=== PATIENT | male | born 1955 | race Caucasian/White ===

== ENCOUNTER 2022-10-02 15:21 | Outpatient (OUT) | payer OTHER, SELFPAY ==
[2022-10-02 15:39] LABS: Basophils Absolute Auto 0.1 10^3/uL (0.0-0.1); Basophils Percent Auto 0.8 % (0.2-2.0); Eosinophils Absolute Auto 0.4 10^3/uL (0.0-0.7); Eosinophils Percent Auto 6.8 % (0.9-7.0); Hematocrit 47.8 % (42.0-54.0); Hemoglobin 16.4 g/dL (14.0-18.0); Immature Granulocytes Abs Auto 0.02 10^3/uL (0.00-0.03); Immature Granulocytes Pct Auto 0.3 % (0.0-0.5); Lymphocytes Absolute Auto 1.5 10^3/uL (1.2-3.8); Lymphocytes Percent Auto 25.4 % (20.5-60.0); Mean Corpuscular HGB Conc 34.3 g/dL (29.9-35.2); Mean Corpuscular Volume 93.2 fL (80.0-94.0); Mean Platelet Volume 10.3 fL (9.5-13.5); Monocytes Absolute Auto 0.5 10^3/uL (0.3-0.8); Monocytes Percent Auto 8.7 % (1.7-12.0); Neutrophils Absolute Auto 3.5 10^3/uL (1.4-6.5); Platelet Count 152 10^3/uL (150-450); Red Blood Count 5.13 10^6/uL (4.70-6.10); Red Cell Distribution Width 12.2 % (11.0-15.0); White Blood Count 6.1 10^3/uL (4.0-11.0)
[2022-10-02 16:29] LABS: Alanine Aminotransferase 51 U/L (16-63); Albumin Globulin Ratio 1.1; Albumin Level 3.9 g/dL (3.4-5.0); Alkaline Phosphatase 52 U/L (46-116); Aspartate Amino Transferase 31 U/L (15-37); BUN Creatinine Ratio 8.7; Bilirubin Total 0.9 mg/dL (0.2-1.0); Calcium 9.3 mg/dL (8.5-10.1); Carbon Dioxide 29.5 mmol/L (21.0-32.0); Chloride 104 mmol/L (98-107); Chol HDL Ratio 1.9; Cholesterol 126 mg/dL (<=200); Estimated GFR (African America >60 (>=60); Estimated GFR (Non-African Ame >60 (>=60); Globulin 3.5 g/dL; Glucose 100 mg/dL (74-106); HDL Cholesterol 65 mg/dL (40-60); Potassium 4.5 mmol/L (3.5-5.1); Sodium 141 mmol/L (136-145); Total Protein 7.4 g/dL (6.4-8.2); Triglycerides 77 mg/dL (<=150); VLDL CHOLESTEROL 15.4 mg/dL
== END 2022-10-02 15:22 | disposition home or self-care (01) ==
LOC: LAB 15:25
PROVIDERS: PCP Family Medicine; Visit Provider Nurse Practitioner
DX: E78.2 Mixed hyperlipidemia (principal); I25.10 Atherosclerotic heart disease of native coronary artery without angina pectoris
CPT/HCPCS: 36415; 80053; 80061; 85025

== ENCOUNTER 2022-12-19 14:55 | Outpatient (OUT) | payer OTHER, SELFPAY ==
[2022-12-19 16:07] LABS: Prostate Specific Antigen Dx 0.76 ng/mL (<=4.00)
== END 2022-12-19 14:56 | disposition home or self-care (01) ==
LOC: LAB 14:58
PROVIDERS: PCP Family Medicine; Visit Provider Urology
DX: R97.20 Elevated prostate specific antigen [PSA] (principal)
CPT/HCPCS: 36415; 84153

== ENCOUNTER 2023-10-09 07:09 | Outpatient (OUT) | payer OTHER, SELFPAY ==
--- NOTE | 2023-10-09 | PCN_ITS ---
CARDIAC STRESS TEST Requesting Physician: Marcia Aguiar M.D. Procedure Date: 10/09/2023 PERFORMING PROVIDER: Silvano Crum M.D. INDICATION: CAD with history of stents. STRESS TEST INFORMATION: Exercise stress test with nuclear myocardial perfusion imaging. Exercise protocol: Jose Resting heart rate: 64 Max heart rate: 161 Peak maximal heart rate percentage: 98% Resting blood pressure: 142/88 Maximum blood pressure: 166/76 Exercise time: 9 minutes 51 seconds Stage reached: 4 METS: 12.9 Reason for termination: Target heart rate achieved, fatigue. Heart rate recovery: Normal. Chronotropic response index: Normal. Functional capacity: Good. Blood pressure response: Normal. ST changes: No significant ST changes meeting the criteria of ischemia. Symptoms: Fatigue, no chest pain. Arrhythmias: None observed. CONCLUSION: 1. Resting EKG demonstrates sinus rhythm with first degree AV block. 2. Patient exercised for 9 minutes and 51 seconds. He reached stage 4, with maximum METS 12.9. 3. There were no ST changes meeting the criteria for ischemia. 4. Sim treadmill score was +9, which portends a low risk of angiographically significant coronary artery disease. 5. Please refer to separately interpreted and reported nuclear myocardial perfusion imaging. MTDD
--- NOTE | 2023-10-09 07:11 | CA_ITS ---
Patient Name: GABRIEL PARDO MR#: [id number] : 1955 Exam Date: 10/09/2023 Ordering Doctor: DR Marcia Aguiar M.D. ECHOCARDIOGRAM REPORT PROCEDURE: CA ECHO DOPPLER COMPLETE INDICATIONS: Aortic valve stenosis COMPARISON: None. DESCRIPTION: COMPLETE ECHOCARDIOGRAM Real-time transthoracic echocardiography with 2D, M-mode, spectral and color flow Doppler performed. QUALITY: Technical quality was good. LEFT VENTRICLE: Normal chamber size. Mild concentric left ventricular hypertrophy. Global left ventricular systolic function is normal. LV EF: Estimated left ventricular ejection fraction is 60-65 %. DIASTOLIC: Normal diastolic function. ATRIAL SEPTUM: LEFT ATRIUM: Normal chamber size. RIGHT ATRIUM: Mild dilatation. RIGHT VENTRICLE: Normal chamber size. Normal right ventricular systolic function. TRICUSPID VALVE: Normal mobility and thickness. No stenosis with No evidence of pulmonary hypertension. RVSP 28 mmHg MITRAL VALVE: Normal mobility and thickness. No evidence of mitral valve stenosis. There is no mitral annular calcification. Trivial mitral regurgitation. AORTIC VALVE: Normal trileaflet appearance. No visible sclerosis. Normal leaflet mobility. No evidence of aortic valve stenosis. Trivial aortic regurgitation. AORTIC ROOT: Normal diameter and appearance. PULMONIC VALVE: Normal thickness and mobility. No stenosis. Trivial regurgitation. PERICARDIUM: No evidence of pericardial effusion. IVC: Collapses with inspirations. Normal size. PLEURA: CONCLUSION: 1. Mild concentric left ventricular hypertrophy with normal systolic function. Estimated LVEF is 60 to 65%. 2. Normal diastolic function. 3. Normal right ventricular size and systolic function. 4. No significant valvular dysfunction. 5. Normal right-sided pressures. 6. No pericardial effusion. Adult Echocardiography Procedure Report Left Ventricle LVEDD (3.7 - 5.6 cm): 3.23 cm LVESD (2.2 - 4.0 cm): 2.25 cm LVIVS thickness (0.6 - 1.2 cm): 1.27 cm LVPW thickness (0.5 - 1.0 cm): 1.09 cm e': 0.09 m/s E - e': 7.60 LVOT Max Gradient: 1.35 mm[Hg] LVOT Area (cm2): 0.58 m/s Peak Velocity (LVOT): 0.58 m/s Mean Velocity (LVOT): 0.46 m/s LVOT Diameter 2.04 cm Left Ventricular Ejection Fraction: 60-65 % Left Atrium LA Volume Index (2D A2C): 30.73 ml/m2 Left Atrium Systolic Dimension: 4.45 cm Mitral Valve MV E to A Ratio: 1.07 Mitral Valve A-Wave Peak Velocity: 0.63 m/s Mitral Valve E-Wave Peak Velocity: 0.68 m/s Right Ventricle RV Internal Diastolic Dimension: 3.59 cm Aorta AO Root Diam: 3.11 cm Ascending Ao Diam: 2.57 cm Aortic Valve AoV Area (Peak Jose): 1.84 cm2, 1.84 cm2 AoV Area (VTI): 1.88 cm2, 1.88 cm2 Peak Velocity(Antegrade Flow): 1.03 m/s Peak Gradient(Antegrade Flow): 4.27 mm[Hg] Mean Velocity(Antegrade Flow): 0.77 m/s Mean Gradient(Antegrade Flow): 2.65 mm[Hg] Velocity Time Integral: 26.90 cm Tricuspid Valve Peak Velocity (Regurgitant Flow): 2.08 m/s, 2.15 m/s, 2.54 m/s Pulmonic Valve Mean Gradient: 2.14 mm[Hg] Mean Velocity: 0.70 m/s Peak Velocity: 1.09 m/s, 1.15 m/s Peak Gradient: 4.71 mm[Hg], 5.31 mm[Hg] Right Atrium Right Atrium Systolic Pressure: 63.03 ml, 63.03 ml Dictated by: Driss Encinas M.D. on 10/09/2023 at 18:41 Approved by: Driss Encinas M.D. on 10/09/2023 at 18:44
--- NOTE | 2023-10-09 08:05 | NM_ITS ---
Patient Name: GABRIEL PARDO MR#: [id number] : 1955 Exam Date: 10/09/2023 Ordering Doctor: DR Marcia Aguiar M.D. RADIOLOGY REPORT PROCEDURE: NM ADELA PERF SPECT REST STR COMPARISON: None. INDICATIONS: CORONARY ARTERY DISEASE TECHNIQUE: Exam Description: Stress/Rest one day protocol gated SPECT Rest Imagin.4 mCi Tc-99m Cardiolite IV on 10/09/2023 Stress Imaging 30.2 mCi Tc-99m Cardiolite IV on 10/09/2023 Exercise Protocol: Jose Heart Rate (bpm): Rest: 64 Max: 151 PMHR: 98 Blood Pressure: Rest: 142/88 Max: 166/76 Exercise Time: Minutes: 9 Seconds: 51 Stage Reached: Stage: 4 Mets 12.9 Symptoms: Rest and peak stress ECG findings were pending and the exercise portion of the study was pending per attending physician Dr. CASTILLO . For more details please see separate cardiac stress test report. FINDINGS: QUALITY OF STUDY: Excellent. PERFUSION DEFECT: None. LOCATION: N/A SIZE: N/A. SEVERITY: N/A. TYPE: N/A. WALL MOTION: Normal. LV SIZE: Normal. 83 mL. TID / TCD: None; 0.9 LVEF: Normal. Calculated EF 78%. SUMMARY: Myocardial perfusion imaging study is NORMAL. CONCLUSION: 1. Normal nuclear medicine myocardial perfusion scan. Dictated by: Richie Dumont M.D. on 10/09/2023 at 14:11 Approved by: Richie Dumont M.D. on 10/09/2023 at 15:02
--- NOTE | 2023-10-09 16:00 | PC.NURSE ---
Nursing Note Cardiac Stress Test Reviewed: Medication, allergies and patient history reviewed. Stress Test: [x ] Patient tolerated stress test well. [ ] Patient unable to tolerate walking on treadmill. Switched to Lexiscan stress test. [ x] No chest pain noted per patient [ ] Chest pain that resolved prior to leaving stress lab. [ ] No dyspnea noted. [ x] Dyspnea that resolved prior to leaving stress lab. [ x] Patient left stress lab asymptomatic and hemodynamically stable. [ ] Patient taken to the Emergency Room due to non-resolving symptoms following stress test. [ x] Patient achieved target heart rate. [ ] Patient unable to achieve target heart rate. [ ] Aminophylline administered as reversal agent to Lexiscan (Regadenoson). [ ] Nitro administered. Nursing Comments: Pt had Cardiolite stress test done. Tolerated well. No chest pain or discomfort. Pt was taken to cafeteria at end of test.
== END 2023-10-09 07:10 | disposition home or self-care (01) ==
LOC: CARD 07:10
PROVIDERS: PCP Family Medicine; Visit Provider Internal Medicine Interventional Cardiology
DX: I77.819 Aortic ectasia, unspecified site (principal); R68.89 Other general symptoms and signs; I25.10 Atherosclerotic heart disease of native coronary artery without angina pectoris; I25.83 Coronary atherosclerosis due to lipid rich plaque
CPT/HCPCS: 78452; 93017; 93306; A9500

== ENCOUNTER 2024-03-21 10:49 | Outpatient (OUT) | payer OTHER, SELFPAY ==
[2024-03-22 11:11] LABS: PSA, Free 0.34 ng/mL; Prostate Specific Ag 1.2 ng/mL (0.0-4.0)
== END 2024-03-21 10:50 | disposition home or self-care (01) ==
LOC: LAB 10:53
PROVIDERS: PCP Family Medicine; Visit Provider Urology
DX: R97.20 Elevated prostate specific antigen [PSA] (principal)
CPT/HCPCS: 36415; 84153; 84154

== ENCOUNTER 2025-03-02 14:24 | Outpatient (OUT) | payer OTHER, SELFPAY ==
--- OUTSIDE RECORDS SUMMARY | 2025-03-02 14:30 | XMS_ITS | Clinical Summary ---
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
--- OUTSIDE RECORDS SUMMARY | 2025-03-02 14:30 | XMS_ITS | Clinical Summary ---
Author Organization [facility] Address [address] [place] [address] Care Team Providers Care Rn Patient Care Name Role Phone Noe Orta MD Primary Care Provider [phone] Allergies Active AllergyReactionsCriticalityNoted DateCommentsCiprofloxacinRashLow 10/02/2022 Medications MedicationSigDispense QuantityRefillsLast FilledStart DateEnd DateStatus finasteride (Proscar) 5 mg tablet 09/23/2022ctive alfuzosin (Uroxatral) 10 mg 24 hr tablet 06/26/2022ctive aspirin 81 mg chewable tablet Indications:Coronary artery disease involving torres martinez coronary artery of torres martinez heart without angina pectorisChew 1 tablet (81 mg) once daily as directed. 90 tablet 4Active atorvastatin (Lipitor) 80 mg tablet Indications:Coronary artery disease involving torres martinez coronary artery of torres martinez heart without angina pectoris,Mixed hyperlipidemiaTake 1 tablet (80 mg) by mouth in the evening. 90 tablet 5Active carvedilol (Coreg) 12.5 mg tablet Indications:Coronary artery disease involving torres martinez coronary artery of torres martinez heart without angina pectoris,Mixed hyperlipidemiaTake 1 tablet (12.5 mg) by mouth with breakfast and with evening meal. 180 tablet 5Active losartan (Cozaar) 25 mg tablet Indications:Essential hypertensionTake 1 tablet (25 mg) by mouth in the morning. as directed 90 tablet 5Active Active Problems ProblemNoted DateDiagnosed DateAbnormal abdominal CT scan09/04/2023enign prostatic hyperplasia with urinary xbxscnvlmyt35/28/2024MI 31.0-31.9,adult 09/04/2023hronic xvsognaousq31/28/2024Family history of malignant neoplasm of /28/2024Gross fbbpaqeqw80/28/2024High prostate specific antigen (PSA) 09/04/2023Increased frequency of igdmthcar29/28/9760Fhsjbuij52/28/2024 Ivgufxlvjksy80/28/2024ost-void rkbuyudux27/28/2024ecurrent coronary arteriosclerosis after percutaneous transluminal coronary deproixhzap69/28/2024 Epigastric pain09/04/2023ight upper quadrant abdominal pain09/04/2023enign essential HTN10/02/2022 Assessment & Plan (10/02/2022 3:24 PM EDT): Hypertension is stable but elevated in office, pt to take b/p at home and staff to call him in 1-2 weeks to review b/p log and determine if antihypertensive regime needs adjusted. Pt voiced understanding Mixed zzejunetkggbck95/26/2023 Assessment & Plan (10/02/2022 3:23 PM EDT): Continue lipitor and provided scripts for annual labs Coronary artery disease involving torres martinez coronary artery of torres martinez heart without angina dikjafsj19/26/2023 Assessment & Plan (10/02/2022 3:22 PM EDT): Coronary artery disease is stable without any concerning symptoms. Continue GDMT- ASA, lipitor, coreg and losartan continue risk factor modifications- heart healthy diet, regular exercise as tolerated and continue all medications. Refills for meds- scripts sent to pharmacy Atypical chest pain02/12/2019Cardiovascular stress test lrwtnhyv73/06/2019 Family History Medical HistoryRelationNameCommentsCoronary artery diseaseFatherRelationName StatusCommentsFatherDeceasedMotherDeceased Social History Tobacco UseTypesPacks/DayYears UsedDateSmoking Tobacco: NeverSmokeless Tobacco: Never Tobacco Cessation:Counseling Given: Not Answered Alcohol UseStandard Drinks/WeekCommentsYes2 (1 standard drink = 0.6 oz pure alcohol)2 per dayUT Safety & EnvironmentAnswerDate RecordedFear of Current or Ex-PartnerNot on file05/31/2023Emotionally AbusedNot on file05/31/2023hysically AbusedNot on file05/31/2023Sexually AbusedNot on file05/31/2023hysically or Sexually AbusedNot on file05/31/2023Sex and Gender InformationValueDate Recorded Sex Assigned at BirthNot on fileLegal QdaDndx9210/06/2021 12:21 AM EDTGender IdentityNot on fileSexual OrientationNot on file Last Filed Vital Signs Vital SignReadingTime TakenCommentsBlood Axpcefkw759/8607 1:51 PM EDT Zrcoq2212 1:51 PM EDTTemperature--Respiratory Rate--Oxygen Fqvudfssqg05% 10/09/2024 1:51 PM EDTInhaled Oxygen Concentration--Dmgsyn38.1 kg (214 lb) 10/09/2024 1:51 PM GLVBkcsgq999.8 cm (5' 10 )10/09/2024 1:51 PM EDTBody Mass Index30.7107 1:51 PM EDT Plan of Treatment Health MaintenanceDue DateLast DoneCommentsCT Eactnnfcpnlm26/06/1957Colonoscopy 1955Colorectal Cancer Lwtrtlqnz60/06/1957FIT-DNA1956FIT1955 FOBT1955 6359Ppngcncioyqnw04/06/1957Depression Qmysxoisy95/06/1969Adult Tetanus 1978Fall Risk Ouniozcck34/06/2022COVID-19 Vaccine ( season) 5104/10/2020, 07/06/2020, 06/15/2020Influenza Vaccine (#1)2024 04/19/2024, 02/07/2023, 02/18/2022, Additional history existsZoster Vaccines Hxhoxvmve79/14/2021, 01/02/2020Pneumococcal Vaccine: 50+ YearsCompleted 02/07/2023HIB VaccinesAged OutNo longer eligible based on patient's age to complete this topicHPV VaccinesAged OutNo longer eligible based on patient's age to complete this topicIPV VaccinesAged OutNo longer eligible based on patient's age to complete this topicMeningococcal B VaccineAged OutNo longer eligible based on patient's age to complete this topicMeningococcal VaccineAged OutNo longer eligible based on patient's age to complete this topicRotavirus Vaccines Aged OutNo longer eligible based on patient's age to complete this topic Insurance * Guarantor: Matt Tate TypeRelation to PatientDate of BirthPhone Billing AddressPersonal/CcytbmIgvg28/06/1956 [facility] [address] MemberSubscriberPlan / Payer (Effective 2019-Present)Name:Matt Tate Relation to Subscriber:SelfName:Matt Tate Payer ID:[id number] (NAIC) Type:Not on file Address: [address] [place] [id number] Care Teams Team MemberRelationshipSpecialtyStart DateEnd Noe Orta MD [address] [facility] [address] [address] [facility] - [facility]10/02/22
[2025-03-03 04:07] LABS: PSA, Free 0.22 ng/mL
== END 2025-03-02 14:25 | disposition home or self-care (01) ==
PROVIDERS: PCP Family Medicine; Visit Provider Urology
DX: R97.20 Elevated prostate specific antigen [PSA] (principal)
CPT/HCPCS: 36415; 84153; 84154

== ENCOUNTER 2025-03-19 11:23 | Inpatient (IN) | payer OTHER, MEDICARE, SELFPAY ==
[2025-03-19] VITALS (22 sets, daily range): BP systolic 163–192; BP diastolic 91–110; PULSE 68–82; TEMP 36.7–36.9; O2SAT 92–97; BMI 30.4; BMI 30.8
--- OUTSIDE RECORDS SUMMARY | 2025-03-19 07:46 | XMS_ITS ---
Author Organization [facility] in [place] Address [address] [place] [address] Care Team Providers Care Vp Ancillary Name Role Phone Pranav Orta Primary Care Provider REASON FOR VISIT Check Sunday- not back yet Encounters Encounter Location Date Provider Diagnosis [facility] [address] [place] [address] 03/19/2025 Pranav Orta Urinary tract infection N39.0 Assessments Encounter Date Diagnosis (ICD Code) Assessment Notes Treatment Notes Treatment Clinical Notes Section Notes 03/19/2025 Urinary tract infection (ICD-10 - N39.0) Plan Of Treatment Pending Test Test Name Order Date CULTURE URINE 03/19/2025 Progress Notes * Sivan TATEnDOB:1955 ([age] yo M)Acc No.[id number]:03/19/2025 UNLOCKED PROGRESS NOTE Patient:?Matt TATE :1955???Age:69 Y???Sex:MalePhone:[phone] Address:[address] [place] [phone] Subjective: * Chief Complaints: * C heck Sunday- not back yet * Medical History: * Surgical History: * Hospitalization/Major Diagno stic Procedure: * Medications: Objective: * Vitals: * Physical Examination: ??? Assessment: * Assessment: 1.?Urinary tract infection - N39.0 (Primary)??? Plan: * Treatment: ?LAB: CULTURE URINE * Procedure Codes: * * Date:?
--- NOTE | 2025-03-19 12:00 | ECG_ITS ---
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
--- NOTE | 2025-03-19 12:00 | XR_ITS ---
[address] [address] Patient Name: GABRIEL PARDO MRN: [id number] date: 1955 Sex: M Assigned Patient Location: ER Current Patient Location: ED.MAIN Accession/Order Number: [id number] Exam Date: 03/19/2025 12:30 Report Date: 03/19/2025 12:49 At the request of: ALINA MATHEWS MD Procedure: XR chest 1V PORTABLE AP ERECT CHEST 1213 hours CLINICAL HISTORY: Right upper quadrant and right back pain with bloating and nausea COMPARISON: None The heart is within normal limits. There is no vascular congestion. The lungs, as visualized, are clear. There is no effusion or pneumothorax. The osseous structures are intact. Endplate spurring is visualized. XR/XR chest 1V IMPRESSION: NO ACUTE FINDINGS Impression dictated by: Parul Ayala M.D. 03/19/2025 12:49 PM Dictation Location: [place] [address] Electronically authenticated by: [id number] Y Date: 03/19/2025 12:49
--- NOTE | 2025-03-19 12:01 | CT_ITS ---
[address] [address] Patient Name: GABRIEL PARDO MRN: [id number] date: 1955 Sex: M Assigned Patient Location: ER Current Patient Location: [facility] Accession/Order Number: [id number] Exam Date: 03/19/2025 12:57 Report Date: 03/19/2025 13:31 At the request of: ALINA MATHEWS MD Procedure: CT abdomen pelvis w con CT abdomen pelvis w con 03/19/2025 1:05 PM SIGNS AND SYMPTOMS: Right upper quadrant abdominal pain, bloating, nausea TECHNIQUE: Multidetector ct axial images of the abdomen and pelvis were obtained with IV contrast. Multiplanar reformats were performed and reviewed to further define anatomy and possible pathology. CT was performed with one or more of the following dose reduction techniques: Automated exposure control, adjustment of the mA and/or kV according to patient size, or use of iterative reconstruction technique. COMPARISON: None. FINDINGS: Lower Chest: Within normal limits. ABDOMEN: Liver: Within normal limits. Bile Ducts: Normal caliber. Gallbladder: No calcified gallstones. Normal caliber wall. Pancreas: Edema is noted near the head of the pancreas suspicious for acute pancreatitis. Spleen: Within normal limits. Adrenals: Within normal limits. Kidneys: Within normal limits. Pelvis: Reproductive Organs: No pelvic masses. Ureters: Within normal limits. Bladder: Within normal limits. Bowel: Normal caliber. There is a normal appendix in the right lower quadrant. Mesenteric Lymph Nodes: No enlarged mesenteric lymph nodes. Peritoneum: No ascites or free air, no fluid collection. Vessels: Atherosclerotic changes are noted in the abdominal aorta and its branches. Retroperitoneum: Within normal limits. Abdominal Wall: Within normal limits. Bones: Degenerative changes are noted in the thoracolumbar spine, hips, and sacroiliac joints. CT/CT abdomen pelvis w con IMPRESSION: Edema is noted near the head of the pancreas suspicious for acute pancreatitis. No bowel obstruction or obstructive uropathy. Impression dictated by: Matty Elena M.D. 03/19/2025 1:31 PM Dictation Location: [place] [address] Electronically authenticated by: [id number] Y Date: 03/19/2025 13:31
--- NOTE | 2025-03-19 12:04 | ED.GENADUL1 ---
HPI HPI - General Adult General Chief complaint: Abdominal Pain Stated complaint: ABDOMINAL& BACK PAIN Time Seen by Provider: 03/19/25 11:29 Source: patient Mode of arrival: walk-in Limitations: no limitations History of Present Illness HPI narrative: 69-year-old male presents for abdominal pain. He states he has been having this on and off since 2019. He states when it happens his stomach sticks out but it is not sticking out now. No fever or trauma. No blood in his stool. No chest pain or fever or cough. He points to the mid abdomen to indicate where the pain is. Related Data Home Medications ?Medication ?Instructions ?Recorded ?Confirmed alfuzosin 10 mg tablet,extended 10 mg PO QDAY 03/19/25 03/19/25 release 24 hr aspirin 81 mg capsule 81 mg PO DAILY 03/19/25 03/19/25 atorvastatin 80 mg tablet 80 mg PO QDAY 03/19/25 03/19/25 carvedilol 12.5 mg tablet 12.5 mg PO Q12H 03/19/25 03/19/25 cholecalciferol (vitamin D3) 50 50 mcg PO DAILY 03/19/25 03/19/25 mcg (2,000 unit) capsule (D3-2000) finasteride 5 mg tablet 5 mg PO QDAY 03/19/25 03/19/25 losartan 25 mg tablet 25 mg PO QDAY 03/19/25 03/19/25 Allergies Allergy/AdvReac Type Severity Reaction Status Date / Time ciprofloxacin (From Cipro) Allergy Hives Verified 03/19/25 11:40 Opioid HPI Opioid Management Most Recent Opioid Data: Last Pain Scale 6 Today, 11:41 Review of Systems ROS Narrative A ten point review of systems is negative except as noted above. PFSH PFSH Medical History (Updated 03/19/25 @ 14:45 by Troy Breen MD) Hypertension ?I10 - Essential (primary) hypertension (ICD-10) Surgical History (Updated 03/19/25 @ 14:15 by Kelle Keys RN) Stented coronary artery ?Z95.5 - Presence of coronary angioplasty implant and graft (ICD-10) Social History Little interest or pleasure in doing things: not at all Feeling down, depressed, or hopeless: not at all Exam Narrative Exam Narrative: Nurses note and vital signs reviewed General:The patient appears well and in no apparent distress. Patient is resting comfortably on cart. Skin:Warm, dry, no pallor noted.There is no rash noted. Head:Normocephalic, atraumatic Eye: Normal conjunctiva, no drainage Ears, Nose, Mouth, and Throat: oral mucosa is moist. Nares patent. Cardiovascular:Regular Rate and Rhythm Respiratory:Patient is in no distress, no accessory muscle use, lungs are clear to auscultation, no wheezing, rales or rhonchi Back:non-tender GI: Soft and nondistended. No masses. Mild tenderness in the mid abdomen Musculoskeletal: The patient has no evidence of calf tenderness, no pitting edema, symmetrical pulses noted bilaterally Neurological:A&O, normal speech Psychiatric:Cooperative Constitutional Vital Signs, click to edit/add: Last Vital Signs Temp 98.5 F 03/19/25 11:41 Pulse 68 03/19/25 12:10 Resp 13 03/19/25 12:10 BP 186/106 H 03/19/25 14:29 Pulse Ox 96 03/19/25 14:30 O2 Del Method Room Air 03/19/25 11:41 Course Vital Signs Vital signs: Vital Signs Temperature 98.5 F 03/19/25 11:41 Pulse Rate 69 03/19/25 11:41 Respiratory Rate 15 03/19/25 11:41 Blood Pressure 179/105 H 03/19/25 11:41 Pulse Oximetry 97 03/19/25 11:41 Oxygen Delivery Method Room Air 03/19/25 11:41 Temperature 98.5 F 03/19/25 11:41 Pulse Rate 68 03/19/25 12:10 Respiratory Rate 13 03/19/25 12:10 Blood Pressure 186/106 H 03/19/25 14:29 Pulse Oximetry 96 03/19/25 14:30 Oxygen Delivery Method Room Air 03/19/25 11:41 Medical Decision Making MDM Narrative Medical decision making narrative: His lipase is mildly elevated and CT is consistent with early acute pancreatitis. No masses noted. The patient does not drink alcohol heavily and does not appear to have biliary disease. He will be admitted for IV hydration and pain control. Treatment diagnosis and disposition were discussed with the patient. Differential Diagnosis Differential Diagnosis: Pancreatitis, colitis, constipation Lab Data Lab results reviewed: Yes I reviewed the patient's lab results Labs: Lab Results 12/11/25 12/11/25 Range/Units 12:06 12:13 WBC 12.7 H (4.0-11.0) 10^3/uL RBC 5.15 (4.70-6.10) 10^6/uL Hgb 16.6 (14.0-18.0) g/dL Hct 47.6 (42.0-54.0) % MCV 92.4 (80.0-94.0) fL MCH 32.2 (25.9-34.0) pg MCHC 34.9 (29.9-35.2) g/dL RDW 11.8 (11.0-15.0) % Plt Count 158 (150-450) 10^3/uL MPV 10.5 (9.5-13.5) fL Neut % (Auto) 82.5 H (43.0-75.0) % Lymph % (Auto) 8.5 L (20.5-60.0) % Gage % (Auto) 7.7 (1.7-12.0) % Eos % (Auto) 0.7 L (0.9-7.0) % Baso % (Auto) 0.3 (0.2-2.0) % Neut # (Auto) 10.5 H (1.4-6.5) 10^3/uL Lymph # (Auto) 1.1 L (1.2-3.8) 10^3/uL Gage # (Auto) 1.0 H (0.3-0.8) 10^3/uL Eos # (Auto) 0.1 (0.0-0.7) 10^3/uL Baso # (Auto) 0.0 (0.0-0.1) 10^3/uL Abs Immat Gran (auto) 0.04 H (0.00-0.03) 10^3/uL Imm/Tot Granulo (auto) 0.3 (0.0-0.5) % Sodium 136 (136-145) mmol/L Potassium 4.0 (3.5-5.1) mmol/L Chloride 100 (98-107) mmol/L Carbon Dioxide 31.1 (21.0-32.0) mmol/L Anion Gap 8.9 BUN 12.0 (7.0-18.0) mg/dL Creatinine 1.04 (0.70-1.30) mg/dL Est GFR ( Amer) >60 (>=60 mL/min/1.73m^2) Est GFR (Non-Af Amer) >60 (>=60 mL/min/1.73m^2) BUN/Creatinine Ratio 11.5 Glucose 112 H (74-106) mg/dL Calcium 9.6 (8.5-10.1) mg/dL Total Bilirubin 1.3 H (0.2-1.0) mg/dL Direct Bilirubin 0.4 H (0.0-0.2) mg/dL AST 16 (15-37) U/L ALT 28 (16-63) U/L Alkaline Phosphatase 51 (46-116) U/L Troponin I High Sens 8.5 (4.0-76.1) pg/mL Total Protein 7.3 (6.4-8.2) g/dL Albumin 3.8 (3.4-5.0) g/dL Globulin 3.5 g/dL Albumin/Globulin Ratio 1.1 Triglycerides 71 (<=150) mg/dL Amylase 69 (25-115) U/L Lipase 134.0 H (16.0-77.0) U/L Urine Color Yellow (YELLOW) Urine Clarity Clear (CLEAR) Urine pH 6.0 (5.0-9.0) Ur Specific Moffat 1.025 (1.005-1.025) Urine Protein Negative (NEG/TRACE) mg/dL Urine Glucose (UA) Negative (NEGATIVE) mg/dL Urine Ketones 15 A (NEGATIVE) mg/dL Urine Occult Blood Negative (NEGATIVE) Urine Nitrite Negative (NEGATIVE) Urine Bilirubin Small A (NEGATIVE) Urine Urobilinogen 1.0 (0.2-1.0) EU/dL Ur Leukocyte Esterase Negative (NEGATIVE) Urine RBC 0-2 (0-2) #/HPF Urine WBC 0-2 A (NONE SEEN) #/HPF Ur Squamous Epith Cells Rare (NONE/RARE) #/LPF Urine Crystals None seen (None Seen) #/HPF Urine Bacteria None seen (NONE SEEN) #/HPF Urine Casts None seen (NONE SEEN) #/LPF Urine Mucus Trace A (NONE SEEN) Ur Culture Indicated? No Imaging Data CT scan - abdomen: Radiologist's impression: ITS Impressions Chest X-Ray 03/19/25 12:00 IMPRESSION: NO ACUTE FINDINGS Impression dictated by: Parul Ayala M.D. 03/19/2025 12:49 PM Dictation Location: [facility] [employer] Electronically authenticated by: [id number] Y Date: 03/19/2025 12:49 Abdomen/Pelvis CT 03/19/25 12:01 IMPRESSION: Edema is noted near the head of the pancreas suspicious for acute pancreatitis. No bowel obstruction or obstructive uropathy. Impression dictated by: Matty Elena M.D. 03/19/2025 1:31 PM Dictation Location: [employer] Electronically authenticated by: [id number] Y Date: 03/19/2025 13:31 ECG Data Attestation: I personally reviewed and interpreted this ECG as follows: (EKG on my interpretation shows sinus rhythm with rate 68 and no acute change) Discharge Plan Discharge Chief Complaint: Abdominal Pain Clinical Impression: Acute pancreatitis Patient Disposition: Admitted as Observation Time of Disposition Decision: 14:45 Condition: Fair
[2025-03-19 12:25] LABS: Hematocrit 47.6 % (42.0-54.0); Hemoglobin 16.6 g/dL (14.0-18.0); Immature Granulocytes Abs Auto 0.04 10^3/uL (0.00-0.03); Immature Granulocytes Pct Auto 0.3 % (0.0-0.5); Lymphocytes Absolute Auto 1.1 10^3/uL (1.2-3.8); Mean Corpuscular HGB Conc 34.9 g/dL (29.9-35.2); Mean Corpuscular Hemoglobin 32.2 pg (25.9-34.0); Mean Corpuscular Volume 92.4 fL (80.0-94.0); Platelet Count 158 10^3/uL (150-450); Red Blood Count 5.15 10^6/uL (4.70-6.10); White Blood Count 12.7 10^3/uL (4.0-11.0)
[2025-03-19 12:29] LABS: Glucose Urine UA NEGATIVE (NEGATIVE)
[2025-03-19 12:35] LABS: Cast Seen? NONE SEEN #/LPF (NONE SEEN); Crystals Seen? None Seen #/HPF (None Seen); Urine Culture Indicated NO
[2025-03-19 12:50] LABS: Alanine Aminotransferase 28 U/L (16-63); Albumin Globulin Ratio 1.1; Albumin Level 3.8 g/dL (3.4-5.0); Alkaline Phosphatase 51 U/L (46-116); Amylase 69 U/L (25-115); Anion Gap 8.9; Aspartate Amino Transferase 16 U/L (15-37); Blood Urea Nitrogen 12.0 mg/dL (7.0-18.0); Calcium 9.6 mg/dL (8.5-10.1); Carbon Dioxide 31.1 mmol/L (21.0-32.0); Chloride 100 mmol/L (98-107); Estimated GFR (African America >60 (>=60 mL/min/1.73m^2); Estimated GFR (Non-African Ame >60 (>=60 mL/min/1.73m^2); Globulin 3.5 g/dL; Glucose 112 mg/dL (74-106); Lipase 134.0 U/L (16.0-77.0); Potassium 4.0 mmol/L (3.5-5.1); Sodium 136 mmol/L (136-145); Total Protein 7.3 g/dL (6.4-8.2)
--- OUTSIDE RECORDS SUMMARY | 2025-03-19 12:52 | XMS_ITS | CCD ---
Author Organization [facility] Inform ion Partnership [facility] Care Team Providers Care Db2 Developer Name Role Phone ELCHECO, EHAB A Admitting Unavailable ELCHECO, EHAB A Attending Unavailable SELF, REFERRED Referring Unavailable SELF, REFERRED Primary Care Unavailable Danny Orta Primary Care Physician [phone] Naz Parra I Unavailable Unavailable BRENNEN, DR DELGADO Primary Care Unavailable PAULA MCGREGOR JR Admitting Unavailable PAULA MCGREGOR JR Consulting Unavailable PAULA MCGREGOR JR Attending Unavailable MELVIN, DR WRIGHT Attending Unavailable BRENNEN, DR DELGADO Primary Care Unavailable MELVIN, DR WRIGHT Admitting Unavailable MELVIN, DR WRIGHT Consulting Unavailable Aaron MAO Attending Unavailable Aaron MAO Attending Unavailable Emeka Zarate Attending Unavailable Emeka Zarate Admitting Unavailable MARCIA AGUIAR Attending Unavailable Allergies Allergy ClassificationReported Allergen(s)Allergy TypeDate of OnsetReaction(s) Facility (2 sources)Ciprofloxacin; Translations: [CIPROFLOXACIN]Drug Roncxmd95-37-4561[facility] Repository (6 sources)Ciprofloxacin; Translations: [ciprofloxacin]Drug AllergyEruption of skin (disorder)[facility] (1 source)CiprofloxacinDrug Wfepcjh06-22-9322[facility] (1 source)CiprofloxacinDrug Ojkcnld65-12-8589[facility] Medications Current Medications MedicationDrug Class(es)DatesSig (Normalized)Sig (Original)24 hr alfuzosin hydrochloride 10 mg extended release oral tablet (5 sources)alpha-Adrenergic BlockerStart: 03-26-2024 End: 27-34-1238cabb 1 tablet by mouth once dailyalfuzosin 10 mg ER Tab 10 mg = 1 tab(s), Oral, Daily, X 90 day(s), # 90 tab(s), Refills(s) 3, Pharmacy: [facility], 178, cm, 03/26/24 9:56:00 EST, Height/Length Dosing, 100.6, kg, 03/26/24 9:56:00 EST, Weight Dosing Start Date: 03/26/24 Stop Date: 03/21/25 Status: OrderedStart: 01-93-7924zvgi 1 tablet by mouth once dailyalfuzosin 10 mg ER Tab 10 mg = 1 tab(s), Oral, Daily, # 90 tab(s), Refills(s) 3, Pharmacy: [facility], 178, cm, 12/28/21 14:33:00 EDT, Height/Length Dosing, 99, kg, 12/28/21 14:33:00 EDT, Weight Dosing Start Date: 01/02/23 Status: Ordered Start: 74-70-0880sheo 1 tablet by mouth once dailyalfuzosin 10 mg ER Tab 10 mg = 1 tab(s), Oral, Daily, # 90 tab(s), Refills(s) 3, Pharmacy: [facility] ([facility]), 178, cm, 10/20/20 10:46:00 EDT, Height/Length Dosing, 98.9, kg, 10/20/20 10:46:00 EDT, Weight Dosing Start Date: 11/25/21 Status: OrderedStart: 79-70-8477iemq 1 tablet by mouth once dailyalfuzosin 10 mg ER Tab 10 mg = 1 tab(s), Oral, Daily, # 90 tab(s), Refills(s) 3, Pharmacy: [facility], 178, cm, 10/20/20 10:46:00 EDT, Height/Length Dosing, 98.9, kg, 10/20/20 10:46:00 EDT,Weight Dosing Start Date: 01/04/21 Status: OrderedAspir 81 (5 sources)Start: 53-08-4172uvrf 1 mg by mouth once dailyAspir 81 mg, Oral, Daily, Refills(s) 0 Start Date: 03/05/19 Status: Orderedatorvastatin 80 mg oral tablet (5 sources)HMG-CoA Reductase InhibitorStart: 86-43-4921kdoi 1 mg by mouth once dailyatorvastatin 80 mg Tab mg tab(s), Oral, Daily, Refills(s) 0 Start Date: 03/05/19 Status: Orderedcarvedilol (5 sources)alpha-Adrenergic Gabriel, beta-Adrenergic BlockerStart: 11-24-2019 carvedilol Oral, Refills(s) 0 Start Date: 11/24/19 Status: Orderedfinasteride 5 mg oral tablet (5 sources)5-alpha Reductase InhibitorStart: 03-26-2024 End: 87-62-6885vqlm 1 tablet by mouth once dailyfinasteride 5 mg Tab 5 mg = 1 tab(s), Oral, Daily, X 90 day(s), # 90 tab(s), Refills(s) 3, Pharmacy: [facility], 178, cm, 03/26/24 9:56:00 EST, Height/Length Dosing, 100.6, kg, 03/26/24 9:56:00 EST, Weight Dosing Start Date: 03/26/24 Stop Date: 03/21/25 Status: OrderedStart: 77-27-3584qhyh 1 tablet by mouth once dailyfinasteride 5 mg Tab 5 mg = 1 tab(s), Oral, Daily, # 90 tab(s), Refills(s) 3, Pharmacy: [facility] ([facility] 178, cm, 12/28/21 14:33:00 EDT, Height/Length Dosing, 99, kg, 12/28/21 14:33:00 EDT, Weight Dosing Start Date: 07/17/22 Status: OrderedStart: 34-62-9682tnsx 1 tablet by mouth once daily finasteride 5 mg Tab 5 mg = 1 tab(s), Oral, Daily, # 90 tab(s), Refills(s) 3, Pharmacy: [facility] ([facility]), 178, cm, 10/20/20 10:46:00 EDT, Height/Length Dosing, 98.9, kg, 10/20/20 10:46:00 EDT, Weight Dosing Start Date: 11/25/21 Status: OrderedStart: 67-56-8845zmad 1 tablet by mouth once daily finasteride 5 mg Tab 5 mg = 1 tab(s), Oral, Daily, # 90 tab(s), Refills(s) 3, [facility]acy: [facility], 178, cm, 10/20/20 10:46:00 EDT, Height/Length Dosing, 98.9, kg, 10/20/20 10:46:00 EDT, Weight Dosing Start Date: 01/04/21 Status: Orderedlisinopril 2.5 mg oral tablet (2 sources)Angiotensin Converting Enzyme InhibitorStart: 47-63-4593ggxr 1 mg by mouth once dailylisinopril 2.5 mg Tab mg tab(s), Oral, Daily, Refills(s) 0 Start Date: 03/05/19 Status: OrderedLosartan (3 sources)Angiotensin 2 Receptor BlockerStart: 64-08-9941nkkalony Oral, Daily, Refills(s) 0 Start Date: 12/28/21 Status: OrderedMisc Medication (5 sources)Start: 88-63-6988Lxyh Medication Start Date: 06/21/13 Status: Ordered pantoprazole 40 mg delayed release oral tablet (4 sources)Proton Pump InhibitorStart: 10-44-3559njnf 1 mg by mouth once daily Pantoprazole [address] Tab mg tab(s), Oral, Daily, Refills(s) 0 Start Date: 03/05/19 Status: Orderedtadalafil 20 mg oral tablet (4 sources)Phosphodiesterase 5 InhibitorStart: 20-13-9298uslrpztlm 20 mg Tab 20 mg = 1 tab(s), Oral, As Directed, # 30 tab(s), Refills(s) 3, Pharmacy: [facility] [place] [id number] Start Date: 03/05/19 Status: Ordered Problems Active Problems Problem ClassificationProblemDateDocumented DateEpisodic/ChronicAbdominal pain (11 sources)Epigastric pain; Translations: [Right upper quadrant pain]Onset: 991126-95-4423LsrkeukeRpscjrku atherosclerosis and other heart disease (7 sources)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; Translations: [Atherosclerotic heart disease of [place] coronary artery without angina pectoris]Onset: 401777-14-4856Qmkixgf Disorders of lipid metabolism (2 sources)Mixed hyperlipidemia; Translations: [Mixed hyperlipidemia]Onset: 15-28-0272UupnisqJaulgjwod hypertension (7 sources)Hypertensive disorder; Translations: [Essential (primary) hypertension]Onset: 744154-78-0605ZydozygPwsgjvosherre symptoms and ill- defined conditions (5 sources)Post-micturition lwsskyibevvl74-91-7462EapowwtLdziweonkfqsa symptoms and ill-defined conditions (16 sources)Andrew hematuria; Translations: [Increased frequency of urination] Onset: 978883-14-3651DzzxkqliOoyabufwtxz of prostate (10 sources)Benign prostatic hyperplasia; Translations: [Benign prostatic hypertrophy with outflow obstruction]Onset: hronic Inflammatory conditions of male genital organs (5 sources)Chronic dtygtaiqcqj73-31-5726MayndueWlrve male genital disorders (5 sources)Vmiozjffs62-77-0248AuwqrjrFezup male genital disorders (2 sources)Male erectile dysfunction, unspecified; Translations: [Erectile dysfunction]Onset: 77-61-1289TdgizsqXzhls nutritional; endocrine; and metabolic disorders (5 sources)Body mass index 30+ - nywpplo08-99-7215InohsjqCfodr nutritional; endocrine; and metabolic disorders (1 source)Obese class I; Translations: [Body mass index (BMI) 31.0-31.9, adult] Onset: 57-83-8456AtzkeadFwzdu screening for suspected conditions (not mental disorders or infectious disease) (17 sources)CT of abdomen abnormal; Translations: [Raised prostate specific antigen]Onset: 675205-68-4907UexgynrqIqphabeomi disorders (not diabetes) (9 sources)Pancreatitis; Translations: [Acute pancreatitis without necrosis or infection, unspecified]Onset: 438216-03-5545EnbogexvLirrezur codes; unclassified (5 sources)Family history of prostate -57-0954EpdysvmeZjainmzy codes; unclassified (3 sources)Family history of cancer; Translations: [Family history of malignant neoplasm of prostate]Onset: 43-26-1045Kpixyupr Past or Other Problems Problem ClassificationProblemDateDocumented DateEpisodic/ChronicNeoplasms of unspecified nature or uncertain behavior (1 source)Neoplasm of unspecified behavior of bone, soft tissue, and skin; Translations: [Neoplasm of unspecified behavior of bone, soft tissue, and skin] Onset: 10-50-7710JlypikutVyvyzgsfpaai (3 sources)prostate infections( Confirmed )63-51-3917Dmyxpgyjflkn (2 sources)prostate zawzjdzeow32-74-8235 Results Test NameValueInterpretationReference RangeFacilityOffice Visiton 10-09-2024 Follow-up [id number] Gabriel Pardo 1955 M Date Provider Department Center 10/09/2024 271-MARCIA AGUIAR [facility] Pamela Hos Family History Problem Relation Age of Onset Coronary artery disease Father Family Status - Relation Status Age at Mother Father Level of Service:88919 [place] OFFICE/OUTPATIENT ESTABLISHED LOW MDM [facility]24 Ambulatory Visit SummaryAmbulatory Visit Summary GABRIEL PARDO :1955 Visit Date:03/26/2024 Ambulatory Visit Instructions Your Diagnosis Elevated PSA BPH with obstruction/lower urinary tract symptoms Family hx of prostate cancer Your Care Team Attending Physician - Aaron MAO MD Primary Care Physician - Danny Orta MD This Is Your Medications List alfuzosin (alfuzosin 10 mg ER Tab) finasteride (finasteride 5 mg Tab) Contact prescribing physician if questions or concerns Non-Formulary Medication (Misc Medication) aspirin (Aspir 81) atorvastatin (atorvastatin 80 mg Tab) carvedilol losartan Procedures Performed Cystoscope (12/30/2019), Placement of stent (02/13/2019). Discharge Vitals Heart Rate (Peripheral) 62 Blood Pressure 132/88 Height 178 cm Height 70 in Weight 100.6 kg Weight 221.785 lb BMI 31.75 What to do next Scheduled Follow-Up Appointments Sunday 8:30 AM EST With: Aaron MAO MD Where: [facility] [address] [place] [address]- You Need to Schedule the Following Appointments Follow Up with Aaron MAO MD, URL When: Where: [facility] [address], [place] [address]- Medications What How Much When Instructions Changed alfuzosin (alfuzosin 10 mg ER Tab) 1 Tablets By Mouth Every day Duration: [facility] Changed finasteride (finasteride 5 mg Tab) 1 Tablets By Mouth Every day Duration: [facility] Unchanged aspirin (Aspir 81) By Mouth Every day Contact prescribing physician if questions or concerns Unchanged atorvastatin (atorvastatin 80 mg Tab) By Mouth Every day Contact prescribing physician ifquestions or concerns Unchanged carvedilol By Mouth Contact prescribing physician if questions or concerns Unchanged losartan By Mouth Every day Contact prescribing physician if questions or concerns Unchanged Non-Formulary Medication (Misc Medication) Contact prescribing physician if questions or concerns Pharmacy Information [facility]: [address] [facility] [address] [place], [place] [id number] [phone] Allergies Cipro (Rash) Problems Ongoing - Any problem that you are currently receiving treatment for. Abdominal pain, RUQ Abnormal abdominal CT scan BMI 31.0-31.9,adult BPH with obstruction/lower urinary tract symptoms CAD S/P percutaneous coronary angioplasty Chronic prostatitis Elevated PSA Epigastric pain Family hx of prostate cancer Frequent urination Gross hematuria HTN (hypertension) Impotence Nocturia Pancreatitis Post-void dribbling Historical - Any problem that you are no longer receiving treatment for. prostate infections Patient Survey You may receive a survey via text or e-mail asking about your office visit. Please share your experience with us by completing your survey. We appreciate your feedback and thank you for choosing us for your care. Education Materials Prostate Cancer Screening Prostate cancer screening is testing that is done to check for the presence of prostate cancer in men. The prostate gland is a walnut-sized gland that is located below the bladder and in front of therectum in males. The function of the prostate is to add fluid to semen during ejaculation. Prostatecancer is one of the most common types of cancer in men. Who should have prostate cancer screening? Screening recommendations vary based on age and other risk factors, as well as between the professional organizations who make the recommendations. In general, screening is recommended if: ??? You are age 50 to 70 and have an average risk for prostate cancer. You should talk with your healthcare provider about your need for screening and how often screening should be done. Because most prostate cancers are slow growing and will not cause , screening in this age group is generally reserved for men who have a 10- to 15-year life expectancy. ??? You are younger than age 50, and you have these risk factors: ? Having a father, brother, or uncle who has been diagnosed with prostate cancer. The risk is higher if your family member's cancer occurred at an early age or if you have multiple family members with prostate cancer at an early age. ? Being a male who is Black or is of [place] or sub-Saharan descent. In general, screening is not recommended if: ??? You are younger than age 40. ??? You are between the ages of 40 and 49 and you have no risk factors. ??? You are 70 years of age or older. At this age, the risks that screening can cause are greater than the benefits that it may provide. If you are at high risk for prostate cancer, your health care provider may recommend that you have screenings more often or that you start screening at a younger age. How is screening for prostate c (more content not included)...[facility]/Clinic Noteon 68-80-4291Zquznpd Office/Clinic Note Urology Office/Clinic Note Chief Complaint 1 year follow up HPI Staff 1 yr with PSA due to elevated PSA. Previous Dx: BPH w/LUTS, elevated PSA, impotence, fam hx of prostate ca in brother. No hx of prostate MRI or bx. Cysto 2019. *Alfuzosin 10mg ER qd and Finasteride 5mg qd, Pt needs [facility] PSA done 03/21/24 - 1.2 & 28.3% Dysuria: No Incomplete bladder emptying: No Hematuria: No Frequency: No Urgency: No Nocturia: 1x a night Stream: Strong Leaking: No Post void dripping: No Wearing pads/ Depends: No Urge incontinence: No Stress incontinence: No Incontinence without Sensory Awareness: No Abdominal pain: No Flank pain: No Sexual complaints: No History of Present Illness Tests reviewed: UA, PSA I have reviewed the previous health record information and history for this patient from Dr. Mao. I have reviewed and verified the staff HPI to be accurate for this encounter. Review of Systems PHQ Score Initial Depression Screen Score: 0 SCORE ROS - Provider Constitutional: denies weight loss, denies hot flashes. Eyes: denies eye problems. Gastrointestinal: denies nausea, denies vomiting. Cardiovascular: denies chest pain or angina. Integumentary: no dryness Musculoskeletal: denies musculoskeletal symptoms. ENMT: denies otolaryngeal symptoms. Respiratory: no shortness of breath. Heme/Lymph: denies easy bleeding tendency, denies easy bruising tendency. Psychiatric: no confusion, no anxiety. Genitourinary: See HPI. Physical Exam Vitals & Measurements HR: 62(Peripheral) BP: 132/88 HT: 70 in HT: 178 cm WT: 100.6 kg WT: 221.785 lb BMI: 31.75 General Appearance: alert, no distress, well nourished, well developed male. Assessment/Plan 1. Elevated PSA (R97.20: Elevated prostate specific antigen [PSA]) PSA: 11/18/18 - 0.80 03/05/19 - has been taking Finasteride since at least this date 04/12/20 - 1.87 (3.74) 10/18/20 - 0.70 (1.40) 10/22/21 - 0.73 (1.46) 12/19/22 - 0.76 (1.52) 03/21/24 - 1.20 (2.40) & 28.3% No hx of prostate MRI or bx. PSA stable. Will cont to monitor. Since he is stable, can do DREs every other yr. Pt prefers this. Follow up 1 yr with PSA F&T, MARIBEL or sooner if needed. Pt understands and agrees with plan. 2. BPH with obstruction/lower urinary tract symptoms (N40.1: Benign prostatic hyperplasia with lower urinary tract symptoms) UA neg. IPSS 1. Taking Alfuzosin 10mg ER qd and Finasteride 5mg qd. [facility]. No urinary complaints. No UTIs. 3. Family hx of prostate cancer (Z80.42: Family history of malignant neoplasm of prostate) Brother [1]. Had prostatectomy 2-3 yrs ago, sounds like he was on for a couple yrs prior to surgery. Cont screening above. Follow-up With When Contact Information MELVIN SWENSON, Aaron Mcleod, URL [facility] [address], [place] [address]- Additional Instructions: 1 yr with PSA F&T, MARIBEL Patient Education Prostate Cancer Screening I, Regla Vieira, personally scribed for Dr. Mao on 03/26/2024 10:32:50. . Documentation recorded by the scribe, Regla Vieira, accurately reflects the services(s) I performed and decisions made by me. Authenticated by Dr. Mao on 03/26/2024 10:43:54. Problem List/Past Medical History Ongoing Abdominal pain, RUQ Abnormal abdominal CT scan BMI 31.0-31.9,adult BPH with obstruction/lower urinary tract symptoms CAD S/P percutaneous coronary angioplasty Chronic prostatitis Elevated PSA Epigastric pain Family hx of prostate cancer Frequent urination Gross hematuria HTN (hypertension) Impotence Nocturia Pancreatitis Post-void dribbling Historical prostate infections Procedure/Surgical History Cystoscope (12/30/2019), Placement of stent (02/13/2019). Medications alfuzosin 10 mg ER Tab, 10 mg= 1 tab(s), Oral, Daily, 3 refills Aspir 81, Oral, Daily atorvastatin 80 mg Tab, Oral, Daily carvedilol, Oral finasteride 5 mg Tab, 5 mg= 1 tab(s), Oral, Daily, 3 refills losartan, Oral, Daily Misc Medication Allergies Cipro (Rash) Social History Alcohol - Denies Alcohol Use, 04/28/2020 Current. Beer. Daily., 03/23/2024 Substance Abuse Never., 03/23/2024 Tobacco Never (less than 100 in lifetime) Tobacco Use:. Never Smokeless Tobacco Use:., 03/26/2024 Family History Prostate cancer: Brother. Immunizations Vaccine Date Status SARS-CoV-2 (COVID-19) mRNA BNT-162b2 vax 02/08/2021 Recorded influenza virus vaccine, inactivated 01/19/2021 Recorded SARS-CoV-2 (COVID-19) mRNA BNT-162b2 vax 07/06/2020 Recorded SARS-CoV-2 (COVID-19) mRNA BNT-162b2 vax 06/15/2020 Recorded zoster vaccine, inactivated 04/22/2020 Recorded influenza virus vaccine, inactivated 01/19/2020 Recorded zoster vaccine, inactivated 01/02/2020 Recorded influenza virus vaccine, inactivated 01/02/2020 Recorded influenza virus vaccine, inactivated 02/09/2018 Rec (more content not included)...[facility] HospitalComment on above:Result Comment: Electronically Signed By: Aaron MAO MD\.br\Date and Time Signed: 03/26/24 10:43 EST\.br\Electronically Co-Signed By: Regla Vieira\.br\Date and Time Co-Signed: 03/26/24 10:39 ESTLon 03-18-2024 Specimen: [id number] Received: 03/18/24 Status: KELSEA Modi Num: [id number] Spec Type: Surgical Subm Dr: Emeka Zarate MD Tissues: A Skin-Other than Cyst, tag, debridement or plastic repair (POST AURICULAR) Procedures: HANSA/Diane Cool/Verónica Painter Age/ Patient Sex Location Account Attending Physician Gabriel Pardo/M ALEC [id number] Emeka Zarate MD SPEC NUM: [id number] RECD: 03/18/24 STATUS: KELSEA FATIMAMaury NUM: [id number] BRENDA: 03/18/24 [facility] [address]: Emeka Zarate MD ENTERED: 03/18/[address] [facility] [address]: SPEC TYPE: Surgical DEPT: S ENTERED BY: [id number] RECV BY: [id number] ORDERED: HE/2, Gross/Micro L4 ORDERED: HE/2, Gross/Micro L4 Pathological Diagnosis Skin, postauricular area, excision: -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 Mass increasing in size-primary biopsy Gross Description Part A is received in formalin labeled with the patients name, date of , and postauricular is and ovoid portion of adipose tissue, 1.5 x 0.9 x 0.9 cm, resected with a forman-shaffer, wrinkled, on oriented ellipse of skin, 0.4 x 1 cm. One half of the specimen is inked black with the opposing half inked green. Serial sections reveal yellow-shaffer, glistening, and uniform cut surfaces. The polar tips are submitted intact in cassette A1 with the bisected center of the specimen submitted in cassette A2. (2, ns, [id number] [id number] A) Microscopic Description Microscopic examinations are performed supporting the above interpretation Specimen: [id number] Received: 03/18/24 Status: KELSEA Ly Num: [id number] Spec Type: Surgical Subm Dr: Emeka Zarate MD Tissues: A Skin-Other than Cyst, tag, debridement or plastic repair (POST AURICULAR) Procedures: Flex SINGH L4 Patient: BebetoGabriel L [id number] (Continued) Specimen: [id number] Received: 03/18/24 (Continued) Signed (signature on file) Karley Olea MD 03/19/241926 Specimen: [id number] Received: 03/18/24 Status: KELSEA Modi Num: [id number] Spec Type: Surgical Subm Dr: Emeka Zarate MD Tissues: A Skin-Other than Cyst, tag, debridement or plastic repair (POST AURICULAR) Procedures: Flex SINGH L4 Patient: Gabriel Pardo [id number] (Continued) Specimen: [id number] Received: 03/18/24 (Continued) CPT Codes 12393 Specimen: [id number] Received: 03/18/24 Status: KELSEA Modi Num: [id number] Spec Type: Surgical Subm Dr: Emeka Zarate MD Tissues: A Skin-Other than Cyst, tag, debridement or plastic repair (POST AURICULAR) Procedures: HE/2, Gross/Micro L4 Patient: Gabriel Pardo [id number] (Continued) Signed (signature on file) Chin-Rafa Olea MD 03/19/[address] [place] [address] Physician Ymryh93vy [id number] stress test and echo performed on 10/09/2023: MD Alka Lanza MA Please let him know stress test was normal Thanks Patient informed.NormalUnEast Ohio Regional HospitalAMYLASEon 11-10-2020 Amylase [Catalytic activity/Vol]44 U/XOhfyvv60-557Jnc [facility] HospitalComment on above:Performed By: #### CRP, CMP, LIPA, LOREE #### [facility] [address] [place] [address] Elver KarenCBC AUTO DIFFon [id number] #0.0 103/ulNormal0.0-0.1The [facility] HospitalComment on above:Performed By: #### CBC #### [facility] [address] [address] Elver KarenBasophils/100 WBC (Bld)0.7 %Normal0.2-2.0[facility] Comment on above:Performed By: #### CBC #### [facility] [address] [address] Elver KarenEO #0.3 103/ulNormal0.0-0.7The [facility] HospitalComment on above: Performed By: #### CBC #### [facility] [address] [address] Elver KarenEosinophils/100 WBC (Bld)5.5 %Normal0.9-7.0[facility] Comment on above:Performed By: #### CBC #### [facility] [address] [address] Elver KarenErythrocyte distribution width (RBC) [Ratio]12.5 %Uwnwpu90.0-15.0The [facility] HospitalComment on above:Performed By: #### CBC #### [facility] [address] [place] [address] Elver KarenHematocrit (Bld) [Volume fraction]46.2 %Htmxsy74.0-54.0The [facility] HospitalComment on above:Performed By: #### CBC #### [facility] [address] [place] [address] Elver KarenHemoglobin (Bld) [Mass/Vol]15.7 g/xGUwyces80.0-18.0The [facility] HospitalComment on above:Performed By: #### CBC #### [facility] [address] [place] [address] Elver KarenIG #0.02 10e3/ulNormal0.00-0.03The [facility] HospitalComment on above:Performed By: #### CBC #### [facility] [address] [place] [address] Elver KarenIG %0.3 %Normal0.0-0.5The [facility] HospitalComment on above: Performed By: #### CBC #### [facility] [address] [place] [address] Elver KarenLYMPH #1.1 103/ulCritically low1.2-3.8The [facility] HospitalComment on above:Performed By: #### CBC #### [facility] [address] [place] [address] Elver KarenLymphocytes/100 WBC (Bld)19.0 %Critically low20.5-60.0The [facility] HospitalComment on above:Performed By: #### CBC #### [facility] [address] [place] [address] Elver KarenMANUAL DIFF REQNONormalThe [facility] HospitalComment on above: Performed By: #### CBC #### [facility] [address] [place] [address] Elver KarenMCH (RBC) [Entitic mass]31.7 lnCttzkq24.9-34.0[facility] Comment on above:Performed By: #### CBC #### [facility] [address] [place] [address] Elver KarenMCHC (RBC) [Mass/Vol]34.0 g/nMXoimce88.9-35.2[facility] Comment on above:Performed By: #### CBC #### [facility] [address] [place] [address] Elver KarenMCV (RBC) [Entitic vol]93.3 xIDaovxd61.0-94.0[facility] Comment on above:Performed By: #### CBC #### [facility] [address] [place] [address] Elver KarenMONO #0.5 103/ulNormal0.3-0.8The [facility] HospitalComment on above: Performed By: #### CBC #### [facility] [address] [place] [address] Elver KarenMonocytes/100 WBC (Bld)8.9 %Normal1.7-12.0[facility] Comment on above:Performed By: #### CBC #### [facility] [address] [place] [address] Elver KarenNEUT #3.9 103/ulNormal1.4-6.5The [facility] HospitalComment on above: Performed By: #### CBC #### [facility] [address] [place] [address] Elver KarenNeutrophils/100 WBC (Bld)65.6 %Ovcmpa29.0-75.0[facility] Comment on above:Performed By: #### CBC #### [facility] [address] [place] [address] Elver KarenPlatelet mean volume (Bld) [Entitic vol]11.0 fLNormal9.5-13.5The [facility] HospitalComment on above:Performed By: #### CBC #### [facility] [address] [place] [address] Elver QkvmzLSP029 103/ulCritically dwr039-726Qsa [facility] HospitalComment on above:Performed By: #### CBC #### [facility] [address] [place] [address] Elver KarenRBC4.95 106/ulNormal4.70-6.10The [facility] HospitalComment on above: Performed By: #### CBC #### [facility] [address] [place] [address] Elver KarenWBC6.0 103/ulNormal4.0-11.0The [facility] HospitalComment on above: Performed By: #### CBC #### [facility] [address] [place] [address] Elver KarenCRPon 89-39-3494BBI [Mass/Vol]mg/LNormal<=1.0[facility] Comment on above:Performed By: #### CRP, CMP, LIPA, LOREE #### [facility] [address] [place] [address] Elver KarenLIPASEon 17-16-6152Hzgayl [Catalytic activity/Vol]163.0 U/LNormal 23.0-300.0The [facility] HospitalComment on above:Performed By: #### CRP, CMP, LIPA, LOREE #### [facility] [address] [place] [address] Elver KarenPROF 14(COMP METB)on 04-42-3457Nhmxdio [Mass/Vol]3.9 g/dLNormal 3.5-5.0The [facility] HospitalComment on above:Performed By: #### CRP, CMP, LIPA, LOREE #### [facility] [address] [place], [place] [address] Elver KarenAlbumin/Globulin [Mass ratio]1.3 {ratio}NormalGerman Hospital Comment on above:Performed By: #### CRP, CMP, LIPA, LOREE #### [facility] [address] [place] [address] Elver KarenALP [Catalytic activity/Vol]48 U/HHbyekc18-222CseGerman Hospital Comment on above:Performed By: #### CRP, CMP, LIPA, LOREE #### [facility] [address] [address] Elver KarenALT [Catalytic activity/Vol]50 U/BGsqdqm10-51GxtGerman [facility] Comment on above:Performed By: #### CRP, CMP, LIPA, LOREE #### [facility] [address] [place] [address] Elver KarenAnion gap [Moles/Vol]7.4 mmol/LNormalGerman HospitalComment on above:Performed By: #### CRP, CMP, LIPA, LOREE #### [facility] [address] [place] [address] Elver KarenAST [Catalytic activity/Vol]30 U/LBesbjd92-13CksGerman Hospital Comment on above:Performed By: #### CRP, CMP, LIPA, LOREE #### [facility] [address] [place] [address] Elver KarenBilirubin [Mass/Vol]1.0 mg/dLNormal0.2-1.3TC[facility] Comment on above:Performed By: #### CRP, CMP, LIPA, LOREE #### [facility] [address] [place] [address] Elver KarenCalcium [Mass/Vol]9.1 mg/dLNormal8.4-10.2[facility] Comment on above:Performed By: #### CRP, CMP, LIPA, LOREE #### [facility] [address] [place] [address] Elver KarenChloride [Moles/Vol]106 mmol/YLwsmrj72-598GhyGerman Hospital Comment on above:Performed By: #### CRP, CMP, LIPA, LOREE #### [facility] [address] [address] Elver KarenCO2 [Moles/Vol]32.9 mmol/LCritically high22.0-30.0German HospitalComment on above:Performed By: #### CRP, CMP, LIPA, LOREE #### [facility] [address] [place] [address] Elver KarenCreatinine [Mass/Vol]1.05 mg/dLNormal0.66-1.25[facility] Comment on above:Performed By: #### CRP, CMP, LIPA, LOREE #### [facility] [address] [place] [address] Elver KarenEGFR-AF ICELANDIC>60Normal>=60The [facility] HospitalComment on above: Performed By: #### CRP, CMP, LIPA, LOREE #### [facility] [address] [place] [address] Elver KarenEGFR-NON AF ICELANDIC>60Normal>=60The [facility] HospitalComment on above:Performed By: #### CRP, CMP, LIPA, LOREE #### [facility] [address] [place] [address] Elver KarenGlobulin (S) [Mass/Vol]3.0 g/dLNormalThe [facility] HospitalComment on above:Performed By: #### CRP, CMP, LIPA, LOREE #### [facility] [address] [place] [address] Elver KarenGlucose [Mass/Vol]111 mg/dLCritically flon74-311Xbu [facility] HospitalComment on above:Performed By: #### CRP, CMP, LIPA, LOREE #### [facility] [address] [place] [address] Elver KarenPotassium [Moles/Vol]4.3 mmol/LNormal3.4-5.0[facility] Comment on above:Performed By: #### CRP, CMP, LIPA, LOREE #### [facility] [address] [place] [address] Elver KarenProtein [Mass/Vol]6.9 g/dLNormal6.1-8.2The [facility] HospitalComment on above:Performed By: #### CRP, CMP, LIPA, LOREE #### [facility] [address] [address] Elver KarenSodium [Moles/Vol]142 mmol/BOdipdb697-765Gtx [facility] Comment on above:Performed By: #### CRP, CMP, LIPA, LOREE #### [facility] [address] [address] Elver KarenUrea nitrogen [Mass/Vol]8.0 mg/dLCritically low9.0-20.0The [facility] HospitalComment on above:Performed By: #### CRP, CMP, LIPA, LOREE #### [facility] [address] [address] Elver KarenUrea nitrogen/Creatinine [Mass ratio]7.6 mg/mgNormalThe [facility] HospitalComment on above:Performed By: #### CRP, CMP, LIPA, LOREE #### [facility] [address] [address] Elver KarenSED RATE WESTERGRENon 26-57-1149NZK RATE5 mm/hrNormal<=20The [facility] HospitalComment on above:Performed By: #### SEDR #### [facility] [address] [address] Elver KarenCardiovascular Lab Reporton [id number] Lab Report [facility] Patient Name: [facility] MR #: [id number] Physician: Marcia Aguiar Department of M.D. Medicine Service Date: 02/13/2019 Division of Birthdate: 1955 Cardiology Room #: 3CD [id number] Adult Cardiovascular Services [place] [address] Cardiovascular Laboratory Report IMPRESSION: 1. Severe, complex bifurcation lesion of the proximal left anterior descending coronary artery and adjacent large branching diagonal, successfully treated by balloon angioplasty and bifurcation stent placement. 2. Severe distal disease of the left circumflex coronary artery. 3. Aivw-kr-njpfqkdu disease of the right coronary artery. 4. Normal global left ventricular systolic function by noninvasive imaging. RECOMMENDATIONS: 1. Aspirin 81 mg lifelong. 2. Effient 10 mg daily for a minimum of 6 months. 3. Aggressive cardiovascular risk factor modification. 4. Optimization of medical management; beta-gabriel, high-intensity statin therapy +/- an angiotensin-converting enzyme inhibitor are indicated. 5. Follow up with JI Sarmiento and/or Dr. Aguiar in the next 2-4 weeks. 6. Follow up with his family physician as scheduled. PROCEDURES: Bilateral selective coronary angiography via left radial approach, percutaneous balloon angioplasty and Synergy drug-eluting stent placement in the left anterior descending and adjacent 1st diagonal branch, final kissing balloon angioplasty. METHODS: After risks, benefits, and alternatives were explained, written informed consent was obtained. The patient was prepped and draped in usual sterile fashion over the left wrist and left groin. Using 1% lidocaine solution, local infiltration anesthesia was achieved over the left wrist. Using a modified Seldinger technique and a micropuncture kit, access to the left radial artery was obtained. A 6-Croatian glide sheath was inserted without difficulty. Bilateral selective coronary angiography was performed using JR4 and JL4 catheters. After reviewing the images, it was elected to proceed with an interventional procedure. A 6-Croatian XB 3.5 guide catheter was advanced over the J-wire and coaxially engaged into the left main ostium. Attempts to wire the left anterior descending were unsuccessful. Therefore, a 0.014 run-through NS wire was used to traverse the suspect stenosis and positioned in the adjacent diagonal branch. Balloon angioplasty was performed using a 2.5 x 15 mm noncompliant balloon. Subsequently, a Fielder wire was used to successfully cross the stenosis and positioned distally in the left anterior descending coronary artery. Balloon angioplasty across the stenosis was performed using the 2.5 x 15 noncompliant balloon and subsequently a 3.0 x 20 mm noncompliant balloon. Repeat imaging showed an improved result. A 3.5 x 38 mm Synergy drug-eluting stent was subsequently deployed across the lesion in the left anterior descending coronary artery. The wire in the diagonal branch was subsequently removed and used to cross the stent struts and back into the diagonal branch. Balloon angioplasty across the ostium of the diagonal was performed using a 2.0 x 15 mm noncompliant balloon. Repeat imaging showed a suboptimal result. Kissing balloon angioplasty was subsequently performed using a 2.0 x 15 mm balloon in the diagonal and a 3.0 x 20 mm balloon in the left anterior descending. Repeat images now showed evidence of a small dissection flap at the ostium of the diagonal. At this point, it was elected to proceed with stent placement across the diagonal ostium. A 2.5 x 16 mm Synergy drug-eluting stent was advanced over the wire in the diagonal and positioned to cover the ostium. A 3.0 x 20 mm balloon was advanced into the stent in the left anterior descending. The balloon was inflated in the left anterior descending and the stent deployed in the diagonal at high pressures. The stent delivery balloon was subsequently retracted care home into the left anterior descending stent. Final kissing balloon angioplasty was performed. The balloons were removed. Repeat imaging showed an optimal result. The wires were removed. Final images showed CHEPE-3 flow with no dissection, thrombus, or distal wire trauma. At this point, it was elected to conclude the procedure. All catheters were removed. The radial sheath was removed with application of a TR band per protocol to achieve optimal hemostasis. Overall, the patient tolerated the procedure well. There were no overt complications. He was to be transferred to the holding area in stable condition. FINDINGS: Hemodynamics: AO 128/75. LEFT VENTRICULOGRAPHY: This was not performed. CORONARY ARTERIES: Left main coronary artery: This arises from the left coronary cusp. It bifurcates into the left anterior descending and left circumflex coronary artery. It shows mild plaque. Left anterior descending coronary artery: Baseline imaging shows an 80% to 85% stenosis just past the ostium extending into the mid vessel with a discrete 90% stenosis just prior to the bifurcation with a large branching first diagonal. The diagonal has evidence of significant ostial disease; the bifurcation Dyson classification is a 1:1:1. Following balloon angioplasty and placement of bifurcation stents, the lesion was reduced to 0%. Final images showed CHEPE-3 flow with no dissection, thrombus, or distal wire trauma. The mid portion shows a short segment 30% stenosis that was left untreated. Left circumflex coronary artery: This shows mild plaque in the proximal to mid portions of the vessel. It gives rise to a minute 1st obtuse marginal, a small 2nd obtuse marginal, and a large branching 3rd obtuse marginal. The inferior branch of the 3rd obtuse marginal shows a 90% to 95% stenosis in a small caliber portion that subtends a small territory. The circumflex continues as a small caliber AV groove branch. Right coronary artery: This is a dominant vessel giving rise to the posterior descending and posterolateral branches. There is mild plaque proximally there was a 30% to 40% mid vessel stenosis. The distal vessel shows mild plaque and luminal irregularities. INDICATIONS: Angina, abnormal stress test. Electronically Signed by: Marcia Aguiar M.D. 02/21/2019 02:34 P Marcia Aguiar M.D. Date Dict: 02/15/2019/10:30 A/Marcia Aguiar M.D. Date Trans: 02/15/2019 11:18 Cristobal/jean pierre DN_JN:[id number] Medical Center Vital Signs Date TimeVital SignValuePerforming PggheipgiQydwbcqi66-45-8094 09:52-0500Blood Pressure LocationPanancy MAO [facility] [place] 825722-18-2024 09:52-0500Diastolic blood ptuqdhds26 mm[Hg]Aaron MAO [facility] [place] 825722-18-2024 09:52-0500Heart rate62 /minAaron MAO [facility] [place] 825722-18-2024 09:52-0500Systolic blood qisovpdt317 mm[Hg]Aaron MAO [facility] [place] 825722-12-2023 09:46-0500Diastolic blood tukhaarh84 mm[Hg]Aaron MAO [facility] [place] 825722-12-2023 09:46-0500Mean blood topifkcj16 mm[Hg]Aaron MAO [facility] [place] 944242-12-2023 09:46-0500Systolic blood ajlgfomq411 mm[Hg]Aaronhernesto MAO [facility] [place] 944242-12-2023 09:40-0500Blood Pressure LocationPaActive Mind Technology [facility] [place] 944242-12-2023 09:40-0500Diastolic blood pghuedpf03 mm[Hg]Aaron MAO [facility] [place] 944242-12-2023 09:40-0500Heart rate72 /minSolace Lifesciences [facility] [place] 944242-12-2023 09:40-0500Systolic blood kujvcpaj976 mm[Hg]Aaron MAO [facility]09-21-2022 14:30-0400Blood Pressure LocationCaActive Mind Technology [facility]09-21-2022 14:30-0400Diastolic blood vrhhwduq90 mm[Hg]Aaron MAO [facility]09-21-2022 14:30-0400Heart rate63 /minSolace Lifesciences [facility]09-21-2022 14:30-0400Systolic blood hmskvslu677 mm[Hg]Aaron MAO [facility] Encounters Encounter DateEncounter TypeCare ProviderFacilityStart: 63-00-1202dljnznofpf Aaron R WATERSFacility:EU [place]Start: 10-09-2024 End: 40-30-4633slogempesnLNZR ELCHECOOhio State Health Systemtart: 03-26-2024 End: 61-21-7271kxtzubwcmkMpmwwnq R WATERSFacility:EU [place]Start: 03-26-2024 End: 06-15-1420Blanlhb encounter procedureAaron Mcleod MAO [facility] Start: 03-18-2024 End: 93-12-9552fpbhbqpyhzOsoufwp SurfieldFacility:[facility] Hospitaltart: 03-20-2023 End: 78-53-2224Ejstobb encounter procedureAaron Mcleod MAO [facility] Start: 12-28-2021 End: 33-25-6303Wewjbhm encounter procedureAaron Mcleod MAO [facility] Start: 10-22-2021 End: 81-52-6834faqnanjwtfND AARON MAOFacility:G8Jbejd: 10-21-2021 End: 89-77-2318Pzi Drop Kristal Jain [facility] Start: 10-21-2021 End: 87-17-1965Rgealqm encounter procedurePatricabdirahman Mcleod MELVIN [facility] Start: 11-10-2020 End: 87-99-5282mzwsipmothQZ DANNY ORTAFacility:E0Ykmjy: 02-12-2019 End: 29-87-6159Vwkgmaj encounter procedureMARCIA A NINAFacility:[facility] Procedures DateProcedureProcedure DetailPerforming ClinicianStart: 81-61-4785TSV screening DR DANNY Schwab on above:Performed By: #### PSAD #### [facility] [address] [place] [address] Dr. Aline OleaStart: 82-09-3169Pluiosszzd, device (physical object)Aaronhernesto MAO Start: 71-73-9322Yoxysxgri of stentPatricabdirahman MAO Comment on above:Done in [place] by Dr. Kennedy Immunizations Immunization DateImmunizationNotesCare DrzhoqepHhjatjbb99-01-2246LBFJ-FbE-5 (COVID-19) mRNA BNT-162b2 vaxPatrick [facility]2021influenza virus vaccine, unspecified formulationPatrick MAO [facility]03-30-2021SARS-CoV-2 (COVID-19) mRNA BNT-162b2 vaxPatrick MAO [facility] 415695-99-1101LZYE-VnR-7 (COVID-19) mRNA BNT-162b2 vax Aaron MAO [facility] 01596279-88-4898fhknjp vaccine recombinantPatrick MAO [facility]10-12-2020influenza virus vaccine, unspecified formulationPatrick MAO [facility] 09028594-06-9629cfttnlryt virus vaccine, unspecified formulationPatrick MAO [facility]09-25-2020zoster vaccine recombinantSolace Lifesciences [facility] [place] 944241-03-2018influenza virus vaccine, unspecified formulationNatoActive Mind Technology [facility] [place] 944241-22-2017influenza, unspecified formulationSolace Lifesciences [facility] Payers DatePayer CategoryPayerPolicy [id number] Health [id number] Health [id number] [id number] 2.0.1.729840.3.57[id number] 2.0.1.613906.3.57[id number] 2.0.1.505523.3.57[id number] 2.0.1.241[id number] 2.0.1.736834.3.579.2.531 Social History DateTypeDetailFacilityStart: 10-20-2020 End: 93-89-2222Ejnyhlq smoking statusNever smoked tobacco (finding)[facility] Tobacco smoking statusNeverExec[facility] Sex Assigned At BirthMale[facility] Functional Status RlqdDtncpwepruNifrhuNovsbpic22-27-8617Tittrbcwiz StatusN/AExec[facility] of [place] 944242-12-2023Functional StatusN/AExec[facility]09-21-2022Functional StatusN/A [facility] Clinical Notes 12-28-2021 to 10-09-2024 Note Date & IvsmRoqeLvialjkp68-19-5180 [facility] Chief Complaint: Patient here for 1 year follow up. Patient states he has no cardiac complaints at this time. HPI: Gabriel Pardo is a 69 y.o. male Here in routine follow-up Doing well; no new symptoms Pertinently, in 2019, the patient had no symptoms before his stress test. His family physician ordered it given his age and comorbidities. He had no improvement in any symptoms after the PCI. In fact, he tells me he was running up to 10 miles several times a week at that time. Update 10/09/2024: Doing very well. No cardiac complaints. Has taken pickleball and is enjoying; no symptoms Apart from aches that evening! Review of Systems Constitutional: Negative. Past Medical History He has no past medical history on file. Surgical History He has no past surgical history on file. Social History He reports that he has never smoked. He has never used smokeless tobacco. No history on file for alcohol use and drug use. Family History No family history on file. Allergies Ciprofloxacin Medications Current Outpatient Medications: alfuzosin (Uroxatral) 10 mg 24 hr tablet, , Disp: , Rfl: aspirin 81 mg chewable tablet, Chew 1 tablet (81 mg) once daily as directed., Disp: 90 tablet, Rfl: 3 atorvastatin (Lipitor) 80 mg tablet, TAKE 1 TABLET BY MOUTH IN THE EVENING, Disp: 90 tablet, Rfl: 2 carvedilol (Coreg) 12.5 mg tablet, TAKE 1 TABLET BY MOUTH WITH BREAKFAST AND WITH EVENING MEAL, Disp: 180 tablet, Rfl: 2 finasteride (Proscar) 5 mg tablet, , Disp: , Rfl: losartan (Cozaar) 25 mg tablet, TAKE 1 TABLET BY MOUTH ONCE DAILY DIRECTED, Disp: 90 tablet, Rfl: 2 Last Recorded Vitals BP 137/86 (BP Location: Right arm, Patient Position: Sitting) Pulse 79 Ht 1.778 m (5' 10 ) Wt 97.1 kg (214 lb) SpO2 96% BMI 30.71 kg/m??? Physical Examination: GENERAL: alert and oriented x3, well developed, in no acute distress. HEAD: atraumatic, normocephalic. EYES: JERICA, EOMI. NECK: trachea midline, no JVD present, no carotid bruits present. CARDIAC: S1, S2 present. RRR. No murmur, rubs, or gallops. RESPIRATORY: CTAB, no increased effort of breathing, no rales, rhonchi, or wheezing. ABDOMEN: soft, nontender, nondistended. EXTREMITIES: no lower extremity edema, peripheral pulses are 2+ bilaterally. No rash/skin discoloration present. NEURO: strength/sensation equal and symmetric in bilateral upper and lower extremities. PSYCH: appropriate mood, affect, and judgement. CV Testing: No echocardiogram results found for the past 12 months Stress test 10/12/2023: Sim treadmill score +9; no ischemic EKG changes Normal myocardial perfusion imaging study; ejection fraction 78% Echocardiogram 10/27/2023: Left ventricular systolic function normal; EF 60 to 65% Mild concentric left ventricular hypertrophy Normal diastolic function Normal right ventricular size and systolic function No significant valvular abnormalities Normal right-sided pressures No pericardial effusion Assessment: Coronary artery disease, history of proximal LAD/D bifurcation revascularization, residual Lcx disease Dyslipidemia Essential hypertension Mild aortic dilatation Plan: Continue current medical therapy including aspirin, high intensity statin therapy, beta-gabriel and an angiotensin receptor gabriel Aggressive cardiovascular risk factor modification Return to clinic in 1 year or sooner should problems arise I'll have to take up Pickel Ball! Marcia Aguiar MD, MPH, [facility], [facility], [facility] Interventional Cardiology Pager Email: [email or web address] Hospital Discharge instructions Patient Education 03/26/2024 10:32:28 Prostate Cancer Screening Prostate Cancer Screening Prostate cancer screening is testing that is done to check for the presence of prostate cancer in men. The prostate gland is a walnut-sized gland that is located below the bladder and in front of therectum in males. The function of the prostate is to add fluid to semen during ejaculation. Prostatecancer is one of the most common types of cancer in men. Who should have prostate cancer screening? Screening recommendations vary based on age and other risk factors, as well as between the professional organizations who make the recommendations. In general, screening is recommended if: You are age 50 to 70 and have an average risk for prostate cancer. You should talk with your healthcare provider about your need for screening and how often screening should be done. Because most prostate cancers are slow growing and will not cause , screening in this age group is generally reserved for men who have a 10- to 15-year life expectancy. You are younger than age 50, and you have these risk factors: ?Having a father, brother, or uncle who has been diagnosed with prostate cancer. The risk is higherif your family member's cancer occurred at an early age or if you have multiple family members withprostate cancer at an early age. ?Being a male who is Black or is of [place] or sub-Saharan descent. In general, screening is not recommended if: You are younger than age 40. You are between the ages of 40 and 49 and you have no risk factors. You are 70 years of age or older. At this age, the risks that screening can cause are greater than the benefits that it may provide. If you are at high risk for prostate cancer, your health care provider may recommend that you have screenings more often or that you start screening at a younger age. How is screening for prostate cancer done? The recommended prostate cancer screening test is a blood test called the prostate-specific antigen(PSA) test. PSA is a protein that is made in the prostate. As you age, your prostate naturally produces more PSA. Abnormally high PSA levels may be caused by: Prostate cancer. An enlarged prostate that is not caused by cancer (benign prostatic hyperplasia, or BPH). This condition is very common in older men. A prostate gland infection (prostatitis) or urinary tract infection. Certain medicines such as male hormones (like testosterone) or other medicines that raise testosterone levels. A rectal exam may be done as part of prostate cancer screening to help provide information about the size of your prostate gland. When a rectal exam is performed, it should be done after the PSA level is drawn to avoid any effect on the results. Depending on the PSA results, you may need more tests, such as: A physical exam to check the size of your prostate gland, if not done as part of screening. Blood and imaging tests. A procedure to remove tissue samples from your prostate gland for testing (biopsy). This is the only way to know for certain if you have prostate cancer. What are the benefits of prostate cancer screening? Screening can help to identify cancer at an early stage, before symptoms start and when the cancer can be treated more easily. There is a small chance that screening may lower your risk of dying from prostate cancer. The chance is small because prostate cancer is a slow-growing cancer, and most men with prostate cancer from a different cause. What are the risks of prostate cancer screening? The main risk of prostate cancer screening is diagnosing and treating prostate cancer that would never have caused any symptoms or problems. This is called overdiagnosisand overtreatment. PSA screening cannot tell you if your PSA is high due to cancer or a different cause. A prostate biopsy is the only procedure to diagnose prostate cancer. Even the results of a biopsy may not tell you if your cancer needs to be treated. Slow-growing prostate cancer may not need any treatment other than monitoring, so diagnosing and treating it may cause unnecessary stress or other side effects. Questions to ask your health care provider When should I start prostate cancer screening? What is my risk for prostate cancer? How often do I need screening? What type of screening tests do I need? How do I get my test results? What do my results mean? Do I need treatment? Where to find more information The [place] [employer]: www.cancer.org [place] [employer]: www.auanet.org Contact a health care provider if: You have difficulty urinating. You have pain when you urinate or ejaculate. You have blood in your urine or semen. You have pain in your back or in the area of your prostate. Summary Prostate cancer is a common type of cancer in men. The prostate gland is located below the bladder and in front of the rectum. This gland adds fluid to semen during ejaculation. Prostate cancer screening may identify cancer at an early stage, when the cancer can be treated more easily and is less likely to have spread to other areas of the body. The prostate-specific antigen (PSA) test is the recommended screening test for prostate cancer, butit has associated risks. Discuss the risks and benefits of prostate cancer screening with your health care provider. If you are age 70 or older, the risks that screening can cause are greater than the benefits that it may provide. This information is not intended to replace advice given to you by your health care provider. Make sure you discuss any questions you have with your health care provider. Document Revised: 09/19/2021 Document Reviewed: 09/19/2021 [email or web address] Patient Education 2023 [employer]. Follow Up Care 03/20/2023 10:41:42 With:MELVIN SWENSON, Aaron Mcleod, URL Address: [facility] [address], [place] [id number]- When: Unknown [facility] 12-18-2024 NotePatient Education Oncology Prostate Cancer Screening Prostate cancer screening is testing that is done to check for the presence of prostate cancer in men. The prostate gland is a walnut-sized gland that is located below the bladder and in front of therectum in males. The function of the prostate is to add fluid to semen during ejaculation. Prostatecancer is one of the most common types of cancer in men. Who should have prostate cancer screening? Screening recommendations vary based on age and other risk factors, as well as between the professional organizations who make the recommendations. In general, screening is recommended if: ??? You are age 50 to 70 and have an average risk for prostate cancer. You should talk with your health care provider about your need for screening and how often screening should be done. Because most prostate cancers are slow growing and will not cause , screening in this age group is generally reserved for men who have a 10- to 15-year life expectancy. ??? You are younger than age 50, and you have these risk factors: ? Having a father, brother, or uncle who has been diagnosed with prostate cancer. The risk is higher if your family member's cancer occurred at an early age or if you have multiple family members with prostate cancer at an early age. ? Being a male who is Black or is of [place] or sub-Saharan descent. In general, screening is not recommended if: ??? You are younger than age 40. ??? You are between the ages of 40 and 49 and you have no risk factors. ??? You are 70 years of age or older. At this age, the risks that screening can cause are greater than the benefits that it may provide. If you are at high risk for prostate cancer, your health care provider may recommend that you have screenings more often or that you start screening at a younger age. How is screening for prostate cancer done? The recommended prostate cancer screening test is a blood test called the prostate-specific antigen(PSA) test. PSA is a protein that is made in the prostate. As you age, your prostate naturally produces more PSA. Abnormally high PSA levels may be caused by: ??? Prostate cancer. ??? An enlarged prostate that is not caused by cancer (benign prostatic hyperplasia, or BPH). This condition is very common in older men. ??? A prostate gland infection (prostatitis) or urinary tract infection. ??? Certain medicines such as male hormones (like testosterone) or other medicines that raise testosterone levels. A rectal exam may be done as part of prostate cancer screening to help provide information about the size of your prostate gland. When a rectal exam is performed, it should be done after the PSA level is drawn to avoid any effect on the results. Depending on the PSA results, you may need more tests, such as: ??? A physical exam to check the size of your prostate gland, if not done as part of screening. ??? Blood and imaging tests. ??? A procedure to remove tissue samples from your prostate gland for testing (biopsy). This is theonly way to know for certain if you have prostate cancer. What are the benefits of prostate cancer screening? Screening can help to identify cancer at an early stage, before symptoms start and when the cancer can be treated more easily. ??? There is a small chance that screening may lower your risk of dying from prostate cancer. The chance is small because prostate cancer is a slow-growing cancer, and most men with prostate cancer from a different cause. What are the risks of prostate cancer screening? The main risk of prostate cancer screening is diagnosing and treating prostate cancer that would never have caused any symptoms or problems. This is called overdiagnosisand overtreatment. PSA screening cannot tell you if your PSA is high due to cancer or a different cause. A prostate biopsy is the only procedure to diagnose prostate cancer. Even the results of a biopsy may not tell you if your cancer needs to be treated. Slow-growing prostate cancer may not need any treatment other than monitoring, so diagnosing and treating it may cause unnecessary stress or other side effects. Questions to ask your health care provider ??? When should I start prostate cancer screening? What is my risk for prostate cancer? How often do I need screening? What type of screening tests do I need? How do I get my test results? What do my results mean? Do I need treatment? Where to find more information ??? The [place] [employer]: www.cancer.org ??? [place] [employer]: www.auanet.org Contact a health care provider if: ??? You have difficulty urinating. ??? You have pain when you urinate or ejaculate. ??? You have blood in your urine or semen. ??? You have pain in your back or in the area of your prostate. Summary ??? Prostate cancer is a common type of cancer in men. The prostate gland (more content not included)...[facility]12-12-2023 Hospital Discharge instructions Patient Education 03/20/2023 10:28:54 Benign Prostatic Hyperplasia Benign Prostatic Hyperplasia Benign prostatic hyperplasia (BPH) is an enlarged prostate gland that is caused by the normal agingprocess. The prostate may get bigger as a man gets older. The condition is not caused by cancer. The prostate is a walnut-sized gland that is involved in the production of semen. It is located in front of the rectum and below the bladder. The bladder stores urine. The urethra carries stored urine ou t of the body. An enlarged prostate can press on the urethra. This can make it harder to pass urine. The buildup of urine in the bladder can cause infection. Back pressure and infection may progress to bladder damage and kidney (renal) failure. What are the causes? This condition is part of the normal aging process. However, not all men develop problems from thiscondition. If the prostate enlarges away from the urethra, urine flow will not be blocked. If it enlarges toward the urethra and compresses it, there will be problems passing urine. What increases the risk? This condition is more likely to develop in men older than 50 years. What are the signs or symptoms? Symptoms of this condition include: Getting up often during the night to urinate. Needing to urinate frequently during the day. Difficulty starting urine flow. Decrease in size and strength of your urine stream. Leaking (dribbling) after urinating. Inability to pass urine. This needs immediate treatment. Inability to completely empty your bladder. Pain when you pass urine. This is more common if there is also an infection. Urinary tract infection (UTI). How is this diagnosed? This condition is diagnosed based on your medical history, a physical exam, and your symptoms. Tests will also be done, such as: A post-void bladder scan. This measures any amount of urine that may remain in your bladder after you finish urinating. A digital rectal exam. In a rectal exam, your health care provider checks your prostate by putting a lubricated, gloved finger into your rectum to feel the back of your prostate gland. This exam detects the size of your gland and any abnormal lumps or growths. An exam of your urine (urinalysis). A prostate specific antigen (PSA) screening. This is a blood test used to screen for prostate cancer. An ultrasound. This test uses sound waves to electronically produce a picture of your prostate gland. Your health care provider may refer you to a specialist in kidney and prostate diseases (urologist). How is this treated? Once symptoms begin, your health care provider will monitor your condition (active surveillance or watchful waiting). Treatment for this condition will depend on the severity of your condition. Treatment may include: Observation and yearly exams. This may be the only treatment needed if your condition and symptoms are mild. Medicines to relieve your symptoms, including: ?Medicines to shrink the prostate. ?Medicines to relax the muscle of the prostate. Surgery in severe cases. Surgery may include: ?Prostatectomy. In this procedure, the prostate tissue is removed completely through an open incision or with a laparoscope or robotics. ?Transurethral resection of the prostate (TURP). In this procedure, a tool is inserted through the opening at the tip of the penis (urethra). It is used to cut away tissue of the inner core of the prostate. The pieces are removed through the same opening of the penis. This removes the blockage. ?Transurethral incision (TUIP). In this procedure, small cuts are made in the prostate. This lessens the prostate's pressure on the urethra. ?Transurethral microwave thermotherapy (TUMT). This procedure uses microwaves to create heat. The heat destroys and removes a small amount of prostate tissue. ?Transurethral needle ablation (TUNA). This procedure uses radio frequencies to destroy and remove a small amount of prostate tissue. ?Interstitial laser coagulation (ILC). This procedure uses a laser to destroy and remove a small amount of prostate tissue. ?Transurethral electrovaporization (TUVP). This procedure uses electrodes to destroy and remove a small amount of prostate tissue. ?Prostatic urethral lift. This procedure inserts an implant to push the lobes of the prostate away from the urethra. Follow these instructions at home: Take penm-ziz-cvpuqwz and prescription medicines only as told by your health care provider. Monitor your symptoms for any changes. Contact your health care provider with any changes. Avoid drinking large amounts of liquid before going to bed or out in public. Avoid or reduce how much caffeine or alcohol you drink. Give yourself time when you urinate. Keep all follow-up visits. This is important. Contact a health care provider if: You have unexplained back pain. Your symptoms do not get better with treatment. You develop side effects from the medicine you are taking. Your urine becomes very dark or has a bad smell. Your lower abdomen becomes distended and you have trouble passing urine. Get help right away if: You have a fever or chills. You suddenly cannot urinate. You feel light-headed or very dizzy, or you faint. There are large amounts of blood or clots in your urine. Your urinary problems become hard to manage. You develop moderate to severe low back or flank pain. The flank is the side of your body between the ribs and the hip. These symptoms may be an emergency. Get help right away. Call 911. Do not wait to see if the symptoms will go away. Do not drive yourself to the hospital. Summary Benign prostatic hyperplasia (BPH) is an enlarged prostate that is caused by the normal aging process. It is not caused by cancer. An enlarged prostate can press on the urethra. This can make it hard to pass urine. This condition is more likely to develop in men older than 50 years. Get help right away if you suddenly cannot urinate. This information is not intended to replace advice given to you by your health care provider. Make sure you discuss any questions you have with your health care provider. Document Revised: 10/12/2021 Document Reviewed: 10/12/2021 [email or web address] Patient Education 2022 [employer]. Follow Up Care 01/02/2023 09:34:55 With:MELVIN SWENSON, NICHOLAS Beatty Address: [facility] [address] , [place] [id number]- When:Within 1 Year(s) Comments:w/PSA [facility] [place] 09-21-2022 Hospital Discharge instructions Patient Education 12/28/2021 15:04:13 Benign Prostatic Hyperplasia Benign Prostatic Hyperplasia Benign prostatic hyperplasia (BPH) is an enlarged prostate gland that is caused by the normal agingprocess and not by cancer. The prostate is a walnut-sized gland that is involved in the production of semen. It is located in front of the rectum and below the bladder. The bladder stores urine and the urethra is the tube that carries the urine out of the body. The prostate may get bigger as a man gets older. An enlarged prostate can press on the urethra. This can make it harder to pass urine. The build-up of urine in the bladder can cause infection. Back pressure and infection may progress to bladder damage and kidney (renal) failure. What are the causes? This condition is part of a normal aging process. However, not all men develop problems from this condition. If the prostate enlarges away from the urethra, urine flow will not be blocked. If it enlarges toward the urethra and compresses it, there will be problems passing urine. What increases the risk? This condition is more likely to develop in men over the age of 50 years. What are the signs or symptoms? Symptoms of this condition include: Getting up often during the night to urinate. Needing to urinate frequently during the day. Difficulty starting urine flow. Decrease in size and strength of your urine stream. Leaking (dribbling) after urinating. Inability to pass urine. This needs immediate treatment. Inability to completely empty your bladder. Pain when you pass urine. This is more common if there is also an infection. Urinary tract infection (UTI). How is this diagnosed? This condition is diagnosed based on your medical history, a physical exam, and your symptoms. Tests will also be done, such as: A post-void bladder scan. This measures any amount of urine that may remain in your bladder after you finish urinating. A digital rectal exam. In a rectal exam, your health care provider checks your prostate by putting a lubricated, gloved finger into your rectum to feel the back of your prostate gland. This exam detects the size of your gland and any abnormal lumps or growths. An exam of your urine (urinalysis). A prostate specific antigen (PSA) screening. This is a blood test used to screen for prostate cancer. An ultrasound. This test uses sound waves to electronically produce a picture of your prostate gland. Your health care provider may refer you to a specialist in kidney and prostate diseases (urologist). How is this treated? Once symptoms begin, your health care provider will monitor your condition (active surveillance or watchful waiting). Treatment for this condition will depend on the severity of your condition. Treatment may include: Observation and yearly exams. This may be the only treatment needed if your condition and symptoms are mild. Medicines to relieve your symptoms, including: ?Medicines to shrink the prostate. ?Medicines to relax the muscle of the prostate. Surgery in severe cases. Surgery may include: ?Prostatectomy. In this procedure, the prostate tissue is removed completely through an open incision or with a laparoscope or robotics. ?Transurethral resection of the prostate (TURP). In this procedure, a tool is inserted through the opening at the tip of the penis (urethra). It is used to cut away tissue of the inner core of the prostate. The pieces are removed through the same opening of the penis. This removes the blockage. ?Transurethral incision (TUIP). In this procedure, small cuts are made in the prostate. This lessens the prostate's pressure on the urethra. ?Transurethral microwave thermotherapy (TUMT). This procedure uses microwaves to create heat. The heat destroys and removes a small amount of prostate tissue. ?Transurethral needle ablation (TUNA). This procedure uses radio frequencies to destroy and remove a small amount of prostate tissue. ?Interstitial laser coagulation (ILC). This procedure uses a laser to destroy and remove a small amount of prostate tissue. ?Transurethral electrovaporization (TUVP). This procedure uses electrodes to destroy and remove a small amount of prostate tissue. ?Prostatic urethral lift. This procedure inserts an implant to push the lobes of the prostate away from the urethra. Follow these instructions at home: Take yeei-qrc-rgeoixc and prescription medicines only as told by your health care provider. Monitor your symptoms for any changes. Contact your health care provider with any changes. Avoid drinking large amounts of liquid before going to bed or out in public. Avoid or reduce how much caffeine or alcohol you drink. Give yourself time when you urinate. Keep all follow-up visits as told by your health care provider. This is important. Contact a health care provider if: You have unexplained back pain. Your symptoms do not get better with treatment. You develop side effects from the medicine you are taking. Your urine becomes very dark or has a bad smell. Your lower abdomen becomes distended and you have trouble passing your urine. Get help right away if: You have a fever or chills. You suddenly cannot urinate. You feel lightheaded, or very dizzy, or you faint. There are large amounts of blood or clots in the urine. Your urinary problems become hard to manage. You develop moderate to severe low back or flank pain. The flank is the side of your body between the ribs and the hip. These symptoms may represent a serious problem that is an emergency. Do not wait to see if the symptoms will go away. Get medical help right away. Call your local emergency services (911 in the [place] Do not drive yourself to the hospital. Summary Benign prostatic hyperplasia (BPH) is an enlarged prostate that is caused by the normal aging process and not by cancer. An enlarged prostate can press on the urethra. This can make it hard to pass urine. This condition is part of a normal aging process and is more likely to develop in men over the age of 50 years. Get help right away if you suddenly cannot urinate. This information is not intended to replace advice given to you by your health care provider. Make sure you discuss any questions you have with your health care provider. Document Released: 03/26/2006 Document Revised: 02/18/2019 Document Reviewed: 04/30/2017 [email or web address] Patient Education 2020 [employer]. 12/28/2021 15:04:11 Calorie Counting for Weight Loss Calorie Counting for Weight Loss Calories are units of energy. Your body needs a certain amount of calories from food to keep you going throughout the day. When you eat more calories than your body needs, your body stores the extra calories as fat. When you eat fewer calories than your body needs, your body narayan fat to get the energy it needs. Calorie counting means keeping track of how many calories you eat and drink each day. Calorie counting can be helpful if you need to lose weight. If you make sure to eat fewer calories than your bodyneeds, you should lose weight. Ask your health care provider what a healthy weight is for you. For calorie counting to work, you will need to eat the right number of calories in a day in order to lose a healthy amount of weight per week. A dietitian can help you determine how many calories youneed in a day and will give you suggestions on how to reach your calorie goal. A healthy amount of weight to lose per week is usually 1 2 lb (0.5 0.9 kg). This usually means thatyour daily calorie intake should be reduced by 500 750 calories. Eating 1,200 1,500 calories per day can help most women lose weight. Eating 1,500 1,800 calories per day can help most men lose weight. What is my plan? My goal is to have calories per day. If I have this many calories per day, I should lose around pounds per week. What do I need to know about calorie counting? In order to meet your daily calorie goal, you will need to: Find out how many calories are in each food you would like to eat. Try to do this before you eat. Decide how much of the food you plan to eat. Write down what you ate and how many calories it had. Doing this is called keeping a food log. To successfully lose weight, it is important to balance calorie counting with a healthy lifestyle that includes regular activity. Aim for 150 minutes of moderate exercise (such as walking) or 75 minutes of vigorous exercise (such as running) each week. Where do I find calorie information? The number of calories in a food can be found on a Nutrition Facts label. If a food does not have aNutrition Facts label, try to look up the calories online or ask your dietitian for help. Remember that calories are listed per serving. If you choose to have more than one serving of a food, you will have to multiply the calories per serving by the amount of servings you plan to eat. Forexample, the label on a package of bread might say that a serving size is 1 slice and that there are 90 calories in a serving. If you eat 1 slice, you will have eaten 90 calories. If you eat 2 slices, you will have eaten 180 calories. How do I keep a food log? Immediately after each meal, record the following information in your food log: What you ate. Don't forget to include toppings, sauces, and other extras on the food. How much you ate. This can be measured in cups, ounces, or number of items. How many calories each food and drink had. The total number of calories in the meal. Keep your food log near you, such as in a small notebook in your pocket, or use a mobile rayne or website. Some programs will calculate calories for you and show you how many calories you have left forthe day to meet your goal. What are some calorie counting tips? Use your calories on foods and drinks that will fill you up and not leave you hungry: ?Some examples of foods that fill you up are nuts and nut butters, vegetables, lean proteins, and high-fiber foods like whole grains. High-fiber foods are foods with more than 5 g fiber per serving. ?Drinks such as sodas, specialty coffee drinks, alcohol, and juices have a lot of calories, yet do not fill you up. Eat nutritious foods and avoid empty calories. Empty calories are calories you get from foods or beverages that do not have many vitamins or protein, such as candy, sweets, and soda. It is better to have a nutritious high-calorie food (such as an avocado) than a food with few nutrients (such as a bag of chips). Know how many calories are in the foods you eat most often. This will help you calculate calorie counts faster. Pay attention to calories in drinks. Low-calorie drinks include water and unsweetened drinks. Pay attention to nutrition labels for low fat or fat free foods. These foods sometimes have thesame amount of calories or more calories than the full fat versions. They also often have added sugar, starch, or salt, to make up for flavor that was removed with the fat. Find a way of tracking calories that works for you. Get creative. Try different apps or programs ifwriting down calories does not work for you. What are some portion control tips? Know how many calories are in a serving. This will help you know how many servings of a certain food you can have. Use a measuring cup to measure serving sizes. You could also try weighing out portions on a kitchenscale. With time, you will be able to estimate serving sizes for some foods. Take some time to put servings of different foods on your favorite plates, bowls, and cups so you know what a serving looks like. Try not to eat straight from a bag or box. Doing this can lead to overeating. Put the amount you would like to eat in a cup or on a plate to make sure you are eating the right portion. Use smaller plates, glasses, and bowls to prevent overeating. Try not to multitask (for example, watch TV or use your computer) while eating. If it is time to eat, sit down at a table and enjoy your food. This will help you to know when you are full. It will also help you to be aware of what you are eating and how much you are eating. What are tips for following this plan? Reading food labels Check the calorie count compared to the serving size. The serving size may be smaller than what youare used to eating. Check the source of the calories. Make sure the food you are eating is high in vitamins and proteinand low in saturated and trans fats. Shopping Read nutrition labels while you shop. This will help you make healthy decisions before you decide to purchase your food. Make a grocery list and stick to it. Cooking Try to cook your favorite foods in a healthier way. For example, try baking instead of frying. Use low-fat dairy products. Meal planning Use more fruits and vegetables. Half of your plate should be fruits and vegetables. Include lean proteins like poultry and fish. How do I count calories when eating out? Ask for smaller portion sizes. Consider sharing an entree and sides instead of getting your own entree. If you get your own entree, eat only half. Ask for a box at the beginning of your meal and put the rest of your entree in it so you are not tempted to eat it. If calories are listed on the menu, choose the lower calorie options. Choose dishes that include vegetables, fruits, whole grains, low-fat dairy products, and lean protein. Choose items that are boiled, broiled, grilled, or steamed. Stay away from items that are buttered,battered, fried, or served with cream sauce. Items labeled crispy are usually fried, unless stated otherwise. Choose water, low-fat milk, unsweetened iced tea, or other drinks without added sugar. If you want an alcoholic beverage, choose a lower calorie option such as a glass of wine or light beer. Ask for dressings, sauces, and syrups on the side. These are usually high in calories, so you should limit the amount you eat. If you want a salad, choose a garden salad and ask for grilled meats. Avoid extra toppings like barrientos, cheese, or fried items. Ask for the dressing on the side, or ask for olive oil and vinegar or lemon to use as dressing. Estimate how many servings of a food you are given. For example, a serving of cooked rice is cup orabout the size of half a baseball. Knowing serving sizes will help you be aware of how much food you are eating at restaurants. The list below tells you how big or small some common portion sizes arebased on everyday objects: ?1 oz 4 stacked dice. ?3 oz 1 deck of cards. ?1 tsp 1 . ?1 Tbsp a ping-pong ball. ?2 Tbsp 1 ping-pong ball. ? cup baseball. ?1 cup 1 baseball. Summary Calorie counting means keeping track of how many calories you eat and drink each day. If you eat fewer calories than your body needs, you should lose weight. A healthy amount of weight to lose per week is usually 1 2 lb (0.5 0.9 kg). This usually means reducing your daily calorie intake by 500 750 calories. The number of calories in a food can be found on a Nutrition Facts label. If a food does not have aNutrition Facts label, try to look up the calories online or ask your dietitian for help. Use your calories on foods and drinks that will fill you up, and not on foods and drinks that will leave you hungry. Use smaller plates, glasses, and bowls to prevent overeating. This information is not intended to replace advice given to you by your health care provider. Make sure you discuss any questions you have with your health care provider. Document Released: 03/26/2006 Document Revised: 12/13/2018 Document Reviewed: 02/23/2017 [email or web address] Patient Education 2020 [email or web address] Follow Up Care 10/20/2020 11:44:30 With:Aaron MAO MD, URL Address: [address] [place] [address] [place] [address] Business (1) When:Within 1 Year(s) Comments:w/PSA [facility] Evaluation + Plan note Future Appointments Appointment Date:01/04/2022 02:30:00 PM Scheduled Provider:Aaron MAO MD [facility] Appointment Type:URO Office Visit Diagnostic Tests Pending * [facility] Appointment Date:01/04/2022 02:30:00 PM Scheduled Provider:Aaron MAO MD Location:[facility] Appointment Type:URO Office Visit [facility] Evaluation + Plan note Future Appointments Appointment Date:01/03/2023 10:15:00 AM Scheduled Provider:Aaron MAO MD Location:[facility] Appointment Type:URO Office Visit Diagnostic Tests Pending * PSA Total 12/28/21 [facility] Evaluation + Plan note Future Appointments Appointment Date:03/26/2024 09:45:00 AM Scheduled Provider:Aaron MAO MD Location:[facility] Appointment Type:URO Office Visit Diagnostic Tests Pending * PSA Total 03/20/23 [facility] Evaluation + Plan note Future Appointments Appointment Date:03/20/2025 08:30:00 AM Scheduled Provider:Aaron MAO MD Location:[facility] Appointment Type:URO Office Visit Diagnostic Tests Pending * PSA Free & Total 03/26/24 [facility] Hospital course Narrative No data available for this section [facility] [email or web address] Hospital Discharge instructions No data available for this section [facility] Progress note No data available for this section [email or web address] [email or web address] Summary Purpose Family History No Family History Records FoundNo Family History Records Found No data available for this section No data available for this section No Family History Records FoundNo Family History Records FoundNo Family History Records Found Advance Directives No Advanced Directives Records FoundNo Advanced Directives Records FoundNo Advanced Directives Records FoundNo Advanced Directives Records FoundNo Advanced Directives Records Found Additional Source Comments (unrecognized sect ion and content) No Status Records FoundNo Status Records FoundNo Status Records FoundNo Status Records FoundNo Status Records Found INFORMATION SOURCE (unrecogn ized section and content) DATE CREATED AUTHOR 06/13/2019 [facility] DATE CREATED AUTHOR AUTHOR'S ORGANIZ ATION 10/27/2021 [facility] DATE CREATED AUTHOR AUTHOR'S ORGANIZ ATION 03/29/2024 [facility] DATE CREATED AUTHOR AUTHOR'S ORGANIZ ATION 09/05/2024 [facility] DATE CREATED AUTHOR AUTHOR'S ORGANIZ ATION 10/12/2024 [facility] Care Team (unrecognized sect ion and content) Personnel Name: Danny Orta MD Address: [address] [place] [address] Name: Naz Parra I Personnel Name: Danny Orta MD Address: [address] [place] [address] Name: Naz Parra I Personnel Name: Danny Orta MD Address: [address] [place] [address] Name: Naz Parra I Personnel Name: Danny Orta MD Address: Address: [address] [place] [address] Name: Naz Parra I Personnel Name: Danny Orta MD Address: Address: [address] [place] [id number] Name: Naz Parra I FOR RECORDS PERTAINING TO PATIENTS WHO ARE OR HAVE BEEN ENROLLED IN A CHEMICAL DEPENDENCY/SUBSTANCEABUSE PROGRAM, SOME INFORMATION MAY BE OMITTED. This clinical summary was aggregated from multiple sources. Caution should be exercised in using it in the provision of clinical care. This summary normalizes information from multiple sources, and as a consequence, information in this document may materially change the coding, format and clinical context of patient data. In addition, data may be omitted in some cases. CLINICAL DECISIONS SHOULD BE BASED ON THE PRIMARY CLINICAL RECORDS. [facility]. provides no warranty or guarantee of the accuracy or completeness of information in this document.
[2025-03-19 14:17] LABS: Triglycerides 71 mg/dL (<=150)
[2025-03-19] MEDS: 0.9 % SODIUM CHLORIDE 1,000 ML 125 ML IV (14:57)
[2025-03-19] MEDS: MORPHINE SULFATE 4 MG/ML VIAL IV (14:57)
--- NOTE | 2025-03-19 15:04 | US_ITS ---
The [address] [address] Patient Name: GABRIEL PARDO MRN: [id number] date: 1955 Sex: M Assigned Patient Location: Current Patient Location: Accession/Order Number: [id number] Exam Date: 03/19/2025 16:34 Report Date: 03/19/2025 18:00 At the request of: TIFFANIE AGUSTIN MD Procedure: US right upper quadrant Ultrasound right upper quadrant INDICATION: Elevated bilirubin COMPARISON: CT abdomen pelvis 03/19/2025 FINDINGS: Evaluation degraded due to body habitus challenge evaluation of the left liver. Additionally, the bowel gas also degrades Evaluation. Liver is grossly unremarkable in size and echotexture. Portal vein demonstrates normal flow. Common bile duct measures 5.2 mm. Gallbladder unremarkable. No wall thickening or stones identified. Negative Barros's sign. Pancreas poorly visualized/obscured. Right kidney unremarkable. No ascites No hydronephrosis. . US/US right upper quadrant IMPRESSION: Motion degraded due to body habitus. Obscured pancreas. Suboptimal evaluation left hepatic lobe. Otherwise grossly unremarkable examination within the constraints listed. Impression dictated by: Gary Nelson M.D. 03/19/2025 6:00 PM Dictation Location: [place] [address] Electronically authenticated by: [id number] Y Date: 03/19/2025 18:00
[2025-03-19 15:33] LABS: Magnesium 2.0 mg/dL (1.8-2.4)
[2025-03-19] MEDS: 0.9 % SODIUM CHLORIDE 1,000 ML 1000 ML IV ×2 (16:05→17:03)
--- OUTSIDE RECORDS SUMMARY | 2025-03-19 16:13 | XMS_ITS | CCD ---
Author Organization [facility] Inform ion Partnership [facility] Care Team Providers Care Coal Tram Driver Name Role Phone ELCHECO, EHAB A Admitting Unavailable ELCHECO, EHAB A Attending Unavailable SELF, REFERRED Referring Unavailable SELF, REFERRED Primary Care Unavailable Danny Orta Primary Care Physician Naz Parra I Unavailable Unavailable BRENNEN, DR [...] of OnsetReaction(s) Facility (2 sources)Ciprofloxacin; Translations: [CIPROFLOXACIN]Drug Fqqhyxn75-31-5583Zyl [facility] Repository (6 sources)Ciprofloxacin; Translations: [ciprofloxacin]Drug AllergyEruption of skin (disorder)[facility] (1 source)CiprofloxacinDrug Nxishkc12-60-7432[facility]ository (1 source)CiprofloxacinDrug Hzzlwiu31-52-1606EwdrudusmAdena [facility] System Repository Medications Current Medications MedicationDrug Class(es)DatesSig (Normalized)Sig (Original)24 hr alfuzosin hydrochloride 10 mg extended release oral tablet (5 sources)alpha-Adrenergic BlockerStart: 03-26-2024 End: 95-03-4136gnva 1 tablet by mouth once dailyalfuzosin 10 mg ER Tab 10 mg = 1 tab(s), Oral, Daily, X 90 day(s), # 90 tab(s), Refills(s) 3, Pharmacy: [facility], 178, cm, 03/26/24 9:56:00 EST, Height/Length Dosing, 100.6, kg, 03/26/24 9:56:00 EST, Weight Dosing Start Date: 03/26/24 Stop Date: 03/21/25 Status: OrderedStart: 63-10-2636tyom 1 tablet by mouth once dailyalfuzosin 10 mg ER Tab 10 mg = 1 tab(s), Oral, Daily, # 90 tab(s), Refills(s) 3, Pharmacy: [facility], 178, cm, 12/28/21 14:33:00 EDT, Height/Length Dosing, 99, kg, 12/28/21 14:33:00 EDT, Weight Dosing Start Date: 01/02/23 Status: Ordered Start: 34-75-5875lboa 1 tablet by mouth once dailyalfuzosin 10 mg ER Tab 10 mg = 1 tab(s), Oral, Daily, # 90 tab(s), Refills(s) 3, Pharmacy: [facility] ([facility]), 178, cm, 10/20/20 10:46:00 EDT, Height/Length Dosing, 98.9, kg, 10/20/20 10:46:00 EDT, Weight Dosing Start Date: 11/25/21 Status: OrderedStart: 30-16-1719gast 1 tablet by mouth once dailyalfuzosin 10 mg ER Tab 10 mg = 1 tab(s), Oral, Daily, # 90 tab(s), Refills(s) 3, Pharmacy: [facility], 178, cm, 10/20/20 10:46:00 EDT, Height/Length Dosing, 98.9, kg, 10/20/20 10:46:00 EDT,Weight Dosing Start Date: 01/04/21 Status: OrderedAspir 81 (5 sources)Start: 06-69-4974vzhe 1 mg by mouth once dailyAspir 81 mg, Oral, Daily, Refills(s) 0 Start Date: 03/05/19 Status: Orderedatorvastatin 80 mg oral tablet (5 sources)HMG-CoA Reductase InhibitorStart: 36-09-8804asya 1 mg by mouth once dailyatorvastatin 80 mg Tab mg tab(s), Oral, Daily, Refills(s) 0 Start Date: 03/05/19 Status: Orderedcarvedilol (5 sources)alpha-Adrenergic Gabriel, beta-Adrenergic BlockerStart: 11-24-2019 carvedilol Oral, Refills(s) 0 Start Date: 11/24/19 Status: Orderedfinasteride 5 mg oral tablet (5 sources)5-alpha Reductase InhibitorStart: 03-26-2024 End: 95-60-5336sazt 1 tablet by mouth once dailyfinasteride 5 mg Tab 5 mg = 1 tab(s), Oral, Daily, X 90 day(s), # 90 tab(s), Refills(s) 3, Pharmacy: [facility], 178, cm, 03/26/24 9:56:00 EST, Height/Length Dosing, 100.6, kg, 03/26/24 9:56:00 EST, Weight Dosing Start Date: 03/26/24 Stop Date: 03/21/25 Status: OrderedStart: 28-02-3048iwdl 1 tablet by mouth once dailyfinasteride 5 mg Tab 5 mg = 1 tab(s), Oral, Daily, # 90 tab(s), Refills(s) 3, Pharmacy: [facility] ([facility] 178, cm, 12/28/21 14:33:00 EDT, Height/Length Dosing, 99, kg, 12/28/21 14:33:00 EDT, Weight Dosing Start Date: 07/17/22 Status: OrderedStart: 94-46-5538equh 1 tablet by mouth once daily finasteride 5 mg Tab 5 mg = 1 tab(s), Oral, Daily, # 90 tab(s), Refills(s) 3, Pharmacy: [facility] ([facility]), 178, cm, 10/20/20 10:46:00 EDT, Height/Length Dosing, 98.9, kg, 10/20/20 10:46:00 EDT, Weight Dosing Start Date: 11/25/21 Status: OrderedStart: 39-03-9473yfvt 1 tablet by mouth once daily finasteride 5 mg Tab 5 mg = 1 tab(s), Oral, Daily, # 90 tab(s), Refills(s) 3, Pharmacy: [facility], 178, cm, 10/20/20 10:46:00 EDT, Height/Length Dosing, 98.9, kg, 10/20/20 10:46:00 EDT, Weight Dosing Start Date: 01/04/21 Status: Orderedlisinopril 2.5 mg oral tablet (2 sources)Angiotensin Converting Enzyme InhibitorStart: 45-29-4538qrck 1 mg by mouth once dailylisinopril 2.5 mg Tab mg tab(s), Oral, Daily, Refills(s) 0 Start Date: 03/05/19 Status: OrderedLosartan (3 sources)Angiotensin 2 Receptor BlockerStart: 15-03-8019gitxilvo Oral, Daily, Refills(s) 0 Start Date: 12/28/21 Status: OrderedMisc Medication (5 sources)Start: 67-56-6775Txtv Medication Start Date: 06/21/13 Status: Ordered pantoprazole 40 mg delayed release oral tablet (4 sources)Proton Pump InhibitorStart: 11-84-7149ukbi 1 mg by mouth once daily Pantoprazole [address] Tab mg tab(s), Oral, Daily, Refills(s) 0 Start Date: 03/05/19 Status: Orderedtadalafil 20 mg oral tablet (4 sources)Phosphodiesterase 5 InhibitorStart: 89-71-8946jgggxnpsl 20 mg Tab 20 mg = 1 tab(s), Oral, As Directed, # 30 tab(s), Refills(s) 3, Pharmacy: [facility] [place] [id number] Start Date: 03/05/19 Status: Ordered Problems Active Problems Problem ClassificationProblemDateDocumented DateEpisodic/ChronicAbdominal pain (11 sources)Epigastric pain; Translations: [Right upper quadrant pain]Onset: 341719-83-5653ZdweklqwLvbfzncr atherosclerosis and other heart disease (7 sources)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; Translations: [Atherosclerotic heart disease of [place] coronary artery without angina pectoris]Onset: 137146-22-0152Lqgytvk Disorders of lipid metabolism (2 sources)Mixed hyperlipidemia; Translations: [Mixed hyperlipidemia]Onset: 34-61-0220TfdaemhTjdseqpys hypertension (7 sources)Hypertensive disorder; Translations: [Essential (primary) hypertension]Onset: 692866-62-3868BjjymqjDrageavihmhit symptoms and ill- defined conditions (5 sources)Post-micturition qbmfxcnsdvtu28-36-2005GfocupmAnhgvgajrrrrd symptoms and ill-defined conditions (16 sources)Andrew hematuria; Translations: [Increased frequency of urination] Onset: 254807-90-8621YzyupoyaKhfqmptdqfq of prostate (10 sources)Benign prostatic hyperplasia; Translations: [Benign prostatic hypertrophy with outflow obstruction]Onset: hronic Inflammatory conditions of male genital organs (5 sources)Chronic -75-3004KfsdwzyRlwqf male genital disorders (5 sources)Ymklvutsl88-34-7719RglxqczQkjif male genital disorders (2 sources)Male erectile dysfunction, unspecified; Translations: [Erectile dysfunction]Onset: 30-82-5900HnjljwvDmlai nutritional; endocrine; and metabolic disorders (5 sources)Body mass index 30+ - hkefwcd11-79-7482AteeedjDlqbx nutritional; endocrine; and metabolic disorders (1 source)Obese class I; Translations: [Body mass index (BMI) 31.0-31.9, adult] Onset: 77-49-8281WqvtfubDumic screening for suspected conditions (not mental disorders or infectious disease) (17 sources)CT of abdomen abnormal; Translations: [Raised prostate specific antigen]Onset: 416946-69-5655JktllvgrUpkaihfjgj disorders (not diabetes) (9 sources)Pancreatitis; Translations: [Acute pancreatitis without necrosis or infection, unspecified]Onset: 836484-59-1326FwelswlvSkrykxxc codes; unclassified (5 sources)Family history of prostate iqyjzg67-25-3229EqfognpiVomqdwde codes; unclassified (3 sources)Family history of cancer; Translations: [Family history of malignant neoplasm of prostate]Onset: 99-75-6213Jbndokib Past or Other Problems Problem ClassificationProblemDateDocumented DateEpisodic/ChronicNeoplasms of unspecified nature or uncertain behavior (1 source)Neoplasm of unspecified behavior of bone, soft tissue, and skin; Translations: [Neoplasm of unspecified behavior of bone, soft tissue, and skin] Onset: 59-39-4512LjzawetvGyordbqnlogw (3 sources)prostate infections( Confirmed )13-00-2332Wfmqbtyyznkc (2 sources)prostate ztxawvmriv19-73-7056 Results Test NameValueInterpretationReference RangeFacilityOffice Visiton 10-09-2024 Follow-up [id number] Gabriel Pardo 1955 M Date Provider Department Center 10/09/2024 [address] [facility] Pamela Hos Family History Problem Relation Age of Onset Coronary artery disease Father Family Status - Relation Status Age at Mother Father Level of Service:13707 NM OFFICE/OUTPATIENT ESTABLISHED LOW [facility] Summaryon [facility]-26-2024 Ambulatory Visit SummaryAmbulatory [...] Aaron MAO MD Where: [facility] [address] [place] [address]- You Need to Schedule the Following Appointments Follow Up with Aaron MAO MD, URL When: Where: [facility] [address], [place] [address]- Medications What How Much When Instructions Changed [...] [facility]: [address] [facility] [address], [place] [id number] [phone] Allergies Cipro (Rash) Problems Ongoing - Any [...] screening for prostate c (more content not included)...[facility]/Clinic Noteon 75-76-0358Rmqkkdd Office/Clinic Note Urology Office/Clinic Note Chief Complaint [...] [facility] [address], [place] [address]- Additional Instructions: 1 yr with PSA F&T, MARIBEL Patient Education Prostate Cancer Screening I, Regla Vieira, personally scribed for Dr. Mao on 03/26/2024 10:32:50. . Documentation recorded by the scribe, Rgela Vieira, accurately reflects the services(s) I performed [...] vaccine, inactivated 02/09/2018 Rec (more content not included)...[facility] HospitalComment on above:Result Comment: Electronically Signed By: Aaron MAO MD\.br\Date and Time Signed: 03/26/24 10:43 EST\.br\Electronically Co-Signed By: Regla Vieira\.br\Date and Time Co-Signed: 03/26/24 10:39 ESTLon 03-18-2024 Specimen: [id number] Received: 03/18/24 Status: KELSEA Modi Num: [id number] Spec Type: Surgical Subm Dr: Emeka Zarate MD Tissues: A Skin-Other than Cyst, tag, debridement or plastic repair (POST AURICULAR) Procedures: HANSA/Diaen Cool/Verónica Painter Age/ Patient Sex Location Account Attending Physician Gabriel Pardo/M ALEC [id number] Emeka Zarate MD SPEC NUM: [id number] RECD: 03/18/24 STATUS: KELSEA FATIMAMaury NUM: [id number] BRENDA: 03/18/24 [facility] DR: Emeka Zarate MD ENTERED: 03/18/[address] [facility] [address]: SPEC TYPE: Surgical DEPT: S ENTERED BY: [id number] RECV BY: [id number] ORDERED: HE/2, Gross/Micro L4 ORDERED: HE/2, Gross/Micro [...] specimen submitted in cassette A2. (2, ns, T87- 1224 A) Microscopic Description Microscopic examinations are performed supporting the above interpretation Specimen: [id number] Received: 03/18/24 Status: KELSEA Ly Num: [id number] Spec Type: Surgical Subm Dr: Emeka Zarate MD Tissues: A Skin-Other than Cyst, tag, debridement or plastic repair (POST AURICULAR) Procedures: Flex SINGH L4 Patient: BebetoGabriel L [id number] (Continued) Specimen: [id number] Received: 03/18/24 (Continued) Signed (signature on file) Karley Olea MD 03/19/241926 Specimen: [id number] Received: 03/18/24 Status: KELSEA Modi Num: [id number] Spec Type: Surgical Subm Dr: Emeka Zarate MD Tissues: A Skin-Other than Cyst, tag, debridement or plastic repair (POST AURICULAR) Procedures: Flex SINGH L4 Patient: Gabriel Pardo [id number] (Continued) Specimen: [id number] Received: 03/18/24 (Continued) CPT Codes 30699 Specimen: [id number] Received: 03/18/24 Status: KELSEA Modi Num: [id number] Spec Type: Surgical Subm Dr: Emeka Zarate MD Tissues: A Skin-Other than Cyst, tag, debridement or plastic repair (POST AURICULAR) Procedures: HE/2, Gross/Micro L4 Patient: Gabriel Pardo [id number] (Continued) Signed (signature on file) Chin-Rafa Olea MD 03/19/[address] [place] [address] Physician Ptmvl18aj [id number] stress test and echo performed on 10/09/2023: MD Alka Lanza MA Please let him know stress test was normal Thanks Patient informed.NormalUnWadsworth-Rittman HospitalAMYLASEon 11-10-2020 Amylase [Catalytic activity/Vol]44 U/TBggdyc17-694Lng [facility] AndersonComment on above:Performed By: #### CRP, CMP, LIPA, LOREE #### [facility] [address] [place] [address] Elver KarenCBC AUTO DIFFon [id number] #0.0 103/ulNormal0.0-0.1The [facility] AndersonComment on above:Performed By: #### CBC #### [facility] [address] [address] Elver KarenBasophils/100 WBC (Bld)0.7 %Normal0.2-2.0The [facility] Comment on above:Performed By: #### CBC #### [facility] [address] [address] Elver KarenEO #0.3 103/ulNormal0.0-0.7The [facility] AndersonComment on above: Performed By: #### CBC #### [facility] [address] [address] Elver KarenEosinophils/100 WBC (Bld)5.5 %Normal0.9-7.0The [facility] Comment on above:Performed By: #### CBC #### [facility] [address] [address] Elver KarenErythrocyte distribution width (RBC) [Ratio]12.5 %Drxniv19.0-15.0The [facility] AndersonComment on above:Performed By: #### CBC #### [facility] [address] [place] [address] Elver KarenHematocrit (Bld) [Volume fraction]46.2 %Lucxxh46.0-54.0The [facility] AndersonComment on above:Performed By: #### CBC #### [facility] [address] [place] [address] Elver KarenHemoglobin (Bld) [Mass/Vol]15.7 g/mQGunevu79.0-18.0The [facility] AndersonComment on above:Performed By: #### CBC #### [facility] [address] [place] [address] Elver KarenIG #0.02 10e3/ulNormal0.00-0.03The [facility] AndersonComment on above:Performed By: #### CBC #### [facility] [address] [place] [address] Elver KarenIG %0.3 %Normal0.0-0.5The [facility] AndersonComment on above: Performed By: #### CBC #### [facility] [address] [place] [address] Elver KarenLYMPH #1.1 103/ulCritically low1.2-3.8The [facility] AndersonComment on above:Performed By: #### CBC #### [facility] [address] [place] [address] Elver KarenLymphocytes/100 WBC (Bld)19.0 %Critically low20.5-60.0The [facility] AndersonComment on above:Performed By: #### CBC #### [facility] [address] [place] [address] Elver KarenMANUAL DIFF REQNONormalThe [facility] - AndersonComment on above: Performed By: #### CBC #### [facility] [address] [place] [address] Elver KarenMCH (RBC) [Entitic mass]31.7 smAnaiiw86.9-34.0The [facility] Comment on above:Performed By: #### CBC #### [facility] [address] [place] [address] Elver KarenMCHC (RBC) [Mass/Vol]34.0 g/uLFezscp59.9-35.2[facility] Comment on above:Performed By: #### CBC #### [facility] [address] [place] [address] Elver KarenMCV (RBC) [Entitic vol]93.3 nEXvpcbp80.0-94.0[facility] Comment on above:Performed By: #### CBC #### [facility] [address] [place] [address] Elver KarenMONO #0.5 103/ulNormal0.3-0.8The [facility] AndersonComment on above: Performed By: #### CBC #### [facility] [address] [place] [address] Elver KarenMonocytes/100 WBC (Bld)8.9 %Normal1.7-12.0[facility] Comment on above:Performed By: #### CBC #### [facility] [address] [place] [address] Elver KarenNEUT #3.9 103/ulNormal1.4-6.5The [facility] AndersonComment on above: Performed By: #### CBC #### [facility] [address] [place] [address] Elver KarenNeutrophils/100 WBC (Bld)65.6 %Fuwvlq62.0-75.0[facility] Comment on above:Performed By: #### CBC #### [facility] [address] [place] [address] Elver KarenPlatelet mean volume (Bld) [Entitic vol]11.0 fLNormal9.5-13.5The [facility] AndersonComment on above:Performed By: #### CBC #### [facility] [address] [place] [address] Elver FhwrhPZW959 103/ulCritically omq454-104Yfe [facility] AndersonComment on above:Performed By: #### CBC #### [facility] [address] [place] [address] Elver KarenRBC4.95 106/ulNormal4.70-6.10The [facility] AndersonComment on above: Performed By: #### CBC #### [facility] [address] [place] [address] Elver KarenWBC6.0 103/ulNormal4.0-11.0The [facility] AndersonComment on above: Performed By: #### CBC #### [facility] [address] [place] [address] Elver KarenCRPon 10-13-6439LKZ [Mass/Vol]mg/LNormal<=1.0The [facility] Comment on above:Performed By: #### CRP, CMP, LIPA, LOREE #### [facility] [address] [place] [address] Elver KarenLIPASEon 47-42-2574Peajzv [Catalytic activity/Vol]163.0 U/LNormal 23.0-300.0The [facility] - AndersonComment on above:Performed By: #### CRP, CMP, LIPA, LOREE #### [facility] [address] [place] [address] Elver KarenPROF 14(COMP METB)on 52-12-1268Djveggt [Mass/Vol]3.9 g/dLNormal 3.5-5.0The [facility] AndersonComment on above:Performed By: #### CRP, CMP, LIPA, LOREE #### [facility] [address] [place], [place] [address] Elver KarenAlbumin/Globulin [Mass ratio]1.3 {ratio}NormalMarietta Osteopathic Clinic Comment on above:Performed By: #### CRP, CMP, LIPA, LOREE #### [facility] [address] [place] [address] Elver KarenALP [Catalytic activity/Vol]48 U/YGbdbot65-375SmkMarietta Osteopathic Clinic Comment on above:Performed By: #### CRP, CMP, LIPA, LOREE #### [facility] [address] [address] Elver KarenALT [Catalytic activity/Vol]50 U/BKgjffs96-55VukMarietta Osteopathic Clinic Comment on above:Performed By: #### CRP, CMP, LIPA, LOREE #### [facility] [address] [place] [address] Elver KarenAnion gap [Moles/Vol]7.4 mmol/LNormalMarietta Osteopathic ClinicComment on above:Performed By: #### CRP, CMP, LIPA, LOREE #### [facility] [address] [place] [address] Elver KarenAST [Catalytic activity/Vol]30 U/BCzfvgk62-41LbvMarietta Osteopathic Clinic Comment on above:Performed By: #### CRP, CMP, LIPA, LOREE #### [facility] [address] [place] [address] Elver KarenBilirubin [Mass/Vol]1.0 mg/dLNormal0.2-1.3TCommunity [facility] Comment on above:Performed By: #### CRP, CMP, LIPA, LOREE #### [facility] [address] [place] [address] Elver KarenCalcium [Mass/Vol]9.1 mg/dLNormal8.4-10.2[facility] Comment on above:Performed By: #### CRP, CMP, LIPA, LOREE #### [facility] [address] [place] [address] Elver KarenChloride [Moles/Vol]106 mmol/GIzwigz30-792PwjMarietta Osteopathic Clinic Comment on above:Performed By: #### CRP, CMP, LIPA, LOREE #### [facility] [address] [address] Elver KarenCO2 [Moles/Vol]32.9 mmol/LCritically high22.0-30.0[facility] ClinicComment on above:Performed By: #### CRP, CMP, LIPA, LOREE #### [facility] [address] [place] [address] Elver KarenCreatinine [Mass/Vol]1.05 mg/dLNormal0.66-1.25The [facility] Comment on above:Performed By: #### CRP, CMP, LIPA, LOREE #### [facility] [address] [place] [address] Elver KarenEGFR-AF PALAUAN>60Normal>=60The [facility] AndersonComment on above: Performed By: #### CRP, CMP, LIPA, LOREE #### [facility] [address] [place] [address] Elver KarenEGFR-NON AF PALAUAN>60Normal>=60The [facility] AndersonComment on above:Performed By: #### CRP, CMP, LIPA, LOREE #### [facility] [address] [place] [address] Elver KarenGlobulin (S) [Mass/Vol]3.0 g/dLNormalThe [facility] AndersonComment on above:Performed By: #### CRP, CMP, LIPA, LOREE #### [facility] [address] [place] [address] Elver KarenGlucose [Mass/Vol]111 mg/dLCritically iash61-865Pja [facility] AndersonComment on above:Performed By: #### CRP, CMP, LIPA, LOREE #### [facility] [address] [place] [address] Elver KarenPotassium [Moles/Vol]4.3 mmol/LNormal3.4-5.0[facility] Comment on above:Performed By: #### CRP, CMP, LIPA, LOREE #### [facility] [address] [place] [address] Elver KarenProtein [Mass/Vol]6.9 g/dLNormal6.1-8.2The [facility] AndersonComment on above:Performed By: #### CRP, CMP, LIPA, LOREE #### [facility] [address] [address] Elver KarenSodium [Moles/Vol]142 mmol/MKgtzbt715-236Xpa [facility] Comment on above:Performed By: #### CRP, CMP, LIPA, LOREE #### [facility] [address] [address] Elver KarenUrea nitrogen [Mass/Vol]8.0 mg/dLCritically low9.0-20.0The [facility] AndersonComment on above:Performed By: #### CRP, CMP, LIPA, LOREE #### [facility] [address] [address] Elver KarenUrea nitrogen/Creatinine [Mass ratio]7.6 mg/mgNormalThe [facility] AndersonComment on above:Performed By: #### CRP, CMP, LIPA, LOREE #### [facility] [address] [address] Elver KarenSED RATE WESTERGRENon 00-58-0884VRF RATE5 mm/hrNormal<=20The [facility] AndersonComment on above:Performed By: #### SEDR #### [facility] [address] [address] Elver KarenCardiovascular Lab Reporton 06-69-0026Xdzkrprehobggp Lab Report [facility] Patient Name: Bebeto [facility] MR #: [id number] Physician: Marcia Aguiar Department of M.D. Medicine Service Date: 02/13/2019 Division of Birthdate: 1955 Cardiology Room #: [id number] Adult Cardiovascular Services [place] [address] Cardiovascular Laboratory Report IMPRESSION: 1. Severe, complex bifurcation lesion of the proximal left anterior descending coronary artery and adjacent large branching diagonal, successfully treated by balloon angioplasty and bifurcation stent placement. 2. Severe distal disease of the left circumflex coronary artery. 3. Ucon-jd-pkcfhjoz disease of the right coronary artery. 4. [...] the left radial artery was obtained. A 6-Danish glide sheath was inserted without difficulty. Bilateral selective coronary angiography was performed using JR4 and JL4 catheters. After reviewing the images, it was elected to proceed with an interventional procedure. A 6-Danish XB 3.5 guide catheter was advanced over [...] The stent delivery balloon was subsequently retracted [facility] into the left anterior descending stent. Final [...] M.D. Date Trans: 02/15/2019 11:18 Cristobal/jean pierre DN_JN:[id number] Hospital Vital Signs Date TimeVital SignValuePerforming QpyrenoxpHuixqnsy96-92-4768 09:52-0500Blood Pressure LocationPanancy MAO [facility] [place] 989042-18-2024 09:52-0500Diastolic blood axwwowmc75 mm[Hg]Aaron MAO [facility] [place] 989042-18-2024 09:52-0500Heart rate62 /minAaron MAO [facility] [place] 989042-18-2024 09:52-0500Systolic blood zqvxtrko878 mm[Hg]Aaron MAO [facility] [place] 989042-12-2023 09:46-0500Diastolic blood zorgxefq70 mm[Hg]Aaron MAO [facility] [place] 989042-12-2023 09:46-0500Mean blood yannkxhh14 mm[Hg]Aaron MAO [facility] [place] 306952-12-2023 09:46-0500Systolic blood geqcgbai229 mm[Hg]Aaronhernesto MAO [facility] [place] 306952-12-2023 09:40-0500Blood Pressure LocationPaMezzobit [facility] [place] 306952-12-2023 09:40-0500Diastolic blood imczfaed00 mm[Hg]Aaron MAO [facility] [place] 306952-12-2023 09:40-0500Heart rate72 /minParagon Print & Packaging Group [facility] [place] 306952-12-2023 09:40-0500Systolic blood vzhtyfcs963 mm[Hg]Aaron MAO [facility]09-21-2022 14:30-0400Blood Pressure LocationNcMezzobit [facility]09-21-2022 14:30-0400Diastolic blood mm[Hg]Aaron MAO [facility]09-21-2022 14:30-0400Heart rate63 /minParagon Print & Packaging Group [facility]09-21-2022 14:30-0400Systolic blood ieqsljqk312 mm[Hg]Aaron MAO [facility] Encounters Encounter DateEncounter TypeCare ProviderFacilityStart: 16-33-5418qbehbqaepl Aaron R WATERSFacility:EU [place]vueStart: 10-09-2024 End: 50-40-2608xjvhhgsezuIBOF ELCHECOWayne Hospitaltart: 03-26-2024 End: 51-45-8448zorfhdlgztVpjrxya R WATERSFacility:EU [place]Start: 03-26-2024 End: 41-08-4778Cnryjhv encounter procedureAaron Mcleod MAO [facility] Start: 03-18-2024 End: 61-71-6376mmtufgeeidLfxoyoy SurfieldFacility:[facility]: 03-20-2023 End: 02-15-2452Twnteep encounter procedureAaron Mcleod MAO [facility] Start: 12-28-2021 End: 24-35-2174Mnrtwqi encounter procedureAaron Mcleod MAO [facility] Start: 10-22-2021 End: 80-88-1687lsvycsgwvyVA AARON MAOFacility:X2Hwoos: 10-21-2021 End: 34-14-5060Mzs Drop Kristal Jain [facility] Start: 10-21-2021 End: 11-25-7128Dsnomag encounter procedurePatricabdirahman Mcleod MELVIN [facility] Start: 11-10-2020 End: 40-47-0353ontwrccdveTX DANNY ORTAFacility:T3Cpnsb: 02-12-2019 End: 82-40-4354Ioenlnp encounter procedureMARCIA A NINAFacility:[facility] Procedures DateProcedureProcedure DetailPerforming ClinicianStart: 92-38-2581MBA screening DR DANNY Schwab on above:Performed By: #### PSAD #### [facility] [address] [place] [address] Dr. Aline OleaStart: 06-65-9902Yimrkudbas, device (physical object)Aaronhernesto MAO Start: 77-81-0087Yvotfnsfy of stentPatricabdirahman MAO Comment on above:Done in [place] by Dr. Kennedy Immunizations Immunization DateImmunizationNotesCare QjqlovmsVcmfnesc65-32-4488CKYW-VcA-1 (COVID-19) mRNA BNT-162b2 vaxPatrick MAO [facility]-13-2021influenza virus vaccine, unspecified formulationPatrick MAO [facility]03-30-2021SARS-CoV-2 (COVID-19) mRNA BNT-162b2 vaxPatrick MOA [facility] 772619-76-0494SPMF-LdF-0 (COVID-19) mRNA BNT-162b2 vax Aaron MAO [facility] 01134098-15-8792yahvvp vaccine recombinantPatrick MAO [facility]10-12-2020influenza virus vaccine, unspecified formulationPatrick MAO [facility] 09161955-09-2594qekmujsox virus vaccine, unspecified formulationPatrick MAO [facility]09-25-2020zoster vaccine recombinantParagon [employer] & [employer]aging Group [facility] [place] 306951-03-2018influenza virus vaccine, unspecified formulationNatoMezzobit [facility] [place] 306951-22-2017influenza, unspecified formulationParagon [employer] & Packaging Group [facility] Payers DatePayer CategoryPayerPolicy [id number] Health [id number] Health [id number] [id number] 2.0.1.827953.3.[id number] 2.0.1.748162.[id number] 2.0.1.603206.3.57[id number] 2.0.1.8[id number] 2.0.1.898636.3.579.2.531 Social History DateTypeDetailFacilityStart: 10-20-2020 End: 21-91-8840Csupuok smoking statusNever smoked tobacco (finding)[facility] Tobacco smoking statusNever[facility] of [facility] Sex Assigned At BirthMale[facility] of [facility] Functional Status DotvMaeeokgywwBwmiwqSlhhujrl19-28-1151Cxdxlvqyig StatusN/AExec[facility] of [place] 306952-12-2023Functional StatusN/A[facility]09-21-2022Functional StatusN/A [facility] Clinical Notes 12-28-2021 to 10-09-2024 Note Date & EzoxJbacOshnzods06-70-2779 [facility] Chief Complaint: [...] up Pickel Ball! Marcia Aguiar MD, MPH, [facility], [facility], [facility] Interventional Cardiology Pager Email: [email or web address] Hospital Discharge instructions Patient Education 03/26/2024 10:32:28 [...] treatment? Where to find more information The [place] [employer]: www.cancer.org [place] [employer]: www.auanet.org Contact a health care [...] provider. Document Revised: 09/19/2021 Document Reviewed: 09/19/2021 [employer] Patient Education 2023 [employer]. Follow Up Care 03/20/2023 10:41:42 With:MELVIN SWENSON, Aaron Mcleod, URL Address: [facility] [address], [place] [address]- When: Unknown [facility] [place] 12-18-2024 NotePatient Education Oncology Prostate Cancer Screening [...] Where to find more information ??? The [place] [employer]: www.cancer.org ??? [place] [employer] Association: www.auanet.org Contact a health care [...] men. The prostate gland (more content not included)...[facility]12-12-2023 Hospital Discharge instructions Patient Education 03/20/2023 10:28:54 [...] urethra. Follow these instructions at home: Take reww-jyv-pyxdmyz and prescription medicines only as told by [...] provider. Document Revised: 10/12/2021 Document Reviewed: 10/12/2021 [employer] Patient Education 2022 [employer]. Follow Up Care 01/02/2023 09:34:55 With:MELVIN SWENSON, NICHOLAS Beatty Address: [facility] [address] , [place] [address]- When:Within 1 Year(s) Comments:w/PSA [facility] [place] 09-21-2022 Hospital Discharge instructions Patient Education [...] urethra. Follow these instructions at home: Take euqm-uzf-qcrcsau and prescription medicines only as told by [...] 03/26/2006 Document Revised: 02/18/2019 Document Reviewed: 04/30/2017 [employer] Patient Education 2020 [employer]. 12/28/2021 15:04:11 Calorie Counting for Weight Loss [...] 03/26/2006 Document Revised: 12/13/2018 Document Reviewed: 02/23/2017 [employer] Patient Education 2020 [employer] Follow Up Care 10/20/2020 11:44:30 With:Aaron MAO MD, URL Address: [address] [place] [address] [place] [address] Business (1) When:Within 1 Year(s) Comments:w/PSA [facility] Evaluation + Plan note Future Appointments Appointment Date:01/04/2022 02:30:00 PM Scheduled Provider:[facility]O Office Visit Diagnostic Tests Pending * Urine Culture [facility] Future Appointments Appointment Date:01/04/2022 02:30:00 PM Scheduled Provider:Aaron MAO MD Location:[facility] Appointment Type:URO Office Visit [facility] Evaluation + Plan note Future Appointments Appointment Date:01/03/2023 10:15:00 AM Scheduled Provider:Aaron MAO MD Location:[facility] Appointment Type:URO Office Visit Diagnostic Tests Pending * PSA Total 12/28/21 [facility] Evaluation + Plan note Future Appointments Appointment Date:03/26/2024 09:45:00 AM Scheduled Provider:Aaron [facility]O MD [facility] Type:URO Office Visit Diagnostic Tests Pending * PSA Total 03/20/23 [facility] Evaluation + Plan note Future Appointments Appointment Date:03/20/2025 08:30:00 AM Scheduled Provider:Aaron MAO MD Location:[facility] Appointment Type:URO Office Visit Diagnostic Tests Pending * PSA Free & Total 03/26/24 [facility] Hospital course Narrative No data available for this section [facility] [facility] Discharge instructions No data available for this section [facility] Progress note No data available for this section [facility] [employer] Summary Purpose Family History No Family History [...] and content) DATE CREATED AUTHOR 06/13/2019 [facility] DATE CREATED AUTHOR AUTHOR'S ORGANIZ ATION 10/27/2021 [facility] DATE CREATED AUTHOR AUTHOR'S ORGANIZ ATION 03/29/2024 [facility] DATE CREATED AUTHOR AUTHOR'S ORGANIZ ATION 09/05/2024 [facility] DATE CREATED AUTHOR AUTHOR'S ORGANIZ ATION 10/12/2024 [facility] Care Team (unrecognized sect ion and content) Personnel Name: Danny Orta MD Address: [address] [place] [address] Name: Naz Parra I Personnel Name: Danny Orta MD Address: [address] [place] [address] Name: Naz Parra I Personnel Name: Danny Orta MD Address: [address] [place] [address] Name: Naz Parra I Personnel Name: Danny Orta MD Address: Address: [address] [place] [address] Name: Naz Parra I Personnel Name: Danny Orta MD Address: Address: [address] [place] [id number] Name: Naz Parra I FOR RECORDS PERTAINING [...] BE BASED ON THE PRIMARY CLINICAL RECORDS. [facility] [employer] [facility]. provides no warranty or guarantee of the accuracy or completeness of information in this document.
--- NOTE | 2025-03-19 16:35 | PC.NURSE ---
pt admitted from er to [facility], report obtained from er nurse. pt oriented to room and call light. pt stated he has not felt well in approx 4 weeks, that he has been sick with congestion and a cold. he has had nausea and abd distention since sunday. npo for ultrasound
[2025-03-19] MEDS: ACETAMINOPHEN 325 MG TABLET 650 MG PO (17:31)
--- NOTE | 2025-03-19 18:37 | PM.IMHP1 ---
Internal Medicine - H&P: HPI History of Present Illness Chief complaint: Acute Pancreatitis Narrative: This is a 69-year-old male with past medical Struve CAD with PCI, hypertension, dyslipidemia here for abdominal pain that has worsened over the last 24 hours. History obtained from the patient at bedside, chart review and ED staff. Patient tells me that over the last 5 years she has been dealing with this chronic intermittent abdominal pain where he feels that his stomach has swelled up and the pain would come and go, over time he learned how to deal with it when he quits eating and the pain goes away as per his words. He also states that the pain is associated with dry heaves and nausea. He today tells me that the pain subsides on its own however over the last few weeks he has been dealing with the flu and starting few days ago he started having the same abdominal pain which is generalized more continuous and more severe along with right sided upper back pain that hurts when he moves and on palpation. He tells me that he plays pickle ball and he attributes that upper back pain to that. Denies any fever or chills but still has nausea and dry heaves. With sometimes vomiting. He decided to come to the ED as his pain was different and his PCP recommended that he come to the ER for further workup and management. Here in the ED, patient was saturating well and afebrile with no tachycardia and he was on room air. His labs showed leukocytosis with a left shift however hemoglobin and platelets were normal. His CMP did show bilirubin of 1.3 total and direct of 0.4 however his kidney function electrolytes were all normal. His lipase 134 which is double upper two thirds of normal. His CT abdomen pelvis showed edema in the head of the pancreas suspicious for acute pancreatitis with no other bowel obstruction or obstructive uropathy. His CBD was only 5.5 mm on his ALT RUQ ultrasound and there was no Barros sign on exam. Patient to be admitted under hospital service for further workup and management. Of note patient received total of 2 L of NS boluses and was started on LR 125 mL/h. Also received 1 dose of morphine 4 mg IV once. Patient drinks 3-4 beers a day last drink was Sunday night. Review of Systems ROS Status of ROS 10 or more systems reviewed and unremarkable except as noted in history and below [facility] Medical History (Updated 03/19/25 @ 16:17 by Eloise Sullivan) Coronary artery disease ?I25.10 - Atherosclerotic heart disease of [place] coronary artery without angina pectoris (ICD-10) Hypertension ?I10 - Essential (primary) hypertension (ICD-10) Surgical History (Updated 03/19/25 @ 14:15 by Kelle Kyes RN) Stented coronary artery ?Z95.5 - Presence of coronary angioplasty implant and graft (ICD-10) Social History Highest level of school completed/degree received: Associate degree: occupational, technical, vocational program Little interest or pleasure in doing things: not at all Feeling down, depressed, or hopeless: not at all Meds Home Medications and Allergies Home Medications ?Medication ?Instructions ?Recorded ?Confirmed ?Type alfuzosin 10 mg tablet,extended 10 mg PO QDAY 03/19/25 03/19/25 History release 24 hr aspirin 81 mg capsule 81 mg PO DAILY 03/19/25 03/19/25 History atorvastatin 80 mg tablet 80 mg PO QDAY 03/19/25 03/19/25 History carvedilol 12.5 mg tablet 12.5 mg PO Q12H 03/19/25 03/19/25 History cholecalciferol (vitamin D3) 50 50 mcg PO DAILY 03/19/25 03/19/25 History mcg (2,000 unit) capsule (D3-2000) finasteride 5 mg tablet 5 mg PO QDAY 03/19/25 03/19/25 History losartan 25 mg tablet 25 mg PO QDAY 03/19/25 03/19/25 History Allergies Allergy/AdvReac Type Severity Reaction Status Date / Time ciprofloxacin (From Cipro) Allergy Hives Verified 03/19/25 11:40 Exam Narrative Exam Narrative: General:The patient appears well and in no apparent distress. Very pleasant and cooperative. Not ill-appearing Skin:Warm, dry, no pallor noted.There is no rash noted. Head:Normocephalic, atraumatic Eye: Normal conjunctiva, no drainage Ears, Nose, Mouth, and Throat: oral mucosa is moist. Nares patent. Cardiovascular:Regular Rate and Rhythm, normal S1-S2 Respiratory:Patient is in no distress, no accessory muscle use, lungs are clear to auscultation, no wheezing, rales or rhonchi Back: Does have tenderness on the right upper back just neck to the scapula on palpation. GI: Soft and nondistended. No masses. No signs of acute abdomen. No organomegaly Musculoskeletal: The patient has no evidence of calf tenderness, no pitting edema, symmetrical pulses noted bilaterally Neurological:A&O, normal speech Constitutional Vital Signs, click to edit/add: Last Vital Signs Temp 98.0 F 03/19/25 15:33 Pulse 82 03/19/25 16:10 Resp 18 03/19/25 16:10 BP 163/98 H 03/19/25 16:10 Pulse Ox 92 L 03/19/25 16:10 O2 Del Method Room Air 03/19/25 16:12 Internal Medicine - H&P: Reslt Labs Labs: Short CBC 03/19/25 Range/Units 12:13 WBC 12.7 H (4.0-11.0) 10^3/uL Hgb 16.6 (14.0-18.0) g/dL Hct 47.6 (42.0-54.0) % Plt Count 158 (150-450) 10^3/uL BMP 03/19/25 12:13 Sodium 136 Potassium 4.0 Chloride 100 Carbon Dioxide 31.1 BUN 12.0 Creatinine 1.04 Glucose 112 H Calcium 9.6 Liver Function 03/19/25 Range/Units 12:13 Total Bilirubin 1.3 H (0.2-1.0) mg/dL Direct Bilirubin 0.4 H (0.0-0.2) mg/dL AST 16 (15-37) U/L ALT 28 (16-63) U/L Alkaline Phosphatase 51 (46-116) U/L Albumin 3.8 (3.4-5.0) g/dL Urine 03/19/25 Range/Units 12:06 Urine Color Yellow (YELLOW) Urine Clarity Clear (CLEAR) Urine pH 6.0 (5.0-9.0) Ur Specific [place] 1.025 (1.005-1.025) Urine Protein Negative (NEG/TRACE) mg/dL Urine Glucose (UA) Negative (NEGATIVE) mg/dL Assessment and Plan Assessment and Plan (1) Acute pancreatitis: Plan Acute pancreatitis, could be alcoholic versus biliary with the gallstone the past? Hypertriglyceridemia was ruled out -Admit patient to medical floor telemetry - Continue with LR 125 mL/h for total of 2 L - Morphine IV 2 mg every 4 hours as needed for pain 7?01/16 - Tylenol 650 every 4 hours for pain as needed 1?09/16 - NPO for now then advance diet as tolerated tomorrow morning - Patient was quiring whether he needs cholecystectomy, explained to him that that could be done as outpatient hopefully once his platelets go down - GI and DVT prophylaxis were both addressed - I did reconcile his medications - Patient is DNR CCA without intubation, I discussed that extensively with him and he tells me that he has a living will saying that. I will update that in the chart - I discussed the plan with him in details. Answered all his question
--- OUTSIDE RECORDS SUMMARY | 2025-03-19 19:41 | XMS_ITS | Continuity of Care Document ---
Author Organization [facility] Address [address] [place] [address] Phone Care Team Providers Care Tool Specialist Name Role Phone Noe Orta MD Attending Provider Care Teams Patient Care Team Team Status: Inactive Member Role/Relationship Status Dates Noe Orta MD Attending Provider Active Sta rt: March 19, 2025 End: March 19, 2025 Allergies, Adverse Reactions, Alerts Allergen Type Severity Reaction Last Updated Verified Status ciprofloxacin Allergy Unknown December 08, 2020 2:56pmYesActiveNo Known AllergiesAllergyUnknownD2016 8:02amYesActive Social History Smoking Status Unknown if ever smoked Observation Status Observation Response Date of Response Legal Sex Male (finding) Sex Assigned At BirthMaleMa1955 Family History Relationship Condition Age at Onset Recorded Date/T zainab father Unknown motherDeceasedUnknown Medications Medication Status Dose Units Route Directions Qty Days Refills S tart Date Stop Date End Date Reason(s) Instructions Adherence Ibuprofen (Motrin Ib) 200 mg Tablet Active March 20, 2017 12:00amUnknownFinasteride 5 tabletActiveDecember 2016 12:00amUnknownAlfuzosin 10 tablet extended release 24 hrActiveDecember 2016 12:00amUnknown Procedures Procedure Date Performed Status Urine Culture March 19, 2025 active Advance Directives Advance Directive Response Recorded Date/ Time Advance Directives No March 1:12pm Insurance Providers Guarantor Matt Tate Address [address] [place] [phone] Info.Home Phone: Coverage Status Update:2024 Payer Group Member ID Coverage Type Subscriber Relationship to Subscriber Effective Date Expiration Date MMO Id: [id number] A Bebeto Id: [id number] [address] [place] [phone] Home Phone: Email: [email or web address] Insurance [address] [place] [address] Id: [id number] Dinh Summerst Id: [id number] [address] [facility] [phone] Home Phone: Email: [email or web address] Claims [id number] L Bebeto Id: [id number] [address] [place] [phone] Home Phone: Email: [email or web address] Encounters Encounter Location(s) Arrival/Admit Date Discharge/Departure Date Discharge/Departure Disposition Provider(s) Departed Referred -[facility] March 19, 2025 12:06pm March 19, 2025 12:07pm Discharged to home care or self care (routine discharge) Luz Ferrara MD Plan of Treatment Future Tests Future scheduled test information is unavailable Pending Tests Test Name Ordered Date Scheduled Date Urine Culture March 19, 2025 12:06pm Future Visits Future appointment information is unavailable Future Procedures Procedure Name Ordered Date Scheduled Date Urine Culture March 19, 2025 7:55pm Decem 2024 12:06pm Future Medications Future medication information is unavailable Patient Instructions Patient instructions are unavailable
[2025-03-19] MEDS: MORPHINE SULFATE 2 MG/ML SYRINGE IV (20:16)
[2025-03-19] MEDS: CARVEDILOL 12.5 MG TABLET PO (20:20)
[2025-03-19] MEDS: PROCHLORPERAZINE 10 MG/2 ML VIAL 5 MG IV (20:20)
[2025-03-19] MEDS: HEPARIN SODIUM (PORCINE) 5,000 UNIT/ML VIAL 5000 UNIT SUBQ (20:24)
[2025-03-19] MEDS: ATORVASTATIN CALCIUM 40 MG TABLET 80 MG PO (22:28)
[2025-03-19] MEDS: FINASTERIDE 5 MG TABLET PO (23:25)
[2025-03-19] MEDS: ALFUZOSIN HCL 10 MG TAB.ER.24H PO (23:25)
[2025-03-20] VITALS (13 sets, daily range): BP systolic 140–185; BP diastolic 74–106; PULSE 5–77; TEMP 36.6–36.9; O2SAT 92–94; BMI 30.7
[2025-03-20] MEDS: MORPHINE SULFATE 2 MG/ML SYRINGE IV (04:20)
[2025-03-20] MEDS: PROCHLORPERAZINE 10 MG/2 ML VIAL 5 MG IV (04:20)
[2025-03-20 05:40] LABS: Hematocrit 44.6 % (42.0-54.0); Hemoglobin 15.1 g/dL (14.0-18.0); Immature Granulocytes Abs Auto 0.03 10^3/uL (0.00-0.03); Immature Granulocytes Pct Auto 0.3 % (0.0-0.5); Lymphocytes Absolute Auto 1.0 10^3/uL (1.2-3.8); Mean Corpuscular HGB Conc 33.9 g/dL (29.9-35.2); Mean Corpuscular Hemoglobin 31.3 pg (25.9-34.0); Mean Corpuscular Volume 92.3 fL (80.0-94.0); Platelet Count 137 10^3/uL (150-450); Red Blood Count 4.83 10^6/uL (4.70-6.10); White Blood Count 10.6 10^3/uL (4.0-11.0)
[2025-03-20] MEDS: PANTOPRAZOLE SODIUM 40 MG VIAL IV (05:52)
[2025-03-20 06:02] LABS: Alanine Aminotransferase 22 U/L (16-63); Albumin Globulin Ratio 1.0; Albumin Level 3.1 g/dL (3.4-5.0); Alkaline Phosphatase 43 U/L (46-116); Anion Gap 9.2; Aspartate Amino Transferase 15 U/L (15-37); Blood Urea Nitrogen 9.0 mg/dL (7.0-18.0); Calcium 8.9 mg/dL (8.5-10.1); Carbon Dioxide 29.6 mmol/L (21.0-32.0); Chloride 103 mmol/L (98-107); Estimated GFR (African America >60 (>=60 mL/min/1.73m^2); Estimated GFR (Non-African Ame >60 (>=60 mL/min/1.73m^2); Globulin 3.2 g/dL; Glucose 86 mg/dL (74-106); Magnesium 1.7 mg/dL (1.8-2.4); Potassium 3.8 mmol/L (3.5-5.1); Sodium 138 mmol/L (136-145); Total Protein 6.3 g/dL (6.4-8.2)
[2025-03-20] MEDS: CARVEDILOL 12.5 MG TABLET PO ×2 (08:08→21:43)
[2025-03-20] MEDS: LOSARTAN POTASSIUM 25 MG TABLET PO ×2 (08:09→12:01)
--- NOTE | 2025-03-20 10:00 | CM.NOTE ---
Rounds made with Dr. Best, discussed plan of care and diagnosis with pt. No discharge today.
[2025-03-20] MEDS: MAGNESIUM SULFATE/D5W 1 GM/100 ML PREMIX IV (10:04)
--- NOTE | 2025-03-20 10:55 | P.IMPN_ITS ---
Progress Note: A&P Assessment and Plan (1) Acute pancreatitis: Plan Acute pancreatitis, could be alcoholic versus biliary with the gallstone the past? Hypertriglyceridemia was ruled out -Admit patient to medical floor telemetry - Continue with LR 125 mL/h for total of 2 L - Morphine IV 2 mg every 4 hours as needed for pain 7?01/16 - Tylenol 650 every 4 hours for pain as needed 1?09/16 - NPO for now then advance diet as tolerated tomorrow morning - Patient was quiring whether he needs cholecystectomy, explained to him that that could be done as outpatient hopefully once his platelets go down - GI and DVT prophylaxis were both addressed - I did reconcile his medications - Patient is DNR CCA without intubation, I discussed that extensively with him and he tells me that he has a living will saying that. I will update that in the chart - I discussed the plan with him in details. Answered all his question 03/20/2025 patient's abdominal pain is still there and he states that he still have some nausea however he wants to eat. I will try full liquid diet on him. Will continue with IV fluids and morphine and Tylenol for pain control as well. I will make him inpatient given his continued pain and hopefully by tomorrow if he is tolerating will discharge him Internal Medicine - PN: Subj Subjective Interval history: Patient seen and examined at bedside. Still requiring morphine for intermittent abdominal pain. He tells me that he did have the same issue with the abdomen swelling up overnight. No vomiting but did have some dry heaves this morning. He is stating that he wants to eat. No fever no chills. Labs were unremarkable except for hypomagnesemia which were repleted Exam Narrative Exam Narrative: General:The patient appears well and in no apparent distress. Very pleasant and cooperative. Not ill-appearing Skin:Warm, dry, no pallor noted.There is no rash noted. Head:Normocephalic, atraumatic Eye: Normal conjunctiva, no drainage Ears, Nose, Mouth, and Throat: oral mucosa is moist. Nares patent. Cardiovascular:Regular Rate and Rhythm, normal S1-S2 Respiratory:Patient is in no distress, no accessory muscle use, lungs are clear to auscultation, no wheezing, rales or rhonchi Back: Does have tenderness on the right upper back just neck to the scapula on palpation. GI: Soft and nondistended. No masses. No signs of acute abdomen. No organomegaly Musculoskeletal: The patient has no evidence of calf tenderness, no pitting edema, symmetrical pulses noted bilaterally Neurological:A&O, normal speech Constitutional Vital Signs, click to edit/add: Last Vital Signs Temp 98.0 F 03/20/25 07:58 Pulse 77 03/20/25 07:58 Resp 16 03/20/25 07:58 BP 183/100 H 03/20/25 07:58 Pulse Ox 92 L 03/20/25 07:58 O2 Del Method Room Air 03/20/25 07:58 Internal Medicine - PN: Obj Da Labs Labs: Laboratory Results - last 24 hr 03/19/25 03/19/25 03/20/25 12:06 12:13 04:56 WBC 12.7 H RBC 5.15 Hgb 16.6 Hct 47.6 MCV 92.4 MCH 32.2 MCHC 34.9 RDW 11.8 Plt Count 158 MPV 10.5 Neut % (Auto) 82.5 H Lymph % (Auto) 8.5 L [place] % (Auto) 7.7 Eos % (Auto) 0.7 L Baso % (Auto) 0.3 Neut # (Auto) 10.5 H Lymph # (Auto) 1.1 L [place] # (Auto) 1.0 H Eos # (Auto) 0.1 Baso # (Auto) 0.0 Abs Immat Gran (auto) 0.04 H Imm/Tot Granulo (auto) 0.3 Sodium 136 138 Potassium 4.0 3.8 Chloride 100 103 Carbon Dioxide 31.1 29.6 Anion Gap 8.9 9.2 BUN 12.0 9.0 Creatinine 1.04 0.83 Est GFR ( Amer) >60 >60 Est GFR (Non-Af Amer) >60 >60 BUN/Creatinine Ratio 11.5 10.8 Glucose 112 H 86 Calcium 9.6 8.9 Magnesium 2.0 1.7 L Total Bilirubin 1.3 H 1.4 H Direct Bilirubin 0.4 H AST 16 15 ALT 28 22 Alkaline Phosphatase 51 43 L Troponin I High Sens 8.5 Total Protein 7.3 6.3 L Albumin 3.8 3.1 L Globulin 3.5 3.2 Albumin/Globulin Ratio 1.1 1.0 Triglycerides 71 Amylase 69 Lipase 134.0 H Urine Color Yellow Urine Clarity Clear Urine pH 6.0 Ur Specific [place] 1.025 Urine Protein Negative Urine Glucose (UA) Negative Urine Ketones 15 A Urine Occult Blood Negative Urine Nitrite Negative Urine Bilirubin Small A Urine Urobilinogen 1.0 Ur Leukocyte Esterase Negative Urine RBC 0-2 Urine WBC 0-2 A Ur Squamous Epith Cells Rare Urine Crystals None seen Urine Bacteria None seen Urine Casts None seen Urine Mucus Trace A Ur Culture Indicated? No 03/20/25 04:59 WBC 10.6 RBC 4.83 Hgb 15.1 Hct 44.6 MCV 92.3 MCH 31.3 MCHC 33.9 RDW 11.9 Plt Count 137 L MPV 10.9 Neut % (Auto) 80.3 H Lymph % (Auto) 9.1 L [place] % (Auto) 9.0 Eos % (Auto) 1.0 Baso % (Auto) 0.3 Neut # (Auto) 8.5 H Lymph # (Auto) 1.0 L [place] # (Auto) 1.0 H Eos # (Auto) 0.1 Baso # (Auto) 0.0 Abs Immat Gran (auto) 0.03 Imm/Tot Granulo (auto) 0.3 Sodium Potassium Chloride Carbon Dioxide Anion Gap BUN Creatinine Est GFR ( Amer) Est GFR (Non-Af Amer) BUN/Creatinine Ratio Glucose Calcium Magnesium Total Bilirubin Direct Bilirubin AST ALT Alkaline Phosphatase Troponin I High Sens Total Protein Albumin Globulin Albumin/Globulin Ratio Triglycerides Amylase Lipase Urine Color Urine Clarity Urine pH Ur Specific [place] Urine Protein Urine Glucose (UA) Urine Ketones Urine Occult Blood Urine Nitrite Urine Bilirubin Urine Urobilinogen Ur Leukocyte Esterase Urine RBC Urine WBC Ur Squamous Epith Cells Urine Crystals Urine Bacteria Urine Casts Urine Mucus Ur Culture Indicated?
[2025-03-20] MEDS: LABETALOL HCL 20 MG/4 ML SYRINGE 5 MG IV (16:05)
--- OUTSIDE RECORDS SUMMARY | 2025-03-20 16:59 | XMS_ITS | CCD ---
Author Organization [facility] Inform ion Partnership [facility] Care Team Providers Care Shade Bander Name Role Phone ELCHECO, EHAB A Admitting [...] of OnsetReaction(s) Facility (2 sources)Ciprofloxacin; Translations: [CIPROFLOXACIN]Drug Ydoygux28-80-4743[facility] Repository (6 sources)Ciprofloxacin; Translations: [ciprofloxacin]Drug AllergyEruption of skin (disorder)[facility] (1 source)CiprofloxacinDrug Hizopjh74-51-9147QkkReg[facility] (1 source)CiprofloxacinDrug Fefazjy97-20-4295OzwvzjzkuGrand [facility] Medications Current Medications MedicationDrug Class(es)DatesSig (Normalized)Sig (Original)24 hr alfuzosin hydrochloride 10 mg extended release oral tablet (5 sources)alpha-Adrenergic BlockerStart: 03-26-2024 End: 65-43-0909kezd 1 tablet by mouth once dailyalfuzosin 10 mg ER Tab 10 mg = 1 tab(s), Oral, Daily, X 90 day(s), # 90 tab(s), Refills(s) 3, Pharmacy: [facility], 178, cm, 03/26/24 9:56:00 EST, Height/Length Dosing, 100.6, kg, 03/26/24 9:56:00 EST, Weight Dosing Start Date: 03/26/24 Stop Date: 03/21/25 Status: OrderedStart: 28-58-4360vdzk 1 tablet by mouth once dailyalfuzosin 10 mg ER Tab 10 mg = 1 tab(s), Oral, Daily, # 90 tab(s), Refills(s) 3, Pharmacy: [facility], 178, cm, 12/28/21 14:33:00 EDT, Height/Length Dosing, 99, kg, 12/28/21 14:33:00 EDT, Weight Dosing Start Date: 01/02/23 Status: Ordered Start: 72-21-5903ubvv 1 tablet by mouth once dailyalfuzosin 10 mg ER Tab 10 mg = 1 tab(s), Oral, Daily, # 90 tab(s), Refills(s) 3, Pharmacy: [facility] ([facility]), 178, cm, 10/20/20 10:46:00 EDT, Height/Length Dosing, 98.9, kg, 10/20/20 10:46:00 EDT, Weight Dosing Start Date: 11/25/21 Status: OrderedStart: 79-21-9643smpk 1 tablet by mouth once dailyalfuzosin 10 mg ER Tab 10 mg = 1 tab(s), Oral, Daily, # 90 tab(s), Refills(s) 3, Pharmacy: [facility], 178, cm, 10/20/20 10:46:00 EDT, Height/Length Dosing, 98.9, kg, 10/20/20 10:46:00 EDT,Weight Dosing Start Date: 01/04/21 Status: OrderedAspir 81 (5 sources)Start: 98-13-0007acns 1 mg by mouth once dailyAspir 81 mg, Oral, Daily, Refills(s) 0 Start Date: 03/05/19 Status: Orderedatorvastatin 80 mg oral tablet (5 sources)HMG-CoA Reductase InhibitorStart: 54-22-6829ftpg 1 mg by mouth once dailyatorvastatin 80 mg Tab mg tab(s), Oral, Daily, Refills(s) 0 Start Date: 03/05/19 Status: Orderedcarvedilol (5 sources)alpha-Adrenergic Gabriel, beta-Adrenergic BlockerStart: 11-24-2019 carvedilol Oral, Refills(s) 0 Start Date: 11/24/19 Status: Orderedfinasteride 5 mg oral tablet (5 sources)5-alpha Reductase InhibitorStart: 03-26-2024 End: 48-13-6135ffih 1 tablet by mouth once dailyfinasteride 5 mg Tab 5 mg = 1 tab(s), Oral, Daily, X 90 day(s), # 90 tab(s), Refills(s) 3, Pharmacy: [facility], 178, cm, 03/26/24 9:56:00 EST, Height/Length Dosing, 100.6, kg, 03/26/24 9:56:00 EST, Weight Dosing Start Date: 03/26/24 Stop Date: 03/21/25 Status: OrderedStart: 33-38-7997ktgm 1 tablet by mouth once dailyfinasteride 5 mg Tab 5 mg = 1 tab(s), Oral, Daily, # 90 tab(s), Refills(s) 3, Pharmacy: [facility] ([facility] 178, cm, 12/28/21 14:33:00 EDT, Height/Length Dosing, 99, kg, 12/28/21 14:33:00 EDT, Weight Dosing Start Date: 07/17/22 Status: OrderedStart: 22-41-4633yzrp 1 tablet by mouth once daily finasteride 5 mg Tab 5 mg = 1 tab(s), Oral, Daily, # 90 tab(s), Refills(s) 3, Pharmacy: [facility] ([facility]), 178, cm, 10/20/20 10:46:00 EDT, Height/Length Dosing, 98.9, kg, 10/20/20 10:46:00 EDT, Weight Dosing Start Date: 11/25/21 Status: OrderedStart: 17-06-7507vhpf 1 tablet by mouth once daily finasteride 5 mg Tab 5 mg = 1 tab(s), Oral, Daily, # 90 tab(s), Refills(s) 3, [facility], 178, cm, 10/20/20 10:46:00 EDT, Height/Length Dosing, 98.9, kg, 10/20/20 10:46:00 EDT, Weight Dosing Start Date: 01/04/21 Status: Orderedlisinopril 2.5 mg oral tablet (2 sources)Angiotensin Converting Enzyme InhibitorStart: 16-93-8966ysbx 1 mg by mouth once dailylisinopril 2.5 mg Tab mg tab(s), Oral, Daily, Refills(s) 0 Start Date: 03/05/19 Status: OrderedLosartan (3 sources)Angiotensin 2 Receptor BlockerStart: 41-82-2847aijsyvsr Oral, Daily, Refills(s) 0 Start Date: 12/28/21 Status: OrderedMisc Medication (5 sources)Start: 95-66-3161Wfos Medication Start Date: 06/21/13 Status: Ordered pantoprazole 40 mg delayed release oral tablet (4 sources)Proton Pump InhibitorStart: 04-69-6056jyia 1 mg by mouth once daily Pantoprazole [address] Tab mg tab(s), Oral, Daily, Refills(s) 0 Start Date: 03/05/19 Status: Orderedtadalafil 20 mg oral tablet (4 sources)Phosphodiesterase 5 InhibitorStart: 07-53-4778rgtbrklek 20 mg Tab 20 mg = 1 tab(s), Oral, As Directed, # 30 tab(s), Refills(s) 3, Pharmacy: [facility] [place] [id number] Start Date: 03/05/19 Status: Ordered Problems Active Problems Problem ClassificationProblemDateDocumented DateEpisodic/ChronicAbdominal pain (11 sources)Epigastric pain; Translations: [Right upper quadrant pain]Onset: 409191-96-7506WfjvqvouJoiuhvww atherosclerosis and other heart disease (7 sources)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; Translations: [Atherosclerotic heart disease of [place] coronary artery without angina pectoris]Onset: 196745-41-9229Xbyztpm Disorders of lipid metabolism (2 sources)Mixed hyperlipidemia; Translations: [Mixed hyperlipidemia]Onset: 13-11-8104HgurrjyAynrawxta hypertension (7 sources)Hypertensive disorder; Translations: [Essential (primary) hypertension]Onset: 201480-92-0891LxrjjmwVftejtxfueyrv symptoms and ill- defined conditions (5 sources)Post-micturition mlysmnettifs53-85-8941ImfccxrBjjsjqvbxijyh symptoms and ill-defined conditions (16 sources)Andrew hematuria; Translations: [Increased frequency of urination] Onset: 254464-50-6445WybsyjizGcgptlzmvqy of prostate (10 sources)Benign prostatic hyperplasia; Translations: [Benign prostatic hypertrophy with outflow obstruction]Onset: hronic Inflammatory conditions of male genital organs (5 sources)Chronic tmgkhekpftv77-76-7562FceyzdzWyakp male genital disorders (5 sources)Ruuaizqph23-20-6598BbrunhlRhczq male genital disorders (2 sources)Male erectile dysfunction, unspecified; Translations: [Erectile dysfunction]Onset: 71-10-9589KqnntkdTragz nutritional; endocrine; and metabolic disorders (5 sources)Body mass index 30+ - kijmlex61-21-6211OfdvxjkUqvaz nutritional; endocrine; and metabolic disorders (1 source)Obese class I; Translations: [Body mass index (BMI) 31.0-31.9, adult] Onset: 73-49-8641TkrnfaxKrxdp screening for suspected conditions (not mental disorders or infectious disease) (17 sources)CT of abdomen abnormal; Translations: [Raised prostate specific antigen]Onset: 925113-29-8549FrcfhrnzPzsgvhnncn disorders (not diabetes) (9 sources)Pancreatitis; Translations: [Acute pancreatitis without necrosis or infection, unspecified]Onset: 314060-82-0212YdihrssjWbralgcj codes; unclassified (5 sources)Family history of prostate jxfbaa22-10-7877UeehxeekPxyugfvq codes; unclassified (3 sources)Family history of cancer; Translations: [Family history of malignant neoplasm of prostate]Onset: 86-07-8281Squgvorw Past or Other Problems Problem ClassificationProblemDateDocumented DateEpisodic/ChronicNeoplasms of unspecified nature or uncertain behavior (1 source)Neoplasm of unspecified behavior of bone, soft tissue, and skin; Translations: [Neoplasm of unspecified behavior of bone, soft tissue, and skin] Onset: 76-91-8783VwhnbliuHwqhildyhvdd (3 sources)prostate infections( Confirmed )08-50-1901Hgsuceiltmsu (2 sources)prostate kfbtsqjynn44-56-8201 Results Test NameValueInterpretationReference RangeFacilityOffice Visiton 10-09-2024 Follow-up [id number] Gabriel Pardo 1955 M Date Provider Department Center 10/09/2024 271-[address] AGUIAR [facility] Family History Problem Relation Age of Onset Coronary artery disease Father Family Status - Relation Status Age at Mother Father Level of Service:14113 [place] OFFICE/OUTPATIENT ESTABLISHED LOW [facility]24 Ambulatory Visit SummaryAmbulatory [...] Aaron MAO MD Where: [facility] [address] [place] [address]- You Need to Schedule the Following Appointments Follow Up with Aaron MAO MD, URL When: Where: [facility] [address], [place] [address]- Medications What How Much When Instructions Changed [...] [facility]: [address] [facility] [address] [place], [place] [address] [phone] Allergies Cipro (Rash) Problems Ongoing - Any [...] screening for prostate c (more content not included)...[facility]/Clinic Noteon 56-27-5509Yyplqby Office/Clinic Note Urology Office/Clinic Note Chief Complaint [...] [facility] [address], [place] [address]- Additional Instructions: 1 yr with PSA F&T, [...] vaccine, inactivated 02/09/2018 Rec (more content not included)...[facility] DaytonComment on above:Result Comment: Electronically Signed By: Aaron MAO MD\.br\Date and Time Signed: 03/26/24 10:43 EST\.br\Electronically Co-Signed By: Regla Vieira\.br\Date and Time Co-Signed: 03/26/24 10:39 ESTLon 03-18-2024 Specimen: [id number] Received: 03/18/24 Status: KELSEA Modi Num: [id number] Spec Type: Surgical Subm Dr: Emeka Zarate MD Tissues: A Skin-Other than Cyst, tag, debridement or plastic repair (POST AURICULAR) Procedures: HANSA/Diane Cool/Verónica Painter Age/ Patient Sex Location Account Attending Physician Gabriel Pardo/M ALEC [id number] Emeka Zarate MD SPEC NUM: [id number] RECD: 03/18/24 STATUS: KELSEA FATIMAMaury NUM: [id number] BRENDA: 03/18/[address] [facility] [address]: Emeka Zarate MD ENTERED: 03/18/[address] [facility] [address]: SPEC TYPE: Surgical DEPT: S ENTERED BY: [id number] RECV BY: [id number] ORDERED: HE/2, Gross/Micro L4 ORDERED: HE/2, Gross/Micro [...] specimen submitted in cassette A2. (2, ns, [id number] 8062 A) Microscopic Description Microscopic examinations are performed supporting the above interpretation Specimen: [id number] Received: 03/18/24 Status: KELSEA Ly Num: [id number] Spec Type: Surgical Subm Dr: Emeka Zarate MD Tissues: A Skin-Other than Cyst, tag, debridement or plastic repair (POST AURICULAR) Procedures: Flex SINGH L4 Patient: BebetoGabriel L [id number] (Continued) Specimen: [id number] Received: 03/18/24 (Continued) Signed (signature on file) Karley Olea MD 03/19/241926 Specimen: [id number] Received: 03/18/24 Status: KELSEA Modi Num: [id number] Spec Type: Surgical Subm Dr: Emeka Zarate MD Tissues: A Skin-Other than Cyst, tag, debridement or plastic repair (POST AURICULAR) Procedures: Flex SINGH L4 Patient: Gabriel Pardo [id number] (Continued) Specimen: [id number] Received: 03/18/24 (Continued) CPT Codes 24920 Specimen: [id number] Received: 03/18/24 Status: KELSEA Modi Num: [id number] Spec Type: Surgical Subm Dr: Emeka Zarate MD Tissues: A Skin-Other than Cyst, tag, debridement or plastic repair (POST AURICULAR) Procedures: HE/2, Gross/Micro L4 Patient: Gabriel Pardo [id number] (Continued) Signed (signature on file) Chin-Rafa Olea MD 03/19/[address] [place] [address] Physician [id number] 81-31-961801Lrttluwpr stress test and echo performed on 10/09/2023: MD Alka Lanza MA Please let him know stress test was normal Thanks Patient informed.NormalUnKindred Hospital DaytonAMYLASEon 11-10-2020 Amylase [Catalytic activity/Vol]44 U/IUtcuhz59-182Gmu [facility] HospitalComment on above:Performed By: #### CRP, CMP, LIPA, LOREE #### [facility] [address] [place] [address] Elver KarenCBC AUTO DIFFon 51-30-0346HKHX #0.0 103/ulNormal0.0-0.1The [facility] HospitalComment on above:Performed By: #### CBC #### [facility] [address] [address] Elver KarenBasophils/100 WBC (Bld)0.7 %Normal0.2-2.0The [facility] Comment on above:Performed By: #### CBC #### [facility] [address] [address] Elver KarenEO #0.3 103/ulNormal0.0-0.7The [facility] HospitalComment on above: Performed By: #### CBC #### [facility] [address] [address] Elver KarenEosinophils/100 WBC (Bld)5.5 %Normal0.9-7.0The [facility] Comment on above:Performed By: #### CBC #### [facility] [address] [address] Elver KarenErythrocyte distribution width (RBC) [Ratio]12.5 %Dsrcge92.0-15.0The [facility] HospitalComment on above:Performed By: #### CBC #### [facility] [address] [place] [address] Elver KarenHematocrit (Bld) [Volume fraction]46.2 %Urayjy02.0-54.0The [facility] HospitalComment on above:Performed By: #### CBC #### [facility] [address] [place] [address] Elver KarenHemoglobin (Bld) [Mass/Vol]15.7 g/wOQdhwmo93.0-18.0The [facility] HospitalComment on above:Performed By: #### CBC #### [facility] [address] [place] [address] Elver KarenIG #0.02 10e3/ulNormal0.00-0.03The [facility] HospitalComment on above:Performed By: #### CBC #### [facility] [address] [place] [address] Elver KarenIG %0.3 %Normal0.0-0.5The [facility] HospitalComment on above: Performed By: #### CBC #### [facility] [address] [place] [address] Elver KarenLYMPH #1.1 103/ulCritically low1.2-3.8The [facility] HospitalComment on above:Performed By: #### CBC #### [facility] [address] [place] [address] Elver KarenLymphocytes/100 WBC (Bld)19.0 %Critically low20.5-60.0The [facility] HospitalComment on above:Performed By: #### CBC #### [facility] [address] [place] [address] Elver KarenMANUAL DIFF REQNONormalThe [facility] HospitalComment on above: Performed By: #### CBC #### [facility] [address] [place] [address] Elver KarenMCH (RBC) [Entitic mass]31.7 lqYmrnqo42.9-34.0The [facility] Comment on above:Performed By: #### CBC #### [facility] [address] [place] [address] Elver KarenMCHC (RBC) [Mass/Vol]34.0 g/iTObtgga94.9-35.2[facility] Comment on above:Performed By: #### CBC #### [facility] [address] [place] [address] Elver KarenMCV (RBC) [Entitic vol]93.3 rIApjdro07.0-94.0[facility] Comment on above:Performed By: #### CBC #### [facility] [address] [place] [address] Elver KarenMONO #0.5 103/ulNormal0.3-0.8The [facility] HospitalComment on above: Performed By: #### CBC #### [facility] [address] [place] [address] Elver KarenMonocytes/100 WBC (Bld)8.9 %Normal1.7-12.0[facility] Comment on above:Performed By: #### CBC #### [facility] [address] [place] [address] Elver KarenNEUT #3.9 103/ulNormal1.4-6.5The [facility] HospitalComment on above: Performed By: #### CBC #### [facility] [address] [place] [address] Elver KarenNeutrophils/100 WBC (Bld)65.6 %Hegcqk85.0-75.0[facility] Comment on above:Performed By: #### CBC #### [facility] [address] [place] [address] Elver KarenPlatelet mean volume (Bld) [Entitic vol]11.0 fLNormal9.5-13.5The [facility] HospitalComment on above:Performed By: #### CBC #### [facility] [address] [place] [address] Elver HgwbtXHW914 103/ulCritically vfj461-162Xly [facility] HospitalComment on above:Performed By: #### CBC #### [facility] [address] [place] [address] Elver KarenRBC4.95 106/ulNormal4.70-6.10The [facility] HospitalComment on above: Performed By: #### CBC #### [facility] [address] [place] [address] Elver KarenWBC6.0 103/ulNormal4.0-11.0The [facility] HospitalComment on above: Performed By: #### CBC #### [facility] [address] [place] [address] Elver KarenCRPon 57-78-1732KDG [Mass/Vol]mg/LNormal<=1.0The [facility] Comment on above:Performed By: #### CRP, CMP, LIPA, LOREE #### [facility] [address] [place] [address] Elver KarenLIPASEon 21-77-0447Irbuti [Catalytic activity/Vol]163.0 U/LNormal 23.0-300.0The [facility] HospitalComment on above:Performed By: #### CRP, CMP, LIPA, LOREE #### [facility] [address] [place] [address] Elver KarenPROF 14(COMP METB)on 65-15-7566Mdantqs [Mass/Vol]3.9 g/dLNormal 3.5-5.0The [facility] HospitalComment on above:Performed By: #### CRP, CMP, LIPA, LOREE #### [facility] [address] [place], [place] [address] Elver KarenAlbumin/Globulin [Mass ratio]1.3 {ratio}NormalRegency Hospital [place] Comment on above:Performed By: #### CRP, CMP, LIPA, LOREE #### [facility] [address] [place] [address] Elver KarenALP [Catalytic activity/Vol]48 U/NBqxjrk60-848UciRegency Hospital [place] Comment on above:Performed By: #### CRP, CMP, LIPA, LOREE #### [facility] [address] [address] Elver KarenALT [Catalytic activity/Vol]50 U/WXvbqrl67-67MlzRegency Hospital [place] Comment on above:Performed By: #### CRP, CMP, LIPA, LOREE #### [facility] [address] [place] [address] Elver KarenAnion gap [Moles/Vol]7.4 mmol/LNormalRegency Hospital ToledoComment on above:Performed By: #### CRP, CMP, LIPA, LOREE #### [facility] [address] [place] [address] Elver KarenAST [Catalytic activity/Vol]30 U/WTwxnam50-31KaaRegency Hospital [place]edo Comment on above:Performed By: #### CRP, CMP, LIPA, LOREE #### [facility] [address] [place] [address] Elver KarenBilirubin [Mass/Vol]1.0 mg/dLNormal0.2-1.3TPremier Health Upper Valley Medical Center Comment on above:Performed By: #### CRP, CMP, LIPA, LOREE #### [facility] [address] [place] [address] Elver KarenCalcium [Mass/Vol]9.1 mg/dLNormal8.4-10.2[facility] Comment on above:Performed By: #### CRP, CMP, LIPA, LOREE #### [facility] [address] [place] [address] Elver KarenChloride [Moles/Vol]106 mmol/OEynwkc16-068OplRegency Hospital [facility] Comment on above:Performed By: #### CRP, CMP, LIPA, LOREE #### [facility] [address] [address] Elver KarenCO2 [Moles/Vol]32.9 mmol/LCritically high22.0-30.0[facility] ToledoComment on above:Performed By: #### CRP, CMP, LIPA, LOREE #### [facility] [address] [place] [address] Elver KarenCreatinine [Mass/Vol]1.05 mg/dLNormal0.66-1.25The [facility] Comment on above:Performed By: #### CRP, CMP, LIPA, LOREE #### [facility] [address] [place] [address] Elver KarenEGFR-AF MALAWIAN>60Normal>=60The [facility] HospitalComment on above: Performed By: #### CRP, CMP, LIPA, LOREE #### [facility] [address] [place] [address] Elver KarenEGFR-NON AF MALAWIAN>60Normal>=60The [facility] HospitalComment on above:Performed By: #### CRP, CMP, LIPA, LOREE #### [facility] [address] [place] [address] Elver KarenGlobulin (S) [Mass/Vol]3.0 g/dLNormalThe [facility] HospitalComment on above:Performed By: #### CRP, CMP, LIPA, LOREE #### [facility] [address] [place] [address] Elver KarenGlucose [Mass/Vol]111 mg/dLCritically phuz96-941Zmp [facility] HospitalComment on above:Performed By: #### CRP, CMP, LIPA, LOREE #### [facility] [address] [place] [address] Elver KarenPotassium [Moles/Vol]4.3 mmol/LNormal3.4-5.0[facility] Comment on above:Performed By: #### CRP, CMP, LIPA, LOREE #### [facility] [address] [place] [address] Elver KarenProtein [Mass/Vol]6.9 g/dLNormal6.1-8.2The [facility] HospitalComment on above:Performed By: #### CRP, CMP, LIPA, LOREE #### [facility] [address] [address] Elver KarenSodium [Moles/Vol]142 mmol/WHdzgmm999-643Sog [facility] Comment on above:Performed By: #### CRP, CMP, LIPA, LOREE #### [facility] [address] [address] Elver KarenUrea nitrogen [Mass/Vol]8.0 mg/dLCritically low9.0-20.0The [facility] HospitalComment on above:Performed By: #### CRP, CMP, LIPA, LOREE #### [facility] [address] [address] Elver KarenUrea nitrogen/Creatinine [Mass ratio]7.6 mg/mgNormalThe [facility] HospitalComment on above:Performed By: #### CRP, CMP, LIPA, LOREE #### [facility] [address] [address] Elver KarenSED RATE WESTERGRENon 19-89-3858DJY RATE5 mm/hrNormal<=20The [facility] HospitalComment on above:Performed By: #### SEDR #### [facility] [address] [address] Elver KarenCardiovascular Lab Reporton [id number] Lab Report [facility] Patient Name: Bebeto [facility] MR #: [id number] Physician: Marcia Aguiar Department of M.D. Medicine Service Date: 02/13/2019 Division of Birthdate: 1955 Cardiology Room #: [id number] Adult Cardiovascular Services [place] [address] Cardiovascular Laboratory Report IMPRESSION: 1. Severe, complex bifurcation lesion of the proximal left anterior descending coronary artery and adjacent large branching diagonal, successfully treated by balloon angioplasty and bifurcation stent placement. 2. Severe distal disease of the left circumflex coronary artery. 3. Weny-sp-renivpuv disease of the right coronary artery. 4. [...] the left radial artery was obtained. A 6-Kiswahili glide sheath was inserted without difficulty. Bilateral selective coronary angiography was performed using JR4 and JL4 catheters. After reviewing the images, it was elected to proceed with an interventional procedure. A 6-Kiswahili XB 3.5 guide catheter was advanced over [...] The stent delivery balloon was subsequently retracted senior living into the left anterior descending stent. Final [...] M.D. Date Trans: 02/15/2019 11:18 Cristobal/jean pierre DN_JN:[id number] Community Hospital Vital Signs Date TimeVital SignValuePerforming JcjerzoyoPsycrufo00-54-7025 09:52-0500Blood Pressure LocationPanancy MAO [facility] [place] 026292-18-2024 09:52-0500Diastolic blood farfvfmw82 mm[Hg]Aaorn MAO [facility] [place] 026292-18-2024 09:52-0500Heart rate62 /minAaron MAO [facility] [place] 026292-18-2024 09:52-0500Systolic blood lcojuorc055 mm[Hg]Aaron MAO [facility] [place] 026292-12-2023 09:46-0500Diastolic blood sylzoiau81 mm[Hg]Aaron MAO [facility] [place] 026292-12-2023 09:46-0500Mean blood mxiryzem78 mm[Hg]Aaron MAO [facility] [place] 338122-12-2023 09:46-0500Systolic blood liycvxjt657 mm[Hg]Aaronhernesto MAO [facility] [place] 338122-12-2023 09:40-0500Blood Pressure LocationPaSocialToaster, Inc. [facility] [place] 338122-12-2023 09:40-0500Diastolic blood ptlzgeqt29 mm[Hg]Aaron MAO [facility] [place] 338122-12-2023 09:40-0500Heart rate72 /minMultiplicom [facility] [place] 338122-12-2023 09:40-0500Systolic blood xwokuxos709 mm[Hg]Aaron MAO [facility]09-21-2022 14:30-0400Blood Pressure LocationDcSocialToaster, Inc. [facility]09-21-2022 14:30-0400Diastolic blood dflaqxfi30 mm[Hg]Aaron MAO [facility]09-21-2022 14:30-0400Heart rate63 /minMultiplicom [facility]09-21-2022 14:30-0400Systolic blood gcwzzwfa359 mm[Hg]Aaron MAO [facility] Encounters Encounter DateEncounter TypeCare ProviderFacilityStart: 02-79-0372zylenfgzps Aaron R WATERSFacility:EU [place]Start: 10-09-2024 End: 49-51-2127kftjsxjckbIGLW ELCHECOUniversity Hospitals [facility] Centertart: 03-26-2024 End: 67-66-1982hsqzdhduhbEllsnax R WATERSFacility:EU [place]Start: 03-26-2024 End: 84-24-7129Cbsmkxv encounter procedureAaron Mcleod MAO [facility] Start: 03-18-2024 End: 52-60-9717dtwyfwelxiTqnszmg [place]fieldFacility:[facility] Ohiotart: 03-20-2023 End: 67-84-6997Dvojnnj encounter procedureAaron Mcleod MAO [facility] Start: 12-28-2021 End: 13-91-9417Piksbxe encounter procedureAaron Mcleod MAO [facility] Start: 10-22-2021 End: 57-47-2996hwhlfntwggKY AARON MAOFacility:F7Oqvvw: 10-21-2021 End: 46-97-4048Jlr Drop Kristal Jain [facility] Start: 10-21-2021 End: 66-15-2861Hrbkqnb encounter procedurePatricabdirahman Mcleod MELVIN [facility] Start: 11-10-2020 End: 42-06-1463thfjuwsboxAA DANNY ORTAFacility:O2Itemh: 02-12-2019 End: 78-80-1835Dhwfazy encounter procedureMARCIA A NINAFacility:[facility] Procedures DateProcedureProcedure DetailPerforming ClinicianStart: 67-01-4061CVS screening DR DANNY Schwab on above:Performed By: #### PSAD #### [facility] [address] [place] [address] Dr. Aline OleaStart: 83-18-5527Ibyepggacj, device (physical object)Aaronhernesto MAO Start: 69-33-6933Kxinuqkde of stentPatricabdirahman MAO Comment on above:Done in [place] by Dr. Kennedy Immunizations Immunization DateImmunizationNotesCare GwbfovqzQsucnykk94-33-7004SZXW-ExO-9 (COVID-19) mRNA BNT-162b2 vaxPatrick MAO [facility]-13-2021influenza virus vaccine, unspecified formulationPatrick MAO [facility]03-30-2021SARS-CoV-2 (COVID-19) mRNA BNT-162b2 vaxPatrick MAO [facility] 308256-21-5586FGWI-QcR-8 (COVID-19) mRNA BNT-162b2 vax Aaron MAO [facility] 01154918-07-3785xzizvj vaccine recombinantPatrick MAO [facility]-12-2020influenza virus vaccine, unspecified formulationPatrick MAO [facility] 09425664-24-9930pjvwqenfp virus vaccine, unspecified formulationPatrick MAO [facility]09-25-2020zoster vaccine recombinantMultiplicom [facility] [place] 338121-03-2018influenza virus vaccine, unspecified formulationNatoSocialToaster, Inc. [facility] [place] 338121-22-2017influenza, unspecified formulationMultiplicom [facility] Payers DatePayer CategoryPayerPolicy [id number] Health [id number] Health [id number] 2.0.[id number] 2.[id number] 2.0.[id number] 2.0.1.450096.3.57[id number] 2.0.1.183[id number] 2.0.1.490010.3.579.2.531 Social History DateTypeDetailFacilityStart: 10-20-2020 End: 82-51-9819Nlxmggm smoking statusNever smoked tobacco (finding)[facility] Tobacco smoking statusNeverExec[facility] Sex Assigned At BirthMale[facility] Functional Status WehlTuhxxyggaaYmmusxJvwxlqtm21-51-2349Diquocgjmw StatusN/AExec[facility] of [place] 338122-12-2023Functional StatusN/A[facility]09-21-2022Functional StatusN/A [facility] Clinical Notes 12-28-2021 to 10-09-2024 Note Date & VsscVlluUyehucft11-98-3821 [facility] Chief Complaint: [...] no acute distress. HEAD: atraumatic, normocephalic. EYES: JEIRCA, EOMI. NECK: trachea midline, no JVD present, [...] up Pickel Ball! Marcia Aguiar MD, MPH, [facility], [facility], [facility] Interventional Cardiology Pager Email: [email or web address]12-18-2024 Hospital Discharge instructions Patient Education 03/26/2024 [...] treatment? Where to find more information [employer] [place] [employer]: www.cancer.org [place] [employer]: www.auanet.org Contact a health care [...] provider. Document Revised: 09/19/2021 Document Reviewed: 09/19/2021 [employer] Patient Education 2023 Flare Code. Follow Up Care 03/20/2023 10:41:42 With:MELVIN SWENSON, Aaron Mcleod, URL Address: [facility] [address], [place] [address]- When: Unknown [facility] 12-18-2024 NotePatient Education Oncology Prostate Cancer Screening [...] Where to find more information ??? The [place] [employer]: www.cancer.org ??? [place]: www.auanet.org Contact a health care [...] men. The prostate gland (more content not included)...[facility]12-12-2023 Hospital Discharge instructions Patient Education 03/20/2023 [...] urethra. Follow these instructions at home: Take twsb-mcc-qukkcjq and prescription medicines only as told by [...] provider. Document Revised: 10/12/2021 Document Reviewed: 10/12/2021 [employer] Patient Education 2022 Flare Code. Follow Up Care 01/02/2023 09:34:55 With:MELVIN SWENSON, NICHOLAS Beatty Address: [facility] [address] , [place] [address]- When:Within 1 Year(s) Comments:w/PSA [facility] 09-21-2022 Hospital Discharge instructions Patient [...] urethra. Follow these instructions at home: Take iarw-mdf-jfzudxs and prescription medicines only as told by [...] 03/26/2006 Document Revised: 02/18/2019 Document Reviewed: 04/30/2017 [employer] Patient Education 2020 Flare Code. 12/28/2021 15:04:11 Calorie Counting for Weight Loss [...] 03/26/2006 Document Revised: 12/13/2018 Document Reviewed: 02/23/2017 [employer] Patient Education 2020 [employer] Follow Up Care 10/20/2020 11:44:30 With:Aaron MAO MD, URL Address: [address] [place] [address] [place] [address] Business (1) When:Within 1 Year(s) Comments:w/PSA [facility] Evaluation + Plan note Future Appointments Appointment Date:01/04/2022 02:30:00 PM Scheduled Provider:Aaron MAO MD [facility] Appointment Type:URO Office Visit Diagnostic Tests Pending * [facility] App[facility]ments Appointment Date:01/04/2022 02:30:00 PM Scheduled Provider:Aaron MAO MD Location:[facility] Appointment Type:URO Office Visit [facility] Evaluation + Plan note Future Appointments Appointment Date:01/03/2023 10:15:00 AM Scheduled Provider:Aaron MAO MD Location:[facility] Appointment Type:URO Office Visit Diagnostic Tests Pending * PSA Total 12/28/21 [facility] Evaluation + Plan note Future Appointments Appointment Date:03/26/2024 09:45:00 AM Scheduled Provider:Aaron MAO MD [facility] Appointment Type:URO Office Visit Diagnostic Tests Pending * PSA Total 03/20/23 [facility] Evaluation + Plan note Future Appointments Appointment Date:03/20/2025 08:30:00 AM Scheduled Provider:Aaron MAO MD Location:[facility] Appointment Type:URO Office Visit Diagnostic Tests Pending * PSA Free & Total 03/26/24 [facility] Hospital course Narrative No data available for this section [facility] Schoology Hospital Discharge instructions No data available for this section [facility] Progress note No data available for this section [facility] Schoology Summary Purpose Family History No Family History [...] and content) DATE CREATED AUTHOR 06/13/2019 [facility] DATE CREATED AUTHOR AUTHOR'S ORGANIZ ATION 10/27/2021 [facility] DATE CREATED AUTHOR AUTHOR'S ORGANIZ ATION 03/29/2024 [facility] DATE CREATED AUTHOR AUTHOR'S ORGANIZ ATION 09/05/2024 [facility] DATE CREATED AUTHOR AUTHOR'S ORGANIZ ATION 10/12/2024 [facility] Care Team (unrecognized sect ion and content) Personnel Name: Danny Orta MD Address: [address] [place] [address] Name: Naz Parra I Personnel Name: Danny Orta MD Address: [address] [place] [address] Name: Naz Parra I Personnel Name: Danny Orta MD Address: [address] [place] [address] Name: Naz Parra I Personnel Name: Danny Orta MD Address: Address: [address] [place] [address] Name: Naz Parra I Personnel Name: Danny Orta MD Address: Address: [address] [place] [id number] Name: Naz Parra I FOR RECORDS [...] BE BASED ON THE PRIMARY CLINICAL RECORDS. [facility] [employer] [facility]. provides no warranty or guarantee of the accuracy or completeness of information in this document.
--- OUTSIDE RECORDS SUMMARY | 2025-03-20 17:04 | XMS_ITS | CCD ---
Author Organization [facility] Inform ion Partnership [facility] Care Team Providers Care Psych Specialist Name Role Phone ELCHECO, EHAB A Admitting [...] of OnsetReaction(s) Facility (2 sources)Ciprofloxacin; Translations: [CIPROFLOXACIN]Drug Ggeknoo94-79-5298[facility] Repository (6 sources)Ciprofloxacin; Translations: [ciprofloxacin]Drug AllergyEruption of skin (disorder)[facility] (1 source)CiprofloxacinDrug Ccfmbbi03-23-6870[facility] Repository (1 source)CiprofloxacinDrug Xztijfi62-08-5734YlirxrijcProm[facility] Repository Medications Current Medications MedicationDrug Class(es)DatesSig (Normalized)Sig (Original)24 hr alfuzosin hydrochloride 10 mg extended release oral tablet (5 sources)alpha-Adrenergic BlockerStart: 03-26-2024 End: 04-95-9648qxfb 1 tablet by mouth once dailyalfuzosin 10 mg ER Tab 10 mg = 1 tab(s), Oral, Daily, X 90 day(s), # 90 tab(s), Refills(s) 3, Pharmacy: [facility], 178, cm, 03/26/24 9:56:00 EST, Height/Length Dosing, 100.6, kg, 03/26/24 9:56:00 EST, Weight Dosing Start Date: 03/26/24 Stop Date: 03/21/25 Status: OrderedStart: 96-01-9943syrq 1 tablet by mouth once dailyalfuzosin 10 mg ER Tab 10 mg = 1 tab(s), Oral, Daily, # 90 tab(s), Refills(s) 3, Pharmacy: [facility], 178, cm, 12/28/21 14:33:00 EDT, Height/Length Dosing, 99, kg, 12/28/21 14:33:00 EDT, Weight Dosing Start Date: 01/02/23 Status: Ordered Start: 57-29-2569ntdc 1 tablet by mouth once dailyalfuzosin 10 mg ER Tab 10 mg = 1 tab(s), Oral, Daily, # 90 tab(s), Refills(s) 3, Pharmacy: [facility] ([facility]), 178, cm, 10/20/20 10:46:00 EDT, Height/Length Dosing, 98.9, kg, 10/20/20 10:46:00 EDT, Weight Dosing Start Date: 11/25/21 Status: OrderedStart: 93-82-0922qjny 1 tablet by mouth once dailyalfuzosin 10 mg ER Tab 10 mg = 1 tab(s), Oral, Daily, # 90 tab(s), Refills(s) 3, Pharmacy: [facility], 178, cm, 10/20/20 10:46:00 EDT, Height/Length Dosing, 98.9, kg, 10/20/20 10:46:00 EDT,Weight Dosing Start Date: 01/04/21 Status: OrderedAspir 81 (5 sources)Start: 08-92-3057xtmn 1 mg by mouth once dailyAspir 81 mg, Oral, Daily, Refills(s) 0 Start Date: 03/05/19 Status: Orderedatorvastatin 80 mg oral tablet (5 sources)HMG-CoA Reductase InhibitorStart: 89-40-8304xbhn 1 mg by mouth once dailyatorvastatin 80 mg Tab mg tab(s), Oral, Daily, Refills(s) 0 Start Date: 03/05/19 Status: Orderedcarvedilol (5 sources)alpha-Adrenergic Gabriel, beta-Adrenergic BlockerStart: 11-24-2019 carvedilol Oral, Refills(s) 0 Start Date: 11/24/19 Status: Orderedfinasteride 5 mg oral tablet (5 sources)5-alpha Reductase InhibitorStart: 03-26-2024 End: 19-27-2041eglv 1 tablet by mouth once dailyfinasteride 5 mg Tab 5 mg = 1 tab(s), Oral, Daily, X 90 day(s), # 90 tab(s), Refills(s) 3, Pharmacy: [facility], 178, cm, 03/26/24 9:56:00 EST, Height/Length Dosing, 100.6, kg, 03/26/24 9:56:00 EST, Weight Dosing Start Date: 03/26/24 Stop Date: 03/21/25 Status: OrderedStart: 82-91-8424zdap 1 tablet by mouth once dailyfinasteride 5 mg Tab 5 mg = 1 tab(s), Oral, Daily, # 90 tab(s), Refills(s) 3, Pharmacy: [facility] 178, cm, 12/28/21 14:33:00 EDT, Height/Length Dosing, 99, kg, 12/28/21 14:33:00 EDT, Weight Dosing Start Date: 07/17/22 Status: OrderedStart: 96-55-0659jrcl 1 tablet by mouth once daily finasteride 5 mg Tab 5 mg = 1 tab(s), Oral, Daily, # 90 tab(s), Refills(s) 3, Pharmacy: [facility] ([facility]), 178, cm, 10/20/20 10:46:00 EDT, Height/Length Dosing, 98.9, kg, 10/20/20 10:46:00 EDT, Weight Dosing Start Date: 11/25/21 Status: OrderedStart: 49-40-7587ttph 1 tablet by mouth once daily finasteride 5 mg Tab 5 mg = 1 tab(s), Oral, Daily, # 90 tab(s), Refills(s) 3, Pharmacy: [facility], 178, cm, 10/20/20 10:46:00 EDT, Height/Length Dosing, 98.9, kg, 10/20/20 10:46:00 EDT, Weight Dosing Start Date: 01/04/21 Status: Orderedlisinopril 2.5 mg oral tablet (2 sources)Angiotensin Converting Enzyme InhibitorStart: 01-47-9561twml 1 mg by mouth once dailylisinopril 2.5 mg Tab mg tab(s), Oral, Daily, Refills(s) 0 Start Date: 03/05/19 Status: OrderedLosartan (3 sources)Angiotensin 2 Receptor BlockerStart: 84-12-3444mhuglvpw Oral, Daily, Refills(s) 0 Start Date: 12/28/21 Status: OrderedMisc Medication (5 sources)Start: 50-74-5479Xmng Medication Start Date: 06/21/13 Status: Ordered pantoprazole 40 mg delayed release oral tablet (4 sources)Proton Pump InhibitorStart: 60-10-0384wmpc 1 mg by mouth once daily Pantoprazole [address] Tab mg tab(s), Oral, Daily, Refills(s) 0 Start Date: 03/05/19 Status: Orderedtadalafil 20 mg oral tablet (4 sources)Phosphodiesterase 5 InhibitorStart: 90-63-8649fbthmeokj 20 mg Tab 20 mg = 1 tab(s), Oral, As Directed, # 30 tab(s), Refills(s) 3, Pharmacy: [facility] [place] [id number] Start Date: 03/05/19 Status: Ordered Problems Active Problems Problem ClassificationProblemDateDocumented DateEpisodic/ChronicAbdominal pain (11 sources)Epigastric pain; Translations: [Right upper quadrant pain]Onset: 861971-43-8232WwmtnjuoJkrbtnwt atherosclerosis and other heart disease (7 sources)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; Translations: [Atherosclerotic heart disease of navajo coronary artery without angina pectoris]Onset: 908821-33-3660Otgjffh Disorders of lipid metabolism (2 sources)Mixed hyperlipidemia; Translations: [Mixed hyperlipidemia]Onset: 72-62-1427CxkbeqbStxliyjdb hypertension (7 sources)Hypertensive disorder; Translations: [Essential (primary) hypertension]Onset: 503169-07-3845OhmzvkmRwemeqavihdee symptoms and ill- defined conditions (5 sources)Post-micturition gwmakmpkuqtb60-25-4098EmokvjjDvjhywdfvpedc symptoms and ill-defined conditions (16 sources)Andrew hematuria; Translations: [Increased frequency of urination] Onset: 155656-68-2026RbelkyiaUqbrqzxzlgz of prostate (10 sources)Benign prostatic hyperplasia; Translations: [Benign prostatic hypertrophy with outflow obstruction]Onset: hronic Inflammatory conditions of male genital organs (5 sources)Chronic tjxiqyisnds47-37-8417QemqiweRpahb male genital disorders (5 sources)Tyjxdxwul28-20-1987MypzwciDfbzz male genital disorders (2 sources)Male erectile dysfunction, unspecified; Translations: [Erectile dysfunction]Onset: 10-99-6555AirrqqhIbqvo nutritional; endocrine; and metabolic disorders (5 sources)Body mass index 30+ - xifkgmz88-90-8667VgcnlnaQxqrr nutritional; endocrine; and metabolic disorders (1 source)Obese class I; Translations: [Body mass index (BMI) 31.0-31.9, adult] Onset: 33-90-5684GuduceeSlhtk screening for suspected conditions (not mental disorders or infectious disease) (17 sources)CT of abdomen abnormal; Translations: [Raised prostate specific antigen]Onset: 442874-40-0701GvbmnrjdCuegwrompq disorders (not diabetes) (9 sources)Pancreatitis; Translations: [Acute pancreatitis without necrosis or infection, unspecified]Onset: 189663-72-8681TqlpplkgZawbsccg codes; unclassified (5 sources)Family history of prostate rqxcyz24-31-7633YrelpxdmTwsjqqlt codes; unclassified (3 sources)Family history of cancer; Translations: [Family history of malignant neoplasm of prostate]Onset: 92-68-0799Jqqisiyb Past or Other Problems Problem ClassificationProblemDateDocumented DateEpisodic/ChronicNeoplasms of unspecified nature or uncertain behavior (1 source)Neoplasm of unspecified behavior of bone, soft tissue, and skin; Translations: [Neoplasm of unspecified behavior of bone, soft tissue, and skin] Onset: 63-05-3416PocahndtIxopkedwnqen (3 sources)prostate infections( Confirmed )30-58-8026Nbitgcoetmet (2 sources)prostate iytoynedyb92-53-5573 Results Test NameValueInterpretationReference RangeFacilityOffice Visiton 10-09-2024 Follow-up [id number] Gabriel Pardo 1955 M Date Provider Department Center 10/09/2024 271-MARCIA AGUIAR [facility] Pamela Hos Family History Problem Relation Age of Onset Coronary artery disease Father Family Status - Relation Status Age at Mother Father Level of Service:70003 [place] OFFICE/OUTPATIENT ESTABLISHED LOW MDM [facility] Summaryon 03-26-2024 Ambulatory Visit SummaryAmbulatory [...] Aaron MAO MD Where: [facility] [address] [place] [address]- You Need to Schedule the Following Appointments Follow Up with Aaron MAO MD, URL When: Where: [facility] [address], [place] [address]- Medications What How Much When Instructions Changed [...] [facility]: [address] [facility] [address] [place], [place] [id number] [phone] Allergies Cipro (Rash) Problems Ongoing - Any [...] screening for prostate c (more content not included)...[facility] HospitalU[facility] Office/Clinic Noteon 72-09-2359Cfdqxgn Office/Clinic Note Urology Office/Clinic Note Chief Complaint [...] [facility] [address], [place] [address]- Additional Instructions: 1 yr with PSA F&T, [...] vaccine, inactivated 02/09/2018 Rec (more content not included)...[facility] HospitalComment on above:Result Comment: Electronically Signed By: Aaron MAO MD\.br\Date and Time Signed: 03/26/24 10:43 EST\.br\Electronically Co-Signed By: Regla Vieira\.br\Date and Time Co-Signed: 03/26/24 10:39 ESTLon 03-18-2024 Specimen: [id number] Received: 03/18/24 Status: KELSEA Modi Num: [id number] Spec Type: Surgical Subm Dr: Emeka Zarate MD Tissues: A Skin-Other than Cyst, tag, debridement or plastic repair (POST AURICULAR) Procedures: HANSA/Diane Cool/Verónica Painter Age/ Patient Sex Location Account Attending Physician Gabriel Pardo/M ALEC [id number] Emeka Zarate MD SPEC NUM: [id number] RECD: 03/18/24 STATUS: KELSEA FATIMAMaury NUM: [id number] BRENDA: 03/18/[address] [facility] [address]: Emeka Zarate MD ENTERED: 03/18/24 [facility] DR: SPEC TYPE: Surgical DEPT: S ENTERED BY: [id number] RECV BY: [id number] ORDERED: HE/2, Gross/Micro L4 ORDERED: HE/2, Gross/Micro [...] specimen submitted in cassette A2. (2, ns, U15- 4253 A) Microscopic Description Microscopic examinations are performed supporting the above interpretation Specimen: [id number] Received: 03/18/24 Status: KELSEA Ly Num: [id number] Spec Type: Surgical Subm Dr: Emeka Zarate MD Tissues: A Skin-Other than Cyst, tag, debridement or plastic repair (POST AURICULAR) Procedures: Flex SINGH L4 Patient: BebetoGabriel L [id number] (Continued) Specimen: [id number] Received: 03/18/24 (Continued) Signed (signature on file) Karley Olea MD 03/19/241926 Specimen: [id number] Received: 03/18/24 Status: KELSEA Modi Num: [id number] Spec Type: Surgical Subm Dr: Emeka Zarate MD Tissues: A Skin-Other than Cyst, tag, debridement or plastic repair (POST AURICULAR) Procedures: Flex SINGH L4 Patient: Gabriel Pardo [id number] (Continued) Specimen: [id number] Received: 03/18/24 (Continued) CPT Codes 28205 Specimen: [id number] Received: 03/18/24 Status: KELSEA Modi Num: [id number] Spec Type: Surgical Subm Dr: Emeka Zarate MD Tissues: A Skin-Other than Cyst, tag, debridement or plastic repair (POST AURICULAR) Procedures: HE/2, Gross/Micro L4 Patient: Gabriel Pardo [id number] (Continued) Signed (signature on file) Chin-Rafa Olea MD 03/19/[address] [place] [address] Physician Tcwwn44ax [id number] stress test and echo performed on 10/09/2023: MD Alka Lanza MA Please let him know stress test was normal Thanks Patient informed.NormalUnProMedica Memorial HospitalAMYLASEon 11-10-2020 Amylase [Catalytic activity/Vol]44 U/LNgdiyf97-289Ijc [facility] CenterComment on above:Performed By: #### CRP, CMP, LIPA, LOREE #### [facility] [address] [place] [address] Elver KarenCBC AUTO DIFFon 22-01-5643RCIO #0.0 103/ulNormal0.0-0.1The [facility] CenterComment on above:Performed By: #### CBC #### [facility] [address] [address] Elver KarenBasophils/100 WBC (Bld)0.7 %Normal0.2-2.0The [facility] Comment on above:Performed By: #### CBC #### [facility] [address] [address] Elver KarenEO #0.3 103/ulNormal0.0-0.7The [facility] CenterComment on above: Performed By: #### CBC #### [facility] [address] [address] Elver KarenEosinophils/100 WBC (Bld)5.5 %Normal0.9-7.0The [facility] Comment on above:Performed By: #### CBC #### [facility] [address] [address] Elver KarenErythrocyte distribution width (RBC) [Ratio]12.5 %Nlvjqu22.0-15.0The [facility] CenterComment on above:Performed By: #### CBC #### [facility] [address] [place] [address] Elver KarenHematocrit (Bld) [Volume fraction]46.2 %Ncbifn50.0-54.0The [facility] CenterComment on above:Performed By: #### CBC #### [facility] [address] [place] [address] Elver KarenHemoglobin (Bld) [Mass/Vol]15.7 g/wKHvnvwo40.0-18.0The [facility] CenterComment on above:Performed By: #### CBC #### [facility] [address] [place] [address] Elver KarenIG #0.02 10e3/ulNormal0.00-0.03The [facility] CenterComment on above:Performed By: #### CBC #### [facility] [address] [place] [address] Elver KarenIG %0.3 %Normal0.0-0.5The [facility] CenterComment on above: Performed By: #### CBC #### [facility] [address] [place] [address] Elver KarenLYMPH #1.1 103/ulCritically low1.2-3.8The [facility] CenterComment on above:Performed By: #### CBC #### [facility] [address] [place] [address] Elver KarenLymphocytes/100 WBC (Bld)19.0 %Critically low20.5-60.0The [facility] CenterComment on above:Performed By: #### CBC #### [facility] [address] [place] [address] Elver KarenMANUAL DIFF REQNONormalThe [facility] CenterComment on above: Performed By: #### CBC #### [facility] [address] [place] [address] Elver KarenMCH (RBC) [Entitic mass]31.7 oaCxwdhb18.9-34.0The [facility] Comment on above:Performed By: #### CBC #### [facility] [address] [place] [address] Elver KarenMCHC (RBC) [Mass/Vol]34.0 g/mLKkkovo42.9-35.2[facility] Comment on above:Performed By: #### CBC #### [facility] [address] [place] [address] Elver KarenMCV (RBC) [Entitic vol]93.3 mJWvomuw22.0-94.0[facility] Comment on above:Performed By: #### CBC #### [facility] [address] [place] [address] Elver KarenMONO #0.5 103/ulNormal0.3-0.8The [facility] CenterComment on above: Performed By: #### CBC #### [facility] [address] [place] [address] Elver KarenMonocytes/100 WBC (Bld)8.9 %Normal1.7-12.0[facility] Comment on above:Performed By: #### CBC #### [facility] [address] [place] [address] Elver KarenNEUT #3.9 103/ulNormal1.4-6.5The [facility] CenterComment on above: Performed By: #### CBC #### [facility] [address] [place] [address] Elver KarenNeutrophils/100 WBC (Bld)65.6 %Czrpei75.0-75.0[facility] Comment on above:Performed By: #### CBC #### [facility] [address] [place] [address] Elver KarenPlatelet mean volume (Bld) [Entitic vol]11.0 fLNormal9.5-13.5The [facility] CenterComment on above:Performed By: #### CBC #### [facility] [address] [place] [address] Elver RkomhIEA536 103/ulCritically oqa514-210Eve [facility] CenterComment on above:Performed By: #### CBC #### [facility] [address] [place] [address] Elver KarenRBC4.95 106/ulNormal4.70-6.10The [facility] CenterComment on above: Performed By: #### CBC #### [facility] [address] [place] [address] Elver KarenWBC6.0 103/ulNormal4.0-11.0The [facility] CenterComment on above: Performed By: #### CBC #### [facility] [address] [place] [address] Elver KarenCRPon 79-58-3872IOJ [Mass/Vol]mg/LNormal<=1.0The [facility] Comment on above:Performed By: #### CRP, CMP, LIPA, LOREE #### [facility] [address] [place] [address] Elver KarenLIPASEon 33-99-4335Geydfg [Catalytic activity/Vol]163.0 U/LNormal 23.0-300.0The [facility] CenterComment on above:Performed By: #### CRP, CMP, LIPA, LOREE #### [facility] [address] [place] [address] Elver KarenPROF 14(COMP METB)on 60-99-3182Feywmiy [Mass/Vol]3.9 g/dLNormal 3.5-5.0The [facility] CenterComment on above:Performed By: #### CRP, CMP, LIPA, LOREE #### [facility] [address] [place], [place] [address] Elver KarenAlbumin/Globulin [Mass ratio]1.3 {ratio}NormalProvidence Hospital Comment on above:Performed By: #### CRP, CMP, LIPA, LOREE #### [facility] [address] [place] [address] Elver KarenALP [Catalytic activity/Vol]48 U/CCxorsu55-863GtaProvidence Hospital Comment on above:Performed By: #### CRP, CMP, LIPA, LOREE #### [facility] [address] [address] Elver KarenALT [Catalytic activity/Vol]50 U/ACmbsjk12-80HgvProvidence Hospital Comment on above:Performed By: #### CRP, CMP, LIPA, LOREE #### [facility] [address] [place] [address] Elver KarenAnion gap [Moles/Vol]7.4 mmol/LNormalProvidence HospitalComment on above:Performed By: #### CRP, CMP, LIPA, LOREE #### [facility] [address] [place] [address] Elver KarenAST [Catalytic activity/Vol]30 U/XFkwpfl88-75NlpProvidence Hospital Comment on above:Performed By: #### CRP, CMP, LIPA, LOREE #### [facility] [address] [place] [address] Elver KarenBilirubin [Mass/Vol]1.0 mg/dLNormal0.2-1.3TEast [facility] Comment on above:Performed By: #### CRP, CMP, LIPA, LOREE #### [facility] [address] [place] [address] Elver KarenCalcium [Mass/Vol]9.1 mg/dLNormal8.4-10.2[facility] Comment on above:Performed By: #### CRP, CMP, LIPA, LOREE #### [facility] [address] [place] [address] Elver KarenChloride [Moles/Vol]106 mmol/ZCgnmes96-152WlzProvidence Hospital Comment on above:Performed By: #### CRP, CMP, LIPA, LOREE #### [facility] [address] [address] Elver KarenCO2 [Moles/Vol]32.9 mmol/LCritically high22.0-30.0Providence HospitalComment on above:Performed By: #### CRP, CMP, LIPA, LOREE #### [facility] [address] [place] [address] Elver KarenCreatinine [Mass/Vol]1.05 mg/dLNormal0.66-1.25The [facility] Comment on above:Performed By: #### CRP, CMP, LIPA, LOREE #### [facility] [address] [place] [address] Elver KarenEGFR-AF SYRIAN>60Normal>=60The [facility] CenterComment on above: Performed By: #### CRP, CMP, LIPA, LOREE #### [facility] [address] [place] [address] Elver KarenEGFR-NON AF SYRIAN>60Normal>=60The [facility] CenterComment on above:Performed By: #### CRP, CMP, LIPA, LOREE #### [facility] [address] [place] [address] Elver KarenGlobulin (S) [Mass/Vol]3.0 g/dLNormalThe [facility] CenterComment on above:Performed By: #### CRP, CMP, LIPA, LOREE #### [facility] [address] [place] [address] Elver KarenGlucose [Mass/Vol]111 mg/dLCritically fyoy32-697Wwy [facility] CenterComment on above:Performed By: #### CRP, CMP, LIPA, LOREE #### [facility] [address] [place] [address] Elver KarenPotassium [Moles/Vol]4.3 mmol/LNormal3.4-5.0[facility] Comment on above:Performed By: #### CRP, CMP, LIPA, LOREE #### [facility] [address] [place] [address] Elver KarenProtein [Mass/Vol]6.9 g/dLNormal6.1-8.2The [facility] CenterComment on above:Performed By: #### CRP, CMP, LIPA, LOREE #### [facility] [address] [address] Elver KarenSodium [Moles/Vol]142 mmol/HPqnixq666-881Dti [facility] Comment on above:Performed By: #### CRP, CMP, LIPA, LOREE #### [facility] [address] [address] Elver KarenUrea nitrogen [Mass/Vol]8.0 mg/dLCritically low9.0-20.0The [facility] CenterComment on above:Performed By: #### CRP, CMP, LIPA, LOREE #### [facility] [address] [address] Elver KarenUrea nitrogen/Creatinine [Mass ratio]7.6 mg/mgNormalThe [facility] CenterComment on above:Performed By: #### CRP, CMP, LIPA, LOREE #### [facility] [address] [address] Elver KarenSED RATE WESTERGRENon 35-09-3189NKF RATE5 mm/hrNormal<=20The [facility] CenterComment on above:Performed By: #### SEDR #### [facility] [address] [address] Elver KarenCardiovascular Lab Reporton 98-56-0178Btqnenqrhybhxc Lab Report [facility] Patient Name: Bebeto [facility] MR #: [id number] Physician: Marcia Aguiar Department of M.D. Medicine Service Date: 02/13/2019 Division of Birthdate: 1955 Cardiology Room #: 3CD 606789 [facility] [place] [address] Cardiovascular Laboratory Report IMPRESSION: 1. Severe, complex bifurcation lesion of the proximal left anterior descending coronary artery and adjacent large branching diagonal, successfully treated by balloon angioplasty and bifurcation stent placement. 2. Severe distal disease of the left circumflex coronary artery. 3. Jsqt-il-xhgqpkrl disease of the right coronary artery. 4. [...] the left radial artery was obtained. A 6-Georgian glide sheath was inserted without difficulty. Bilateral selective coronary angiography was performed using JR4 and JL4 catheters. After reviewing the images, it was elected to proceed with an interventional procedure. A 6-Georgian XB 3.5 guide catheter was advanced over [...] The stent delivery balloon was subsequently retracted half-way into the left anterior descending stent. Final [...] M.D. Date Trans: 02/15/2019 11:18 Cristobal/jean pierre [id number] Healthcare Vital Signs Date TimeVital SignValuePerforming FtyzlyufkAjxzmmxn87-85-5038 09:52-0500Blood Pressure LocationPanancy MAO [facility] [place] 119332-18-2024 09:52-0500Diastolic blood dcnvqmes60 mm[Hg]Aaron MAO [facility] [place] 119332-18-2024 09:52-0500Heart rate62 /minAaron MAO [facility] [place] 119332-18-2024 09:52-0500Systolic blood sqfexbxe740 mm[Hg]Aaron MAO [facility] [place] [address]332-12-2023 09:46-0500Diastolic blood uqomspio58 mm[Hg]Aaron MAO [facility] [place] [address]332-12-2023 09:46-0500Mean blood edenihbn05 mm[Hg]Aaron MAO [facility] [place] 131152-12-2023 09:46-0500Systolic blood hndoefhk634 mm[Hg]Aaronhernesto MAO [facility] [place] 131152-12-2023 09:40-0500Blood Pressure LocationPaSplurgy [facility] [place] 131152-12-2023 09:40-0500Diastolic blood vodwmmgk01 mm[Hg]Aaron MAO [facility] [place] 131152-12-2023 09:40-0500Heart rate72 /minVital LLC [facility] [place] 131152-12-2023 09:40-0500Systolic blood iozubccm396 mm[Hg]Aaron MAO [facility]09-21-2022 14:30-0400Blood Pressure LocationUtSplurgy [facility]09-21-2022 14:30-0400Diastolic blood pqqwoyxn56 mm[Hg]Aaron MAO [facility]09-21-2022 14:30-0400Heart rate63 /minVital LLC [facility]09-21-2022 14:30-0400Systolic blood vmnohrmj011 mm[Hg]Aaron MAO [facility] Encounters Encounter DateEncounter TypeCare ProviderFacilityStart: 63-48-7111acoygyqcrv Aaron R WATERSFacility:EU [place]Start: 10-09-2024 End: 15-12-4572ycnpulvzvrETDT [facility]: 03-26-2024 End: 42-01-4366lonaxywlcsPanaemi R WATERSFacility:EU [place]Start: 03-26-2024 End: 79-33-9360Cuvvfgk encounter procedureAaron Mcleod MAO [facility] Start: 03-18-2024 End: 86-76-7189vjfflczctfWwzliap SurfieldFacility:[facility] Hospitaltart: 03-20-2023 End: 66-13-5294Jscowyg encounter procedureAaron Mcleod MAO [facility] Start: 12-28-2021 End: 88-41-3115Vcwcpls encounter procedureAaron Mcleod MAO [facility] Start: 10-22-2021 End: 51-08-0416bdfpgktypdNO AARON MAOFacility:B8Funaz: 10-21-2021 End: 78-67-7008Ayt Drop Kristal Jain [facility] Start: 10-21-2021 End: 74-14-6507Wgbynrc encounter procedurePatricabdirahman Mcleod MELVIN [facility] Start: 11-10-2020 End: 95-68-9886kpvabouqwuDN DANNY ORTAFacility:X4Axqnk: 02-12-2019 End: 85-77-2679Gvamwpy encounter procedureMARCIA A NINAFacility:[facility] Procedures DateProcedureProcedure DetailPerforming ClinicianStart: 55-07-4920IKI screening DR DANNY Schwab on above:Performed By: #### PSAD #### [facility] [address] [place] [address] Dr. Aline OleaStart: 69-95-2972Anwmgubosy, device (physical object)Aaronhernesto MAO Start: 94-21-3407Lldnwsiuo of stentPatricabdirahman MAO Comment on above:Done in [place] by Dr. Kennedy Immunizations Immunization DateImmunizationNotesCare XjfzvsseDdivzwok13-47-0161TAHR-MnV-2 (COVID-19) mRNA BNT-162b2 vaxPatrick MAO [facility]2021influenza virus vaccine, unspecified formulationPatrick MAO [facility]03-30-2021SARS-CoV-2 (COVID-19) mRNA BNT-162b2 vaxPatrick MAO [facility] 566678-31-2033EUZM-ZkZ-7 (COVID-19) mRNA BNT-162b2 vax Aaron MAO [facility] 01764697-32-6426cluqxb vaccine recombinantPatrick MAO [facility]-12-2020influenza virus vaccine, unspecified formulationPatrick MAO [facility] 09766484-36-6529njmilwyls virus vaccine, unspecified formulationPatrick MAO [facility]09-25-2020zoster vaccine recombinantVital LLC [facility] [place] 131151-03-2018influenza virus vaccine, unspecified formulationNatoSplurgy [facility] [place] 131151-22-2017influenza, unspecified formulationVital LLC [facility] Payers DatePayer CategoryPayerPolicy [id number] Health [id number] [id number] Health [id number] [id number] 2.0.1.874309.3.57[id number] 2.0.1.351296.3.[id number] 2.0.1.809372.[id number] 2.0.1.376197.3.57[id number] 2.0.1.1[id number] 2.0.1.363022.3.579.2.531 Social History DateTypeDetailFacilityStart: 10-20-2020 End: 41-39-7836Ohnzbng smoking statusNever smoked tobacco (finding)[facility] Tobacco smoking statusNeverExec[facility] Sex Assigned At BirthMale[facility] Functional Status YbqsOlubxxmwcgCrbdjvYrvqkhwg36-35-1410Xrgobdapdd StatusN/A[facility] [place] 131152-12-2023Functional StatusN/A[facility]09-21-2022Functional StatusN/A [facility] Clinical Notes 12-28-2021 to 10-09-2024 Note Date & PncrQdebQbtdzdgq33-37-55[facility] Chief Complaint: [...] up [place]! Marcia Aguiar MD, MPH, [facility], [facility], [facility] Interventional Cardiology Pager Email: [email or web address] Hospital Discharge instructions Patient Education 03/26/2024 [...] treatment? Where to find more information The [place] [employer]: www.cancer.org [place] [employer]: www.auanet.org Contact a health care [...] provider. Document Revised: 09/19/2021 Document Reviewed: 09/19/2021 [employer] Patient Education 2023 [employer] [place]. Follow Up Care 03/20/2023 10:41:42 With:MELVIN SWENSON, Aaron Mcleod, URL Address: [facility] [address], [place] [address]- When: Unknown [facility] 12-18-2024 NotePatient Education Oncology Prostate Cancer Screening [...] Where to find more information ??? The [place] [employer]: www.cancer.org ??? [place] [employer]: www.auanet.org Contact a health care [...] men. The prostate gland (more content not included)...[facility]12-12-2023 Hospital Discharge instructions Patient Education 03/20/2023 [...] urethra. Follow these instructions at home: Take onie-jun-vhopgsk and prescription medicines only as told by [...] provider. Document Revised: 10/12/2021 Document Reviewed: 10/12/2021 [employer] Patient Education 2022 [employer] [place]. Follow Up Care 01/02/2023 09:34:55 With:MELVIN SWENSON, NICHOLAS Beatty Address: [facility] [address] , [place] [address]- When:Within 1 Year(s) Comments:w/PSA [facility] 09-21-2022 Hospital Discharge instructions Patient [...] urethra. Follow these instructions at home: Take djsq-laj-hpzcuoq and prescription medicines only as told by [...] 03/26/2006 Document Revised: 02/18/2019 Document Reviewed: 04/30/2017 [employer] Patient Education 2020 [employer] [place]. 12/28/2021 15:04:11 Calorie Counting for Weight Loss [...] 03/26/2006 Document Revised: 12/13/2018 Document Reviewed: 02/23/2017 [employer] Patient Education 2020 [employer] Follow Up Care 10/20/2020 11:44:30 With:Aaron MAO MD, URL Address: [address] [place] [address] [place] [address] Business (1) When:Within 1 Year(s) Comments:w/PSA [facility] Evaluation + Plan note Future Appointments Appointment Date:01/04/2022 02:30:00 PM Scheduled Provider:Aaron MAO MD [facility] Appointment Type:URO Office Visit Diagnostic Tests Pending * [facility]ments Appointment Date:01/04/2022 02:30:00 PM Scheduled Provider:Aaron MAO MD Location:[facility] Appointment Type:URO Office Visit [facility] Evaluation + Plan note Future Appointments Appointment Date:01/03/2023 10:15:00 AM Scheduled Provider:Aaron MAO MD Location:[facility] Appointment Type:URO Office Visit Diagnostic Tests Pending * PSA Total 12/28/21 [facility] Evaluation + Plan note Future Appointments Appointment Date:03/26/2024 09:45:00 AM Scheduled Provider:Aaron MAO MD [facility] Appointment Type:URO Office Visit Diagnostic Tests Pending * PSA Total 03/20/23 [facility] Evaluation + Plan note Future Appointments Appointment Date:03/20/2025 08:30:00 AM Scheduled Provider:Aaron MAO MD Location:[facility] Appointment Type:URO Office Visit Diagnostic Tests Pending * PSA Free & Total 03/26/24 [facility] Hospital course Narrative No data available for this section [facility] Hospital Discharge instructions No data available for this section [facility] Progress note No data available for this section [facility] Summary Purpose Family History No Family History [...] and content) DATE CREATED AUTHOR 06/13/2019 [facility] DATE CREATED AUTHOR AUTHOR'S ORGANIZ ATION 10/27/2021 [facility] DATE CREATED AUTHOR AUTHOR'S ORGANIZ ATION 03/29/2024 [facility] DATE CREATED AUTHOR AUTHOR'S ORGANIZ ATION 09/05/2024 [facility] DATE CREATED AUTHOR AUTHOR'S ORGANIZ ATION 10/12/2024 [facility] Care Team (unrecognized sect ion and content) Personnel Name: Danny Orta MD Address: [address] [place] [address] Name: Naz Parra I Personnel Name: Danny Orta MD Address: [address] [place] [address] Name: Naz Parra I Personnel Name: Danny Orta MD Address: [address] [place] [address] Name: Naz Parra I Personnel Name: Danny Orta MD Address: Address: [address] [place] [address] Name: Naz Parra I Personnel Name: Danny Orta MD Address: Address: [address] [place] [id number] Name: Naz Parra I FOR RECORDS [...] BE BASED ON THE PRIMARY CLINICAL RECORDS. [facility] [employer] [facility]. provides no warranty or guarantee of the accuracy or completeness of information in this document.
--- OUTSIDE RECORDS SUMMARY | 2025-03-20 17:05 | XMS_ITS | Clinical Summary ---
Author Organization [facility] Address [address] [place] [address] Care Team Providers Care Federal Aid Coordinator Name Role Phone Noe Orta MD Primary Care Provider [phone] Allergies Active AllergyReactionsCriticalityNoted DateCommentsCiprofloxacinRashLow 10/02/2022 Medications MedicationSigDispense QuantityRefillsLast FilledStart DateEnd DateStatus finasteride (Proscar) 5 mg tablet 09/23/2022ctive alfuzosin (Uroxatral) 10 mg 24 hr tablet 06/26/2022ctive aspirin 81 mg chewable tablet Indications:Coronary artery disease involving chehalis coronary artery of chehalis heart without angina pectorisChew 1 tablet (81 mg) once daily as directed. 90 tablet 4Active atorvastatin (Lipitor) 80 mg tablet Indications:Coronary artery disease involving chehalis coronary artery of che[place] heart without angina pectoris,Mixed hyperlipidemiaTake 1 tablet (80 mg) by mouth in the evening. 90 tablet 5Active carvedilol (Coreg) 12.5 mg tablet Indications:Coronary artery disease involving chehalis coronary artery of che[place] heart without angina pectoris,Mixed hyperlipidemiaTake 1 tablet (12.5 mg) by mouth with breakfast and with evening meal. 180 tablet 5Active losartan (Cozaar) 25 mg tablet Indications:Essential hypertensionTake 1 tablet (25 mg) by mouth in the morning. as directed 90 tablet 5Active Active Problems ProblemNoted DateDiagnosed DateAbnormal abdominal CT scan09/04/2023enign prostatic hyperplasia with urinary lvdhfreqsfx35/28/2024MI 31.0-31.9,adult 09/04/2023hronic mwiuxtidhka68/28/2024Family history of malignant neoplasm of johyzwqb40/28/2024Gross hgvbmpqzo04/28/2024High prostate specific antigen (PSA) 09/04/2023Increased frequency of xtryowlqw84/28/9956Frxbkqhr76/28/2024 Kbvvzmlxvcny43/28/2024ost-void xppnggovn54/28/2024ecurrent coronary arteriosclerosis after percutaneous transluminal coronary scfvzsuzdpc96/28/2024 Epigastric pain09/04/2023ight upper quadrant abdominal pain09/04/2023enign essential HTN10/02/2022 Assessment & Plan (10/02/2022 3:24 PM EDT): Hypertension is stable but elevated in office, pt to take b/p at home and staff to call him in 1-2 weeks to review b/p log and determine if antihypertensive regime needs adjusted. Pt voiced understanding Mixed hsuwsjutppyony40/26/2023 Assessment & Plan (10/02/2022 3:23 PM EDT): Continue lipitor and provided scripts for annual labs Coronary artery disease involving chehalis coronary artery of chehalis heart without angina cyewpxif16/26/2023 Assessment & Plan (10/02/2022 3:22 PM EDT): Coronary artery disease is stable without any concerning symptoms. Continue GDMT- ASA, lipitor, coreg and losartan continue risk factor modifications- heart healthy diet, regular exercise as tolerated and continue all medications. Refills for meds- scripts sent to pharmacy Atypical chest pain02/12/2019Cardiovascular stress test hmllvylr80/06/2019 Family History Medical HistoryRelationNameCommentsCoronary artery diseaseFatherRelationName StatusCommentsFatherDeceasedMotherDeceased [...] Recorded Sex Assigned at BirthNot on fileLegal CfoZshb1010/06/2021 12:21 AM EDTGender IdentityNot on fileSexual OrientationNot on file Last Filed Vital Signs Vital SignReadingTime TakenCommentsBlood Dkgujbrh454/8607 1:51 PM EDT Xplnh7991 1:51 PM EDTTemperature--Respiratory Rate--Oxygen Eqocpzyoot47% 10/09/2024 1:51 PM EDTInhaled Oxygen Concentration--Ndakrj02.1 kg (214 lb) 10/09/2024 1:51 PM BQUTnqoso839.8 cm (5' 10 )10/09/2024 1:51 PM EDTBody Mass Index30.7107 1:51 PM EDT Plan of Treatment Health MaintenanceDue DateLast DoneCommentsCT Xvhaufklwmhp15/06/1957Colonoscopy 1956Colorectal Cancer Skeisitag80/06/1957FIT-DNA1956FIT1956 FOBT1956 1698Ijvktbhdoibgz18/06/1957Depression Dyydzvcym69/06/1969Adult Tetanus 1978Fall Risk Fnmvuyosd62/06/2022COVID-19 Vaccine ( season) 5104/10/2020, 07/06/2020, 06/15/2020Influenza Vaccine (#1)2024 04/19/2024, 02/07/2023, 02/18/2022, Additional history existsZoster Vaccines Bjlttiyru86/14/2021, 01/02/2020Pneumococcal Vaccine: 50+ YearsCompleted 02/07/2023HIB VaccinesAged OutNo [...] Tate TypeRelation to PatientDate of BirthPhone Billing AddressPersonal/OqjpilIxbd41/06/1956 [facility] [address] [id number] MemberSubscriberPlan / Payer (Effective 2019-Present)Name:Matt Tate Relation to Subscriber:SelfName:Matt Tate Payer ID:[id number] (NAIC) Type:Not on file Address: [address] [place] [id number] Care Teams Team MemberRelationshipSpecialtyStart DateEnd Noe Orta MD [address] [facility] [address] [address] [facility]10/02/22
--- OUTSIDE RECORDS SUMMARY | 2025-03-20 17:06 | XMS_ITS | Patient Health Record ---
Author Organization [facility] [place] Address [address] [place] [address] Care Team Providers Care [employer] Teacher Name Role Phone Pranav Hutton Primary Care Provider [phone] Results Component Value Reference Range Notes PSA Total+% Free Reviewed date:03/23/2024 05:33:18 PM Interpretation: Performing Lab: Notes/Report: [facility] , Prostate Specific Ag 1.2 0.0-4.0 ng/mL Pierre ECLIA methodology. According to the [place] [employer], Serum PSA should decrease and remain at undetectable levels after radical prostatectomy. The AUA defines biochemical recurrence as an initial PSA value 0.2 ng/mL or greater followed by a subsequent confirmatory PSA value 0.2 ng/mL or greater. Values obtained with different assay methods or kits cannot be used interchangeably. Results cannot be interpreted as absolute evidence of the presence or absence of malignant disease. PSA, Free 0.34 N/A ng/mL Pierre ECLIA met hodology. % Free PSA 28.3 . % The table below lists the probability of prostate cancer for men with non-suspicious MARIBEL results and total PSA between 4 and 10 ng/mL, by patient age (Jose Juan et al, MARIO 1998, 279:1542). % Free PSA 50-64 yr 65-75 yr 0.00-10.00% 56% 55% 10.01-15.00% 24% 35% 15.01-20.00% 17% 23% 20.01-25.00% 10% 20% >25.00% 5% 9% Please note: Jose Juan et al did not make specific recommendations regarding the use of percent free PSA for any other population of men. Performed at: [facility] - [address] [id number] Inspector And Hand Packager: Navin Bran PhD, Phone: [phone] Performing Lab: see note LC - [facility] LBPSA Total+% Free Reviewed date:03/03/2025 08:09:36 AM Interpretation: Performing Lab: Notes/Report: [facility] ,Prostate Specific Ag0.60.0-4.0 ng/mL Pierre ECLIA methodology. According to the [employer], Serum PSA should decrease and remain at undetectable levels after radical prostatectomy. The AUA defines biochemical recurrence as an initial PSA value 0.2 ng/mL or greater followed by a subsequent confirmatory PSA value 0.2 ng/mL or greater. Values obtained with different assay methods or kits cannot be used interchangeably. Results cannot be interpreted as absolute evidence of the presence or absence of malignant disease. PSA, Free0.22N/A ng/mLRoche ECLIA methodology.% Free PSA36.7. % The table below lists the probability of prostate cancer for men with non-suspicious MARIBEL results and total PSA between 4 and 10 ng/mL, by patient age (Jose Juan et al, MARIO 1998, 279:1542). % Free PSA 50-64 yr 65-75 yr 0.00-10.00% 56% 55% 10.01-15.00% 24% 35% 15.01-20.00% 17% 23% 20.01-25.00% 10% 20% >25.00% 5% 9% Please note: Jose Juan et al did not make specific recommendations regarding the use of percent free PSA for any other population of men. Performed at: [facility] [address] [id number] Inspector And Hand Packager: Navin Bran PhD, Phone: [phone] Performing Lab:see noteLC - [facility] LBAMYLASE Reviewed date:03/19/2025 01:03:38 PM Interpretation: Performing Lab: Notes/Report: [facility] ,Lddmjdf5499-658 U/LPerforming Lab:see noteML - [facility] LBCBC AUTO DIFF Reviewed date:03/19/2025 12:47:00 PM Interpretation: Performing Lab: Notes/Report: [facility] ,White Blood Count12.74.0-11.0 10 3/uLRed Blood Count5.154.70-6.10 10 6/uL Boyfhjhjcd55.614.0-18.0 g/tWLkqwsemsqb50.642.0-54.0 %Mean Corpuscular Hoatvw13.4 80.0-94.0 fLMean Corpuscular Pbllmxzwan97.225.9-34.0 pgMean Corpuscular HGB Conc 34.929.9-35.2 g/dLRed Cell Distribution Width11.811.0-15.0 %Platelet Uuzro974 150-450 10 3/uLMean Platelet Yaflrk19.59.5-13.5 fLNeutrophils Percent Auto82.5 43.0-75.0 %Lymphocytes Percent Auto8.520.5-60.0 %Monocytes Percent Auto7.71.7- 12.0 %Eosinophils Percent Auto0.70.9-7.0 %Basophils Percent Auto0.30.2-2.0 % Immature Granulocytes Pct Auto0.30.0-0.5 %Neutrophils Absolute Auto10.51.4-6.5 10 3/uLLymphocytes Absolute Auto1.11.2-3.8 10 3/uLMonocytes Absolute Auto1.00.3- 0.8 10 3/uLEosinophils Absolute Auto0.10.0-0.7 10 3/uLBasophils Absolute Auto0.0 0.0-0.1 10 3/uLImmature Granulocytes Abs Auto0.040.00-0.03 10 3/uLPerforming Lab:see noteML - [facility] LBLIPASE Reviewed date:03/19/2025 01:03:38 PM Interpretation: Performing Lab: Notes/Report: [facility] ,Mmdnfg420.016.0-77.0 U/LPerforming Lab:see noteML - [facility] LB LIVER PROFILE Reviewed date:03/19/2025 01:03:38 PM Interpretation: Performing Lab: Notes/Report: [facility] ,Bilirubin Total1.30.2-1.0 mg/dLBilirubin Direct0.40.0-0.2 mg/dLAspartate Amino Gsvjhkxhnit2387-30 U/LAlanine Afcmmevalqdmmxft0016-97 U/LAlkaline Lkfagynjzfj75 46-116 U/LTotal Protein7.36.4-8.2 g/dLAlbumin Level3.83.4-5.0 g/dLGlobulin3.5 Albumin Globulin Ratio1.1Performing Lab:see note - [facility] LB MAGNESIUM Reviewed date:03/19/2025 05:43:17 PM Interpretation: Performing Lab: Notes/Report: [facility] ,Magnesium2.01.8-2.4 mg/dLPerforming Lab:see note - [facility] PROF CHEM 8 (BAS METB) Reviewed date:03/19/2025 01:03:38 PM Interpretation: Performing Lab: Notes/Report: [facility] ,Kppwbn697553-401 mmol/LPotassium4.03.5-5.1 mmol/BXmajrrby49308-154 mmol/LCarbon Vkffufm76.121.0-32.0 mmol/LAnion Gap8.1Vetyoih71854-385 mg/dLBlood Urea Nitrogen 12.07.0-18.0 mg/dLCreatinine1.040.70-1.30 mg/dLEstimated GFR ( Dianna>60 >=60 mL/min/1.73m 2Estimated GFR (Non- Barby>60>=60 mL/min/1.73m 2BUN Creatinine Ratio11.9Bvcvqsq5.68.5-10.1 mg/dLPerforming Lab:see note - [facility] LBTRIGLYCERIDE Reviewed date:03/19/2025 05:43:17 PM Interpretation: Performing Lab: Notes/Report: [facility] ,Ivsmgnpdocavu37<=150 mg/dLPerforming Lab:see note - [facility] LB UA RANDOM W or MICROSCOPIC Reviewed date:03/19/2025 12:47:00 PM Interpretation: Performing Lab: Notes/Report: [facility] ,Color UrineYELLOWYELLOWClarity UrineCLEARCLEARSpecific [place] Urine1.025 1.005-1.025pH Urine6.05.0-9.0Protein UrineNEGATIVENEG/TRACE mg/dLGlucose Urine UANEGATIVENEGATIVE mg/dLBilirubin UrineSMALLNEGATIVEKetones Ecbww72CGRGALTY mg/dLBlood UrineNEGATIVENEGATIVENitrite UrineNEGATIVENEGATIVEUrobilinogen Urine 1.00.2-1.0 EU/dLLeukocyte Esterase UrineNEGATIVENEGATIVEWBC Urine0-2NONE SEEN #/HPFRBC Urine0-20-2 #/HPFBacteria UrineNONE SEENNONE SEEN #/HPFMucus UrineTRACE NONE SEENSquamous Epithelial Cell UrineRARENONE/RARE #/LPFCrystals Seen?None SeenNone Seen #/HPFCast Seen?NONE SEENNONE SEEN #/LPFUrine Culture IndicatedNO Performing Lab:see noteML - [facility] LBTroponin I High Sensitivity Reviewed date:03/19/2025 01:03:38 PM Interpretation: Performing Lab: Notes/Report: [facility] ,Troponin I High Sensitivity8.54.0-76.1 pg/mL CUT-OFF POINTS HAVE BEEN ESTABLISHED BASED ON THE FOURTH UNIVERSAL DEFINITION OF MYOCARDIAL INFARCTION. THE UPPER REFERENCE LIMIT (URL) OF TROPONIN, DEFINED THE 99TH PERCENTILE OF cTnI DISTRIBUTION IN A REFERENCE POPULATION, HAS BEEN CONFIRMED THE DECISION THRESHOLD FOR AL DIAGNOSIS. 99TH PERCENTILE = 76.2 PG/ML NOTE: HIGH-SENSITIVITY TROPONIN ASSAY IS NOT INTENDED TO BE USED IN ISOLATION BUT SHOULD BE INTERPRETED IN CONJUNCTION WITH OTHER DIAGNOSTIC AND CLINICAL INFORMATION. Performing Lab:see noteML - [facility] LBUrine Culture - [facility] Reviewed date:03/19/2025 05:43:17 PM Interpretation: Performing Lab: Notes/Report: [facility] ,[facility] Urine [facility] - [facility] PEND Pending - Specimen sent to [facility]^Pending - Specimen sent to [facility] Performing Lab:see noteML - [facility] LBUS right upper quadrant (Not yet reviewed by provider) Interpretation: Performing Lab: Notes/Report: Source Facility: [facility] [place] [address] [place] [address] Ultrasound Report Signed Patient: GABRIEL TATE MR#: [id number] : 1955 Acct:[id number] Age/Sex: 69 / M ADM Date: 03/19/25 Loc: MS 228-[address]: Silvano Best M.D. Ordering Physician: Silvano Best M.D. Date of Service: 03/19/25 Procedure(s): US right upper quadrant Accession Number(s): [id number] cc: Silvano Best M.D.; Danny Hutton M.D. [place] [address] Patient Name: GABRIEL TATE MRN: [facility]:[id number] date: 1955 Sex: M Assigned Patient Location: MS Current Patient Location: MS Accession/Order Number: [id number] Exam Date: 03/19/2025 16:34 Report Date: 03/19/2025 18:00 At the request of: SILVANO BEST MD Procedure: US right upper quadrant Ultrasound right upper quadrant INDICATION: Elevated bilirubin COMPARISON: CT abdomen pelvis 03/19/2025 FINDINGS: Evaluation degraded due to body habitus challenge evaluation of the left liver. Additionally, the bowel gas also degrades Evaluation. Liver is grossly unremarkable in size and echotexture. Portal vein demonstrates normal flow. Common bile duct measures 5.2 mm. Gallbladder unremarkable. No wall thickening or stones identified. Negative Barros's sign. Pancreas poorly visualized/obscured. Right kidney unremarkable. No ascites No hydronephrosis. . US/US right upper quadrant IMPRESSION: Motion degraded due to body habitus. Obscured pancreas. Suboptimal evaluation left hepatic lobe. Otherwise grossly unremarkable examination within the constraints listed. Impression dictated by: Gary Nelson M.D. 03/19/2025 6:00 PM Dictation Location: [place] [address] Electronically authenticated by: [id number] Y Date: 03/19/2025 18:00 Dictated By: Gary Nelson M.D. Signed By: 03/19/25 180 DD/ 99 TD/TT: Swimming Pool Serviceperson:ECG 12 lead Reviewed date:03/19/2025 05:43:17 PM Interpretation: Performing Lab: Notes/Report: Source Facility: [facility] [place] [address] [place] [address] Electrocardiograph Report Signed Patient: GABRIEL TATE MR#: [id number] : 1955 Acct:[id number] Age/Sex: 69 / M ADM Date: 03/19/25 Loc: ER Attending Dr: Ordering Physician: Alina Mathews M.D. Date of Service: 03/19/25 Procedure(s): ECG 12 lead Accession Number(s): [id number] cc: [facility] Test Date: 2025-03-19 Pat Name: GABRIEL TATE Department: Room: - Gender: Male C Application Developer: : 1955 Requested By: DANNY HUTTON Order Number: [id number] Reading MD: MARCIA AGUIAR Measurements Intervals [place] Rate: 68 P: 36 NH: 208 QRS: 18 QRSD: 86 T: 14 QT: 402 QTc: 419 Interpretive Statements 1100 Sinus rhythm 9110 normal ECG Compared to ECG 08/27/2020 08:07:52 No significant changes Electronically Signed On 03-19-2025 15:55:32 EST by MARCIA AGUIAR Dictated By: Marcia Aguiar M.D. Signed By: 03/19/25 155 DD/ 1210 TD/TT: Swimming Pool Serviceperson:ANASTASIA chest 1V Reviewed date:03/19/2025 01:03:38 PM Interpretation: Performing Lab: Notes/Report: Source Facility: [place] [address] [place] [address] XRay Report Signed Patient: GABRIEL TATE MR#: [id number] : 1955 Acct:[id number] Age/Sex: 69 / M ADM Date: 03/19/25 Loc: ER Attending Dr: Ordering Physician: Alina Mathews M.D. Date of Service: 03/19/25 Procedure(s): XR chest 1V Accession Number(s): [id number] cc: Danny Hutton M.D.; Alina Mathews M.D. [place] [address] Patient Name: GABRIEL TATE MRN: [id number] date: 1955 Sex: M Assigned Patient Location: ER Current Patient Location: ED.MAIN Accession/Order Number: [id number] Exam Date: 03/19/2025 12:30 Report Date: 03/19/2025 12:49 At the request of: ALINA MATHEWS MD Procedure: XR chest 1V PORTABLE AP ERECT CHEST 1213 hours CLINICAL HISTORY: Right upper quadrant and right back pain with bloating and nausea COMPARISON: None The heart is within normal limits. There is no vascular congestion. The lungs, as visualized, are clear. There is no effusion or pneumothorax. The osseous structures are intact. Endplate spurring is visualized. XR/XR chest 1V IMPRESSION: NO ACUTE FINDINGS Impression dictated by: Parul Ayala M.D. 03/19/2025 12:49 PM Dictation Location: [place] [address] Electronically authenticated by: [id number] Y Date: 03/19/2025 12:49 Dictated By: Parul Ayala M.D. Signed By: 03/19/25 1252 DD/ 1249 TD/TT: Swimming Pool Serviceperson:CT abdomen pelvis w con Reviewed date:03/19/2025 05:43:17 PM Interpretation: Performing Lab: Notes/Report: Source Facility: [place] [address] CT Scan Report Signed Patient: GABRIEL TATE MR#: [id number] : 1955 Acct:[id number] Age/Sex: 69 / M ADM Date: 03/19/25 Loc: ER Attending Dr: Ordering Physician: Alina Mathews M.D. Date of Service: 03/19/25 Procedure(s): CT abdomen pelvis w con Accession Number(s): [id number] cc: Danny Hutton M.D. [place] [address] Patient Name: GABRIEL TATE MRN: [id number] date: 1955 Sex: M Assigned Patient Location: ER Current Patient Location: ED.MAIN Accession/Order Number: [id number] Exam Date: 03/19/2025 12:57 Report Date: 03/19/2025 13:31 At the request of: ALINA MATHEWS MD Procedure: CT abdomen pelvis w con CT abdomen pelvis w con 03/19/2025 1:05 PM SIGNS AND SYMPTOMS: Right upper quadrant abdominal pain, bloating, nausea TECHNIQUE: Multidetector ct axial images of the abdomen and pelvis were obtained with IV contrast. Multiplanar reformats were performed and reviewed to further define anatomy and possible pathology. CT was performed with one or more of the following dose reduction techniques: Automated exposure control, adjustment of the mA and/or kV according to patient size, or use of iterative reconstruction technique. COMPARISON: None. FINDINGS: Lower Chest: Within normal limits. ABDOMEN: Liver: Within normal limits. Bile Ducts: Normal caliber. Gallbladder: No calcified gallstones. Normal caliber wall. Pancreas: Edema is noted near the head of the pancreas suspicious for acute pancreatitis. Spleen: Within normal limits. Adrenals: Within normal limits. Kidneys: Within normal limits. Pelvis: Reproductive Organs: No pelvic masses. Ureters: Within normal limits. Bladder: Within normal limits. Bowel: Normal caliber. There is a normal appendix in the right lower quadrant. Mesenteric Lymph Nodes: No enlarged mesenteric lymph nodes. Peritoneum: No ascites or free air, no fluid collection. Vessels: Atherosclerotic changes are noted in the abdominal aorta and its branches. Retroperitoneum: Within normal limits. Abdominal Wall: Within normal limits. Bones: Degenerative changes are noted in the thoracolumbar spine, hips, and sacroiliac joints. CT/CT abdomen pelvis w con IMPRESSION: Edema is noted near the head of the pancreas suspicious for acute pancreatitis. No bowel obstruction or obstructive uropathy. Impression dictated by: Matty Elena M.D. 03/19/2025 1:31 PM Dictation Location: [place] [address] Electronically authenticated by: [id number] Y Date: 03/19/2025 13:31 Dictated By: Matty Elena M.D. Signed By: 03/19/25 1334 DD/ 1335 TD/TT: Swimming Pool Serviceperson:CBC AUTO DIFF (Not yet reviewed by provider) Interpretation: Performing Lab: Notes/Report: [facility] ,White Blood Count10.64.0-11.0 10 3/uLRed Blood Count4.834.70-6.10 10 6/uL Rmyfniyaek88.114.0-18.0 g/jAOqlcngigwx26.642.0-54.0 %Mean Corpuscular Gblqyy83.3 80.0-94.0 fLMean Corpuscular Nuhdqrkcif82.325.9-34.0 pgMean Corpuscular HGB Conc 33.929.9-35.2 g/dLRed Cell Distribution Width11.911.0-15.0 %Platelet Mfhsf997 150-450 10 3/uLMean Platelet Mcvvlt56.99.5-13.5 fLNeutrophils Percent Auto80.3 43.0-75.0 %Lymphocytes Percent Auto9.120.5-60.0 %Monocytes Percent Auto9.01.7- 12.0 %Eosinophils Percent Auto1.00.9-7.0 %Basophils Percent Auto0.30.2-2.0 % Immature Granulocytes Pct Auto0.30.0-0.5 %Neutrophils Absolute Auto8.51.4-6.5 10 3/uLLymphocytes Absolute Auto1.01.2-3.8 10 3/uLMonocytes Absolute Auto1.00.3-0.8 10 3/uLEosinophils Absolute Auto0.10.0-0.7 10 3/uLBasophils Absolute Auto0.00.0- 0.1 10 3/uLImmature Granulocytes Abs Auto0.030.00-0.03 10 3/uLPerforming Lab:see noteML - [facility] LBMAGNESIUM (Not yet reviewed by provider) Interpretation: Performing Lab: Notes/Report: [facility] ,Magnesium1.71.8-2.4 mg/dLPerforming Lab:see noteML - [facility] LB PROF 14(COMP METB) (Not yet reviewed by provider) Interpretation: Performing Lab: Notes/Report: [facility] ,Nutbdu726799-236 mmol/LPotassium3.83.5-5.1 mmol/BNxgavixc50877-512 mmol/LCarbon Ckqhgxl54.621.0-32.0 mmol/LAnion Gap9.6Xkspaox7411-182 mg/dLBlood Urea Nitrogen 9.07.0-18.0 mg/dLCreatinine0.830.70-1.30 mg/dLEstimated GFR ( Dianna>60 >=60 mL/min/1.73m 2Estimated GFR (Non- Barby>60>=60 mL/min/1.73m 2BUN Creatinine Ratio10.9Kgbsugj1.98.5-10.1 mg/dLBilirubin Total1.40.2-1.0 mg/dL Aspartate Amino Eodcoycqvxl8986-53 U/LAlanine Pfwfewjcyxaabtsq9144-09 U/L Alkaline Itdvwfwsqqq0375-959 U/LTotal Protein6.36.4-8.2 g/dLAlbumin Level3.13.4- 5.0 g/dLGlobulin3.2Albumin Globulin Ratio1.0Performing Lab:see noteML - [facility] Reason For Referral No Information Problems Problem Type SNOMED Code ICD Code Onset Dates Problem Status W/U Status Risk Notes Problem Essential hypertension (28998750 ) Essential (primary) hypertension (I10) ActiveconfirmedProblemHyperlipidemia (40629193)Hyperlipidemia, unspecified (E78.5)ActiveconfirmedProblemAtherosclerotic heart disease of [place] coronary artery without angina pectoris (170676728717451)Atherosclerotic heart disease of [place] coronary artery without angina pectoris (I25.10)ActiveconfirmedProblem Acute pancreatitis (978487379)Pancreatitis, acute (K85.90)Activeconfirmed Encounters Encounter Location Date Provider Diagnosis [facility] [address] [place] [address] 03/19/2025 Pranav Hutton Urinary tract infection N39.0 Assessments Encounter Date Diagnosis (ICD Code) Assessment Notes Treatment Notes Treatment Clinical Notes Section Notes 03/19/2025 Urinary tract infection (ICD-10 - N39.0) Plan Of Treatment Pending Test Test Name Order Date CBC AUTO DIFF 03/20/2025 CULTURE URINE 03/19/2025 MAGNESIUM 03/20/2025 PROF 14(COMP METB) 03/20/2025 US right upper quadrant 03/19/2025
--- OUTSIDE RECORDS SUMMARY | 2025-03-20 17:06 | XMS_ITS | Clinical Summary ---
Author Organization [facility] Address [address] [place] [address] Care Team Providers Care Multi Media Specialist Name Role Phone Noe Orta MD Primary Care Provider [phone] Social History Tobacco UseTypesPacks/DayYears UsedDateSmoking Tobacco: Never AssessedSex and Gender InformationValueDate RecordedSex Assigned at BirthNot on fileLegal Sex Male03/10/2012 9:49 AM ESTGender IdentityNot on fileSexual OrientationNot on file Plan of Treatment Health MaintenanceDue DateLast DoneCommentsAnxiety Mhfplmmto76/06/1975Depression Jjhvphypr06/06/1975Hepatitis C Ixayvhool76/06/1975DTaP,Tdap,Td Vaccine (1 - Tdap)08/13/1975Lipid Iuqlmlqmv25/06/1992CT Uacyegdijuha44/06/2002Cologuard (FIT-DNA)08/12/20019539Hquytaqgyof02/06/2002Colorectal Cancer Ptnkshnbb94/06/2002 Diabetes Mihynzetk37/06/2002Fecal Occult Blood2001Prostate Cancer Screening Dfoncwnbek66/06/6068Yksghprgrwkxk74/06/2002Pneumococcal Vaccine: 50+ (1 of 1 - PCV)2006Shingrix Vaccine (1 of 2)2006dvance Directive Wzpfftnmpx95/01/2025ovid-19 Vaccine (1 - 2024- season)2024Influenza Vaccine (#1)2024RSV Vaccine (1 - 1-dose 75+ series)08/13/2031 Insurance * Guarantor: Keina Tate TypeRelation to PatientDate of BirthPhoneBilling AddressPersonal/NpvikaYvhj37/06/1956 [address] [address] Care Teams Team MemberRelationshipSpecialtyStart DateEnd Date Noe Orta MD [address] [place] [address] [facility]07/29/01
--- OUTSIDE RECORDS SUMMARY | 2025-03-20 17:06 | XMS_ITS | Clinical Summary ---
Author Organization [facility] Address [address] [place] [address] Care Team Providers Care Tour Actor Name Role Phone Unavailable Primary Care Provider Unavailabl e Social History Tobacco UseTypesPacks/DayYears UsedDateSmoking Tobacco: Never AssessedSex and Gender InformationValueDate RecordedSex Assigned at BirthNot on fileLegal Sex Male06/21/2022 7:35 PM EDTGender IdentityNot on fileSexual OrientationNot on file Plan of Treatment Not on file
[2025-03-20] MEDS: FINASTERIDE 5 MG TABLET PO (21:42)
[2025-03-20] MEDS: ASPIRIN 81 MG TAB.CHEW PO (21:43)
[2025-03-20] MEDS: ALFUZOSIN HCL 10 MG TAB.ER.24H PO (21:43)
[2025-03-20] MEDS: ATORVASTATIN CALCIUM 40 MG TABLET 80 MG PO (21:44)
[2025-03-21 00:35] VITALS: BP 168/98; PULSE 68; TEMP 36.8; O2SAT 94
[2025-03-21 04:00] VITALS: BP 141/91; PULSE 63; TEMP 36.8; O2SAT 94
[2025-03-21 06:49] LABS: Hematocrit 44.2 % (42.0-54.0); Hemoglobin 15.2 g/dL (14.0-18.0); Immature Granulocytes Abs Auto 0.01 10^3/uL (0.00-0.03); Immature Granulocytes Pct Auto 0.1 % (0.0-0.5); Lymphocytes Absolute Auto 1.1 10^3/uL (1.2-3.8); Mean Corpuscular HGB Conc 34.4 g/dL (29.9-35.2); Mean Corpuscular Hemoglobin 31.8 pg (25.9-34.0); Mean Corpuscular Volume 92.5 fL (80.0-94.0); Platelet Count 138 10^3/uL (150-450); Red Blood Count 4.78 10^6/uL (4.70-6.10); White Blood Count 7.2 10^3/uL (4.0-11.0)
[2025-03-21 07:01] LABS: Alanine Aminotransferase 22 U/L (16-63); Albumin Globulin Ratio 0.9; Albumin Level 3.1 g/dL (3.4-5.0); Alkaline Phosphatase 44 U/L (46-116); Anion Gap 10.9; Aspartate Amino Transferase 16 U/L (15-37); Blood Urea Nitrogen 10.0 mg/dL (7.0-18.0); Calcium 9.1 mg/dL (8.5-10.1); Carbon Dioxide 30.2 mmol/L (21.0-32.0); Chloride 104 mmol/L (98-107); Estimated GFR (African America >60 (>=60 mL/min/1.73m^2); Estimated GFR (Non-African Ame >60 (>=60 mL/min/1.73m^2); Globulin 3.6 g/dL; Glucose 94 mg/dL (74-106); Magnesium 1.9 mg/dL (1.8-2.4); Potassium 4.1 mmol/L (3.5-5.1); Sodium 141 mmol/L (136-145); Total Protein 6.7 g/dL (6.4-8.2)
[2025-03-21 07:34] VITALS: PULSE 74
[2025-03-21 08:37] VITALS: BP 158/92
[2025-03-21] MEDS: LOSARTAN POTASSIUM 25 MG TABLET 50 MG PO (08:37)
[2025-03-21] MEDS: CARVEDILOL 12.5 MG TABLET PO (08:38)
[2025-03-21 09:55] VITALS: BP 136/80
--- NOTE | 2025-03-21 10:12 | PM.DS1 ---
DS: Providers Provider Date of admission: 03/19/25 14:32 Primary care physician: Noe Orta MD Anticipated date of discharge: 03/21/25 DS: Diagnosis Discharge Diagnosis (1) Acute pancreatitis: Plan As above DS: Summary Hospital Course Hospital Course: This is a 69-year-old male with past medical Struve CAD with PCI, hypertension, dyslipidemia here for abdominal pain that has worsened over the last 24 hours. History obtained from the patient at bedside, chart review and ED staff. Patient tells me that over the last 5 years she has been dealing with this chronic intermittent abdominal pain where he feels that his stomach has swelled up and the pain would come and go, over time he learned how to deal with it when he quits eating and the pain goes away as per his words. He also states that the pain is associated with dry heaves and nausea. He today tells me that the pain subsides on its own however over the last few weeks he has been dealing with the flu and starting few days ago he started having the same abdominal pain which is generalized more continuous and more severe along with right sided upper back pain that hurts when he moves and on palpation. He tells me that he plays pickle ball and he attributes that upper back pain to that. Denies any fever or chills but still has nausea and dry heaves. With sometimes vomiting. He decided to come to the ED as his pain was different and his PCP recommended that he come to the ER for further workup and management. Here in the ED, patient was saturating well and afebrile with no tachycardia and he was on room air. His labs showed leukocytosis with a left shift however hemoglobin and platelets were normal. His CMP did show bilirubin of 1.3 total and direct of 0.4 however his kidney function electrolytes were all normal. His lipase 134 which is double upper two thirds of normal. His CT abdomen pelvis showed edema in the head of the pancreas suspicious for acute pancreatitis with no other bowel obstruction or obstructive uropathy. His CBD was only 5.5 mm on his ALT RUQ ultrasound and there was no Barros sign on exam. Patient to be admitted under hospital service for further workup and management. Of note patient received total of 2 L of NS boluses and was started on LR 125 mL/h. Also received 1 dose of morphine 4 mg IV once. Patient drinks 3-4 beers a day last drink was Sunday night. Acute pancreatitis, could be alcoholic versus biliary with the gallstone the past? Hypertriglyceridemia was ruled out -Admit patient to medical floor telemetry - Continue with LR 125 mL/h for total of 2 L - Morphine IV 2 mg every 4 hours as needed for pain 7?01/16 - Tylenol 650 every 4 hours for pain as needed 1?09/16 - NPO for now then advance diet as tolerated tomorrow morning - Patient was quiring whether he needs cholecystectomy, explained to him that that could be done as outpatient hopefully once his platelets go down - GI and DVT prophylaxis were both addressed - I did reconcile his medications - Patient is DNR CCA without intubation, I discussed that extensively with him and he tells me that he has a living will saying that. I will update that in the chart - I discussed the plan with him in details. Answered all his question 03/20/2025 patient's abdominal pain is still there and he states that he still have some nausea however he wants to eat. I will try full liquid diet on him. Will continue with IV fluids and morphine and Tylenol for pain control as well. I will make him inpatient given his continued pain and hopefully by tomorrow if he is tolerating will discharge him 03/21/2025 patient tolerated full liquid diet and now is being advanced to regular diet if tolerating I will discharge the patient today. He is doing much better denies any nausea or vomiting or abdominal pain and is ready to eat he tells me. His blood pressure has been better controlled over the last 24 hours. I discussed the plan with him in details, explained to him that he should have a primary care physician to follow-up with on his chronic abdominal pain. I explained to him that his pancreatitis is about is better and improved today however I mentioned to him that he will need to follow-up with his PCP for possible surgical nonurgent outpatient consult to be assessed for cholecystectomy. Patient did not have any signs of acute cystitis on admission no fever no chills no leukocytosis no Barros's signs whatsoever. His right upper quadrant ultrasound and CT abdomen show any cholecystitis. Patient understands that he will need to follow-up with his PCP soon. I answered all his questions he was very appreciative of our efforts Status at Discharge Overall status at discharge: patient is back to baseline Time Spent with Patient Time attestation: Total time spent providing and/or coordinating discharge services: Time spent: greater than 30 minutes Exam Narrative Exam Narrative: General:The patient appears well and in no apparent distress. Very pleasant and cooperative. Not ill-appearing Skin:Warm, dry, no pallor noted.There is no rash noted. Head:Normocephalic, atraumatic Eye: Normal conjunctiva, no drainage Ears, Nose, Mouth, and Throat: oral mucosa is moist. Nares patent. Cardiovascular:Regular Rate and Rhythm, normal S1-S2 Respiratory:Patient is in no distress, no accessory muscle use, lungs are clear to auscultation, no wheezing, rales or rhonchi Back: Does have tenderness on the right upper back just neck to the scapula on palpation. GI: Soft and nondistended. No masses. No signs of acute abdomen. No organomegaly Musculoskeletal: The patient has no evidence of calf tenderness, no pitting edema, symmetrical pulses noted bilaterally Neurological:A&O, normal speech, no focal deficits, oriented x3 Constitutional Vital Signs, click to edit/add: Last Vital Signs Temp 98.2 F 03/21/25 04:00 Pulse 74 03/21/25 07:34 Resp 16 03/21/25 07:34 BP 136/80 03/21/25 09:55 Pulse Ox 94 L 03/21/25 04:00 O2 Del Method Room Air 03/21/25 04:00 DS: Data Data Completed and Pending Labs on day of discharge: Labs from last 24 hours 03/21/25 06:13 WBC 7.2 RBC 4.78 Hgb 15.2 Hct 44.2 MCV 92.5 MCH 31.8 MCHC 34.4 RDW 11.9 Plt Count 138 L MPV 10.7 Neut % (Auto) 70.2 Lymph % (Auto) 15.0 L [place] % (Auto) 9.7 Eos % (Auto) 4.6 Baso % (Auto) 0.4 Neut # (Auto) 5.1 Lymph # (Auto) 1.1 L [place] # (Auto) 0.7 Eos # (Auto) 0.3 Baso # (Auto) 0.0 Abs Immat Gran (auto) 0.01 Imm/Tot Granulo (auto) 0.1 Sodium 141 Potassium 4.1 Chloride 104 Carbon Dioxide 30.2 Anion Gap 10.9 BUN 10.0 Creatinine 0.98 Est GFR ( Amer) >60 Est GFR (Non-Af Amer) >60 BUN/Creatinine Ratio 10.2 Glucose 94 Calcium 9.1 Magnesium 1.9 Total Bilirubin 1.3 H AST 16 ALT 22 Alkaline Phosphatase 44 L Total Protein 6.7 Albumin 3.1 L Globulin 3.6 Albumin/Globulin Ratio 0.9 Discharge Plan Discharge Disposition: Home, Self-Care Condition: Fair Discharge Medications: Continued alfuzosin 10 mg tablet extended release 24 hr 10 mg PO QDAY atorvastatin 80 mg tablet 80 mg PO QDAY carvedilol 12.5 mg tablet 12.5 mg PO Q12H finasteride 5 mg tablet 5 mg PO QDAY aspirin 81 mg capsule 81 mg PO DAILY cholecalciferol (vitamin D3) [D3-2000] 50 mcg (2,000 unit) capsule 50 mcg PO DAILY Changed losartan 25 mg tablet 50 mg PO QDAY Qty: 0 0RF Print Language: Wolof Forms: Portal Instructions
--- OUTSIDE RECORDS SUMMARY | 2025-03-23 10:30 | XMS_ITS ---
Author Organization [facility] in [place] Address [address] [place] [address] Care Team Providers Care Joy Operator Helper Name Role Phone Ramónjudy Pranav Primary Care Provider Allergies Allergen (clinical drug ingredient) Drug/Non Drug Allergy documented on EMR Reaction Allergy Type Onset Date Status ciprofloxacin Ciprofloxacin hives Drug Allergy Active Reason For Referral Reason Chronic pancreatitis Diagnosis 1 Pancreatitis, acute (K85.90) Referral Organization [facility] Referring Provider First Name Pranav Referring Provider Last Name You Referring Provider Speciality Family Med mickyne Referred Provider Yasir Abrams Referred Provider Specialty Gastroentero logy Referral Priority Routine REASON FOR VISIT hosp f/u, rash all over lower back Medications Medication SIG (Take, Route, Frequency, Duration) Notes Start Date End Date Status Finasteride 5 MG 1 tablet Orally Once a day ActiveTriamcinolone Acetonide 0.1 %1 application Externally bid5Active Atorvastatin Calcium 80 MG1 tablet Orally Once a dayActiveCarvedilol 12.5 MG1 tablet with food Orally Twice a dayActiveLosartan Potassium 50 MG1 tablet Orally Once a dayActiveAspirin 81 MG1 capsule Orally Once a dayActive Social History Tobacco Use: Social History Observation Description Date Details (start date - stop date) Never Smoker NA - NA Tobacco Control (Standard) Question Answer Notes Tobacco use: Nonsmoker AUDIT-C (Standard) Question Answer Notes Did you have a drink containing alcohol in the p ast year? Yes How often did you have a drink containing alcohol in the past year?Monthly or less (1 point)How many drinks did you have on a typical day when you were drinking in the past year?3 or 4 drinks (1 point)How often did you have six or more drinks on one occasion in the past year?4 or more times a week (4 points) [id number] Vital Signs Weight 220 lbs 03/23/2025 Height 70 in 03/23/2025 Blood pressure systolic 130 mm Hg 03/23/20 25 Blood pressure diastolic 80 mm Hg 025 BMI 31.56 kg/m2 03/23/2025 Encounters Encounter Location Date Provider Diagnosis [facility] [address] [place] [address] 03/23/2025 Pranav Orta Pancreatitis, acute K85.90 Assessments Encounter Date Diagnosis (ICD Code) Assessment Notes Treatment Notes Treatment Clinical Notes Section Notes 03/23/2025 Pancreatitis, acute (ICD-10 - K8 5.90) Plan Of Treatment Medication Medication Name Sig Start Date Stop Date Notes Triamcinolone Acetonide 0.1 % 1 application Externally bid 03/23/2025 Pending Test Test Name Order Date NM thyroid w uptake 03/23/2025 Referrals Referral Date Details 03/23/2025 03/23/2025, Chronic pancreatitis, Yasir bArams Progress Notes * Sivan TATEnDOB:1955 ([age] yo M)Acc No.[id number]:03/23/2025 Progress Note Patient: Sima TSAI Matt :?Noe Orta ([facility]), MDDOB:1955???Age: 69 Y???Sex:MaleDate:03/23/2025Phone:[phone]:[address] [place] [phone] In:03:20 PM ESTCheck Out:04:28 PM EST Subjective: * Chief Complaints: * H osp f/u, rash all over lower back * HPI: ???Depression Screening:?PHQ-2 (2015 Edition)?Little interest or pleasure in doing things? Not at all ?Feeling down, depressed, or hopeless??Not at all ?Total Score?0 ?Admitted wtih pancreasitits - recurrent panreatitis no CAD - hx of stents. ???Interim History:? Patient presents for high blood pressure check. Doing well on medication. Denies chest pain, palpitations, lightheadedness, or vision changes. * ROS: ???General/Constitutional:?Lightheadedness?denies.?Fever?denies.?Headache?denies.?Cardiovascular:?Chest pain?denies.?Palpitations?denies.?Respiratory:?Cough?denies.?Shortness of breath?denies.? * Active Problem List I10 Essential (primary) hypertension Modified On:10/04/2022/U Status:ntzttyoymJ92.5Hyperlipidemia, unspecified Modified On:10/04/2022/U Status:ruqoskvfzC09.10Atherosclerotic heart disease of [place] coronary artery without angina pectoris Modified On:10/04/2022/U Status:amrsnrmobW02.90Pancreatitis, acute Modified On:03/20/2025/U Status:confirmed * Medical History: * Surgical History: a chilles right pinky finger reset right knee torn menicus * Hospitalization/Major Diagno stic Procedure: N o Hospitalization History. * Family History: F ather: . M other: . B rother(s): alive. 1 brother(s) . 1 son(s) , 1 daughter(s) . . * Social History: ???Tobacco Use:?Tobacco Control (Standard)?Tobacco use:?Nonsmoker ???Drug/Alcohol:?AUDIT-C (Standard)?Did you have a drink containing alcohol in the past year??Yes ?How often did you have a drink containing alcohol in the past year?? Monthly or less (1 point) ?How many drinks did you have on a typical daywhen you were drinking in the past year??3 or 4 drinks (1 point) ?How often did you have six or more drinks on one occasion in the past year??4 or more times a week (4 points) ?Points?6 ?Interpretation?Positive * Medications: T akingAspirin 81 MG Capsule 1 capsule Orally Once a day Atorvastatin Calcium 80 MG Tablet 1 tablet Orally Once a day Carvedilol 12.5 MG Tablet 1 tablet with food Orally Twice a day Finasteride 5 MG Tablet 1 tablet Orally Once a day Losartan Potassium 50 MG Tablet 1 tablet Orally Once a day Medication List reviewed and reconciled with the patientTaking Aspirin 81 MG Capsule 1 capsule Orally Once a day Taking Atorvastatin Calcium 80 MG Tablet 1 tablet Orally Once a day Taking Carvedilol 12.5 MG Tablet 1 tablet with food Orally Twice a day Taking Finasteride 5 MG Tablet 1 tablet Orally Once a day Taking Losartan Potassium 50 MG Tablet 1 tablet Orally Once a day Medication List reviewed and reconciled with the patient * Allergies: C iprofloxacin: hives Objective: * Vitals: W t:220lbs, Ht: 70 in, BP:130/80mm Hg, BMI:31.56Index, Ht-cm: 177.8 cm, Wt-k.79 kg. * Examination: ???General Examination: ?GENERAL APPEARANCE:? in no acute distress, well developed,well nourished.?LUNGS:? clear to auscultation bilaterally.?CARDIO:? regular rate and rhythm, S1, S2 normal, no murmurs.?ABDOMEN:?RUQ tendnernss.? Assessment: * Assessment: 1.?Pancreatitis, acute - K85.90 (Primary)??? Plan: * Treatment: ?Imaging: NM thyroid w uptake* with EF ? Referral To:Yasir Abrams??Gastroenterology ?Reason:Chronic pancreatitis 2.?Others? Start Triamcinolone Acetonide Cream, 0.1 %, 1 application, Externally, bid, 60 grams, Refills 11. ? * Procedure Codes: 3 079F DIAST BP 80-89 MM [id number] SYST BP GE 130 - 139MM HG * Preventive Medicine: ??Screenings/Counseling:?BMI ACTION PLAN?Above Normal BMI Follow-up?Dietary management education, guidance, and counseling * * Sign off status: CompletedVisit Status:?CHK (Check Out) true * Provider: Laverne Orta ([facility])MD Date: 1 05/24/2024 Generated for Printing/[employer]g/eTransmitting on:?04/06/2025 06:21 AM EST History and Physical Notes * HPI (History of Present Illness) CategorySub-CategoryDetailNotesCategory NotesDepression ScreeningPHQ-2 (2015 Edition)Little interest or pleasure in doing things?: Not at all Admitted wtih pancreasitits - recurrent panreatitis no CAD - hx of stents Feeling down, depressed, or hopeless?: Not at allTotal Score: 0 Examination CategorySub-CategoryDetailNotesCategory NotesGeneral ExaminationGENERAL APPEARANCE:in no acute distress, well developed, well nourishedCARDIO:regular rate and rhythm, S1, S2 normal, no murmursLUNGS:clear to auscultation bilaterallyABDOMEN:RUQ tendnernss Consultation Request Notes Referral Date Referring Provider Referred Provider Not eric 03/23/2025 Pranav Orta Ali Chronic pancrea titis
--- NOTE | 2025-03-23 14:19 | CM.DCFOLLOWU ---
Person spoke with: Matt How are you feeling? Better How is your pain? Better Did you understand your discharge instructions? Yes Do you have any questions about your discharge instructions? No Were you given any prescriptions at discharge? No Were you able to get your prescriptions filled? N/A Do you understand how to take your medications as ordered? Yes Do you have any questions about your follow up appointment and do you plan to keep your follow up appointment? No questions. The patient is scheduled to see Dr Orta today and plans on keeping his appt. Is there anything else that you would like to discuss? No Questions/Comments/Concerns/Other:
--- OUTSIDE RECORDS SUMMARY | 2025-03-24 08:09 | XMS_ITS ---
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 Name Role Phone Pranav Orta Primary Care Provider REASON FOR VISIT hida scan Encounters Encounter Location Date Provider Diagnosis [facility] [address] [place] [address] 03/24/2025 Pranav Orta Pancreatitis, acute K85.90 Assessments Encounter Date Diagnosis (ICD Code) Assessment Notes Treatment Notes Treatment Clinical Notes Section Notes 03/24/2025 Pancreatitis, acute (ICD-10 - K8 5.90) Plan Of Treatment Pending Test Test Name Order Date HIDA w/EF 03/24/2025 Progress Notes * Sivan TATEnDOB:1955 ([age] yo M)Acc No.[id number]:03/24/2025 Patient:?Matt TATE :1955???Age:69 Y???Sex:MalePhone:[phone] Address:[address] [place] [phone] Subjective: * Chief Complaints: * H michelle scan * Medical History: * Surgical History: * Hospitalization/Major Diagno stic Procedure: * Medications: Objective: * Vitals: * Physical Examination: ??? Assessment: * Assessment: 1.?Pancreatitis, acute - K85.90 (Primary)??? Plan: * Treatment: ?Imaging: HIDA w/EF * Procedure Codes: * true * Date:?Generated for Printing/Faxing/eTransmitting on:?04/06/2025 06:20 AM EST
--- OUTSIDE RECORDS SUMMARY | 2025-04-03 04:15 | XMS_ITS ---
Author Organization [facility] [place] Address [address] [place] [address] Care Team Providers Care Rn Licensed Practical Name Role Phone Pranav Orta Primary Care Provider Allergies Allergen (clinical drug ingredient) Drug/Non Drug Allergy documented on EMR Reaction Allergy Type Onset Date Status ciprofloxacin Ciprofloxacin hives Drug Allergy Active REASON FOR VISIT Discuss GALLBLADDER- [phone] Medications Medication SIG (Take, Route, Frequency, Duration) Notes Start Date End Date Status Carvedilol 12.5 MG 1 tablet with food Orally Twi ce a day ActiveFinasteride 5 MG1 tablet Orally Once a dayActiveLosartan Potassium 50 MG1 tablet Orally Once a dayActiveTriamcinolone Acetonide 0.1 %1 application Externally bid5ActiveAtorvastatin Calcium 80 MG1 tablet Orally Once a dayActiveAspirin 81 [...] or more times a week (4 points) Qkcnvc0JkkipvyetynhdzAniypnzl Encounters Encounter Location Date Provider Diagnosis [facility] [address] [place] [address] 04/03/2025 Pranav Orta Pancreatitis, acute K85.90 Assessments Encounter Date Diagnosis (ICD Code) Assessment Notes Treatment Notes Treatment Clinical Notes Section Notes 04/03/2025 Pancreatitis, acute (ICD-10 - K8 5.90) Plan Of Treatment No Information Progress Notes * CHAR DeanDOB:1955 ([age] yo M)Acc No.[id number]:04/03/2025 UNLOCKED PROGRESS NOTE TeleMed via Doxy Patient: Matt DUNBAR :?Noe Orta ([facility]), MDDOB:1955???Age: 69 Y???Sex:MaleDate:04/03/2025Phone:[phone]:[address] [place], [place] [id number] In:08:57 AM ESTCheck Out:10:19 AM EST Subjective: * Chief Complaints: * 1 . Discuss GALLBLADDER- [phone]. * HPI: ???General:? The patient verbally consented to a TeleHealth encounter and the potential risks involved with a TeleHealth visit (clinical aspects, security considerations, and confidentiality of information) were discussed with the patient. The patient encounter was conducted using a synchronous audio-visual interactive audio telecommunications system called: telephone. Patient is attending the TeleHealth encounter from home. Patient was the only one present in the room. The provider is attending the TeleHealth encounter from their office. Care provided by Telemedicine. Total Time spent during the encounter: 8 min. * Medical History: * Surgical History: a chilles , right pinky finger reset , right knee torn menicus . * Family History: F ather: . M [...] (4 points) ?Points?6 ?Interpretation?Positive * Medications: T aking Aspirin 81 MG Capsule 1 capsule Orally Once a day , Taking Atorvastatin Calcium 80 MG Tablet 1 tablet Orally Once a day , Taking Carvedilol 12.5 MG Tablet 1 tablet with food Orally Twice a day , Taking Finasteride 5 MG Tablet 1 tablet Orally Once a day , Taking Losartan Potassium 50 MG Tablet 1 tablet Orally Once a day , Taking Triamcinolone Acetonide 0.1 % Cream 1 application Externally bid , Medication List reviewed and reconciled with the patient * Allergies: C iprofloxacin: hives. Objective: * Vitals: Assessment: * Assessment: 1.?Pancreatitis, acute - K85.90 (Primary)??? Plan: * Treatment: * * Electronic signature of Pranav Orta MD, [phone] on 04/06/2025 at 06:20 AM EST Sign off status: PendingVisit Status:?CHK (Check Out) * Provider: Laverne Orta ([facility])MD Date: 1 06/04/2024 Generated for Printing/Faxing/eTransmitting on:?04/06/2025 06:20 AM EST
--- OUTSIDE RECORDS SUMMARY | 2025-04-03 05:13 | XMS_ITS ---
Author Organization [facility] in [place] Address [address] [place] [address] Care Team Providers Care Mental Health Counselor Name Role Phone Pranav Orta Primary Care Provider Reason For Referral Diagnosis 1 Pancreatitis, acute (K85.90) Referral Organization [facility] Referring Provider First Name Pranav Referring Provider Last Name You Referring Provider [facility] icine Referred Provider Specialty Gastroentero logy Referral Priority Routine REASON FOR VISIT [facility] Encounters Encounter Location Date Provider Diagnosis [facility] [address] [place] [address] 04/03/2025 Pranav Orta Pancreatitis, acute K85.90 Assessments Encounter Date Diagnosis (ICD Code) Assessment Notes Treatment Notes Treatment Clinical Notes Section Notes 04/03/2025 Pancreatitis, acute (ICD-10 - K8 5.90) Plan Of Treatment Referrals Referral Date Details 04/03/2025 04/03/2025 Progress Notes * Sivan TATEnDOB:1955 ([age] yo M)Acc No.[id number]:04/03/2025 Patient:?Matt TATE :1955???Age:69 Y???Sex:MalePhone:[phone] Address:[address] [place] [id number] Subjective: * Chief Complaints: * [facility] * Medical History: * Surgical History: * Hospitalization/Major Diagno stic Procedure: * Medications: Objective: * Vitals: * Physical Examination: ??? Assessment: * Assessment: 1.?Pancreatitis, acute - K85.90 (Primary)??? Plan: * Treatment: ? Referral To:Gastroenterology ?Reason: * Procedure Codes: * true * Date:?Generated for Printing/Faxing/eTransmitting on:?04/06/2025 06:20 AM EST Consultation Request Notes Referral Date Referring Provider Referred Provider Not es 04/03/2025 Pranav Orta ,
--- OUTSIDE RECORDS SUMMARY | 2025-04-06 06:19 | XMS_ITS | CCD ---
Author Organization [facility] Inform ion Partnership [facility] Care Team Providers Care Diamond Sizer Name Role Phone NINA, EHAB A Admitting Unavailable ELCHECO, EHAB A Attending Unavailable SELF, REFERRED Referring Unavailable SELF, REFERRED Primary Care Unavailable Danny Orta Primary Care Physician Naz Parra I Unavailable Unavailable BRENNEN, DR DELGADO Primary Care Unavailable PAULA MCGERGOR JR Admitting Unavailable PAULA MCGREGOR JR Consulting Unavailable PAULA MCGREGOR JR Attending Unavailable MELVIN, DR WRIGHT Attending Unavailable BRENNEN, DR DELGADO Primary Care Unavailable MELVIN, DR WRIGHT Admitting Unavailable MELVIN, DR WRIGHT Consulting Unavailable Aaron MAO Attending Unavailable Aaron MAO Attending Unavailable Emeka Zarate Attending Unavailable Emeka Zarate Admitting Unavailable AMRCIA AGUIAR Attending Unavailable Allergies Allergy ClassificationReported Allergen(s)Allergy TypeDate of OnsetReaction(s) Facility (2 sources)Ciprofloxacin; Translations: [CIPROFLOXACIN]Drug Kekjltk44-55-2758Une [facility] Repository (6 sources)Ciprofloxacin; Translations: [ciprofloxacin]Drug AllergyEruption of skin (disorder)[facility] (1 source)CiprofloxacinDrug Pthjcfu01-92-6297[facility] (1 source)CiprofloxacinDrug Udzhjtf07-72-4120IzgfjegzfSelect [facility] Rep[facility] Medications Current Medications MedicationDrug Class(es)DatesSig (Normalized)Sig (Original)24 hr alfuzosin hydrochloride 10 mg extended release oral tablet (5 sources)alpha-Adrenergic BlockerStart: 03-26-2024 End: 73-26-4257kqbs 1 tablet by mouth once dailyalfuzosin 10 mg ER Tab 10 mg = 1 tab(s), Oral, Daily, X 90 day(s), # 90 tab(s), Refills(s) 3, Pharmacy: [facility], 178, cm, 03/26/24 9:56:00 EST, Height/Length Dosing, 100.6, kg, 03/26/24 9:56:00 EST, Weight Dosing Start Date: 03/26/24 Stop Date: 03/21/25 Status: OrderedStart: 24-79-9611njvr 1 tablet by mouth once dailyalfuzosin 10 mg ER Tab 10 mg = 1 tab(s), Oral, Daily, # 90 tab(s), Refills(s) 3, Pharmacy: [facility], 178, cm, 12/28/21 14:33:00 EDT, Height/Length Dosing, 99, kg, 12/28/21 14:33:00 EDT, Weight Dosing Start Date: 01/02/23 Status: Ordered Start: 91-96-0521isen 1 tablet by mouth once dailyalfuzosin 10 mg ER Tab 10 mg = 1 tab(s), Oral, Daily, # 90 tab(s), Refills(s) 3, Pharmacy: [facility] ([facility]), 178, cm, 10/20/20 10:46:00 EDT, Height/Length Dosing, 98.9, kg, 10/20/20 10:46:00 EDT, Weight Dosing Start Date: 11/25/21 Status: OrderedStart: 78-87-5351ieeb 1 tablet by mouth once dailyalfuzosin 10 mg ER Tab 10 mg = 1 tab(s), Oral, Daily, # 90 tab(s), Refills(s) 3, Pharmacy: [facility], 178, cm, 10/20/20 10:46:00 EDT, Height/Length Dosing, 98.9, kg, 10/20/20 10:46:00 EDT,Weight Dosing Start Date: 01/04/21 Status: OrderedAspir 81 (5 sources)Start: 47-38-1381bkpb 1 mg by mouth once dailyAspir 81 mg, Oral, Daily, Refills(s) 0 Start Date: 03/05/19 Status: Orderedatorvastatin 80 mg oral tablet (5 sources)HMG-CoA Reductase InhibitorStart: 39-74-2424lzoq 1 mg by mouth once dailyatorvastatin 80 mg Tab mg tab(s), Oral, Daily, Refills(s) 0 Start Date: 03/05/19 Status: Orderedcarvedilol (5 sources)alpha-Adrenergic Gabriel, beta-Adrenergic BlockerStart: 11-24-2019 carvedilol Oral, Refills(s) 0 Start Date: 11/24/19 Status: Orderedfinasteride 5 mg oral tablet (5 sources)5-alpha Reductase InhibitorStart: 03-26-2024 End: 49-27-5325rwnv 1 tablet by mouth once dailyfinasteride 5 mg Tab 5 mg = 1 tab(s), Oral, Daily, X 90 day(s), # 90 tab(s), Refills(s) 3, Pharmacy: [facility], 178, cm, 03/26/24 9:56:00 EST, Height/Length Dosing, 100.6, kg, 03/26/24 9:56:00 EST, Weight Dosing Start Date: 03/26/24 Stop Date: 03/21/25 Status: OrderedStart: 44-57-1081rrgv 1 tablet by mouth once dailyfinasteride 5 mg Tab 5 mg = 1 tab(s), Oral, Daily, # 90 tab(s), Refills(s) 3, Pharmacy: [facility] 178, cm, 12/28/21 14:33:00 EDT, Height/Length Dosing, 99, kg, 12/28/21 14:33:00 EDT, Weight Dosing Start Date: 07/17/22 Status: OrderedStart: 09-79-7629gfda 1 tablet by mouth once daily finasteride 5 mg Tab 5 mg = 1 tab(s), Oral, Daily, # 90 tab(s), Refills(s) 3, Pharmacy: [facility] ([facility]), 178, cm, 10/20/20 10:46:00 EDT, Height/Length Dosing, 98.9, kg, 10/20/20 10:46:00 EDT, Weight Dosing Start Date: 11/25/21 Status: OrderedStart: 93-37-9972ujcd 1 tablet by mouth once daily finasteride 5 mg Tab 5 mg = 1 tab(s), Oral, Daily, # 90 tab(s), Refills(s) 3, Pharmacy: [facility], 178, cm, 10/20/20 10:46:00 EDT, Height/Length Dosing, 98.9, kg, 10/20/20 10:46:00 EDT, Weight Dosing Start Date: 01/04/21 Status: Orderedlisinopril 2.5 mg oral tablet (2 sources)Angiotensin Converting Enzyme InhibitorStart: 50-24-3708eten 1 mg by mouth once dailylisinopril 2.5 mg Tab mg tab(s), Oral, Daily, Refills(s) 0 Start Date: 03/05/19 Status: OrderedLosartan (3 sources)Angiotensin 2 Receptor BlockerStart: 70-01-7895tgjfogqg Oral, Daily, Refills(s) 0 Start Date: 12/28/21 Status: OrderedMisc Medication (5 sources)Start: 39-84-4795Yzwq Medication Start Date: 06/21/13 Status: Ordered pantoprazole 40 mg delayed release oral tablet (4 sources)Proton Pump InhibitorStart: 16-70-0285whdt 1 mg by mouth once daily Pantoprazole [address] Tab mg tab(s), Oral, Daily, Refills(s) 0 Start Date: 03/05/19 Status: Orderedtadalafil 20 mg oral tablet (4 sources)Phosphodiesterase 5 InhibitorStart: 86-93-5263vqyvyruji 20 mg Tab 20 mg = 1 tab(s), Oral, As Directed, # 30 tab(s), Refills(s) 3, Pharmacy: [facility] [place] [address] Start Date: 03/05/19 Status: Ordered Problems Active Problems Problem ClassificationProblemDateDocumented DateEpisodic/ChronicAbdominal pain (11 sources)Epigastric pain; Translations: [Right upper quadrant pain]Onset: 028930-35-9614GwduinyaWtpdtazp atherosclerosis and other heart disease (7 sources)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; Translations: [Atherosclerotic heart disease of [place] coronary artery without angina pectoris]Onset: 276559-10-9798Zufrdvc Disorders of lipid metabolism (2 sources)Mixed hyperlipidemia; Translations: [Mixed hyperlipidemia]Onset: 44-76-1713VkejflpUmvalkiko hypertension (7 sources)Hypertensive disorder; Translations: [Essential (primary) hypertension]Onset: 976987-89-5658SdhxlfsFfzqfswhzwhgn symptoms and ill- defined conditions (5 sources)Post-micturition olqvstkjhxll71-67-8034UpiuoauJpajhgpudttsm symptoms and ill-defined conditions (16 sources)Andrew hematuria; Translations: [Increased frequency of urination] Onset: 299951-78-3043VcmezbhkPwxneitupgr of prostate (10 sources)Benign prostatic hyperplasia; Translations: [Benign prostatic hypertrophy with outflow obstruction]Onset: hronic Inflammatory conditions of male genital organs (5 sources)Chronic -27-4587VwdnhheBwynn male genital disorders (5 sources)Yskqgkagr82-72-9507IedbismDwoaq male genital disorders (2 sources)Male erectile dysfunction, unspecified; Translations: [Erectile dysfunction]Onset: 63-16-5082BpwamnsZrliv nutritional; endocrine; and metabolic disorders (5 sources)Body mass index 30+ - txwjykt07-89-4965NauobhlNbpjy nutritional; endocrine; and metabolic disorders (1 source)Obese class I; Translations: [Body mass index (BMI) 31.0-31.9, adult] Onset: 78-59-3181DmchgzlLivjh screening for suspected conditions (not mental disorders or infectious disease) (17 sources)CT of abdomen abnormal; Translations: [Raised prostate specific antigen]Onset: 653964-89-6090HgxsjavkPczdqztsis disorders (not diabetes) (9 sources)Pancreatitis; Translations: [Acute pancreatitis without necrosis or infection, unspecified]Onset: 676012-91-4743ZwaopdpeSztfwlqk codes; unclassified (5 sources)Family history of prostate pyvotk96-10-0874MjlvzneeYwbetywp codes; unclassified (3 sources)Family history of cancer; Translations: [Family history of malignant neoplasm of prostate]Onset: 25-43-4579Xmxowita Past or Other Problems Problem ClassificationProblemDateDocumented DateEpisodic/ChronicNeoplasms of unspecified nature or uncertain behavior (1 source)Neoplasm of unspecified behavior of bone, soft tissue, and skin; Translations: [Neoplasm of unspecified behavior of bone, soft tissue, and skin] Onset: 55-33-7194EqxcuoyjCgrqktsggjes (3 sources)prostate infections( Confirmed )56-93-1508Gglltnqdjuiz (2 sources)prostate -69-4851 Results Test NameValueInterpretationReference RangeFacilityOffice Visiton 10-09-2024 Follow-up [id number] Gabriel Pardo 1955 M Date Provider Department Center 10/09/2024 271-MARCIA AGUIAR [facility] Pamela Hos Family History Problem Relation Age of Onset Coronary artery disease Father Family Status - Relation Status Age at Mother Father Level of Service:21369 [place] OFFICE/OUTPATIENT ESTABLISHED LOW MDM [address] [facility] Summaryon 03-26-2024 Ambulatory Visit SummaryAmbulatory [...] Aaron MAO MD Where: [facility] [address] [place] [address]- You Need to Schedule the Following Appointments Follow Up with Aaron MAO MD, URL When: Where: [facility] [address], [place] [address]- Medications What How Much When Instructions Changed [...] [facility]: [address] [facility] [address] [place], [place] [id number] [phone] Allergies Cipro (Rash) Problems Ongoing - Any [...] screening for prostate c (more content not included)...[facility] Noteon 18-09-4768Rllisdl Office/Clinic Note Urology Office/Clinic Note Chief Complaint [...] [facility] [address], [place] [address]- Additional Instructions: 1 yr with PSA F&T, [...] vaccine, inactivated 02/09/2018 Rec (more content not included)...[facility] SystemComment on above:Result Comment: Electronically Signed By: Aaron MAO MD\.br\Date and Time Signed: 03/26/24 10:43 EST\.br\Electronically Co-Signed By: Regla Vieira\.br\Date and Time Co-Signed: 03/26/24 10:39 ESTLon 03-18-2024 Specimen: [id number] Received: 03/18/24 Status: KELSEA Modi Num: [id number] Spec Type: Surgical Subm Dr: Emeka Zarate MD Tissues: A Skin-Other than Cyst, tag, debridement or plastic repair (POST AURICULAR) Procedures: HANSA/Diane Cool/Verónica Painter Age/ Patient Sex Location Account Attending Physician Gabriel Pardo/M ALEC [id number] Emeka Zarate MD SPEC NUM: [id number] RECD: 03/18/24 STATUS: KELSEA FATIMAMaury NUM: [id number] BRENDA: 03/18/[address] [facility] [address]: Emeka Zarate MD ENTERED: 03/18/[address] [facility] [address]: SPEC TYPE: Surgical DEPT: S ENTERED BY: [id number] RECV BY: [id number] ORDERED: HE/2, Gross/Micro L4 ORDERED: HE/2, Gross/Micro [...] specimen submitted in cassette A2. (2, ns, [id number] A) Microscopic Description Microscopic examinations are performed supporting the above interpretation Specimen: [id number] Received: 03/18/24 Status: KELSEA Ly Num: [id number] Spec Type: Surgical Subm Dr: Emeka Zarate MD Tissues: A Skin-Other than Cyst, tag, debridement or plastic repair (POST AURICULAR) Procedures: Flex SINGH L4 Patient: BebetoGabriel L [id number] (Continued) Specimen: [id number] Received: 03/18/24 (Continued) Signed (signature on file) Karley Olea MD 03/19/241926 Specimen: [id number] Received: 03/18/24 Status: KELSEA Modi Num: [id number] Spec Type: Surgical Subm Dr: Emeka Zarate MD Tissues: A Skin-Other than Cyst, tag, debridement or plastic repair (POST AURICULAR) Procedures: Flex SINGH L4 Patient: Gabriel Pardo [id number] (Continued) Specimen: [id number] Received: 03/18/24 (Continued) CPT Codes 26265 Specimen: [id number] Received: 03/18/24 Status: KELSEA Modi Num: [id number] Spec Type: Surgical Subm Dr: Emeka Zarate MD Tissues: A Skin-Other than Cyst, tag, debridement or plastic repair (POST AURICULAR) Procedures: HE/2, Gross/Micro L4 Patient: Gabriel Pardo [id number] (Continued) Signed (signature on file) Chin-Rafa Olea MD 03/19/[address] [place] [address] Physician Cydim89cq 13-34-142901Cpmdaeaml stress test and echo performed on 10/09/2023: MD Alka Lanza MA Please let him know stress test was normal Thanks Patient informed.NormalUnOhio State University Wexner Medical CenterAMYLASEon 11-10-2020 Amylase [Catalytic activity/Vol]44 U/TYlwicq71-195Llf [facility] HospitalComment on above:Performed By: #### CRP, CMP, LIPA, LOREE #### [facility] [address] [place] [address] Elver KarenCBC AUTO DIFFon 52-79-4198JDAR #0.0 103/ulNormal0.0-0.1The [facility] HospitalComment on above:Performed By: #### CBC #### [facility] [address] [address] Elver KarenBasophils/100 WBC (Bld)0.7 %Normal0.2-2.0The [facility] Comment on above:Performed By: #### CBC #### [facility] [address] [address] Elver KarenEO #0.3 103/ulNormal0.0-0.7The [facility] HospitalComment on above: Performed By: #### CBC #### [facility] [address] [address] Elver KarenEosinophils/100 WBC (Bld)5.5 %Normal0.9-7.0The [facility] Comment on above:Performed By: #### CBC #### [facility] [address] [address] Elver KarenErythrocyte distribution width (RBC) [Ratio]12.5 %Pjipqi94.0-15.0The [facility] HospitalComment on above:Performed By: #### CBC #### [facility] [address] [place] [address] Elver KarenHematocrit (Bld) [Volume fraction]46.2 %Lttkcu46.0-54.0The [facility] HospitalComment on above:Performed By: #### CBC #### [facility] [address] [place] [address] Elver KarenHemoglobin (Bld) [Mass/Vol]15.7 g/qDNryiis68.0-18.0The [facility] HospitalComment on above:Performed By: #### CBC #### [facility] [address] [place] [address] Elver KarenIG #0.02 10e3/ulNormal0.00-0.03The [facility] HospitalComment on above:Performed By: #### CBC #### [facility] [address] [place] [address] Elver KarenIG %0.3 %Normal0.0-0.5The [facility] HospitalComment on above: Performed By: #### CBC #### [facility] [address] [place] [address] Elver KarenLYMPH #1.1 103/ulCritically low1.2-3.8The [facility] HospitalComment on above:Performed By: #### CBC #### [facility] [address] [place] [address] Elver KarenLymphocytes/100 WBC (Bld)19.0 %Critically low20.5-60.0The [facility] HospitalComment on above:Performed By: #### CBC #### [facility] [address] [place] [address] Elver KarenMANUAL DIFF REQNONormalThe [facility] HospitalComment on above: Performed By: #### CBC #### [facility] [address] [place] [address] Elver KarenMCH (RBC) [Entitic mass]31.7 lxIgjrhb48.9-34.0The [facility] Comment on above:Performed By: #### CBC #### [facility] [address] [place] [address] Elver KarenMCHC (RBC) [Mass/Vol]34.0 g/bSXteyqn52.9-35.2[facility] Comment on above:Performed By: #### CBC #### [facility] [address] [place] [address] Elver KarenMCV (RBC) [Entitic vol]93.3 oNFhbryr82.0-94.0[facility] Comment on above:Performed By: #### CBC #### [facility] [address] [place] [address] Elver KarenMONO #0.5 103/ulNormal0.3-0.8The [facility] HospitalComment on above: Performed By: #### CBC #### [facility] [address] [place] [address] Elver KarenMonocytes/100 WBC (Bld)8.9 %Normal1.7-12.0[facility] Comment on above:Performed By: #### CBC #### [facility] [address] [place] [address] Elver KarenNEUT #3.9 103/ulNormal1.4-6.5The [facility] HospitalComment on above: Performed By: #### CBC #### [facility] [address] [place] [address] Elver KarenNeutrophils/100 WBC (Bld)65.6 %Jrgiui46.0-75.0[facility] Comment on above:Performed By: #### CBC #### [facility] [address] [place] [address] Elver KarenPlatelet mean volume (Bld) [Entitic vol]11.0 fLNormal9.5-13.5The [facility] HospitalComment on above:Performed By: #### CBC #### [facility] [address] [place] [address] Elver ZkebnDCX969 103/ulCritically oxa375-030Qae [facility] HospitalComment on above:Performed By: #### CBC #### [facility] [address] [place] [address] Elver KarenRBC4.95 106/ulNormal4.70-6.10The [facility] HospitalComment on above: Performed By: #### CBC #### [facility] [address] [place] [address] Elver KarenWBC6.0 103/ulNormal4.0-11.0The [facility] HospitalComment on above: Performed By: #### CBC #### [facility] [address] [place] [address] Elver KarenCRPon 07-67-7094NMP [Mass/Vol]mg/LNormal<=1.0The [facility] Comment on above:Performed By: #### CRP, CMP, LIPA, LOREE #### [facility] [address] [place] [address] Elver KarenLIPASEon 05-97-5043Kfcbvx [Catalytic activity/Vol]163.0 U/LNormal 23.0-300.0The [facility] HospitalComment on above:Performed By: #### CRP, CMP, LIPA, LOREE #### [facility] [address] [place] [address] Elver KarenPROF 14(COMP METB)on 98-06-6554Daeabyj [Mass/Vol]3.9 g/dLNormal 3.5-5.0The [facility] HospitalComment on above:Performed By: #### CRP, CMP, LIPA, LOREE #### [facility] [address] [place], [place] [address] Elver KarenAlbumin/Globulin [Mass ratio]1.3 {ratio}NormalPomerene Hospital Comment on above:Performed By: #### CRP, CMP, LIPA, LOREE #### [facility] [address] [place] [address] Elver KarenALP [Catalytic activity/Vol]48 U/RWhyock99-139AiiPomerene Hospital Comment on above:Performed By: #### CRP, CMP, LIPA, LOREE #### [facility] [address] [address] Elver KarenALT [Catalytic activity/Vol]50 U/UEltnzy39-63AtsPomerene Hospital Comment on above:Performed By: #### CRP, CMP, LIPA, LOREE #### [facility] [address] [place] [address] Elver KarenAnion gap [Moles/Vol]7.4 mmol/LNormalPomerene HospitalComment on above:Performed By: #### CRP, CMP, LIPA, LOREE #### [facility] [address] [place] [address] Elver KarenAST [Catalytic activity/Vol]30 U/RJumnom76-45MrmPomerene Hospital Comment on above:Performed By: #### CRP, CMP, LIPA, LOREE #### [facility] [address] [place] [address] Elver KarenBilirubin [Mass/Vol]1.0 mg/dLNormal0.2-1.3TWVUMedicine [facility] Comment on above:Performed By: #### CRP, CMP, LIPA, LOREE #### [facility] [address] [place] [address] Elver KarenCalcium [Mass/Vol]9.1 mg/dLNormal8.4-10.2[facility] Comment on above:Performed By: #### CRP, CMP, LIPA, LOREE #### [facility] [address] [place] [address] Elver KarenChloride [Moles/Vol]106 mmol/XTzgvde82-251TkmPomerene Hospital Comment on above:Performed By: #### CRP, CMP, LIPA, LOREE #### [facility] [address] [address] Elver KarenCO2 [Moles/Vol]32.9 mmol/LCritically high22.0-30.0[facility] HospitalComment on above:Performed By: #### CRP, CMP, LIPA, LOREE #### [facility] [address] [place] [address] Elver KarenCreatinine [Mass/Vol]1.05 mg/dLNormal0.66-1.25The [facility] Comment on above:Performed By: #### CRP, CMP, LIPA, LOREE #### [facility] [address] [place] [address] Elver KarenEGFR-AF KITTITIAN>60Normal>=60The [facility] HospitalComment on above: Performed By: #### CRP, CMP, LIPA, LOREE #### [facility] [address] [place] [address] Elver KarenEGFR-NON AF KITTITIAN>60Normal>=60The [facility] HospitalComment on above:Performed By: #### CRP, CMP, LIPA, LOREE #### [facility] [address] [place] [address] Elver KarenGlobulin (S) [Mass/Vol]3.0 g/dLNormalThe [facility] HospitalComment on above:Performed By: #### CRP, CMP, LIPA, LOREE #### [facility] [address] [place] [address] Elver KarenGlucose [Mass/Vol]111 mg/dLCritically ztyw23-572Yvh [facility] HospitalComment on above:Performed By: #### CRP, CMP, LIPA, LOREE #### [facility] [address] [place] [address] Elver KarenPotassium [Moles/Vol]4.3 mmol/LNormal3.4-5.0[facility] Comment on above:Performed By: #### CRP, CMP, LIPA, LOREE #### [facility] [address] [place] [address] Elver KarenProtein [Mass/Vol]6.9 g/dLNormal6.1-8.2The [facility] HospitalComment on above:Performed By: #### CRP, CMP, LIPA, LOREE #### [facility] [address] [address] Elver KarenSodium [Moles/Vol]142 mmol/WFvtfmy719-712Pot [facility] Comment on above:Performed By: #### CRP, CMP, LIPA, LOREE #### [facility] [address] [address] Elver KarenUrea nitrogen [Mass/Vol]8.0 mg/dLCritically low9.0-20.0The [facility] HospitalComment on above:Performed By: #### CRP, CMP, LIPA, LOREE #### [facility] [address] [address] Elver KarenUrea nitrogen/Creatinine [Mass ratio]7.6 mg/mgNormalThe [facility] HospitalComment on above:Performed By: #### CRP, CMP, LIPA, LOREE #### [facility] [address] [address] Elver KarenSED RATE WESTERGRENon 39-71-0667WRB RATE5 mm/hrNormal<=20The [facility] HospitalComment on above:Performed By: #### SEDR #### [facility] [address] [address] Elver KarenCardiovascular Lab Reporton 42-77-0031Kqhinafewucuzz Lab Report [facility] Patient Name: Bebeto [facility] MR #: [id number] Physician: Marcia Aguiar Department of M.D. Medicine Service Date: 02/13/2019 Division of Birthdate: 1955 Cardiology Room #: [id number] [facility] [place] [address] Cardiovascular Laboratory Report IMPRESSION: 1. Severe, complex bifurcation lesion of the proximal left anterior descending coronary artery and adjacent large branching diagonal, successfully treated by balloon angioplasty and bifurcation stent placement. 2. Severe distal disease of the left circumflex coronary artery. 3. Nlpv-ci-uenilcmo disease of the right coronary artery. 4. [...] the left radial artery was obtained. A 6-Nepali glide sheath was inserted without difficulty. Bilateral selective coronary angiography was performed using JR4 and JL4 catheters. After reviewing the images, it was elected to proceed with an interventional procedure. A 6-Nepali XB 3.5 guide catheter was advanced over [...] The stent delivery balloon was subsequently retracted mcc into the left anterior descending stent. Final [...] M.D. Date Trans: 02/15/2019 11:18 Cristobal/jean pierre DN_JN:[id number] Carmel Health System Vital Signs Date TimeVital SignValuePerforming NhvuovrjdVqiatwcg58-75-4117 09:52-0500Blood Pressure LocationPanancy MAO [facility] [address] 915812-18-2024 09:52-0500Diastolic blood lhiqdofw07 mm[Hg]Aaron MAO [facility] [place] 915812-18-2024 09:52-0500Heart rate62 /minAaron MAO [facility] [place] 915812-18-2024 09:52-0500Systolic blood ukovkijb411 mm[Hg]Aaron MAO [facility] [place] 915812-12-2023 09:46-0500Diastolic blood tnzubzio59 mm[Hg]Aaron MAO [facility] [place] 915812-12-2023 09:46-0500Mean blood myfymnat15 mm[Hg]Aaron MAO [facility] [place] 730082-12-2023 09:46-0500Systolic blood tertzkgl098 mm[Hg]Aaronhernesto MAO [facility] [place] 730082-12-2023 09:40-0500Blood Pressure LocationPaCardFlight [facility] [place] 730082-12-2023 09:40-0500Diastolic blood iwpgcpwy22 mm[Hg]Aarno MAO [facility] [place] 730082-12-2023 09:40-0500Heart rate72 /minCantab Biopharmaceuticals [facility] [place] 730082-12-2023 09:40-0500Systolic blood mm[Hg]Aaron MAO [facility]09-21-2022 14:30-0400Blood Pressure LocationMdCardFlight [facility]09-21-2022 14:30-0400Diastolic blood bvwihkdk94 mm[Hg]Aaron MAO [facility]09-21-2022 14:30-0400Heart rate63 /minCantab Biopharmaceuticals [facility]09-21-2022 14:30-0400Systolic blood sfccneei173 mm[Hg]Aaron MAO [facility] Encounters Encounter DateEncounter TypeCare ProviderFacilityStart: 00-10-4509aiijptbpdt Aaron R WATERSFacility:EU [place]vueStart: 10-09-2024 End: 87-01-2501aduubpjdlyRUJV ELCHECOCincinnati [facility] Hospitaltart: 03-26-2024 End: 83-10-8251wdkwsaivsnTqozzpl R WATERSFacility:EU [place]Start: 03-26-2024 End: 88-31-3060Ynfyoko encounter procedureAaron Mcleod MAO [facility] Start: 03-18-2024 End: 32-77-1596eyksnftviiMabwmlq SurfieldFacility:[facility]: 03-20-2023 End: 14-25-5286Vupfuvb encounter procedureAaron Mcleod MAO [facility] Start: 12-28-2021 End: 76-27-7707Nddjyrc encounter procedureAaron Mcleod MAO [facility] Start: 10-22-2021 End: 02-36-1215hrpvbqunyyHU AARON MAOFacility:C6Vbuyh: 10-21-2021 End: 45-11-2016Quf Drop Kristal Jain [facility] Start: 10-21-2021 End: 81-93-7803Jvpvcwm encounter procedurePatricabdirahman Mcleod MELVIN [facility] Start: 11-10-2020 End: 04-83-6788rfowkdcmlvRO DANNY ORTAFacility:I8Mpjbq: 02-12-2019 End: 81-76-2429Ypmcbab encounter procedureMARCIA A NINAFacility:[facility] Procedures DateProcedureProcedure DetailPerforming ClinicianStart: 70-26-8360PLH screening DR DANNY Schwab on above:Performed By: #### PSAD #### [facility] [address] [place] [address] Dr. Aline OleaStart: 42-52-6486Uhhlkglnko, device (physical object)Aaronhernesto MAO Start: 21-52-3543Ubrzbicci of stentPatricabdirahman MAO Comment on above:Done in [place] by Dr. Kennedy Immunizations Immunization DateImmunizationNotesCare JtxvonjhUyneoams94-78-8894DKLR-FpB-5 (COVID-19) mRNA BNT-162b2 vaxPatrick MAO [facility]-2021influenza virus vaccine, unspecified formulationPatrick MAO [facility]03-30-2021SARS-CoV-2 (COVID-19) mRNA BNT-162b2 vaxPatrick MAO [facility] 761706-91-6559SEQN-WiV-7 (COVID-19) mRNA BNT-162b2 vax Aaron MAO [facility] 01008849-79-7247ygfohb vaccine recombinantPatrick MAO [facility]-12-2020influenza virus vaccine, unspecified formulationPatrick MAO [facility] 09479253-89-8830ysshcmktn virus vaccine, unspecified formulationPatrick MAO [facility]09-25-2020zoster vaccine recombinantCantab Biopharmaceuticals [facility] [place] 730081-03-2018influenza virus vaccine, unspecified formulationNatoCardFlight [facility] [place] 730081-22-2017influenza, unspecified formulationCantab Biopharmaceuticals [facility] Payers DatePayer CategoryPayerPolicy [id number] Health [id number]u Health [id number] 2.0.1.398427.3.57[id number] 2.0.1.693601.3.57[id number] 2.0.1.931665.3.57[id number] 2.0.1.155512.3.57[id number] 2.0.1.659[id number] 2.0.1.103504.3.579.2.531 Social History DateTypeDetailFacilityStart: 10-20-2020 End: 12-11-4523Edsvohf smoking statusNever smoked tobacco (finding)[facility] Tobacco smoking statusNever[facility] of [facility] Sex Assigned At BirthMale[facility] of [facility] Functional Status HdqsQflxcyfbldNmzcvuJfbwohei07-23-4178Zvjovnueln StatusN/AExec[facility] of [place] 730082-12-2023Functional StatusN/A[facility]09-21-2022Functional StatusN/A [facility] Clinical Notes 12-28-2021 to 10-09-2024 Note Date & MrpuGrpdJurxkxxr01-67-5266 [facility] Chief Complaint: [...] up Pickel Ball! Marcia Aguiar MD, MPH, [facility], [facility], [facility] Interventional Cardiology Pager Email: [email or web address]12-18-2024 Hospital Discharge instructions Patient Education [...] treatment? Where to find more information [employer]: www.cancer.org [employer]: www.auanet.org Contact a health care [...] provider. Document Revised: 09/19/2021 Document Reviewed: 09/19/2021 [employer] Patient Education 2023 [employer] 3[employer]. Follow Up Care 03/20/2023 10:41:42 With:MELVIN SWENSON, Aaron Mcleod, URL Address: [facility] [address], [place] [address]- When: Unknown [facility] [place] 12-18-2024 NotePatient Education Oncology Prostate Cancer Screening [...] Where to find more information ??? The [employer]: www.cancer.org ??? [employer]: www.auanet.org Contact a health care [...] men. The prostate gland (more content not included)...[facility]12-12-2023 Hospital Discharge instructions Patient Education 03/20/2023 [...] urethra. Follow these instructions at home: Take hwtl-voq-ympmwkn and prescription medicines only as told by [...] provider. Document Revised: 10/12/2021 Document Reviewed: 10/12/2021 [employer] Patient Education 2022 [employer]D. Follow Up Care 01/02/2023 09:34:55 With:MELVIN SWENSON, NICHOLAS Beatty Address: [facility] [address] , [place] [address]- When:Within 1 Year(s) Comments:w/PSA [facility] [place] 09-21-2022 Hospital Discharge instructions Patient [...] urethra. Follow these instructions at home: Take ztnj-fwi-gjyxfjz and prescription medicines only as told by [...] 03/26/2006 Document Revised: 02/18/2019 Document Reviewed: 04/30/2017 [employer] Patient Education 2020 [employer]. 12/28/2021 15:04:11 Calorie Counting for Weight Loss [...] 03/26/2006 Document Revised: 12/13/2018 Document Reviewed: 02/23/2017 [employer] Patient Education 2020 [employer] Follow Up Care 10/20/2020 11:44:30 With:Aaron MAO MD, URL Address: [address] [place] [address] [place] [address] Business (1) When:Within 1 Year(s) Comments:w/PSA [facility] Evaluation + Plan note Future Appointments Appointment Date:01/04/2022 02:30:00 PM Scheduled Provider:[facility] Type:[facility]O Office Visit Diagnostic Tests Pending * [facility] App[facility]ments Appointment Date:01/04/2022 02:30:00 PM Scheduled Provider:Aaron MAO MD Location:[facility] Appointment Type:URO Office Visit [facility] Evaluation + Plan note Future Appointments Appointment Date:01/03/2023 10:15:00 AM Scheduled Provider:Aaron MAO MD Location:[facility] Appointment Type:URO Office Visit Diagnostic Tests Pending * PSA Total 12/28/21 [facility] Evaluation + Plan note Future Appointments Appointment Date:03/26/2024 09:45:00 AM Scheduled Provider:Aaron [facility]O [facility] Appoint[facility] Type:URO Office Visit Diagnostic Tests Pending * PSA Total 03/20/23 [facility] Evaluation + Plan note Future Appointments Appointment Date:03/20/2025 08:30:00 AM Scheduled Provider:Aaron MAO MD Location:[facility] Appointment Type:URO Office Visit Diagnostic Tests Pending * PSA Free & Total 03/26/24 [facility] Hospital course Narrative No data available for this section [facility] [employer] Hospital Discharge instructions No data available for this section [facility] Progress note No data available for this section [facility] [employer] Summary Purpose Family History No Family History [...] and content) DATE CREATED AUTHOR 06/13/2019 [facility] DATE CREATED AUTHOR AUTHOR'S ORGANIZ ATION 10/27/2021 [facility] DATE CREATED AUTHOR AUTHOR'S ORGANIZ ATION 03/29/2024 [facility] DATE CREATED AUTHOR AUTHOR'S ORGANIZ ATION 09/05/2024 [facility] DATE CREATED AUTHOR AUTHOR'S ORGANIZ ATION 10/12/2024 [facility] Care Team (unrecognized sect ion and content) Personnel Name: Danny Orta MD Address: [address] [place] [address] Name: Naz Parra I Personnel Name: Danny Orta MD Address: [address] [place] [address] Name: Naz Parra I Personnel Name: Danny Orta MD Address: [address] [place] [address] Name: Naz Parra I Personnel Name: Danny Orta MD Address: Address: [address] [place] [address] Name: Naz Parra I Personnel Name: Danny Orta MD Address: Address: [address] [place] [address] Name: Naz Parra I FOR [...] BE BASED ON THE PRIMARY CLINICAL RECORDS. [facility] [employer] [facility]. provides no warranty or guarantee of the accuracy or completeness of information in this document.
--- OUTSIDE RECORDS SUMMARY | 2025-04-06 06:20 | XMS_ITS | Clinical Summary ---
Author Organization [facility] Address [address] [place] [address] Care Team Providers Care Lens Silverer Name Role Phone Noe Orta MD Primary Care Provider [phone] Social History Tobacco UseTypesPacks/DayYears UsedDateSmoking Tobacco: Never AssessedSex and Gender InformationValueDate RecordedSex Assigned at BirthNot on fileLegal Sex Male03/10/2012 9:49 AM ESTGender IdentityNot on fileSexual OrientationNot on file Plan of Treatment Health MaintenanceDue DateLast DoneCommentsAnxiety Cwmrnjsso44/06/1975Depression Adwzvdgly46/06/1975Hepatitis C Zxctviugk57/06/1975DTaP,Tdap,Td Vaccine (1 - Tdap)08/13/1975Lipid Pqthpdaie91/06/1992CT Lnfyqvpvvoml76/06/2002Cologuard (FIT-DNA)08/12/20010064Lgiupfzoddv10/06/2002Colorectal Cancer Owkmsrmtr11/06/2002 Diabetes Nsdzwdica85/06/2002Fecal Occult Blood2001Prostate Cancer Screening Botxjrtojd12/06/0519Yukwjepnsshti19/06/2002Pneumococcal Vaccine: 50+ (1 of 1 - PCV)2006Shingrix Vaccine (1 of 2)2006dvance Directive Hwxmyzfusc04/01/2025ovid-19 Vaccine (1 - 2024- season)2024Influenza Vaccine (#1)2024RSV Vaccine (1 - 1-dose 75+ series)08/13/2031 Insurance * Guarantor: Kenia Tate TypeRelation to PatientDate of BirthPhoneBilling AddressPersonal/BccqwwBawv37/06/1956 [address] [address] Care Teams Team MemberRelationshipSpecialtyStart DateEnd Date Noe Orta MD [address] [place] [address] [facility] - [facility]07/29/01
--- OUTSIDE RECORDS SUMMARY | 2025-04-06 06:20 | XMS_ITS | Clinical Summary ---
Author Organization [facility] Address [address] [place] [address] Care Team Providers Care Home Office Representative Name Role Phone Noe Orta MD Primary Care Provider [phone] Allergies Active AllergyReactionsCriticalityNoted DateCommentsCiprofloxacinRashLow 10/02/2022 Medications MedicationSigDispense QuantityRefillsLast FilledStart DateEnd DateStatus finasteride (Proscar) 5 mg tablet 09/23/2022ctive alfuzosin (Uroxatral) 10 mg 24 hr tablet 06/26/2022ctive aspirin 81 mg chewable tablet Indications:Coronary artery disease involving three affiliated coronary artery of three affiliated heart without angina pectorisChew 1 tablet (81 mg) once daily as directed. 90 tablet 4Active atorvastatin (Lipitor) 80 mg tablet Indications:Coronary artery disease involving three affiliated coronary artery of three affiliated heart without angina pectoris,Mixed hyperlipidemiaTake 1 tablet (80 mg) by mouth in the evening. 90 tablet 5Active carvedilol (Coreg) 12.5 mg tablet Indications:Coronary artery disease involving three affiliated coronary artery of three affiliated heart without angina pectoris,Mixed hyperlipidemiaTake 1 tablet (12.5 mg) by mouth with breakfast and with evening meal. 180 tablet 5Active losartan (Cozaar) 25 mg tablet Indications:Essential hypertensionTake 1 tablet (25 mg) by mouth in the morning. as directed 90 tablet 5Active Active Problems ProblemNoted DateDiagnosed DateAbnormal abdominal CT scan09/04/2023enign prostatic hyperplasia with urinary owkgkhisdks90/28/2024MI 31.0-31.9,adult 09/04/2023hronic uqdelsksqcc62/28/2024Family history of malignant neoplasm of fnjatncm48/28/2024Gross /28/2024High prostate specific antigen (PSA) 09/04/2023Increased frequency of tzqatdzng98/28/0864Rpmpexnz23/28/2024 Ulnrxxqjlged38/28/2024ost-void aidnqegox19/28/2024ecurrent coronary arteriosclerosis after percutaneous transluminal coronary hphevuctosh87/28/2024 Epigastric pain09/04/2023ight upper quadrant abdominal pain09/04/2023enign essential HTN10/02/2022 Assessment & Plan (10/02/2022 3:24 PM EDT): Hypertension is stable but elevated in office, pt to take b/p at home and staff to call him in 1-2 weeks to review b/p log and determine if antihypertensive regime needs adjusted. Pt voiced understanding Mixed /26/2023 Assessment & Plan (10/02/2022 3:23 PM EDT): Continue lipitor and provided scripts for annual labs Coronary artery disease involving three affiliated coronary artery of three affiliated heart without angina hebbfdor92/26/2023 Assessment & Plan (10/02/2022 3:22 PM EDT): Coronary artery disease is stable without any concerning symptoms. Continue GDMT- ASA, lipitor, coreg and losartan continue risk factor modifications- heart healthy diet, regular exercise as tolerated and continue all medications. Refills for meds- scripts sent to pharmacy Atypical chest pain02/12/2019Cardiovascular stress test ofovfhew63/06/2019 Family History Medical HistoryRelationNameCommentsCoronary artery diseaseFatherRelationName StatusCommentsFatherDeceasedMotherDeceased [...] Recorded Sex Assigned at BirthNot on fileLegal OlpVrka1010/06/2021 12:21 AM EDTGender IdentityNot on fileSexual OrientationNot on file Last Filed Vital Signs Vital SignReadingTime TakenCommentsBlood Qoxfnofe416/8607 1:51 PM EDT Odsif1963 1:51 PM EDTTemperature--Respiratory Rate--Oxygen Evckgnoaqh00% 10/09/2024 1:51 PM EDTInhaled Oxygen Concentration--Qnfhar33.1 kg (214 lb) 10/09/2024 1:51 PM HYZVkzdkw983.8 cm (5' 10 )10/09/2024 1:51 PM EDTBody Mass Index30.7107 1:51 PM EDT Plan of Treatment Health MaintenanceDue DateLast DoneCommentsCT Flefgyecvljc81/06/1957Colonoscopy 1956Colorectal Cancer Omfsafrgn54/06/1957FIT-DNA1956FIT1956 FOBT1956 2726Xncnzpjpandln70/06/1957Depression Ezxzjvdai23/06/1969Adult Tetanus 1978Fall Risk Uqnamuxqm58/06/2022COVID-19 Vaccine ( season) 5104/10/2020, 07/06/2020, 06/15/2020Influenza Vaccine (#1)2024 04/19/2024, 02/07/2023, 02/18/2022, Additional history existsZoster Vaccines Fdpwgzvuk20/14/2021, 01/02/2020Pneumococcal Vaccine: 50+ YearsCompleted 02/07/2023HIB VaccinesAged OutNo [...] Tate TypeRelation to PatientDate of BirthPhone Billing AddressPersonal/EgenzmOufq71/06/1956 [facility] [address] [address] MemberSubscriberPlan / Payer (Effective 2019-Present)Name:Matt Tate Relation to Subscriber:SelfName:Matt Tate Payer ID:[id number] (NAIC) Type:Not on file Address: [address] [place] [id number] Care Teams Team MemberRelationshipSpecialtyStart DateEnd Noe Orta MD [address] [facility] [address] [address] [facility] - [facility]10/02/22
--- OUTSIDE RECORDS SUMMARY | 2025-04-06 06:21 | XMS_ITS | Patient Health Record ---
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 According to the [place] [employer], Serum PSA should decrease and [...] or absence of malignant disease. PSA, Free 0.22 N/A ng/mL Pierre ECLIA met hodology. % Free PSA 36.7 . % The table below lists the [...] any other population of men. Performed at: - [facility] [address] [id number] Professor Of Psychiatry: Navin Bran PhD, Phone: [phone] Performing Lab: see note - [facility] hepatobiliary w pharm Reviewed date:04/02/2025 11:46:26 AM Interpretation: Performing Lab: Notes/Report: Source Facility: [place] [address] Nuclear Medicine Report Signed Patient: GABRIEL PARDO MR#: [id number] : 1955 Acct:[id number] Age/Sex: 69 / M ADM Date: 04/01/25 Loc: [place] Attending Dr: Danny Orta M.D. Ordering Physician: Danny Orta M.D. Date of Service: 04/01/25 Procedure(s): [place] hepatobiliary w pharm Accession Number(s): [id number] cc: Danny Orta M.D. [place] [address] Patient Name: GABRIEL PARDO MRN: [id number] date: 1955 Sex: M Assigned Patient Location: [place] Current Patient Location: [place] Accession/Order Number: [id number] Exam Date: 04/01/2025 06:20 Report Date: 04/01/2025 10:01 At the request of: DANNY ORTA MD Procedure: [place] hepatobiliary w pharm HIDA SCAN WITH CCK CLINICAL HISTORY: Intermittent abdominal pain. Pancreatitis. COMPARISON: 9 this scan 08/31/2020. Ultrasound and CT 03/19/2025 Following the intravenous administration of 5.0 mCi of technetium 99m labeled Mebrofenin, anterior imaging of the abdomen was performed out to 60 minutes. There is uniform distribution of radionuclide within the liver. The common duct is vaguely visualized at 15 minutes. There is gallbladder activity at 20 minutes. The small bowel is definitely seen by 20 minutes. The patient was subsequently infused with 1.85 mcg of CCK and imaging was performed an additional 60 minutes. There is appropriate emptying of the gallbladder on the static and dynamic images. A time/activity curve was generated. The gallbladder ejection fraction is 45%. Normal is greater than 40%. NM/NM hepatobiliary w pharm IMPRESSION: BORDERLINE LOW GALLBLADDER EJECTION FRACTION Impression dictated by: Parul Ayala M.D. 04/01/2025 10:01 AM Dictation Location: [place] [address] Electronically authenticated by: [id number] Y Date: 04/01/2025 10:01 Dictated By: Parul Ayala M.D. Signed By: 04/01/25 1004 DD/ 1001 TD/TT: Leather Sprayer:PROF Kim(COMP METB) Reviewed date:03/21/2025 04:22:20 PM Interpretation: Performing Lab: Notes/Report: [facility] ,Ipxavh767314-116 mmol/LPotassium4.13.5-5.1 mmol/PLbaygnfe53911-994 mmol/LCarbon Bmyqtza60.221.0-32.0 mmol/LAnion Gap10.0Pzmsiir7495-820 mg/dLBlood Urea Nitrogen 10.07.0-18.0 mg/dLCreatinine0.980.70-1.30 mg/dLEstimated GFR ( Dianna>60 >=60 mL/min/1.73m 2Estimated GFR (Non- Barby>60>=60 mL/min/1.73m 2BUN Creatinine Ratio10.9Vutcpen2.18.5-10.1 mg/dLBilirubin Total1.30.2-1.0 mg/dL Aspartate Amino Ljmibfblusf4205-82 U/LAlanine Jnkdmufphswavzwj2334-85 U/L Alkaline Sgvselwyoii5078-173 U/LTotal Protein6.76.4-8.2 g/dLAlbumin Level3.13.4- 5.0 g/dLGlobulin3.6Albumin Globulin Ratio0.9Performing Lab:see noteML - [facility] LBMAGNESIUM Reviewed date:03/21/2025 04:22:20 PM Interpretation: Performing Lab: Notes/Report: [facility] ,Magnesium1.91.8-2.4 mg/dLPerforming Lab:see noteML - [facility] LB CBC AUTO DIFF Reviewed date:03/21/2025 04:22:20 PM Interpretation: Performing Lab: Notes/Report: [facility] ,White Blood Count7.24.0-11.0 10 3/uLRed Blood Count4.784.70-6.10 10 6/uL Qmxjgezyde22.214.0-18.0 g/zMCmzjwwsbas60.242.0-54.0 %Mean Corpuscular Gxduyz42.5 80.0-94.0 fLMean Corpuscular Wkemqampll79.825.9-34.0 pgMean Corpuscular HGB Conc 34.429.9-35.2 g/dLRed Cell Distribution Width11.911.0-15.0 %Platelet Feali815 150-450 10 3/uLMean Platelet Rzczna31.79.5-13.5 fLNeutrophils Percent Auto70.2 43.0-75.0 %Lymphocytes Percent Auto15.020.5-60.0 %Monocytes Percent Auto9.71.7- 12.0 %Eosinophils Percent Auto4.60.9-7.0 %Basophils Percent Auto0.40.2-2.0 % Immature Granulocytes Pct Auto0.10.0-0.5 %Neutrophils Absolute Auto5.11.4-6.5 10 3/uLLymphocytes Absolute Auto1.11.2-3.8 10 3/uLMonocytes Absolute Auto0.70.3-0.8 10 3/uLEosinophils Absolute Auto0.30.0-0.7 10 3/uLBasophils Absolute Auto0.00.0- 0.1 10 3/uLImmature Granulocytes Abs Auto0.010.00-0.03 10 3/uLPerforming Lab:see noteML - [facility] LBCT abdomen pelvis w con Reviewed date:03/19/2025 05:43:17 PM Interpretation: Performing Lab: Notes/Report: Source Facility: [facility]-[address] [place] [address] [place] [address] CT Scan Report Signed Patient: CHARGABRIEL MR#: [id number] : 1955 Acct:[id number] Age/Sex: 69 / M ADM Date: 03/19/25 Loc: ER Attending Dr: Ordering Physician: Alina Mathews M.D. Date of Service: 03/19/25 Procedure(s): CT abdomen pelvis w con Accession Number(s): [id number] cc: Danny Orta M.D. [place] [address] Patient Name: GABRIEL PARDO MRN: [facility]:[id number] date: 1955 Sex: M Assigned Patient Location: ER Current Patient Location: ED.MAIN Accession/Order Number: [id number] Exam Date: 03/19/2025 12:57 Report Date: 03/19/2025 [...] Elena M.D. 03/19/2025 1:31 PM Dictation Location: [place] [address] Electronically authenticated by: [id number] Y Date: 03/19/2025 13:31 Dictated By: Matty Elena M.D. Signed By: 03/19/25 1334 DD/ 133 TD/TT: Leather Sprayer:XR chest 1V Reviewed date:03/19/2025 01:03:38 PM Interpretation: Performing Lab: Notes/Report: Source Facility: [place] [address] XRay Report Signed Patient: GABRIEL PARDO MR#: [id number] : 1955 Acct:[id number] Age/Sex: 69 / M ADM Date: 03/19/25 Loc: ER Attending Dr: Ordering Physician: lAina Mathews M.D. Date of Service: 03/19/25 Procedure(s): XR chest 1V Accession Number(s): [id number] cc: Danny Orta M.D.; Alina Mathews M.D. [place] [address] Patient Name: GABRIEL PARDO MRN: [facility]:[id number] date: 1955 Sex: M Assigned Patient Location: ER Current Patient Location: ED.MAIN Accession/Order Number: [id number] Exam Date: 03/19/2025 12:30 Report Date: 03/19/2025 [...] Ayala M.D. 03/19/2025 12:49 PM Dictation Location: [place] [address] Electronically authenticated by: [id number] Y Date: 03/19/2025 12:49 Dictated By: Parul Ayala M.D. Signed By: 03/19/25 1252 DD/ 1249 TD/TT: Leather Sprayer:ECG 12 lead Reviewed date:03/19/2025 05:43:17 PM Interpretation: Performing Lab: Notes/Report: Source Facility: [place] [address] Electrocardiograph Report Signed Patient: GABRIEL PARDO MR#: [id number] : 1955 Acct:[id number] Age/Sex: 69 / M ADM Date: 03/19/25 Loc: ER Attending Dr: Ordering Physician: Alina Mathews M.D. 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 Signed By: 03/19/25 1085 DD/ 1210 TD/TT: Leather Sprayer:Troponin I High Sensitivity Reviewed date:03/19/2025 01:03:38 PM Interpretation: Performing Lab: Notes/Report: [facility] ,Troponin I High Sensitivity8.54.0-76.1 pg/mL CUT-OFF POINTS HAVE BEEN ESTABLISHED BASED ON THE FOURTH UNIVERSAL DEFINITION OF MYOCARDIAL INFARCTION. THE UPPER REFERENCE LIMIT (URL) OF TROPONIN, DEFINED THE 99TH PERCENTILE OF cTnI DISTRIBUTION IN A REFERENCE POPULATION, HAS BEEN CONFIRMED THE DECISION THRESHOLD FOR [place] DIAGNOSIS. 99TH PERCENTILE = 76.2 PG/ML NOTE: HIGH-SENSITIVITY TROPONIN ASSAY IS NOT INTENDED TO BE USED IN ISOLATION BUT SHOULD BE INTERPRETED IN CONJUNCTION WITH OTHER DIAGNOSTIC AND CLINICAL INFORMATION. Performing Lab:see noteML - [facility] LBUA RANDOM W or MICROSCOPIC Reviewed date:03/19/2025 12:47:00 PM Interpretation: Performing Lab: Notes/Report: [facility] ,Color UrineYELLOWYELLOWClarity UrineCLEARCLEARSpecific [place] Urine1.025 1.005-1.025pH Urine6.05.0-9.0Protein UrineNEGATIVENEG/TRACE mg/dLGlucose Urine UANEGATIVENEGATIVE mg/dLBilirubin UrineSMALLNEGATIVEKetones Fidmy80LOKJBUCZ mg/dLBlood UrineNEGATIVENEGATIVENitrite UrineNEGATIVENEGATIVEUrobilinogen Urine 1.00.2-1.0 EU/dLLeukocyte Esterase UrineNEGATIVENEGATIVEWBC Urine0-2NONE SEEN #/HPFRBC Urine0-20-2 #/HPFBacteria UrineNONE SEENNONE SEEN #/HPFMucus UrineTRACE NONE SEENSquamous Epithelial Cell UrineRARENONE/RARE #/LPFCrystals Seen?None SeenNone Seen #/HPFCast Seen?NONE SEENNONE SEEN #/LPFUrine Culture IndicatedNO Performing Lab:see noteML - [facility] LBPROF CHEM 8 (BAS METB) Reviewed date:03/19/2025 01:03:38 PM Interpretation: Performing Lab: Notes/Report: [facility] ,Zqcmiz555616-155 mmol/LPotassium4.03.5-5.1 mmol/HUlbqyhcd67811-956 mmol/LCarbon Pdtkdsh39.121.0-32.0 mmol/LAnion Gap8.9Ilquobt02049-340 mg/dLBlood Urea Nitrogen 12.07.0-18.0 mg/dLCreatinine1.040.70-1.30 mg/dLEstimated GFR ( Dianna>60 >=60 mL/min/1.73m 2Estimated GFR (Non- Barby>60>=60 mL/min/1.73m 2BUN Creatinine Ratio11.3Wnfvdds5.68.5-10.1 mg/dLPerforming Lab:see noteML - [facility] LBLIVER PROFILE Reviewed date:03/19/2025 01:03:38 PM Interpretation: Performing Lab: Notes/Report: [facility] ,Bilirubin Total1.30.2-1.0 mg/dLBilirubin Direct0.40.0-0.2 mg/dLAspartate Amino Iqvcunggzoo9258-65 U/LAlanine Rpsiatjzxsgjsron8895-21 U/LAlkaline Ckodrekkqed92 46-116 U/LTotal Protein7.36.4-8.2 g/dLAlbumin Level3.83.4-5.0 g/dLGlobulin3.5 Albumin Globulin Ratio1.1Performing Lab:see noteML - [facility] LB LIPASE Reviewed date:03/19/2025 01:03:38 PM Interpretation: Performing Lab: Notes/Report: [facility] ,Ayeyid109.016.0-77.0 U/LPerforming Lab:see noteML - [facility] LBCBC AUTO DIFF Reviewed date:03/19/2025 12:47:00 PM Interpretation: Performing Lab: Notes/Report: [facility] ,White Blood Count12.74.0-11.0 10 3/uLRed Blood Count5.154.70-6.10 10 6/uL Cmeqlecfxk60.614.0-18.0 g/jWOymcgmnzxc44.642.0-54.0 %Mean Corpuscular Ojcovx46.4 80.0-94.0 fLMean Corpuscular Azqbjsusdc11.225.9-34.0 pgMean Corpuscular HGB Conc 34.929.9-35.2 g/dLRed Cell Distribution Width11.811.0-15.0 %Platelet Ginkb589 150-450 10 3/uLMean Platelet Ctmvqf63.59.5-13.5 fLNeutrophils Percent Auto82.5 43.0-75.0 %Lymphocytes Percent Auto8.520.5-60.0 %Monocytes Percent Auto7.71.7- 12.0 %Eosinophils Percent Auto0.70.9-7.0 %Basophils Percent Auto0.30.2-2.0 % Immature Granulocytes Pct Auto0.30.0-0.5 %Neutrophils Absolute Auto10.51.4-6.5 10 3/uLLymphocytes Absolute Auto1.11.2-3.8 10 3/uLMonocytes Absolute Auto1.00.3- 0.8 10 3/uLEosinophils Absolute Auto0.10.0-0.7 10 3/uLBasophils Absolute Auto0.0 0.0-0.1 10 3/uLImmature Granulocytes Abs Auto0.040.00-0.03 10 3/uLPerforming Lab:see noteML - [facility] LBAMYLASE Reviewed date:03/19/2025 01:03:38 PM Interpretation: Performing Lab: Notes/Report: [facility] ,Lnvudlh6965-547 U/LPerforming Lab:see noteML - [facility] LBPROF 14(COMP METB) Reviewed date:03/21/2025 04:22:20 PM Interpretation: Performing Lab: Notes/Report: [facility] ,Icztof038694-445 mmol/LPotassium3.83.5-5.1 mmol/MFlflhsqe88663-662 mmol/LCarbon Eatiwtw00.621.0-32.0 mmol/LAnion Gap9.2Kwqtkdr1358-862 mg/dLBlood Urea Nitrogen 9.07.0-18.0 mg/dLCreatinine0.830.70-1.30 mg/dLEstimated GFR ( Dianna>60 >=60 mL/min/1.73m 2Estimated GFR (Non- Barby>60>=60 mL/min/1.73m 2BUN Creatinine Ratio10.7Bdffozg3.98.5-10.1 mg/dLBilirubin Total1.40.2-1.0 mg/dL Aspartate Amino Vjmizcpukay0822-87 U/LAlanine Praykjxrxxolkgaq3540-75 U/L Alkaline Jeafijorcsc8734-410 U/LTotal Protein6.36.4-8.2 g/dLAlbumin Level3.13.4- 5.0 g/dLGlobulin3.2Albumin Globulin Ratio1.0Performing Lab:see noteML - [facility] LBMAGNESIUM Reviewed date:03/21/2025 04:22:20 PM Interpretation: Performing Lab: Notes/Report: [facility] ,Magnesium1.71.8-2.4 mg/dLPerforming Lab:see noteML - [facility] LB CBC AUTO DIFF Reviewed date:03/21/2025 04:22:20 PM Interpretation: Performing Lab: Notes/Report: [facility] ,White Blood Count10.64.0-11.0 10 3/uLRed Blood Count4.834.70-6.10 10 6/uL Jmvcieihxc38.114.0-18.0 g/tYZkyrymvfel87.642.0-54.0 %Mean Corpuscular Eiocfi82.3 80.0-94.0 fLMean Corpuscular Yeciugwnsb64.325.9-34.0 pgMean Corpuscular HGB Conc 33.929.9-35.2 g/dLRed Cell Distribution Width11.911.0-15.0 %Platelet Ahelu535 150-450 10 3/uLMean Platelet Ticwdd42.99.5-13.5 fLNeutrophils Percent Auto80.3 43.0-75.0 %Lymphocytes Percent Auto9.120.5-60.0 %Monocytes Percent Auto9.01.7- 12.0 %Eosinophils Percent Auto1.00.9-7.0 %Basophils Percent Auto0.30.2-2.0 % Immature Granulocytes Pct Auto0.30.0-0.5 %Neutrophils Absolute Auto8.51.4-6.5 10 3/uLLymphocytes Absolute Auto1.01.2-3.8 10 3/uLMonocytes Absolute Auto1.00.3-0.8 10 3/uLEosinophils Absolute Auto0.10.0-0.7 10 3/uLBasophils Absolute Auto0.00.0- 0.1 10 3/uLImmature Granulocytes Abs Auto0.030.00-0.03 10 3/uLPerforming Lab:see noteML - [facility] LBUS right upper quadrant Reviewed date:03/21/2025 04:22:20 PM Interpretation: Performing Lab: Notes/Report: Source Facility: [facility]-[address] [place] [address] Ultrasound Report Signed Patient: GABRIEL PARDO MR#: [id number] : 1955 Acct:[id number] Age/Sex: 69 / M ADM Date: 03/19/25 Loc: [place] 228-[address]: Silvano Agustin M.D. Ordering Physician: Silvano Agustin M.D. Date of Service: 03/19/25 Procedure(s): US right upper quadrant Accession Number(s): [id number] cc: Silvano Agustin M.D.; Danny Orta M.D. [place] [address] Patient Name: GABRIEL PARDO MRN: [id number] date: 1955 Sex: M Assigned Patient Location: [place] Current Patient Location: [place] Accession/Order Number: [id number] Exam Date: 03/19/2025 16:34 Report Date: 03/19/2025 [...] Nelson M.D. 03/19/2025 6:00 PM Dictation Location: [place] [address] Electronically authenticated by: [id number] Y Date: 03/19/2025 18:00 Dictated By: Gary Nelson M.D. Signed By: 03/19/25 180 DD/ 1800 TD/TT: Leather Sprayer:Urine Culture - [facility] Reviewed date:03/21/2025 05:05:02 PM Interpretation: Performing Lab: Notes/Report: [facility] ,Urine Culture - FRMCSee Below For Report Urine Culture - [facility] SEEFRMC [facility] RESULT^[facility] RESULT Urine Culture - FRMCSEEN SEE SCANNED REPORT, NORMAL^SEE SCANNED REPORT, NORMAL Urine Culture - [facility] RESULT^[facility] RESULT Performing Lab:see noteML - [facility] LBTRIGLYCERIDE Reviewed date:03/19/2025 05:43:17 PM Interpretation: Performing Lab: Notes/Report: [facility] ,Erjxpatpjnbij68<=150 mg/dLPerforming Lab:see noteML - [facility] LB MAGNESIUM Reviewed date:03/19/2025 05:43:17 PM Interpretation: Performing Lab: Notes/Report: [facility] ,Magnesium2.01.8-2.4 mg/dLPerforming Lab:see noteML - [facility] LB Reason For Referral Reason Chronic pancreatitis Diagnosis 1 Pancreatitis, acute (K85.90) Referral Organization [facility] Referring Provider First Name [facility] Referring Provider Last Name [facility] Referring Provider [facility] Referred Provider Yasir Abrams Referred Provider Specialty Gastroentero logy Referral Priority Routine Diagnosis 1 Pancreatitis, acute (K85.90) Referral Organization [facility] Referring Provider First Name [facility] Referring Provider Last Name [facility] Referring Provider [facility] Referred Provider Specialty Gastroentero logy Referral Priority Routine Medications Medication SIG (Take, Route, Frequency, Duration) Notes Start Date End Date Status Carvedilol 12.5 MG 1 tablet with food Orally Twi ce a day ActiveFinasteride 5 MG1 tablet Orally Once a dayActiveLosartan Potassium 50 MG1 tablet Orally Once a dayActiveTriamcinolone Acetonide 0.1 %1 application Externally bid5ActiveAspirin 81 MG1 capsule Orally Once a dayActive Atorvastatin Calcium 80 MG1 tablet Orally Once a dayActive Social [...] or more times a week (4 points) Kfbepa0TbccknduydetvdFfogqbwy Problems Problem Type SNOMED Code ICD Code Onset Dates Problem Status W/U Status Risk Notes Problem Essential hypertension (39585109 ) Essential (primary) hypertension (I10) ActiveconfirmedProblemHyperlipidemia (34491327)Hyperlipidemia, unspecified (E78.5)ActiveconfirmedProblemAtherosclerotic heart disease of [place] coronary artery without angina pectoris (238032123610445)Atherosclerotic heart disease of [place] coronary artery without angina pectoris (I25.10)ActiveconfirmedProblem Acute pancreatitis (390792954)Pancreatitis, acute (K85.90)Activeconfirmed Vital Signs Blood pressure diastolic 80 mm Hg 03/23/2025 Ttamub81 in03/23/2025lood pressure vqnyjfty111 mm Hg03/23/20256701Gefhar144 lbs 03/23/2025BMI31.56 kg/m203/23/2025 Encounters Encounter Location Date Provider Diagnosis [facility] [address] [place] [address] 03/23/2025 Pranav Hoy Pancreatitis, acute K85.90 [facility] [address] [place] [address] 03/19/2025 Pranav Melgary Urinary tract infection N39.0 [facility] [address] [facility] [place] [address] 03/24/2025 Pranav Hoy Pancreatitis, acute K85.90 [facility] [address] [facility] [address] 03/25/2025 Pranav Hoy [facility] [facility] [place] [address] [facility] [facility] [place] [address]/Doug HoyPancreatitis, acute K85.90[facility] [facility] [place] [address]/Doug Hoy Pancreatitis, acute K85.90 Assessments Encounter Date Diagnosis (ICD Code) Assessment Notes Treatment Notes Treatment Clinical Notes Section Notes 03/23/2025 Pancreatitis, acute (ICD-10 - K8 5.90) 04/03/2025Pancreatitis, acute (ICD-10 - K85.90)03/19/2025Urinary tract infection (ICD-10 - N39.0)03/24/2025Pancreatitis, acute (ICD-10 - K85.90)04/03/2025 Pancreatitis, acute (ICD-10 - K85.90) Plan Of Treatment Pending Test Test Name Order Date CULTURE URINE 03/19/2025 NM thyroid w uptake 03/23/2025 HIDA w/EF 03/24/2025 Insurance Providers Payer Name Payer Address Payer Phone Subscriber Number Group Number Insured Name Patient Relationship to Insured Coverage Start Date Coverage End Date [employer] [address] [place] [address] [id number] Char, DeanSelf - patient is the insured[facility] INSURANCE COMPANYPO [address] [place] [id number], DeanSelf - patient is the insured Medical (General) History Surgical History Surgery Date(Month/Year) right knee torn menicus right pinky finger resetachilles
--- OUTSIDE RECORDS SUMMARY | 2025-04-06 06:22 | XMS_ITS | Clinical Summary ---
Author Organization [facility] Address [address] [place] [address] Care Team Providers Care Pharmacist In Charge Name Role Phone Unavailable Primary Care Provider Unavailabl e Social History Tobacco UseTypesPacks/DayYears UsedDateSmoking Tobacco: Never AssessedSex and Gender InformationValueDate RecordedSex Assigned at BirthNot on fileLegal Sex Male06/21/2022 7:35 PM EDTGender IdentityNot on fileSexual OrientationNot on file Plan of Treatment Not on file
== END 2025-03-21 11:17 | disposition home or self-care (01) | DRG 440 ==
LOC: ER 14:45 → MS 03-21 10:15
PROVIDERS: Admitting Provider Student in an Organized Health Care Education/Training Program; Emergency Provider Emergency Medicine; PCP Family Medicine; Visit Provider Student in an Organized Health Care Education/Training Program
DX: K85.90 Acute pancreatitis without necrosis or infection, unspecified (principal); Z66 Do not resuscitate; E83.42 Hypomagnesemia; I25.10 Atherosclerotic heart disease of native coronary artery without angina pectoris; I10 Essential (primary) hypertension; Z95.5 Presence of coronary angioplasty implant and graft; Z79.82 Long term (current) use of aspirin; Z79.899 Other long term (current) drug therapy; E78.5 Hyperlipidemia, unspecified; R10.9 Unspecified abdominal pain; G89.29 Other chronic pain
CPT/HCPCS: 36415; 71045; 74177; 76705; 80048; 80053; 80076; 81001; 82150; 83690; 83735; 84478; 84484; 85025; 87086; 93005; 96372; 96374; 96375; 96376; 99285; G0378; J0780; J1644; J1920; J2270; J3475; Q9967

== ENCOUNTER 2025-03-19 13:37 | Outpatient (REF) | payer OTHER, SELFPAY | END 2025-03-19 13:38 | disposition home or self-care (01) | LOC: LAB 13:37 | PROVIDERS: PCP Family Medicine; Visit Provider Family Medicine | DX: N39.0 Urinary tract infection, site not specified (principal) | CPT/HCPCS: 87086 ==

== ENCOUNTER 2025-04-01 06:22 | Outpatient (OUT) | payer OTHER, SELFPAY ==
--- OUTSIDE RECORDS SUMMARY | 2025-03-19 07:46 | XMS_ITS ---
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 Name Role Phone Pranav Orta Primary Care Provider REASON FOR VISIT Urine cx Encounters Encounter Location Date Provider Diagnosis [facility] [address] [place] [address] 03/19/2025 Pranav Orta Urinary tract infection N39.0 Assessments Encounter Date Diagnosis (ICD Code) Assessment Notes Treatment Notes Treatment Clinical Notes Section Notes 03/19/2025 Urinary tract infection (ICD-10 - N39.0) Plan Of Treatment Pending Test Test Name Order Date CULTURE URINE 03/19/2025 Progress Notes * Sivan TATEnDOB:1955 ([age] yo M)Acc No.[id number]:03/19/2025 Patient:?Matt TATE :1955???Age:69 Y???Sex:MalePhone:[phone] Address:[address] [place] [id number] Subjective: * Chief Complaints: * U rine cx * Medical History: * Surgical History: * Hospitalization/Major Diagno stic Procedure: * Medications: Objective: * Vitals: * Physical Examination: ??? Assessment: * Assessment: 1.?Urinary tract infection - N39.0 (Primary)??? Plan: * Treatment: ?LAB: CULTURE URINE * Procedure Codes: * true * Date:?Generated for Printing/Faxing/eTransmitting on:?04/01/2025 06:25 AM EST
--- OUTSIDE RECORDS SUMMARY | 2025-03-23 10:30 | XMS_ITS ---
Author Organization The [facility] in [place] Address [address] [place] [address] Care Team Providers Care Dealership General Manager Name Role Phone Ramónjudy Pranav Primary Care Provider Allergies Allergen (clinical drug ingredient) Drug/Non Drug Allergy documented on EMR Reaction Allergy Type Onset Date Status ciprofloxacin Ciprofloxacin hives Drug Allergy Active Reason For Referral Reason Chronic pancreatitis Diagnosis 1 Pancreatitis, acute (K85.90) Referral Organization [facility] Referring Provider First Name Pranav Referring Provider [...] or more times a week (4 points) [id number] Vital Signs Weight 220 lbs 03/23/2025 Height 70 in 03/23/2025 Blood pressure systolic 130 mm Hg 03/23/20 25 Blood pressure diastolic 80 mm Hg 025 BMI 31.56 kg/m2 03/23/2025 Encounters Encounter Location Date Provider Diagnosis [facility] [address] [place] [address] 03/23/2025 Pranav Orta Pancreatitis, acute K85.90 Assessments [...] Date Details 03/23/2025 03/23/2025, Chronic pancreatitis, Yasir Abrams Progress Notes * Sivan TATEnDOB:1955 (7 8 yo M)Acc No.[id number]:03/23/2025 Progress Note Patient: Sima TSAI Matt :?Noe Orta ([facility]), MDDOB:1955???Age: 69 Y???Sex:MaleDate:03/23/2025Phone:[phone]:[address] [place] [phone] In:03:20 PM ESTCheck Out:04:28 PM EST Subjective: [...] List I10 Essential (primary) hypertension Modified On:10/04/2022/U Status:csogqwkpzC38.5Hyperlipidemia, unspecified Modified On:10/04/2022/U Status:nnqvzdlawR14.10Atherosclerotic heart disease of [place] coronary artery without angina pectoris Modified On:10/04/2022/U Status:dwbrgowxxJ66.90Pancreatitis, acute Modified On:03/20/2025/U Status:confirmed * Medical History: [...] Codes: 3 079F DIAST BP 80-89 MM [id number] SYST BP GE 130 - 139MM HG * Preventive Medicine: ??Screenings/Counseling:?BMI ACTION PLAN?Above Normal BMI Follow-up?Dietary management education, guidance, and counseling * * Sign off status: CompletedVisit Status:?CHK (Check Out) true * Provider: Laverne Orta ([facility])MD Date: 1 05/24/2024 Generated for Printing/[employer]/eTransmitting on:?04/01/2025 06:25 AM EST History and Physical Notes * [...]
--- OUTSIDE RECORDS SUMMARY | 2025-03-23 23:59 | XMS_ITS | Continuity of Care Document ---
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) - 03/23/25 Family hx of prostate cancer(Discharge Diagnosis) - 03/23/25 Discharge Disposition: Home (Routine DC) Attending Physician: Aaron CHARLES MD Encounter Type: Clinic Allergies, Adverse Reactions, Alerts SubstanceCriticalitySeverityReactionReaction SeverityStatusCiproRashActive Treatment Plan Future Appointments Appointment Date:03/17/2026 08:30:00 AM Scheduled Provider: Location:[facility] Appointment Type:URO Nurse Visit Appointment Date:03/24/2026 08:30:00 AM Scheduled Provider:Aaron CHARLES MD Location:[facility] [place] Appointment Type:URO Office Visit Future Scheduled Tests Laboratory* PSA Total 03/23/26 Immunizations Given and Recorded VaccineDateStatusRefusal EzqxkhOBNI-TlC-3 (COVID-19) mRNA BNT-162b2 vax11// Recordedinfluenza virus vaccine, ozusotzapdw17/13/21Recordedinfluenza virus vaccine, xggpnyounjc31/12/20Recordedinfluenza virus vaccine, inactivated01/02/20 Recordedinfluenza virus vaccine, xygnyohfhyo92/3/18RecordedPfizer-BioNTech COVID-19 Vaccine07/06/20RecordedPfizer-BioNTech COVID-19 Vaccine06/15/20Recorded zoster vaccine, inactivated04/22/20Recordedzoster vaccine, inactivated01/02/20 Recordedinfluenza, unspecified eumauuyenbs20/22/17Recorded Medications alfuzosin 10 mg ER Tab 10 mg = 1 tab(s), Oral, Daily, # 90 tab(s), Refills(s) 3, Pharmacy: [facility], 178, cm, 03/23/25 9:07:00 EST, Height/Length Dosing, 95.7, kg, 03/23/25 9:07:00 EST, Weight Dosing Start Date: 03/23/25 Status: Ordered Medication Dispense Status: Completed Quantity: 90.0 Unit: tab(s) Total Allowed Fills: 4 Fills Dispensed: 0 Indications: Benign prostatic hyperplasia with lower urinary tract symptoms; Aspir 81 mg, Oral, Daily, Refills(s) 0 Start Date: 03/05/19 Status: Ordered Medication Dispense Status: Completed Total Allowed Fills: 1 Fills Dispensed: 0 atorvastatin 80 mg Tab mg tab(s), Oral, Daily, Refills(s) 0 Start Date: 03/05/19 Status: Ordered Medication Dispense Status: Completed Total Allowed Fills: 1 Fills Dispensed: 0 carvedilol 12.5 mg, Oral, Daily, Refills(s) 0 Start Date: 11/24/19 Status: Ordered Medication Dispense Status: Completed Total Allowed Fills: 1 Fills Dispensed: 0 finasteride 5 mg Tab 5 mg = 1 tab(s), Oral, Daily, # 90 tab(s), Refills(s) 3, Pharmacy: [facility], 178, cm, 03/23/25 9:07:00 EST, Height/Length Dosing, 95.7, kg, 03/23/25 9:07:00 EST, Weight Dosing Start Date: 03/23/25 Status: Ordered Medication Dispense Status: Completed Quantity: 90.0 Unit: tab(s) Total Allowed Fills: 4 Fills Dispensed: 0 Indications: Benign prostatic hyperplasia with lower urinary tract symptoms; losartan 25 mg, Oral, Daily, Refills(s) 0 Start Date: 12/28/21 Status: Ordered Medication Dispense Status: Completed Total Allowed Fills: 1 Fills Dispensed: 0 Problem List ConditionConfirmationCourseEffective DatesStatusHealth StatusInformantBPH with obstruction/lower urinary tract symptomsConfirmedActiveBMI 31.0-31.9,adult ConfirmedActiveChronic prostatitisConfirmedActiveAbnormal abdominal CT scan ConfirmedActiveEpigastric painConfirmedActiveFamily hx of prostate cancer ConfirmedActiveGross hematuriaConfirmedActiveHTN (hypertension)ConfirmedActive ImpotenceConfirmedActiveFrequent urinationConfirmedActiveNocturiaConfirmedActive PancreatitisConfirmedActivePost-void dribblingConfirmedActiveprostate infections ConfirmedResolvedElevated PSAConfirmedActiveCAD S/P percutaneous coronary angioplastyConfirmedActiveAbdominal pain, RUQConfirmedActive Procedures ProcedureDateRelated DiagnosisBody SiteStatusCystoscope12/30/19CompletedPlacement of fmswu622/7/19Completed 1Done in [place] by Dr. Kennedy Social History Social History TypeResponseSmoking StatusNever (less than 100 in lifetime);Never entered on: 03/23/25Birth SexMaleSex Represent[facility] Discharge Instructions Patient Education 03/23/2025 09:48:27 Benign Prostatic Hyperplasia Benign Prostatic Hyperplasia Benign [...] or symptoms? Symptoms of this condition include: ??? Getting up often during the night to urinate. ??? Needing to urinate frequently during the day. ??? Difficulty starting urine flow. ??? Decrease in size and strength of your urine stream. ??? Leaking (dribbling) after urinating. ??? Inability to pass urine. This needs immediate treatment. ??? Inability to completely empty your bladder. ??? Pain when you pass urine. This is more common if there is also an infection. ??? Urinary tract infection (UTI). How is this diagnosed? This condition is diagnosed based on your medical history, a physical exam, and your symptoms. Tests will also be done, such as: ??? A post-void bladder scan. This measures any amount of urine that may remain in your bladder after you finish urinating. ??? A digital rectal exam. In a rectal exam, your health care provider checks your prostate by putting a lubricated, gloved finger into your rectum to feel the back of your prostate gland. This exam detects the size of your gland and any abnormal lumps or growths. ??? An exam of your urine (urinalysis). ??? A prostate specific antigen (PSA) screening. This is a blood test used to screen for prostate cancer. ??? An ultrasound. This test uses sound waves [...] severity of your condition. Treatment may include: ??? Observation and yearly exams. This may be the only treatment needed if your condition and symptoms are mild. ??? Medicines to relieve your symptoms, including: ??? Medicines to shrink the prostate. ??? Medicines to relax the muscle of the prostate. ??? Surgery in severe cases. Surgery may include: ??? Prostatectomy. In this procedure, the prostate tissue is removed completely through an open incision or with a laparoscope or robotics. ??? Transurethral resection of the prostate (TURP). In this procedure, a tool is inserted through the opening at the tip of the penis (urethra). It is used to cut away tissue of the inner core of theprostate. The pieces are removed through the same opening of the penis. This removes the blockage. ??? Transurethral incision (TUIP). In this procedure, small cuts are made in the prostate. This lessens the prostate's pressure on the urethra. ??? Transurethral microwave thermotherapy (TUMT). This procedure uses microwaves to create heat. The heat destroys and removes a small amount of prostate tissue. ??? Transurethral needle ablation (TUNA). This procedure uses radio frequencies to destroy and remove a small amount of prostate tissue. ??? Interstitial laser coagulation (ILC). This procedure uses a laser to destroy and remove a smallamount of prostate tissue. ??? Transurethral electrovaporization (TUVP). This procedure uses electrodes to destroy and remove a small amount of prostate tissue. ??? Prostatic urethral lift. This procedure inserts an implant to push the lobes of the prostate away from the urethra. Follow these instructions at home: ??? Take xbpl-psj-xmunxvi and prescription medicines only as told by your health care provider. ??? Monitor your symptoms for any changes. Contact your health care provider with any changes. ??? Avoid drinking large amounts of liquid before going to bed or out in public. ??? Avoid or reduce how much caffeine or alcohol you drink. ??? Give yourself time when you urinate. ??? Keep all follow-up visits. This is important. Contact a health care provider if: ??? You have unexplained back pain. ??? Your symptoms do not get better with treatment. ??? You develop side effects from the medicine you are taking. ??? Your urine becomes very dark or has a bad smell. ??? Your lower abdomen becomes distended and you have trouble passing urine. Get help right away if: ??? You have a fever or chills. ??? You suddenly cannot urinate. ??? You feel light-headed or very dizzy, or you faint. ??? There are large amounts of blood or clots in your urine. ??? Your urinary problems become hard to manage. ??? You develop moderate to severe low back or flank pain. The flank is the side of your body between the ribs and the hip. These symptoms may be an emergency. Get help right away. Call 911. ??? Do not wait to see if the symptoms will go away. ??? Do not drive yourself to the hospital. Summary ??? Benign prostatic hyperplasia (BPH) is an enlarged prostate that is caused by the normal aging process. It is not caused by cancer. ??? An enlarged prostate can press on the urethra. This can make it hard to pass urine. ??? This condition is more likely to develop in men older than 50 years. ??? Get help right away if you suddenly cannot urinate. This information is not intended to replace advice given to you by your health care provider. Make sure you discuss any questions you have with your health care provider. Document Revised: 10/12/2021 Document Reviewed: 10/12/2021 Elsevier Patient Education ?? 2023 AddSearch. Follow Up Care 03/26/2024 10:46:02 With:MELVIN SWENSON, Aaron R, URL Address: [address] [place] [address] When: Unknown Patient Care team information Care Team Personnel Name: Noe Orta MD Position: FT Physician Member Role: Primary Care Physician Address: [address] [place] [address] Telecom: Name: Naz Parra I Position: [facility] Outreach Office Staff Search Member Role: Other Care Team Related Persons Name: RYAN PARDO Name: RYAN PARDO Insurance Providers Guarantor name: GABRIEL PARDO Health Plan Information #: 1 Payer: SIMONNA Payer Identifier: [id number] Member Number: [id number] Group Number: [id number] Subscriber Identifier: [id number] Relationship to Subscriber: Self/Patient Coverage Type: Private Health Insurance Coverage Verification Date: 25 Telecom: [phone] Address: [facility] [address] [place] [address]- Health Plan Information #: 2 Payer: Miscellaneous Insurance Company Payer Identifier: NA Member Number: [id number] Group Number: [id number] Subscriber Identifier: [id number] Relationship to Subscriber: Self/Patient Coverage Type: Private Health Insurance Coverage Verification Date: NA Telecom: NA Address: [facility] [address] [facility] [place] [address]
--- OUTSIDE RECORDS SUMMARY | 2025-03-24 08:09 | XMS_ITS ---
Author Organization [facility] [place] Address [address] [place] [address] Care Team Providers Care Surgical Services Tech Name Role Phone Pranav Orta Primary Care Provider REASON FOR VISIT hida scan Encounters Encounter Location Date Provider Diagnosis [facility] [address] [place] [address] 03/24/2025 Pranav Orta Pancreatitis, acute K85.90 Assessments Encounter Date Diagnosis (ICD Code) Assessment Notes Treatment Notes Treatment Clinical Notes Section Notes 03/24/2025 Pancreatitis, acute (ICD-10 - K8 5.90) Plan Of Treatment Pending Test Test Name Order Date HIDA w/EF 03/24/2025 Progress Notes * Sivan TATEnDOB:1955 ([age] yo M)Acc No.[id number]:03/24/2025 Patient:?Matt TATE :1955???Age:69 Y???Sex:MalePhone:[phone] Address:[address] [place] [address] Subjective: * Chief Complaints: * H michelle scan * Medical History: * Surgical History: * Hospitalization/Major Diagno stic Procedure: * Medications: Objective: * Vitals: * Physical Examination: ??? Assessment: * Assessment: 1.?Pancreatitis, acute - K85.90 (Primary)??? Plan: * Treatment: ?Imaging: HIDA w/EF * Procedure Codes: * true * Date:?Generated for Printing/Faxing/eTransmitting on:?04/01/2025 06:24 AM EST
--- NOTE | 2025-04-01 06:20 | NM_ITS ---
The [address] [address] Patient Name: GABRIEL PARDO MRN: [id number] date: 1955 Sex: M Assigned Patient Location: ID Current Patient Location: ID Accession/Order Number: [id number] Exam Date: 04/01/2025 06:20 Report Date: 04/01/2025 10:01 At the request of: DANNY HUTTON MD Procedure: NM hepatobiliary w pharm HIDA SCAN WITH CCK CLINICAL HISTORY: Intermittent abdominal pain. Pancreatitis. COMPARISON: 9 this scan 08/31/2020. Ultrasound and CT 03/19/2025 Following the intravenous administration of 5.0 mCi of technetium 99m labeled Mebrofenin, anterior imaging of the abdomen was performed out to 60 minutes. There is uniform distribution of radionuclide within the liver. The common duct is vaguely visualized at 15 minutes. There is gallbladder activity at 20 minutes. The small bowel is definitely seen by 20 minutes. The patient was subsequently infused with 1.85 mcg of CCK and imaging was performed an additional 60 minutes. There is appropriate emptying of the gallbladder on the static and dynamic images. A time/activity curve was generated. The gallbladder ejection fraction is 45%. Normal is greater than 40%. NM/ID hepatobiliary w pharm IMPRESSION: BORDERLINE LOW GALLBLADDER EJECTION FRACTION Impression dictated by: Parul Ayala M.D. 04/01/2025 10:01 AM Dictation Location: [place] [address] Electronically authenticated by: [id number] Y Date: 04/01/2025 10:01
--- OUTSIDE RECORDS SUMMARY | 2025-04-01 06:25 | XMS_ITS | Clinical Summary ---
Author Organization [facility] Address [address] [place] [address] Care Team Providers Care Epic Interface Analyst Name Role Phone Noe Orta MD Primary Care Provider [phone] Allergies Active AllergyReactionsCriticalityNoted DateCommentsCiprofloxacinRashLow 10/02/2022 Medications MedicationSigDispense QuantityRefillsLast FilledStart DateEnd DateStatus finasteride (Proscar) 5 mg tablet 09/23/2022ctive alfuzosin (Uroxatral) 10 mg 24 hr tablet 06/26/2022ctive aspirin 81 mg chewable tablet Indications:Coronary artery disease involving klawock coronary artery of klawock heart without angina pectorisChew 1 tablet (81 mg) once daily as directed. 90 tablet 4Active atorvastatin (Lipitor) 80 mg tablet Indications:Coronary artery disease involving klawock coronary artery of klawock heart without angina pectoris,Mixed hyperlipidemiaTake 1 tablet (80 mg) by mouth in the evening. 90 tablet 5Active carvedilol (Coreg) 12.5 mg tablet Indications:Coronary artery disease involving klawock coronary artery of klawock heart without angina pectoris,Mixed hyperlipidemiaTake 1 tablet (12.5 mg) by mouth with breakfast and with evening meal. 180 tablet 5Active losartan (Cozaar) 25 mg tablet Indications:Essential hypertensionTake 1 tablet (25 mg) by mouth in the morning. as directed 90 tablet 5Active Active Problems ProblemNoted DateDiagnosed DateAbnormal abdominal CT scan09/04/2023enign prostatic hyperplasia with urinary zgxdikgbiff43/28/2024MI 31.0-31.9,adult 09/04/2023hronic jeildiccgnj88/28/2024Family history of malignant neoplasm of djpjyxrd42/28/2024Gross gwodkgfwp02/28/2024High prostate specific antigen (PSA) 09/04/2023Increased frequency of ktesfjxyd99/28/6828Zwnjgapl82/28/2024 Jifnlshwpcwy18/28/2024ost-void qfyqaoyen72/28/2024ecurrent coronary arteriosclerosis after percutaneous transluminal coronary rsplazanpiv01/28/2024 Epigastric pain09/04/2023ight upper quadrant abdominal pain09/04/2023enign essential HTN10/02/2022 Assessment & Plan (10/02/2022 3:24 PM EDT): Hypertension is stable but elevated in office, pt to take b/p at home and staff to call him in 1-2 weeks to review b/p log and determine if antihypertensive regime needs adjusted. Pt voiced understanding Mixed neadmcqtdxhqum75/26/2023 Assessment & Plan (10/02/2022 3:23 PM EDT): Continue lipitor and provided scripts for annual labs Coronary artery disease involving klawock coronary artery of klawock heart without angina zimjehxw61/26/2023 Assessment & Plan (10/02/2022 3:22 PM EDT): Coronary artery disease is stable without any concerning symptoms. Continue GDMT- ASA, lipitor, coreg and losartan continue risk factor modifications- heart healthy diet, regular exercise as tolerated and continue all medications. Refills for meds- scripts sent to pharmacy Atypical chest pain02/12/2019Cardiovascular stress test albaowde22/06/2019 Family History Medical HistoryRelationNameCommentsCoronary artery diseaseFatherRelationName StatusCommentsFatherDeceasedMotherDeceased [...] Recorded Sex Assigned at BirthNot on fileLegal GdfTqoy1510/06/2021 12:21 AM EDTGender IdentityNot on fileSexual OrientationNot on file Last Filed Vital Signs Vital SignReadingTime TakenCommentsBlood Vzkkefjo745/8607 1:51 PM EDT Bsbkh3734 1:51 PM EDTTemperature--Respiratory Rate--Oxygen Uygkpmroaz02% 10/09/2024 1:51 PM EDTInhaled Oxygen Concentration--Aneifj25.1 kg (214 lb) 10/09/2024 1:51 PM GEKEexgiz207.8 cm (5' 10 )10/09/2024 1:51 PM EDTBody Mass Index30.7107 1:51 PM EDT Plan of Treatment Health MaintenanceDue DateLast DoneCommentsCT Rpxyonfahzob69/06/1957Colonoscopy 1955Colorectal Cancer Dofiuoswr26/06/1957FIT-DNA1956FIT1955 FOBT1955 7332Nqgeqrwfcmazd93/06/1957Depression Swomeurwq46/06/1969Adult Tetanus 1978Fall Risk Irmeygmks39/06/2022COVID-19 Vaccine ( season) 5104/10/2020, 07/06/2020, 06/15/2020Influenza Vaccine (#1)2024 04/19/2024, 02/07/2023, 02/18/2022, Additional history existsZoster Vaccines Xtzqwcmkc14/14/2021, 01/02/2020Pneumococcal Vaccine: 50+ YearsCompleted 02/07/2023HIB VaccinesAged OutNo [...] Tate TypeRelation to PatientDate of BirthPhone Billing AddressPersonal/JemghoKvhw60/06/1956 [facility] [address] MemberSubscriberPlan / Payer (Effective 2019-Present)Name:Matt Tate Relation to Subscriber:SelfName:Matt Tate Payer ID:[id number] (NAIC) Type:Not on file Address: [address] [place] [id number] Care Teams Team MemberRelationshipSpecialtyStart DateEnd Noe Orta MD [address] [facility] [address] [address] [facility]10/02/22
--- OUTSIDE RECORDS SUMMARY | 2025-04-01 06:25 | XMS_ITS | Patient Health Record ---
Author Organization [facility] in [place] Address [address] [place] [address] Care Team Providers Care Chipper Machine Operator Name Role Phone You Pranav Primary Care Provider Allergies Allergen (clinical drug ingredient) Drug/Non Drug Allergy documented on EMR Reaction Allergy Type Onset Date Status ciprofloxacin Ciprofloxacin hives Drug Allergy Active Results Component Value Reference Range Notes TRIGLYCERIDE Reviewed date:03/19/2025 05:43:17 PM Interpretation: Performing Lab: Notes/Report: [facility] , Triglycerides 71 <=150 mg/dL Performing Lab:see noteML - [facility] LBCBC AUTO DIFF Reviewed date:03/21/2025 04:22:20 PM Interpretation: Performing Lab: Notes/Report: [facility] ,White Blood Count10.64.0-11.0 10 3/uLRed Blood Count4.834.70-6.10 10 6/uL Bmoweklwzg43.114.0-18.0 g/iJElsyqqhcht52.642.0-54.0 %Mean Corpuscular Cmivzz64.3 80.0-94.0 fLMean Corpuscular Stmizpcsrh30.325.9-34.0 pgMean Corpuscular HGB Conc 33.929.9-35.2 g/dLRed Cell Distribution Width11.911.0-15.0 %Platelet Wotvw438 150-450 10 3/uLMean Platelet Hwdlrt68.99.5-13.5 fLNeutrophils Percent Auto80.3 43.0-75.0 %Lymphocytes Percent Auto9.120.5-60.0 %Monocytes Percent Auto9.01.7- 12.0 %Eosinophils Percent Auto1.00.9-7.0 %Basophils Percent Auto0.30.2-2.0 % Immature Granulocytes Pct Auto0.30.0-0.5 %Neutrophils Absolute Auto8.51.4-6.5 10 3/uLLymphocytes Absolute Auto1.01.2-3.8 10 3/uLMonocytes Absolute Auto1.00.3-0.8 10 3/uLEosinophils Absolute Auto0.10.0-0.7 10 3/uLBasophils Absolute Auto0.00.0- 0.1 10 3/uLImmature Granulocytes Abs Auto0.030.00-0.03 10 3/uLPerforming Lab:see noteML - [facility] LBCT abdomen pelvis w con Reviewed date:03/19/2025 05:43:17 PM Interpretation: Performing Lab: Notes/Report: Source Facility: [place] [address] CT Scan Report Signed Patient: GABRIEL PARDO MR#: [id number] : 1955 Acct:[id number] Age/Sex: 69 / M ADM Date: 03/19/25 Loc: ER Attending Dr: Ordering Physician: Alina Mathews M.D. Date of Service: 03/19/25 Procedure(s): CT abdomen pelvis w con Accession Number(s): [id number] cc: Danny Orta M.D. [place] [id number] Patient Name: GABRIEL PARDO MRN: [facility]:[id number] date: 1955 Sex: M Assigned Patient Location: ER Current Patient Location: ED.MAIN Accession/Order Number: [id number] Exam Date: 03/19/2025 12:57 Report Date: 03/19/2025 [...] Elena M.D. 03/19/2025 1:31 PM Dictation Location: [place] [address] Electronically authenticated by: [id number] Y Date: 03/19/2025 13:31 Dictated By: Matty Elena M.D. Signed By: 03/19/25 1334 DD/ 1331 TD/TT: Operating Room Technologist: right upper quadrant Reviewed date:03/21/2025 04:22:20 PM Interpretation: Performing Lab: Notes/Report: Source Facility: [place] [address] [place] [address] Ultrasound Report Signed Patient: GABRIEL PARDO MR#: [id number] : 1955 Acct:[id number] Age/Sex: 69 / M ADM Date: 03/19/25 Loc: [place] 228-[address]: Silvano Agustin M.D. Ordering Physician: Silvano Agustin M.D. Date of Service: 03/19/25 Procedure(s): US right upper quadrant Accession Number(s): [id number] cc: Silvano Agustin M.D.; Danny Orta M.D. [place] [address] Patient Name: GABRIEL PARDO MRN: [facility]:[id number] date: 1955 Sex: M Assigned Patient Location: MS Current Patient Location: MS Accession/Order Number: [id number] Exam Date: 03/19/2025 16:34 Report Date: 03/19/2025 18:00 At the request of: SILVANO AGUSTIN MD Procedure: US right upper quadrant Ultrasound [...] Nelson M.D. 03/19/2025 6:00 PM Dictation Location: [place] [address] Electronically authenticated by: [id number] Y Date: 03/19/2025 18:00 Dictated By: Gary Nelson M.D. Signed By: 03/19/251802 DD/ 99 TD/TT: Operating Room Technologist:Urine Culture - [facility] Reviewed date:03/21/2025 05:05:02 PM Interpretation: Performing Lab: Notes/Report: [facility] ,[facility] Urine [facility] - [facility]ULT^[facility] RESULT Urine Culture - [facility] SEE SCANNED REPORT, NORMAL^SEE SCANNED REPORT, NORMAL Urine Culture - [facility] SEEFR [facility] RESULT^[facility] RESULT Performing Lab:see noteML - [facility] LBMAGNESIUM Reviewed date:03/19/2025 05:43:17 PM Interpretation: Performing Lab: Notes/Report: [facility] ,Magnesium2.01.8-2.4 mg/dLPerforming Lab:see noteML - [facility] LB PSA Total+% Free Reviewed date:03/03/2025 08:09:36 AM Interpretation: Performing Lab: Notes/Report: [facility] ,Prostate Specific Ag0.60.0-4.0 ng/mL Pierre ECLIA methodology. According to the [place] [employer], Serum PSA should decrease and [...] any other population of men. Performed at: [address] [id number] Bill Checker: Navin Bran PhD, Phone: [phone] Performing Lab:see note - [facility] LBCBC AUTO DIFF Reviewed date:03/21/2025 04:22:20 PM Interpretation: Performing Lab: Notes/Report: [facility] ,White Blood Count7.24.0-11.0 10 3/uLRed Blood Count4.784.70-6.10 10 6/uL Chdhvgrgze57.214.0-18.0 g/sAOrneckwhcn36.242.0-54.0 %Mean Corpuscular Iuregs23.5 80.0-94.0 fLMean Corpuscular Jfztodfaae37.825.9-34.0 pgMean Corpuscular HGB Conc 34.429.9-35.2 g/dLRed Cell Distribution Width11.911.0-15.0 %Platelet Fxzdi959 150-450 10 3/uLMean Platelet Dwtjpz71.79.5-13.5 fLNeutrophils Percent Auto70.2 43.0-75.0 %Lymphocytes Percent Auto15.020.5-60.0 %Monocytes Percent Auto9.71.7- 12.0 %Eosinophils Percent Auto4.60.9-7.0 %Basophils Percent Auto0.40.2-2.0 % Immature Granulocytes Pct Auto0.10.0-0.5 %Neutrophils Absolute Auto5.11.4-6.5 10 3/uLLymphocytes Absolute Auto1.11.2-3.8 10 3/uLMonocytes Absolute Auto0.70.3-0.8 10 3/uLEosinophils Absolute Auto0.30.0-0.7 10 3/uLBasophils Absolute Auto0.00.0- 0.1 10 3/uLImmature Granulocytes Abs Auto0.010.00-0.03 10 3/uLPerforming Lab:see noteML - [facility] LBPROF 14(COMP METB) Reviewed date:03/21/2025 04:22:20 PM Interpretation: Performing Lab: Notes/Report: [facility] ,Grvxye106421-911 mmol/LPotassium3.83.5-5.1 mmol/VAjnxinmn13445-505 mmol/LCarbon Uoxkfxf13.621.0-32.0 mmol/LAnion Gap9.8Icxuvlm1690-791 mg/dLBlood Urea Nitrogen 9.07.0-18.0 mg/dLCreatinine0.830.70-1.30 mg/dLEstimated GFR ( Dianna>60 >=60 mL/min/1.73m 2Estimated GFR (Non- Barby>60>=60 mL/min/1.73m 2BUN Creatinine Ratio10.6Jhpkxyn0.98.5-10.1 mg/dLBilirubin Total1.40.2-1.0 mg/dL Aspartate Amino Yqgnklvgpdt6043-15 U/LAlanine Vqixjauegdcenmol0924-23 U/L Alkaline Ezluasqpvqn4438-784 U/LTotal Protein6.36.4-8.2 g/dLAlbumin Level3.13.4- 5.0 g/dLGlobulin3.2Albumin Globulin Ratio1.0Performing Lab:see noteML - [facility] LBMAGNESIUM Reviewed date:03/21/2025 04:22:20 PM Interpretation: Performing Lab: Notes/Report: [facility] ,Magnesium1.71.8-2.4 mg/dLPerforming Lab:see noteML - [facility] LB PROF 14(COMP METB) Reviewed date:03/21/2025 04:22:20 PM Interpretation: Performing Lab: Notes/Report: [facility] ,Bodcyf210590-955 mmol/LPotassium4.13.5-5.1 mmol/CHsihacsd11446-969 mmol/LCarbon Glecvtg92.221.0-32.0 mmol/LAnion Gap10.0Szukytn6815-635 mg/dLBlood Urea Nitrogen 10.07.0-18.0 mg/dLCreatinine0.980.70-1.30 mg/dLEstimated GFR ( Dianna>60 >=60 mL/min/1.73m 2Estimated GFR (Non- Barby>60>=60 mL/min/1.73m 2BUN Creatinine Ratio10.7Plxpgwq9.18.5-10.1 mg/dLBilirubin Total1.30.2-1.0 mg/dL Aspartate Amino Qkjgkkwjvxj0548-88 U/LAlanine Vjnnqxomykyilcdz9081-67 U/L Alkaline Xhmqltzsvmn5811-241 U/LTotal Protein6.76.4-8.2 g/dLAlbumin Level3.13.4- 5.0 g/dLGlobulin3.6Albumin Globulin Ratio0.9Performing Lab:see noteML - [facility] LBMAGNESIUM Reviewed date:03/21/2025 04:22:20 PM Interpretation: Performing Lab: Notes/Report: [facility] ,Magnesium1.91.8-2.4 mg/dLPerforming Lab:see noteML - [facility] LBXR chest 1V Reviewed date:03/19/2025 01:03:38 PM Interpretation: Performing Lab: Notes/Report: Source Facility: [place] [address] XRay Report Signed Patient: GABRIEL PARDO MR#: [id number] : 1955 Acct:[id number] Age/Sex: 69 / M ADM Date: 03/19/25 Loc: ER Attending Dr: Ordering Physician: Alina Mathews M.D. Date of Service: 03/19/25 Procedure(s): XR chest 1V Accession Number(s): [id number] cc: Danny Orta M.D.; Alina Mathews M.D. [place] [address] Patient Name: GABRIEL PARDO MRN: [facility]:[id number] date: 1955 Sex: M Assigned Patient Location: ER Current Patient Location: ED.MAIN Accession/Order Number: [id number] Exam Date: 03/19/2025 12:30 Report Date: 03/19/2025 12:49 At the request of: ALIAN MATHEWS MD Procedure: XR chest 1V PORTABLE [...] Ayala M.D. 03/19/2025 12:49 PM Dictation Location: [place] [address] Electronically authenticated by: [id number] Y Date: 03/19/2025 12:49 Dictated By: Parul Ayala M.D. Signed By: 03/19/25 1252 DD/ 1249 TD/TT: Operating Room Technologist:Troponin I High Sensitivity Reviewed date:03/19/2025 01:03:38 PM Interpretation: Performing Lab: Notes/Report: [facility] ,Troponin I High Sensitivity8.54.0-76.1 pg/mL CUT-OFF POINTS HAVE BEEN ESTABLISHED BASED ON THE FOURTH UNIVERSAL DEFINITION OF MYOCARDIAL INFARCTION. THE UPPER REFERENCE LIMIT (URL) OF TROPONIN, DEFINED THE 99TH PERCENTILE OF cTnI DISTRIBUTION IN A REFERENCE POPULATION, HAS BEEN CONFIRMED THE DECISION THRESHOLD FOR [place] DIAGNOSIS. 99TH PERCENTILE = 76.2 PG/ML NOTE: HIGH-SENSITIVITY TROPONIN ASSAY IS NOT INTENDED TO BE USED IN ISOLATION BUT SHOULD BE INTERPRETED IN CONJUNCTION WITH OTHER DIAGNOSTIC AND CLINICAL INFORMATION. Performing Lab:see noteML - [facility] LBUA RANDOM W or MICROSCOPIC Reviewed date:03/19/2025 12:47:00 PM Interpretation: Performing Lab: Notes/Report: [facility] ,Color UrineYELLOWYELLOWClarity UrineCLEARCLEARSpecific [place] Urine1.025 1.005-1.025pH Urine6.05.0-9.0Protein UrineNEGATIVENEG/TRACE mg/dLGlucose Urine UANEGATIVENEGATIVE mg/dLBilirubin UrineSMALLNEGATIVEKetones Jhcpw15ZJNIBRVN mg/dLBlood UrineNEGATIVENEGATIVENitrite UrineNEGATIVENEGATIVEUrobilinogen Urine 1.00.2-1.0 EU/dLLeukocyte Esterase UrineNEGATIVENEGATIVEWBC Urine0-2NONE SEEN #/HPFRBC Urine0-20-2 #/HPFBacteria UrineNONE SEENNONE SEEN #/HPFMucus UrineTRACE NONE SEENSquamous Epithelial Cell UrineRARENONE/RARE #/LPFCrystals Seen?None SeenNone Seen #/HPFCast Seen?NONE SEENNONE SEEN #/LPFUrine Culture IndicatedNO Performing Lab:see noteML - [facility] LBPROF CHEM 8 (BAS METB) Reviewed date:03/19/2025 01:03:38 PM Interpretation: Performing Lab: Notes/Report: [facility] ,Frwusy648393-962 mmol/LPotassium4.03.5-5.1 mmol/VFnpeirdy36497-146 mmol/LCarbon Rkvbcvv13.121.0-32.0 mmol/LAnion Gap8.4Jzwwhwd91198-751 mg/dLBlood Urea Nitrogen 12.07.0-18.0 mg/dLCreatinine1.040.70-1.30 mg/dLEstimated GFR ( Dianna>60 >=60 mL/min/1.73m 2Estimated GFR (Non- Barby>60>=60 mL/min/1.73m 2BUN Creatinine Ratio11.4Dixjzak5.68.5-10.1 mg/dLPerforming Lab:see noteML - [facility] LBLIVER PROFILE Reviewed date:03/19/2025 01:03:38 PM Interpretation: Performing Lab: Notes/Report: [facility] ,Bilirubin Total1.30.2-1.0 mg/dLBilirubin Direct0.40.0-0.2 mg/dLAspartate Amino Ghtrlccpzbk7097-53 U/LAlanine Qjepcvlnigatwabj7666-50 U/LAlkaline Mqeosnezxqk31 46-116 U/LTotal Protein7.36.4-8.2 g/dLAlbumin Level3.83.4-5.0 g/dLGlobulin3.5 Albumin Globulin Ratio1.1Performing Lab:see noteML - [facility] LB LIPASE Reviewed date:03/19/2025 01:03:38 PM Interpretation: Performing Lab: Notes/Report: [facility] ,Vvzxhm651.016.0-77.0 U/LPerforming Lab:see noteML - [facility] LBCBC AUTO DIFF Reviewed date:03/19/2025 12:47:00 PM Interpretation: Performing Lab: Notes/Report: [facility] ,White Blood Count12.74.0-11.0 10 3/uLRed Blood Count5.154.70-6.10 10 6/uL Zptlnikhri31.614.0-18.0 g/aDNxejtvvrxa94.642.0-54.0 %Mean Corpuscular Eeqfgc07.4 80.0-94.0 fLMean Corpuscular Accwxhgpab06.225.9-34.0 pgMean Corpuscular HGB Conc 34.929.9-35.2 g/dLRed Cell Distribution Width11.811.0-15.0 %Platelet Qkktk717 150-450 10 3/uLMean Platelet Ngippq18.59.5-13.5 fLNeutrophils Percent Auto82.5 43.0-75.0 %Lymphocytes Percent Auto8.520.5-60.0 %Monocytes Percent Auto7.71.7- 12.0 %Eosinophils Percent Auto0.70.9-7.0 %Basophils Percent Auto0.30.2-2.0 % Immature Granulocytes Pct Auto0.30.0-0.5 %Neutrophils Absolute Auto10.51.4-6.5 10 3/uLLymphocytes Absolute Auto1.11.2-3.8 10 3/uLMonocytes Absolute Auto1.00.3- 0.8 10 3/uLEosinophils Absolute Auto0.10.0-0.7 10 3/uLBasophils Absolute Auto0.0 0.0-0.1 10 3/uLImmature Granulocytes Abs Auto0.040.00-0.03 10 3/uLPerforming Lab:see noteML - [facility] LBAMYLASE Reviewed date:03/19/2025 01:03:38 PM Interpretation: Performing Lab: Notes/Report: [facility] ,Ykmrbra7862-494 U/LPerforming Lab:see [facility] - [facility] LBECG 12 lead Reviewed date:03/19/2025 05:43:17 PM Interpretation: Performing Lab: Notes/Report: Source Facility: [facility]-[address] [place] [address] [place] [address] Electrocardiograph Report Signed Patient: GABRIEL PARDO MR#: [id number] : 1955 Acct:[id number] Age/Sex: 69 / M ADM Date: 03/19/25 Loc: ER Attending Dr: Ordering Physician: Alina Mathews M.D. 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 Signed By: 03/19/25 155 DD/ 1210 TD/TT: Operating Room Technologist: Reason For Referral Reason Chronic pancreatitis Diagnosis 1 Pancreatitis, acute (K85.90) Referral Organization [facility] Referring Provider First Name Pranav Referring Provider Last Name You Referring Provider [facility]erred Provider Yasir Abrams Referred Provider Specialty Gastroentero logy Referral Priority Routine Medications Medication SIG (Take, Route, Frequency, Duration) Notes Start Date End Date Status Aspirin 81 MG 1 capsule Orally Once a day ActiveFinasteride 5 MG1 tablet Orally Once a dayActiveTriamcinolone Acetonide 0.1 %1 application Externally bid5ActiveAtorvastatin Calcium 80 MG1 tablet Orally Once a dayActiveCarvedilol 12.5 MG1 tablet with food Orally Twice a dayActiveLosartan Potassium 50 MG1 tablet Orally Once a dayActive Social History Tobacco [...] or more times a week (4 points) Adsqkn4TsbuvqmydavtgxMlknnrok Problems Problem Type SNOMED Code ICD Code Onset Dates Problem Status W/U Status Risk Notes Problem Essential hypertension (16710246 ) Essential (primary) hypertension (I10) ActiveconfirmedProblemHyperlipidemia (62592736)Hyperlipidemia, unspecified (E78.5)ActiveconfirmedProblemAtherosclerotic heart disease of [place] coronary artery without angina pectoris (407306966796056)Atherosclerotic heart disease of [place] coronary artery without angina pectoris (I25.10)ActiveconfirmedProblem Acute pancreatitis (433531316)Pancreatitis, acute (K85.90)Activeconfirmed Vital Signs Blood pressure diastolic 80 mm Hg 03/23/2025 Vpfvii52 in03/23/2025lood pressure qualeakv632 mm Hg03/23/20254998Hwfrsj764 lbs 03/23/2025BMI31.56 kg/m203/23/2025 Encounters Encounter Location Date Provider Diagnosis [facility] [address] [place] [address] 03/19/2025 Pranav Hoy Urinary tract infection N39.0 [facility] [address] [place] [address] 03/24/2025 Pranav Hoy Pancreatitis, acute K85.90 [facility] [address] [facility] [place] [address] 03/25/2025 Pranav Hoy [facility] [place] [address] 03/23/2025Doug HoyPancreatitis, acute K85.90 Assessments Encounter Date Diagnosis (ICD Code) Assessment Notes Treatment Notes Treatment Clinical Notes Section Notes 03/23/2025 Pancreatitis, acute (ICD-10 - K8 5.90) 03/19/2025Urinary tract infection (ICD-10 - N39.0)03/24/2025Pancreatitis, acute (ICD-10 - K85.90) Plan Of Treatment Pending Test Test Name Order Date CULTURE URINE 03/19/2025 NM thyroid w uptake 03/23/2025 HIDA w/EF 03/24/2025 Insurance Providers Payer Name Payer Address Payer Phone Subscriber Number Group Number Insured Name Patient Relationship to Insured Coverage Start Date Coverage End Date JOHN MONTENEGRO [address] [place]TI[place] [phone] [id number] Char, DeanSelf - patient is the insuredFORMERLY [facility] INSURANCE COMPANYPO [address] [place] [id number], DeanSelf - patient is the insured Medical (General) History Surgical History Surgery Date(Month/Year) achilles right pinky finger resetright knee torn menicus
--- OUTSIDE RECORDS SUMMARY | 2025-04-01 06:25 | XMS_ITS | Clinical Summary ---
Author Organization [facility] Address [address] [place] [address] Care Team Providers Care Divine Healer Name Role Phone Unavailable Primary Care Provider Unavailabl e Social History Tobacco UseTypesPacks/DayYears UsedDateSmoking Tobacco: Never AssessedSex and Gender InformationValueDate RecordedSex Assigned at BirthNot on fileLegal Sex Male06/21/2022 7:35 PM EDTGender IdentityNot on fileSexual OrientationNot on file Plan of Treatment Not on file
--- OUTSIDE RECORDS SUMMARY | 2025-04-01 06:25 | XMS_ITS | Clinical Summary ---
Author Organization [facility] Address [address] [place] [address] Care Team Providers Care Cutting Supervisor Name Role Phone Noe Orta MD Primary Care Provider [phone] Social History Tobacco UseTypesPacks/DayYears UsedDateSmoking Tobacco: Never AssessedSex and Gender InformationValueDate RecordedSex Assigned at BirthNot on fileLegal Sex Male03/10/2012 9:49 AM ESTGender IdentityNot on fileSexual OrientationNot on file Plan of Treatment Health MaintenanceDue DateLast DoneCommentsAnxiety Xndlamgsu26/06/1975Depression Ppntyslaz97/06/1975Hepatitis C Mgpcatsqk16/06/1975DTaP,Tdap,Td Vaccine (1 - Tdap)08/13/1975Lipid Nbsymvqhz74/06/1992CT Iodsxkgvcsqq20/06/2002Cologuard (FIT-DNA)08/12/20015786Ozaewiallmp74/06/2002Colorectal Cancer Sipskgugf42/06/2002 Diabetes Vnzcmrwit80/06/2002Fecal Occult Blood2001Prostate Cancer Screening Rezzuijnrc53/06/6955Jcflpyugrswwy62/06/2002Pneumococcal Vaccine: 50+ (1 of 1 - PCV)2006Shingrix Vaccine (1 of 2)2006dvance Directive Zvkfdoigga51/01/2025ovid-19 Vaccine (1 - 2024-26 season)2024Influenza Vaccine (#1)2024RSV Vaccine (1 - 1-dose 75+ series)08/13/2031 Insurance * Guarantor: Kenia Tate TypeRelation to PatientDate of BirthPhoneBilling AddressPersonal/PolxcgYzfz76/06/1956 [address] [address] Care Teams Team MemberRelationshipSpecialtyStart DateEnd Date Noe Orta MD [address] [place] [address] [facility] - [facility]07/29/01
[2025-04-01] MEDS: SODIUM CHLORIDE 0.9% IV (07:38)
[2025-04-01] MEDS: SINCALIDE IV (07:38)
== END 2025-04-01 06:23 | disposition home or self-care (01) ==
LOC: NM 06:22
PROVIDERS: PCP Family Medicine; Visit Provider Family Medicine
DX: K85.90 Acute pancreatitis without necrosis or infection, unspecified (principal)
CPT/HCPCS: 78227; A9537; J2805